=== PATIENT | female | born 1985 | race African-American/Black ===

== ENCOUNTER → 2017-07-26 12:08 | Outpatient (CLI) | payer MEDICARE, MEDICAID, SELFPAY ==
[2017-07-26 13:17] LABS: Amphetamine Urine VISTA NEGATIVE (<1000 ng/mL); Barbiturate Urine VISTA NEGATIVE (< 200 ng/mL); Benzodiazepine Urine VISTA NEGATIVE (< 200 ng/mL); Cocaine Urine VISTA NEGATIVE (< 300 ng/mL); Ecstacy Urine VISTA NEGATIVE (< 500 ng/mL); Methadone Urine VISTA NEGATIVE (< 300 ng/mL); PCP Urine VISTA NEGATIVE (< 25 ng/mL); THC Urine VISTA NEGATIVE (< 50 ng/mL); Vista UDS pH Range 7
== END ==
PROVIDERS: Visit Provider Anesthesiology Pain Medicine
DX: F11.20 Opioid dependence, uncomplicated (principal)
CPT/HCPCS: 80307

== ENCOUNTER → 2017-12-08 10:40 | Outpatient (CLI) | payer MEDICARE, MEDICAID, SELFPAY ==
--- OUTSIDE RECORDS SUMMARY | 2017-12-07 14:01 | XMS RPT_ITS ---
:1985 Author Organization OHIP Care Team Providers Name Role Phone VALENTINA MONCADA Admitting Unavailable VALENTINA MONCADA Attending Unavailable VALENTINA MONCADA Referring Unavailable AMADO EASTMAN Consulting Unavailable VALENTINA MONCADA Admitting Unavailable VALENTINA MONCADA Attending Unavailable KENYON BRYAN Consulting Unavailable CADENCE MONTANA (RES) Attending Unavailable AVEL EMMANUEL Admitting Unavailable AVEL EMMANUEL Attending Unavailable INGE JHA Attending Unavailable ANTWAN, VALENTINA Attending Unavailable ANTWAN, VALENTINA Attending Unavailable ANTWAN, VALENTINA Attending Unavailable ANTWAN, VALENTINA Attending Unavailable ANTWAN, VALENTINA Attending Unavailable DIWAKAR, ROMELIA Attending Unavailable PETRONA PARMAR Referring Unavailable WLAE RUELAS Admitting Unavailable WALE RUELAS Attending Unavailable FRITZ MENDES Attending Unavailable KOLE RODRIGUEZ, PETRONA MORALES Attending Unavailable PETRONA PARMAR Referring Unavailable ANTWAN, VALENTINA Attending Unavailable DIWAKAR, ROMELIA Attending Unavailable DIWAKAR, ROMELIA Referring Unavailable ANTWAN, VALENTINA Attending Unavailable CADENCE MONTANA (RES) Attending Unavailable Onel Correa Attending Unavailable Irineo, Christine Referring Unavailable Irineo, Christine Primary Care Unavailable Dianna Patterson Attending Unavailable Irineo, Christine Referring Unavailable Irineo, Christine Primary Care Unavailable Dianna Patterson Attending Unavailable Irineo, Christine Referring Unavailable Irineo, Christine Primary Care Unavailable Dianna Patterson Attending Unavailable Irineo, Christine Referring Unavailable Irineo, Christine Primary Care Unavailable Onel Correa Attending Unavailable PROVIDER, UNKNOWN Referring Unavailable Diwakar, Romelia Primary Care Unavailable Onel Correa Attending Unavailable Irineo, Christine Referring Unavailable Irineo, Christine Primary Care Unavailable Onel Correa Attending Unavailable PROVIDER, UNKNOWN Referring Unavailable Diwakar, Romelia Primary Care Unavailable Onel Correa Attending Unavailable PROVIDER, UNKNOWN Referring Unavailable Diwakar, Romelia Primary Care Unavailable Onel Correa Attending Unavailable PROVIDER, UNKNOWN Referring Unavailable Diwakar, Romelia Primary Care Unavailable PETRONA PIERRE Admitting Unavailable PETRONA PIERRE Attending Unavailable DIWAKAR, ROMELIA Attending Unavailable DIWAKAR, ROMELIA Referring Unavailable DIWAKAR, ROMELIA Primary Care Unavailable DIWAKAR, ROMELIA Attending Unavailable DIWAKAR, ROMELIA Referring Unavailable DIWAKAR, ROMELIA Primary Care Unavailable ANTWAN, CHRISTOPHER R Referring Unavailable DIWAKAR, ROMELIA Primary Care Unavailable ANTWAN, CHRISTOPHER R Referring Unavailable DIWAKAR, ROMELIA Primary Care Unavailable ANTWANGIN R Attending Unavailable IMCA Referring Unavailable DIWAKAR, ROMELIA Primary Care Unavailable ANTWAN, GIN R Attending Unavailable IMCA Referring Unavailable DIWAKAR, ROMELIA Primary Care Unavailable PIERREPETRONA J Attending Unavailable PIERRE, PETRONA J Referring Unavailable DIWAKAR, ROMELIA Primary Care Unavailable PIERRE, PETRONA J Attending Unavailable PIERRE, PETRONA J Referring Unavailable DIWAKAR, ROMELIA Primary Care Unavailable DIWAKAR, ROMELIA Primary Care Unavailable Abby MENDES Attending Unavailable PIERRE, PETRONA J Attending Unavailable PIERRE, PETRONA J Referring Unavailable DIWAKAR, ROMELIA Primary Care Unavailable ANTWANGIN Attending Unavailable IMCA Referring Unavailable DIWAKAR, ROMELIA Primary Care Unavailable PIERRE, PETRONA J Attending Unavailable PIERRE, PETRONA J Referring Unavailable DIWAKAR, ROMELIA Primary Care Unavailable GIN MONCADA Attending Unavailable IMCA Referring Unavailable DIWAKAR, ROMELIA Primary Care Unavailable GIN MONCADA Attending Unavailable IMCA Referring Unavailable DIWAKAR, ROMELIA Primary Care Unavailable WALE RUELAS Admitting Unavailable WALE RUELAS Attending Unavailable DIWAKAR, ROMELIA Primary Care Unavailable AVEL EMMANUEL Admitting Unavailable AVEL EMMANUEL Attending Unavailable DIWAKAR, ROMELIA Primary Care Unavailable PIERREPETRONA Attending Unavailable PIERRE, PETRONA J Referring Unavailable DIWAKAR, ROMELIA Primary Care Unavailable GIN MONCADA Attending Unavailable IMCA Referring Unavailable DIWAKAR, ROMELIA Primary Care Unavailable DIWAKAR, ROMELIA Primary Care Unavailable CADENCE MONTANA Attending Unavailable DIWAKAR, ROMELIA Primary Care Unavailable GIN MONCADA Admitting Unavailable GIN MONCADA Attending Unavailable WOO MEI Consulting Unavailable DUMFORD IIIKENYON Consulting Unavailable PIERRE, PETRONA J Attending Unavailable PIERRE, PETRONA J Referring Unavailable DIWAKAR, ROMELIA Primary Care Unavailable PIERREPETRONA J Attending Unavailable PIERRE, PETRONA J Referring Unavailable DIWAKAR, ROMELIA Primary Care Unavailable ANTWANGIN R Attending Unavailable IMCA Referring Unavailable DIWAKAR, ROMELIA Primary Care Unavailable ANTWANGIN R Admitting Unavailable ANTWANGIN R Attending Unavailable DIWAKAR, ROMELIA Primary Care Unavailable ANTWAN, GIN R Referring Unavailable AMADO EASTMAN Consulting Unavailable PIERRE, PETRONA J Referring Unavailable DIWAKAR, ROMELIA Attending Unavailable IMCA Referring Unavailable CANDIDA WERNER Attending Unavailable IMCA Referring Unavailable ANTWAN, LAER R Attending Unavailable IMCA Referring Unavailable ANTWAN, LAER R Attending Unavailable IMCA Referring Unavailable ANTWAN, CHRISTOPHER R Attending Unavailable IMCA Referring Unavailable DIWAKAR, ROMELIA Attending Unavailable DIWAKAR, ROMELIA Primary Care Unavailable CADENCE MONTANA Attending Unavailable PIERRE, PETRONA Herring Attending Unavailable PIERRE, PETRONA J Referring Unavailable DIWAKAR, ROMELIA Primary Care Unavailable ANTWAN, CHRISTOPHER R Attending Unavailable IMCA Referring Unavailable DIWAKAR, ROMELIA Primary Care Unavailable DIWAKAR, ROMELIA Attending Unavailable IMCA Referring Unavailable DIWAKAR, ROMELIA Primary Care Unavailable DIWAKAR, ROMELIA Primary Care Unavailable INGE JHA Attending Unavailable Darío Cast Attending Unavailable Darío Cast Referring Unavailable MITCH SAAVEDRA Primary Care Unavailable PROBLEMS PROBLEMS DATE TYPE CONDITION / CODE ATTENDING STATUS SOURCE 11/26/2017 Active Poisoning by CADENCE MONTANA [facility] unspecified drugs, (RES) Clinic Other medicaments and [place] biological Repository substances, undetermined, initial encounter / T50.904A(ICD-10) 09/02/2017 Active Diarrhea, VALENTINA MONCADA [facility] unspecified / Clinic Other R19.7(ICD-10) [place] Repository 09/02/2017 Active Complication of VALENTINA MONCADA [facility] Other medical care, [place] unspecified, Repository subsequent encounter / T88.9XXD(ICD-10) 07/26/2017 Unknown F11.20 - Opioid Basali, Ayman Active [place] [facility] uncomplicated / Hospital F11.20(ICD-10) Repository 01/21/2016 Active Generalized DIWAKAR, 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 Clinic Other and epileptic [place] syndromes, not Repository intractable, without status epilepticus / G40.309(ICD-10) 11/19/2015 Active Generalized DIWAKAR, ROMELIA Active [facility] abdominal pain / Clinic Other R10.84(ICD-10) [facility] Repository 07/12/2017 Active Cough / R05(ICD-10) DIWAKAR, ROMELIA [facility] Other [place] Repository 07/12/2017 Active Acute upper ROEMLIA CARDENAS Active [facility] Other infection, [place] unspecified / Repository J06.9(ICD-10) 06/15/2017 Active Lower abdominal ANTWANVALENTINA Active [facility] pain, unspecified / Clinic Other R10.30(ICD-10) [facility] Repository 06/08/2017 Active Acquired absence of ANTWANVALENTINA [facility] other specified Clinic Other parts of digestive [place] tract / Repository Z90.49(ICD-10) 06/05/2017 Active Other acute JHA, [facility] postprocedural pain INGE NATE [facility] Other / G89.18(ICD-10) [place] Repository 06/02/2017 Active 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 EMMANUELAVEL CASTREJON Active [facility] inflammatory D [facility] Other disease, [place] unspecified / Repository N73.9(ICD-10) 05/30/2017 Active Other mechanical CADENCE MONTANA Active [facility] complication of (RES) Clinic Other other specified [place] internal prosthetic Repository devices, implants and grafts, initial encounter / T85.698A(ICD-10) 05/29/2017 Active Infection following ANTWANVALENTINA Michaud Active [facility] a procedure, Clinic Other initial encounter / [place] T81.4XXA(ICD-10) Repository 05/24/2017 Active Moderate ANTWANVALENTINA Michaud Active [facility] protein-calorie Clinic Other malnutrition / [place] E44.0(ICD-10) Repository 05/29/2017 Admitting Unknown / ANTWAN, Active [place] diagnosis UNK(Unknown) [facility] Repository 05/21/2017 Active Peritoneal ANTWANVALENTINA Active [facility] adhesions Clinic Other (postprocedural) [place] (postinfection) / Repository K66.0(ICD-10) 05/21/2017 Active Unspecified ANTWANVALENTINA Active [facility] abdominal pain / Clinic Other R10.9(ICD-10) [facility] Repository 05/18/2017 Active Left lower quadrant ANTWANVALENTINA Active [facility] pain / Clinic Other R10.32(ICD-10) [place] Repository 04/19/2017 Admitting Other care home Onel Correa Active [facility] Diagnosis (current) drug System therapy / Repository Z79.899(ICD-10) 04/08/2017 Active Nonscarring hair ROMELIA CARDENAS Active [facility] loss, unspecified / Clinic Other L65.9(ICD-10) [facility] Repository 04/08/2017 Active Encounter for ROMELIA CARDENAS Active [facility] screening for other Clinic Other suspected endocrine [place] disorder / Repository Z13.29(ICD-10) 04/08/2017 Active Encounter for ROMELIA CARDENAS Active [facility] screening for Clinic Other lipoid disorders / [place] Z13.220(ICD-10) Repository 04/08/2017 Active Vitamin D ROMELIA CARDENAS Active [facility] deficiency, Clinic Other unspecified / [place] E55.9(ICD-10) Repository 04/01/2017 Active Unknown / ANTWANVALENTINA [facility] UNK(Unknown) Clinic Other [place] Repository 02/25/2017 Active Pelvic and perineal ANTWAN, [facility] pain / Clinic Other R10.2(ICD-10) [place] Repository 02/25/2017 Active Other chronic pain ANTWANVALENTINA [facility] / G89.29(ICD-10) Clinic Other [place] Repository 02/25/2017 Active Constipation, ANTWAN, [facility] unspecified / Clinic Other K59.00(ICD-10) [place] Repository PROCEDURES PROCEDURES No Procedure Records FoundRESULTS RESULTS URINE DRUG SCREEN Collected: 12/07/2017 Status: P Source: [place] ([place]) 12:14 PM [facility] REPOSITORY Order Comment: Comments: [id number] URINE DRUG SCREEN RUN LOWEST TESTList of Drugs Taken or Suspected? UNK TYPE CODE TESTS RESULT OUT OF RANGE REFERENCE UNITS LAB L505.0075 Normal TO BE CONFIRMED Result Comment: CONFIRMATORY TESTING FOR ALL POSITIVE URINE DRUG SCREENRESULTS WILL ONLY BE SENT OUT UPON PHYSICIAN ORDER.[place] Urine Drug Screen methods provide only preliminaryanalytical test results. A more specific alternate chemicalmethod must be used in order to obtain a confirmedanalytical result. Gas chromatography/mass spectrometery(GC/MS) is the preferred confirmatory method. Clinicalconsideration and professional judgement should be appliedto any drug of abuse test result, particularly whenpreliminary positive results are used.URINE TCA TESTING MUST BE ORDERED SEPARATELY. USE TESTMNEMONIC: UTCA Performed By: #### L505.5000 ####[facility] [id number] [place], [address] ED PROV NOTE Observed: 11/26/2017 Status: COMPLETED Source: [place] 11:18 AM [facility] REPOSITORY HNO ID: [id number]: MARY ANN Saucedaervice: Emergency MedicineAuthor Type: PhysicianType: ED Provider NotesFiled: 11/26/2017 11:37 PMNote Text:ED Signout NoteAugust 2017 11:18 AMPatient signed out to me by Dr. Jacinto.Brief History:Patient is a 32 year old female who presented to the ED for amsunresponsive.Per initial resident provider, initial differential most likely opiateoverdose / tox.Initial Labs: Basic Metabolic Panel and Complete Blood CountInitial Imaging: NoneInitial Treatment: naloxone x 2At time of sign out:: BP 129/93 Pulse 79 Temp 36.5 ?C (97.7 ?F) (Oral) Resp (!) 8 Ht172.7 cm (5' 8) Wt 59 kg (130 lb) SpO2 96% BMI 19.77 kg/m?Pending items are: Observe for clinical sobrietyFinal Disposition:Patient observed until clinical sobriety. Patient alert and oriented ?3able to answer questions appropriately. Patient able to ambulate withoutdifficulty. Mother at bedside. Patient was just be discharged home, shewill be discharged home with her mother. Both are comfortable with theplan. Return to ED and follow-up instructions were provided.Sally Xavier (Res) Geovani, PBVtapyxmw51/11/18 1127Attending NoteI evaluated the patient and personally participated in the cutler components. I agree with the resident's findings and plan as documented and havediscussed the case and management of the patient 's care with the resident.ED Attending Continuation of Care NoteAugust 2017 11 :35 Priti Marr was endorsed to me by Dr. Oseguera.The patient initially presented to the ED for: overdosePatient ambulated and tolerated po prior to going home with mother.Parameters of when to return to the ED were explained and specified in thedischarge instructions.Maureen Yeh MD11/26/17 2336Asharon Montana MD11/26/17 2337 ED NOTE Observed: 11/26/2017 Status: COMPLETED Source: [place] 11:00 AM CLINIC OTHER CAMPUS REPOSITORY HNO ID: [id number]: Yesenia (Rn) KARL Melendezervice: Emergency MedicineAuthor Type: Registered NurseType: ED NotesFiled: 11/26/2017 11:23 AMNote Text: Pt ambulated slowly to BR with out assist. Pt still sleepy. Pt going homewith mom. HEMOGRAM/DIFF Collected: 11/26/2017 Status: F Source: [facility] 7:12 AM [facility] REPOSITORY TYPE CODE TESTS RESULT OUT OF REFERENCE UNITS RANGE LAB WBC(LOINC) High 3.98-10.04 thou/cmm WBC 14.56 LAB RBC(LOINC) Low 3.93-5.22 mil/cmm RBC 3.77 LAB HGB(LOINC) 11.2-15.7 g/dL Hgb 11.4 LAB HCT(LOINC) 34.1-44.9 % Hct 34.6 LAB MCV(LOINC) 79.4-94.8 fl MCV 91.8 LAB MCH(LOINC) 25.6-32.2 pg MCH 30.2 LAB MCHC(LOINC 31.6-34.8 % ) MCHC 32.9 LAB RDW(LOINC) 11.7-14.4 % RDW 13.7 LAB RDWSD(LOIN High 36.4-46.3 fl C) RDW SD 46.4 LAB PLT(LOINC) 182-369 thou/cmm Platelet 277 LAB MPV(LOINC) 9.4-12.3 fl MPV 10.4 LAB SEG(LOINC) % Seg 85.1 Neutrophil LAB IGRE(LOINC % ) Immature 0.60 Grans LAB LYMPH(LOIN % C) Lymphocyte 9.5 LAB MNO(LOINC) % Monocyte 4.5 LAB EOSIN(LOIN % C) Eosinophil 0.1 LAB BASO(LOINC % ) Basophil 0.2 LAB SEGN(LOINC High 1.56-6.13 thou/cmm ) Abs. Neut 12.39 (ANC) LAB IGAB(LOINC High 0.00-0.05 thou/cmm ) Abs Immature 0.09 Grans LAB LYMN(LOINC 1.18-3.74 thou/cmm ) Abs. Lymph 1.38 LAB MONON(LOIN 0.27-0.70 thou/cmm C) Abs. [place] 0.66 LAB EOSN(LOINC 0.00-0.31 thou/cmm ) Abs. Eosin 0.01 LAB BASON(LOIN 0.01-0.08 thou/cmm C) Abs. Baso 0.03 Result Comment: Smear scanned; tech agrees with automated differential Performed By: #### CBCD1 ####[place] [id number] BASIC PANEL Collected: 11/26/2017 Status: F Source: [facility] 7:12 AM HEALTH SYSTEM REPOSITORY TYPE CODE TESTS RESULT OUT OF REFERENCE UNITS RANGE LAB NA(LOINC) Low 136-145 mEq/L Sodium Blood 132 LAB K(LOINC) 3.5-5.1 mEq/L Potassium 4.0 Blood LAB CL(LOINC) 98-107 mEq/L Chloride 100 Blood LAB CO2(LOINC) 21-32 mEq/L CO2 Blood 26 LAB GLU(LOINC) 70-99 mg/dL Glucose Blood 93 LAB BUN(LOINC) 7-18 mg/dL BUN Blood 13 LAB CREA(LOINC 0.51-0.95 mg/dL ) Creatinine 0.74 Blood LAB CA(LOINC) 8.5-10.1 mg/dL Calcium Blood 9.0 LAB ANGAP(LOIN 8-16 C) Anion Gap 10 Performed By: #### P8 ####[place] [address] MDRD GFR Collected: 11/26/2017 Status: F Source: [facility] 7:12 AM HEALTH SYSTEM REPOSITORY TYPE CODE TESTS RESULT OUT OF RANGE REFERENCE UNITS LAB GFRFN(LOINC >60mL/min/1. ) eGFR >60 73m2 Result Comment: If the patient is , multiply the result by 1.210. Performed By: #### GFR ####[place] [address] ED NOTE Observed: 11/26/2017 Status: COMPLETED Source: [place] 6:38 AM CLINIC OTHER CAMPUS REPOSITORY HNO ID: [id number]: Jimmie (Rn) KARL Monroyervice: Emergency MedicineAuthor Type: Registered NurseType: ED NotesFiled: 11/26/2017 6:39 AMNote Text: Attempt 1 IV insertion in LAC, unsuccessful by this CRAB BACKER NOTE Observed: 11/26/2017 Status: COMPLETED Source: [place] 4:35 AM [facility] REPOSITORY HNO ID: [id number]: Jimmie (Rn) KARL Monroyervice: Emergency MedicineAuthoaugust Type: Registered NurseType: ED NotesFiled: 11/26/2017 4:36 AMNote Text: 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 No ectopy noted. Alarms on and reviewed. Ptalso attached to continuous pulse ox and disposable BP cuff. RhythmSinusTach noted ED PROV NOTE Observed: 11/26/2017 Status: COMPLETED Source: [place] 4:28 AM [facility] REPOSITORY HNO ID: [id number]: MARY ANN Bryant Reservice: Emergency MedicineAuthor Type: ResidentType: ED Provider NotesFiled: 11/26/2017 8:08 AMNote Text: ------ Attestation signed by Alexandru Oseguera MD at 12/02/2017 5:02 PMAttending NoteI evaluated the patient and personally participated in the cutler components. Isupervised any procedures performed by the resident. I agree with theremarianelant's findings and plan with the following revisions and/or additions:Laurence Marr is a 32 year old female who presents with suspectedoverdose. Family called 911. EMS notes that there was drug paraphernaliasurrounding the patient. She was given 2 mg of intranasal Narcan by EMS withimprovement. On arrival was answering questions appropriately, told theresident that she did not know what she took other than that it was painmedication. She told me that she took 2 tablets of Nucynta.On my exam, she is very difficult to arouse. With shouting and sternal rub, shebriefly rouses, raises her head, and moans with dysconjugate gaze thenimmediately falls back asleep. After additional narcan, she was awake and alertand able to maintain a conversation.Mental status initially improved after narcan by EMS but then worsened, so wasgiven an additional dose of IV narcan. Signed out pending further monitoring,if requires further narcan will need admitted.Alexandru Oseguera MD 12/02/17 4:56 PMSignature: [id number] Taiate: 12/02/2017Time: 4:56 PM ---ED Provider NotePatient Name: Laurence Rivera: [id number] DATE: 11/26/17HistoryPatient presents with:[id number]-tyld-oiz female presents via EMS after an overdose. History obtainedfrom EMS is that family members called 911. On their arrival, patient wasunresponsive to painful stimulus, had a pulse oximetry of 80% on room airand respiratory rate of 3. EMS noted drug paraphernalia surrounding thepatient. She was given 2 mg of intranasal Narcan with improved mentationafter approximately 4 minutes. Patient awake, anaphylaxis answerquestions appropriately.Patient states that she took pain medication at home, however states thatshe does not know if he medication. She states that she took this orally. Patient denies thoughts of wanting to harm herself or others.PAST MEDICAL HISTORYDiagnosis Date- Abdominal pain decreased with position change- Anxiety- Bipolar 1 disorder (HCC)- Depression- Dysthymic disorder Depression (non- psychotic)- Endometriosis Frozen Pelvis- Epilepsy (HCC) LAST seizure almost 3 years ago, uses topamax- Generalized anxiety disorder Anxiety, Generalized- Other and unspecified ovarian cyst Ovarian cyst on left side- Overdose, drug 2016 opiodPAST SURGICAL HISTORYProcedure Laterality Date- COLONOSCOPY 2016- EXPLORATORY OF ABDOMEN 11/16/2010 Laparotomy, exp, for 10 years had a Laparoscopy every year.- HAND SURGERY HX Bilateral- L'SCOPE DX W/WO BRUSHINGS/WASHINGS Laparoscopy x7- LAPAROSCOPIC EXCISION MECKELS DIVERTIC 2017- TOTAL ABDOM HYSTERECTOMY 2012 BSOFAMILY HISTORYProblem Relation Age of Onset- Hypertension Mother- Genetic Mother Lupus- Obesity Mother- Psychiatry Mother Depression- Cancer Father Neuroblastoma when he was 29- Psychiatry Paternal Grandmother- Heart Paternal Grandmother- Cancer Maternal Grandmother and unknown type- Cancer Maternal Grandfather and unknown type- Breast Cancer Maternal Grandfather Cousin- ms [ OTHER] Maternal Grandfather Aunt, Uncle, Cousin- Diabetes OtherSocial HistorySocial History Main Topics- Smoking status: Current Every Day Smoker Years: 10.00 Types: Cigarettes- Smokeless tobacco: Never Used Comment: 2-3 CIGS DAILY- Alcohol use Yes Comment: Occasional- Drug use: No- Sexual activity: Not CurrentlyALLERGIESAllergen Reactions- Compazine [Prochlor* Swelling Tongue swelled- Darvocet A500 [Prop* GI Upset, Vomiting- Nsaids (Non-Steroid* Other: See Comments GI damage- Trazodone Hives, Swelling- Tylenol [Acetaminop* Swelling- Ultram [Tramadol] GI Upset, VomitingReview of SystemsConstitutional: Negative for chills and fever. Patient feels tiredHENT: Negative for congestion, sinus pressure and sore throat.Eyes: Negative for photophobia and visual disturbance.Respiratory: Negative for cough and shortness of breath.Cardiovascular: Negative for chest pain and palpitations.Gastrointestinal: Negative for abdominal pain, nausea and vomiting.Genitourinary: Negative for dysuria, frequency and hematuria.Musculoskeletal: Negative for back pain and neck pain.Skin: Negative for rash and wound.Neurological: Negative for dizziness, weakness and headaches.Physical ExamBP 122/83 Pulse 86 Temp (Src) 97.7 (Oral) Resp 18 Ht 5' 8 (1.73m) Wt 130 lb (59.0kg) SpO2 98% BMI 19.77 kg/(m2).Physical ExamConstitutional: She appears well-developed. No distress.HENT:Head: Normocephalic and atraumatic.Eyes: Conjunctivae and EOM are normal.Neck: Normal range of motion. No tracheal deviation present.Cardiovascular: Normal rate, regular rhythm and normal heart sounds.Pulmonary/Chest: Effort normal and breath sounds normal. No respiratorydistress.Abdominal: Soft. Bowel sounds are normal.Musculoskeletal: Normal range of motion.Neurological:Patient opens eyes to verbal stimulus; she is slow to respond to questionsand follow commands, however answers questions appropriately.Skin: Skin is warm and dry.Nursing note and vitals reviewed.Diagnostic TestingED Labs Ordered and ReviewedBASIC METABOLIC PANEL (AK,AV,EU,FV,HL,DIANE,MM, SP) - Abnormal; Notable forthe following: Result Value Ref Range Sodium 132 (*) 136 - 145 mEq/L All other components within normal limitsCBC + AUTO DIFF (AK,AV,EU,FV,HL,DIANE,MM,SP) - Abnormal; Notable for thefollowing: WBC 14.56 (*) 3.98 - 10.04 thou/cmm RBC 3.77 (*) 3.93 - 5.22 mil/cmm RDW-SD 46.4 (*) 36.4 - 46.3 fl Abs. Neut(Anc) 12.39 (*) 1.56 - 6.13 thou/cmm Immature Grans # 0.09 (*) 0.00 - 0.05 thou/cmm All other components within normal limitsMDRD GFRProceduresED Course / Clinical ImpressionMDM / Disposition / Plan 32-year-old female presents for evaluation of overdose. Patient was seenand evaluated by myself and the attending physician, history and physicalexam findings as above.On patient arrival, she is arousable to verbal stimulus, opens eyes toridges of slurred speech is slow to answer questions. Patient given 2 mgintranasal Narcan on arrival to the emergency department. She states thecardiac monitor. On reevaluation, patient continues to have depressedmentation. IV access established and labwork was obtained. Patient givenIV Narcan at this time. Patient able to tell us at this time that shetook 2 tablets of tapentadol. Denies any other substance use. At thistime, patient will require extended observation in the emergencydepartment secondary to acute onset of extended-release medication of 3hours. Patient will be reevaluated with plan for disposition pendingmental status.At this time, patient was signed out to Dr. Olivo; please refer to [facility] healthocumentation for further detail final disposition.The patient was signed out to Dr. Shanks at time of disposition: stableSIGNATURE: Dawson Bryant (Res) Francisco, XSTwmmupim43/11/18 [facility] NorthlandAlexandru Oseguera MD 1702 PROGRESS Observed: 09/02/2017 Status: COMPLETED Source: [place] 2:00 PM CLINIC OTHER CAMPUS REPOSITORY HNO ID: [id number]: Valentina Paulinaice: (none) Author Type: PhysicianType: Progress NotesFiled: 09/02/2017 2:25 PMNote Text:General surgery clinic follow-upHPI: This is a 32 year old female who presents for follow up nowapproximately 3 months out from her small bowel resection for symptomaticMeckel's diverticulum. Postoperative course was complicated by a pelviccollection which appeared to be inoculated seroma/abscess. This is in thesetting of protein malnutrition and chronic pelvic ascites. She didrequire IR tube drainage. Since then she is feeling better. She isremarkably better than her preoperative state which was long-term chronicpain. However, over the past 3-4 days she has been having 4-5 episodes ofdiarrhea per day. She still has issues with mild chronic abdominal painand has been getting what sounds like celiac plexus nerve blocks.Otherwise no fevers or chills. No nausea or vomiting. Her appetite issomewhat unchanged. No melena or bright red blood per rectum.PAST MEDICAL HISTORYDiagnosis Date- Abdominal pain decreased with position change- Anxiety- Bipolar 1 disorder (HCC)- Depression- Dysthymic disorder Depression (non-psychotic)- Endometriosis Frozen Pelvis- Epilepsy ( HCC) LAST seizure almost 3 years ago, uses topamax- Generalized anxiety disorder Anxiety, Generalized- Other and unspecified ovarian cyst Ovarian cyst on left side- Overdose, drug 2016 opiodPAST SURGICAL HISTORYProcedure Laterality Date- COLONOSCOPY 2016- EXPLORATORY OF ABDOMEN 11/16/2010 Laparotomy, exp, for 10 years had a Laparoscopy every year.- HAND SURGERY HX Bilateral- L'SCOPE DX W/WO BRUSHINGS/WASHINGS Laparoscopy x7- LAPAROSCOPIC EXCISION MECKELS DIVERTIC 2017- TOTAL ABDOM HYSTERECTOMY 2012 BSOFAMILY HISTORYProblem Relation Age of Onset- Hypertension Mother- Genetic Mother Lupus- Obesity Mother- Psychiatry Mother Depression- Cancer Father Neuroblastoma when he was 29- Psychiatry Paternal Grandmother- Heart Paternal Grandmother- Cancer Maternal Grandmother and unknown type- Cancer Maternal Grandfather and unknown type- Breast Cancer Maternal Grandfather Cousin- ms [OTHER] Maternal Grandfather Aunt, Uncle, Cousin- Diabetes OtherSocial History Marital status: Single Spouse name: Years of education: Number of children: 0Occupational HistoryOccupation Employer CommentdisabilitySocial History Main Topics Smoking status: Current Every Day Smoker Packs/day: 0.00 Years: 10.00 Types: Cigarettes Smokeless tobacco: Never Used Comment: 2-3 CIGS DAILY Alcohol use: Yes Comment: Occasional Drug use: No Sexual activity: Not CurrentlyOther Topics ConcernMilitary Service NoBlood Transfusions NoCaffeine Concern No Comment:20 oz of diet coke, teaOccupational Exposure NoHobby Hazards NoSleep Concern Yes Comment:Does not sleep wellStress Concern Yes Comment:Health ProblemsWeight Concern YesSpecial Diet NoBack Care NoExercise No Comment:TriesBike Helmet NoSeat Belt YesSelf-Exams NoCurrent Outpatient Prescriptions:fluticasone (FLONASE) 50 mcg/actuation nasal spray Use 1 [place] in eachnostril once daily.Food Supplement, Lactose-Free (ENSURE HIGH PROTEIN) liqd Take 237 mL bymouth three times daily with meals.BELSOMRA 10 mg tabNUCYNTA ER 50 mg [id number] (SENNA-S) 8.6-50 mg per tablet Take 1 tablet by mouth twicedaily.QUEtiapine (SEROQUEL) 200 mg tablet TAKE TWO TABLETS ONCE DAILY AT BEDTIMEPRNlamoTRIgine (LAMICTAL) 150 mg tablet Take 150 mg by mouth once daily.clonazePAM (KLONOPIN) 0.5 mg tablet Take 0.5 mg by mouth twice daily asneeded for Anxiety.gabapentin (NEURONTIN) 300 mg capsule Take 300 mg by mouth three timesdaily.topiramate (TOPAMAX) 100 mg tablet Take 100 mg by mouth twice daily.iv contrast (will be provided with radiology test) CT ABD/PEL -Inject, intravenously, once for 1 dose.No IV access, insert saline lock prior tothe beginning of sedation, infusion, injection of imaging exam.Discontinue saline lock post exam. If Pt. has a central line or IVAD, mayaccess for administration according to line specific nursing protocol.Once exam is complete flush line and de-access according to line specificnursing protocol in the CT contrast administration guidelines link.enteric contrast (will be provided with radiology test) For CT ABD/PEL WIVCON Routine order Administer, As Directed One Time Only, via Oral,Rectal, both Oral and Rectal, Enteric Tube, Stoma or Indwelling Catheter,Enteric Contrast as designated per enteric contrast guidelinesbuprenorphine (BUTRANS) 10 mcg/hourcefdinir (OMNICEF) 250 mg /5 mL suspensioncefdinir (OMNICEF) 300 mg capsulemetroNIDAZOLE (FLAGYL) 500 mg tabletoxyCODONE IR (ROXICODONE) 5 mg immediate release tabletpolyethylene glycol 3350 (MIRALAX, GLYCOLAX) 17 gram packet Take 1 Packetby mouth once daily as needed.0.9 % SODIUM CHLORIDE (0.9% NACL) 3 mL syrg Inject 5 mL intravenouslyevery 12 hours.No current facility-administered medications for this visit.ALLERGIESAllergen Reactions- Compazine [Prochlor* Swelling Tongue swelled- Darvocet A500 [Prop* GI Upset, Vomiting- Nsaids (Non-Steroid* Other: See Comments GI damage- Trazodone Hives, Swelling- Tylenol [Acetaminop* Swelling- Ultram [Tramadol] GI Upset, VomitingPHYSICAL EXAM:BP 125/82 Pulse 91 Ht 5' 8 (1.73m) Wt 151 lb ( 68.5kg) BMI 22.96kg/(m2).GENERAL APPEARANCE: Well appearing, alert, in no acute distress,well-hydrated, well nourished.. No jaundice or scleral icterusABDOMEN: Abdomen soft, non-tender. Bowel sounds normal. No masses,organomegaly. No peritoneal findings. Nontender exam. No rebound orguarding. No evidence of incisional hernia.NEURO: Alert, oriented x3 and speech clear and articulateASSESSMENT/PLAN :1. Left lower quadrant pain - ICD9: 789.04, ICD10: R10.32 (primarydiagnosis)- BASIC METABOLIC PNL- CBC2. Diarrhea, unspecified type - ICD9: 787.91, ICD10: R19.7- BASIC METABOLIC PNL- CBC3. Adverse effect of treatment, subsequent encounter - ICD9: V58.89,ICD10: T88.9XXD- BASIC METABOLIC PNL- CT ABD/PEL W IVCON - rule out ongoing pelvic abscess- CBC4. Moderate protein-calorie malnutrition (HCC) - ICD9: 263.0, ICD10: E44.0- BASIC METABOLIC PNL- ALBUMIN ARDCmariano Moncada MD CNOV Observed: 09/02/2017 Status: COMPLETED Source: [place] 1:15 PM CLINIC OTHER CAMPUS REPOSITORY Office Visit ([place]4) LAURENCE MARR ([id number]) 1985 FDate Time Provider Department09/02/17 1:15 PM VALENTINA MONCADA4 During your visit today, we recorded the following information about you: Pulse Blood pressure Weight Height 91/minute 125/82 68.5 kg 1.727 Madhavi Moncada MD 09/02/2017 2:00 PM SignedPlease have your blood work drawn before your CT scan. Once your CT scan isdone, if you have not heard from me within a few days, please call my office toget the resultsValentina Moncada MD 09/02/2017 2:25 PM SignedGeneral surgery clinic follow-upHPI: This is a 32 year old female who presents for follow up now approximately3 months out from her small bowel resection for symptomatic Meckel' sdiverticulum. Postoperative course was complicated by a pelvic collection whichappeared to be inoculated seroma/ abscess. This is in the setting of proteinmalnutrition and chronic pelvic ascites. She did require IR tube drainage.Since then she is feeling better. She is remarkably better than herpreoperative state which was long-term chronic pain. However, over the past 3-4days she has been having 4-5 episodes of diarrhea per day. She still hasissues with mild chronic abdominal pain and has been getting what sounds likeceliac plexus nerve blocks. Otherwise no fevers or chills. No nausea orvomiting. Her appetite is somewhat unchanged. No melena or bright red blood perrectum.PAST MEDICAL HISTORYDiagnosis Date- Abdominal pain decreased with position change- Anxiety- Bipolar 1 disorder (HCC)- Depression- Dysthymic disorder Depression (non-psychotic)- Endometriosis Frozen Pelvis- Epilepsy (HCC) LAST seizure almost 3 years ago, uses topamax- Generalized anxiety disorder Anxiety, Generalized- Other and unspecified ovarian cyst Ovarian cyst on left side- Overdose, drug 2016 opiodPAST SURGICAL HISTORYProcedure Laterality Date- COLONOSCOPY 2016- EXPLORATORY OF ABDOMEN 11/16/2010 Laparotomy, exp, for 10 years had a Laparoscopy every year. - HAND SURGERY HX Bilateral- L'SCOPE DX W/WO BRUSHINGS/WASHINGS Laparoscopy x7- LAPAROSCOPIC EXCISION MECKELS DIVERTIC 2017- TOTAL ABDOM HYSTERECTOMY 2012 BSOFAMILY HISTORYProblem Relation Age of Onset- Hypertension Mother- Genetic Mother Lupus- Obesity Mother- Psychiatry Mother Depression- Cancer Father Neuroblastoma when he was 29- Psychiatry Paternal Grandmother- Heart Paternal Grandmother- Cancer Maternal Grandmother and unknown type- Cancer Maternal Grandfather and unknown type- Breast Cancer Maternal Grandfather Cousin- ms [OTHER] Maternal Grandfather Aunt, Uncle, Cousin- Diabetes OtherSocial History Marital status: Single Spouse name: Years of education: Number of children: 0Occupational HistoryOccupation Employer CommentdisabilitySocial History Main Topics Smoking status: Current Every Day Smoker Packs/day: 0.00 Years: 10.00 Types: Cigarettes Smokeless tobacco: Never Used Comment: 2-3 CIGS DAILY Alcohol use: Yes Comment: Occasional Drug use: No Sexual activity: Not CurrentlyOther Topics ConcernMilitary Service NoBlood Transfusions NoCaffeine Concern No Comment:20 oz of diet coke, teaOccupational Exposure NoHobby Hazards NoSleep Concern Yes Comment:Does not sleep wellStress Concern Yes Comment:Health ProblemsWeight Concern YesSpecial Diet NoBack Care NoExercise No Comment:TriesBike Helmet NoSeat Belt YesSelf-Exams NoCurrent Outpatient Prescriptions:fluticasone (FLONASE) 50 mcg/ actuation nasal spray Use 1 [place] in each nostrilonce daily.Food Supplement, Lactose-Free (ENSURE HIGH PROTEIN) liqd Take 237 mL by mouththree times daily with meals.BELSOMRA 10 mg tabNUCYNTA ER 50 mg An31igyhc- docusate (SENNA-S) 8.6-50 mg per tablet Take 1 tablet by mouth twicedaily.QUEtiapine (SEROQUEL) 200 mg tablet TAKE TWO TABLETS ONCE DAILY AT BEDTIME PRNlamoTRIgine (LAMICTAL) 150 mg tablet Take 150 mg by mouth once daily.clonazePAM (KLONOPIN) 0.5 mg tablet Take 0.5 mg by mouth twice daily as neededfor Anxiety.gabapentin (NEURONTIN) 300 mg capsule Take 300 mg by mouth three times daily.topiramate (TOPAMAX) 100 mg tablet Take 100 mg by mouth twice daily.iv contrast (will be provided with radiology test) CT ABD/PEL - Inject,intravenously, once for 1 dose.No IV access, insert saline lock prior to thebeginning of sedation, infusion, injection of imaging exam. Discontinue salinelock post exam. If Pt. has a central line or IVAD, may access foradministration according to line specific nursing protocol. Once exam iscomplete flush line and de-access according to line specific nursing protocolin the CT contrast administration guidelines link.enteric contrast (will be provided with radiology test) For CT ABD/PEL W IVCONRoutine order Administer, As Directed One Time Only, via Oral, Rectal, bothOral and Rectal, Enteric Tube, Stoma or Indwelling Catheter, Enteric Contrastas designated per enteric contrast guidelinesbuprenorphine (BUTRANS) 10 mcg/ hourcefdinir (OMNICEF) 250 mg/5 mL suspensioncefdinir (OMNICEF) 300 mg capsulemetroNIDAZOLE (FLAGYL) 500 mg tabletoxyCODONE IR (ROXICODONE) 5 mg immediate release tabletpolyethylene glycol 3350 (MIRALAX, GLYCOLAX) 17 gram packet Take 1 Packet bymouth once daily as needed.0.9 % SODIUM CHLORIDE (0.9% NACL) 3 mL syrg Inject 5 mL intravenously every 12hours.No current facility-administered medications for this visit.ALLERGIESAllergen Reactions- Compazine [Prochlor* Swelling Tongue swelled- Darvocet A500 [Prop* GI Upset, Vomiting- Nsaids (Non-Steroid* Other: See Comments GI damage- Trazodone Hives, Swelling- Tylenol [Acetaminop* Swelling- Ultram [Tramadol] GI Upset, VomitingPHYSICAL EXAM:BP 125/82 Pulse 91 Ht 5' 8 (1.73m) Wt 151 lb (68.5kg) BMI 22.96kg/(m2).GENERAL APPEARANCE: Well appearing, alert , in no acute distress, well-hydrated,well nourished.. No jaundice or scleral icterusABDOMEN: Abdomen soft, non-tender. Bowel sounds normal. No masses,organomegaly. No peritoneal findings. Nontender exam. No rebound or guarding.No evidence of incisional hernia.NEURO: Alert, oriented x3 and speech clear and articulateASSESSMENT/PLAN:1. Left lower quadrant pain - ICD9: 789.04, ICD10: R10.32 (primary diagnosis)- BASIC METABOLIC PNL- CBC2. Diarrhea, unspecified type - ICD9: 787.91, ICD10: R19.7- BASIC METABOLIC PNL- CBC3. Adverse effect of treatment, subsequent encounter - ICD9: V58.89, ICD10:T88.9XXD- BASIC METABOLIC PNL- CT ABD/PEL W IVCON - rule out ongoing pelvic abscess- CBC4. Moderate protein-calorie malnutrition (HCC) - ICD9: 263.0, ICD10: E44.0- BASIC METABOLIC PNL- ALBUMIN ARDCmariano Moncada, MDReferring Provider: SELF [200]Allergies As of Date: 09/02/2017 Noted Allergy ReactionCOMPAZINE (PROCHLORPERAZINE) 12/24/2010 7 - Swelling Comments: Tongue swelledDARVOCET A500 (PROPOXYPHENE N-KITA*2010 8 - GI Upset 11 - VomitingNSAIDS (NON-STEROIDAL ANTI- INFLAM*11/19/2015 14 - Other: See Comments Comments: GI damageTRAZODONE 2014 4 - Hives 7 - SwellingTYLENOL (ACETAMINOPHEN) 7 - SwellingULTRAM (TRAMADOL) 12/24/2010 8 - GI Upset 11 - VomitingDate Reviewed: 09/02/2017Reviewed by: Valentina Moncada - Fully AssessedReason for Visit: Follow Up [171]Primary Visit Diagnosis:Left lower quadrant pain [R10.32] Other Visit Diagnoses:Diarrhea, unspecified type [R19.7] Adverse effect of treatment, subsequent encounter [T88.9XXD] Moderate protein-calorie malnutrition (HCC) [E44.0]Order(s):BASIC METABOLIC PNL [SQBMP] Order #: [id number] FUTURE ALBUMIN BLD [SQALB] Order #: [id number] FUTURE CT ABD/PEL W IVCON [0388664] Order #: [id number] FUTURE iv contrast (will be provided with radiology test)CT ABD/PEL -Inject, intravenously , once for 1 dose.No IV access, insert saline lock prior to the beginning of sedation, infusion , injection of imaging exam. Discontinue saline lock post exam. If Pt. has a central line or IVAD, may access for administration according to line specific nursing protocol. Once exam is complete flush line and de-access according to line specific nursing protocol in the CT contrast administration guidelines link.Disp: 1 EachRfl: 0 enteric contrast (will be provided with radiology test)For CT ABD/PEL W IVCON Routine order Administer, As Directed One Time Only, via Oral, Rectal, both Oral and Rectal, Enteric Tube, Stoma or Indwelling Catheter, Enteric Contrast as designated per enteric contrast guidelinesDisp: 1 EachRfl: 0 CBC [SQCBC] Order #: [id number] FUTUREPrescriptions as of 09/02/2017 Sig: FLUTICASONE 50 MCG/ACTUATION * Use 1 [place] in each nostril o* FOOD SUPPLEMENT, LACTOSE-REDU* Take 237 mL by mouth three ti* BELSOMRA 10 MG TABLET NUCYNTA ER 50 MG TABLET,EXTEN* SENNOSIDES 8.6 MG-DOCUSATE SO* Take 1 tablet by mouth twice * QUETIAPINE 200 MG TABLET TAKE TWO TABLETS ONCE DAILY A* LAMOTRIGINE 150 MG TABLET Take 150 mg by mouth once rolan* CLONAZEPAM 0.5 MG TABLET Take 0.5 mg by mouth twice da* GABAPENTIN 300 MG CAPSULE Take 300 mg by mouth three ti* TOPIRAMATE 100 MG TABLET Take 100 mg by mouth twice da* IV CONTRAST (RADIOLOGY PROCED* CT ABD/PEL -Inject, intraveno* ENTERIC CONTRAST (RADIOLOGY P* For CT ABD/PEL W IVCON Routin* BUPRENORPHINE 10 MCG/HOUR WEE* CEFDINIR 250 MG/5 ML ORAL BRANDON* CEFDINIR 300 MG CAPSULE METRONIDAZOLE 500 MG TABLET OXYCODONE 5 MG TABLET POLYETHYLENE GLYCOL 3350 17 G* Take 1 Packet by mouth once d* SODIUM CHLORIDE 0.9 % INJECTI* Inject 5 mL intravenously mary*Problem List As Of Date 09/02/2017 Noted Resolved Nausea [R11.0] INVALID FOR* Generalized abdominal pain [R10.84] INVALID FOR* Acute midline low back pain without sciatica [M*INVALID FOR* Encounter for vitamin deficiency screening [Z13*INVALID FOR* Screening for lipid disorders [Z13.220] INVALID FOR* Screening for thyroid disorder [Z13.29] INVALID FOR* Bipolar affective disorder in remission (HCC) [* INVALID FOR* Nonintractable generalized idiopathic epilepsy *INVALID FOR* More... Abdominal pain decreased with position change [*INVALID FOR*05/21/2017 More... Abdominal adhesions [K66.0 ] INVALID FOR*05/21/2017 More... Abdominal pain [R10.9] INVALID FOR*05/21/2017 Nicotine use disorder, F17.2 [F17.200] INVALID FOR* Abscess after procedure [T81.4XXA] INVALID FOR* Chronic pelvic pain in female [R10.2, G89.29] INVALID FOR* Other instructions from your clinician: Please have your blood work drawn before your CT scan. Once your CT scan is done, if you have not heard from me within a few days, please call my office to get the resultsPrescriptions ordered this encounter Disp Refills Start End IV CONTRAST ( RADIOLOGY PROCEDURE) 1 Ea* 0 09/02/2017 09/03/2017 Class: In Office Sig: CT ABD/PEL -Inject, intravenously, once for 1 dose.No IV access, insert saline lock prior to the beginning of sedation, infusion, injection of imaging exam. Discontinue saline lock post exam. If Pt. has a central line or IVAD, may access for administration according to line specific nursing protocol. Once exam is complete flush line and de-access according to line specific nursing protocol in the CT contrast administration guidelines link. ENTERIC CONTRAST (RADIOLOGY PROCEDUR* 1 Ea* 0 201709/03/2017 Class: In Office Sig: For CT ABD/PEL W IVCON Routine order Administer, As Directed One Time Only, via Oral, Rectal, both Oral and Rectal, Enteric Tube, Stoma or Indwelling Catheter , Enteric Contrast as designated per enteric contrast guidelinesDisposition: Return if symptoms worsen or fail to improve.Follow-up and Disposition History RecordedEncounter Number: [id number] Status:Closed by VALENTINA MONCADA MD on 09/02/17 URINE DRUG SCREEN Collected: 07/26/2017 Status: F Source: [place] (VISTA) 12:23 PM [facility] REPOSITORY Order Comment: Comments: TAPENDAOL [id number] URINEList of Drugs Taken or Suspected? UNK TYPE CODE TESTS RESULT OUT OF RANGE REFERENCE UNITS LAB L505.0075 Normal TO BE CONFIRMED Result Comment: CONFIRMATORY TESTING FOR ALL POSITIVE URINE DRUG SCREENRESULTS WILL ONLY BE SENT OUT UPON PHYSICIAN ORDER.VISTA Urine Drug Screen methods provide only preliminaryanalytical test results. A more specific alternate chemicalmethod must be used in order to obtain a confirmedanalytical result. Gas chromatography/mass spectrometery(GC/MS) is the preferred confirmatory method. Clinicalconsideration and professional judgement should be appliedto any drug of abuse test result, particularly whenpreliminary positive results are used.URINE TCA TESTING MUST BE ORDERED SEPARATELY. USE TESTMNEMONIC: [facility] LAB L505.5005 Normal VISTA UDS PH 7 LAB L505.5015 Normal <1000 AMPHETAMINES NEGATIVE ng/mL LAB L505.5025 Normal < 200 BARBITIURATES NEGATIVE ng/mL LAB L505.5035 Normal < 200 BENZODIAZIPINE NEGATIVE ng/mL LAB L505.5045 Normal < 300 COCAINE NEGATIVE ng/mL LAB L505.5055 Normal < 500 ECSTACY NEGATIVE ng/mL LAB L505.5065 Normal < 300 METHADONE NEGATIVE ng/mL LAB L505.5075 High < 300 OPIATES POSITIVE ng/mL LAB L505.5085 Normal < 25 PCP NEGATIVE ng/mL LAB L505.5095 Normal < 50 THC NEGATIVE ng/mL Performed By: #### L505.5000 ####[facility] [id number] [place], [place], [address] MISCELLANEOUS LAB Collected: 07/26/2017 Status: F Source: [place] PROCEDURE 2 12:23 PM [facility] REPOSITORY Order Comment: Comments: TAPENDAOL [id number] URINEList Test (s) Ordered by Physician: URINE TOXICOLOGY [id number] RUN LOWEST TEST TYPE CODE TESTS RESULT OUT OF RANGE REFERENCE UNITS LAB L801.1543 Normal [facility] LAB TEST 2 Result Comment: [id number] 6+OXYCODONE-BUND (ng/mL)DRUG RESULT SCREEN CUTOFF___ _ Amphetamines,Urine Negative ng/mL 1000Amphetamine test includes Amphetamine and Methamphetamine.Barbiturates Negative ng/mL 200Benzodiazepines Negative ng/ mL 200Cannabinoid Negative ng/mL 20Cocaine (Metab) Negative ng/mL 300Opiates POSITIVE ng/mL 300 Opiates test includes Codeine, Morphine, Hydromorphone, Hydrocodone. Codeine Negative 300 Morphine POSITIVE Morphine Confirm 498 ng/mL 300 Hydromorphone Negative 300 Hydrocodone Negative 300Oxycodone/Oxymorphone,Urine Negative ng/mL 300 Test includes Oxydodone and Oxymorphone. TESTING PERFORMED AT [facility]. ORIGINAL REPORT ON FILE IN LAB CONTAINS ADDITIONAL TEST SITE INFORMATION. Performed By: #### L801.1543 ####[facility] [id number] [place], [address] MISCELLANEOUS LAB Collected: 07/26/2017 Status: F Source: [place] PROCEDURE 12:23 PM [facility] REPOSITORY Order Comment: Comments: TAPENDAOL [id number] URINETest(s) Ordered: URINE TOXICOLOGY [id number] RUN LOWEST TEST TYPE CODE TESTS RESULT OUT OF RANGE REFERENCE UNITS LAB L801.1541 Normal [facility] LAB TEST Result Comment: TEST RESULT LIMITSTapentadol, Urine Tapentadol Positive Cutoff= 200 Tapentadol, Confirm 528 ng/mL [id number] detected; this finding is consistent with use ofmedication Nucynta, or generic formulations. TESTING PERFORMED AT [facility]. ORIGINAL REPORT ON FILE IN LAB CONTAINS ADDITIONAL TEST SITE INFORMATION. Performed By: #### L801.1541 ####[facility] [id number] [place], [address] CNOV Observed: 07/12/2017 Status: COMPLETED Source: [place] 2:30 PM CLINIC OTHER CAMPUS REPOSITORY Office Visit (AGINTBA) AMINTAMARIELOSLAURENCE Fanny ([id number]) 1985 [facility] Time Provider Department07/12/17 2:30 PM ROMELIA CARDENAS During your visit today, we recorded the following information about you: Temperature Pulse Respiration Blood pressure 97.6 degrees 116/minute 16/minute 110/72 Weight Height 70.8 kg 1.74 Malia Cardenas MD 07/12/2017 3:10 PM Carla Fanny Marr is a 32 year old female who presents with complaint of URI,nasal congestion, rhinorrhea, hoarse voice, post nasal drip and cough-productive with clear sputum for a few days. Associated symptoms includehoarse voice and body aches. She denies fever, dyspnea, wheezing, troubleswallowing, nausea, vomiting and diarrhea. Treatments tried include OTC coldmedicine with partial relief of symptoms.She states that the coughing is making her abdominal pain worse.Past Medical, Surgical, Family and Social Histories reviewed and updated todayin the History tab of [employer].Current Medications and allergies reviewed.PAST MEDICAL HISTORYDiagnosis Date- Abdominal pain decreased with position change- Anxiety- Bipolar 1 disorder (HCC )- Depression- Dysthymic disorder Depression (non-psychotic)- Endometriosis Frozen Pelvis- Epilepsy ( HCC) LAST seizure almost 3 years ago, uses topamax- Generalized anxiety disorder Anxiety, Generalized- Other and unspecified ovarian cyst Ovarian cyst on left side- Overdose, drug 2016 opiodPAST SURGICAL HISTORYProcedure Laterality Date- COLONOSCOPY 2016- EXPLORATORY OF ABDOMEN 11/16/2010 Laparotomy, exp, for 10 years had a Laparoscopy every year.- HAND SURGERY HX Bilateral- L'SCOPE DX W/WO BRUSHINGS/WASHINGS Laparoscopy x7- LAPAROSCOPIC EXCISION MECKELS DIVERTIC 2018- TOTAL ABDOM HYSTERECTOMY 2013 BSOACTIVE PROBLEM LISTNauseaGeneralized Abdominal PainAcute Midline Low Back Pain Without SciaticaEncounter for Vitamin Deficiency ScreeningScreening for Lipid DisordersScreening for Thyroid DisorderBipolar Affective Disorder in Remission (Hcc)Nonintractable Generalized Idiopathic Epilepsy Without Status Epilepticus (Hcc)Nicotine use disorder, F17.2Abscess After ProcedureChronic Pelvic Pain in FemaleALLERGIES: Compazine [Prochlorperazine]; Darvocet A500 [PropoxypheneN-Acetaminophen]; Nsaids (Non- Steroidal Anti-Inflammatory Drug); Trazodone;Tylenol [Acetaminophen]; Ultram [Tramadol]Current Outpatient Prescriptions:BELSOMRA 10 mg tabNUCYNTA ER 50 mg [id number] (SEROQUEL) 200 mg tablet TAKE TWO TABLETS ONCE DAILY AT BEDTIME PRNlamoTRIgine (LAMICTAL) 150 mg tablet Take 150 mg by mouth once daily.clonazePAM (KLONOPIN) 0.5 mg tablet Take 0.5 mg by mouth twice daily as neededfor Anxiety.gabapentin ( NEURONTIN) 300 mg capsule Take 300 mg by mouth three times daily.fluticasone (FLONASE) 50 mcg/actuation nasal spray Use 1 [place] in each nostrilonce daily.promethazine-codeine 6.25-10 mg/5 mL syrup Take 5 mL by mouth four times dailyas needed for Cough for up to 10 days.Food Supplement, Lactose-Free (ENSURE HIGH PROTEIN ) liqd Take 237 mL by mouththree times daily with meals.buprenorphine (BUTRANS) 10 mcg/hourcefdinir ( OMNICEF) 250 mg/5 mL suspensioncefdinir (OMNICEF) 300 mg capsulemetroNIDAZOLE (FLAGYL) 500 mg tabletoxyCODONE IR (ROXICODONE) 5 mg immediate release tabletsenna-docusate (SENNA-S) 8.6-50 mg per tablet Take 1 tablet by mouth twicedaily.polyethylene glycol 3350 (MIRALAX, GLYCOLAX) 17 gram packet Take 1 Packet bymouth once daily as needed.0.9 % SODIUM CHLORIDE (0.9% NACL) 3 mL syrg Inject 5 mL intravenously every 12hours.topiramate (TOPAMAX) 100 mg tablet Take 100 mg by mouth twice daily.No current facility- administered medications for this visit.FAMILY HISTORYProblem Relation Age of Onset- Hypertension Mother- Genetic Mother Lupus- Obesity Mother- Psychiatry Mother Depression- Cancer Father Neuroblastoma when he was 29- Psychiatry Paternal Grandmother- Heart Paternal Grandmother- Cancer Maternal Grandmother and unknown type- Cancer Maternal Grandfather and unknown type- Breast Cancer Maternal Grandfather Cousin- ms [OTHER] Maternal Grandfather Aunt, Uncle, Cousin- Diabetes OtherSocial History Marital status: Single Spouse name: Years of education: Number of children: 0Occupational HistoryOccupation Employer CommentdisabilitySocial History Main Topics Smoking status: Current Every Day Smoker Packs/day: 0.00 Years: 10.00 Types: Cigarettes Smokeless status: Never Used Comment: 2-3 CIGS DAILY Alcohol use: Yes Comment: Occasional Drug use: No Sexual activity: Not CurrentlyOther Topics ConcernMilitary Service NoBlood Transfusions NoCaffeine Concern No Comment:20 oz of diet coke, teaOccupational Exposure NoHobby Hazards NoSleep Concern Yes Comment:Does not sleep wellStress Concern Yes Comment:Health ProblemsWeight Concern YesSpecial Diet NoBack Care NoExercise No Comment:TriesBike Helmet NoSeat Belt YesSelf-Exams NoREVIEW OF SYSTEMSGENERAL: Weight lossHEENT: SEE HPINECK: Negative for lumps, goiter, pain and significant neck swellingRESPIRATORY: See HPICARDIOVASCULAR: Negative for chest pain, leg swelling, hypertension, CHF orpalpitationsGI: No nausea, vomiting, or diarrheaGU: No history of dysuria, frequency or incontinencePHYSICAL EXAM:General Appearance: Well appearing, alert, in no acute distress, well-hydrated,well nourished..Skin: Skin color, texture, turgor normal, no suspicious rashes or lesions.Nose/Sinuses: Positive findings: clear rhinorrhea.Oropharynx: Lips, mucosa, and tongue normal, teeth and gums normal, oropharynxnormal.Neck: Supple, no adenopathy; thyroid symmetric, normal size, no bruits.Lungs: Lungs clear to auscultation. No wheezing, rhonchi, rales.Heart: RRR without murmur, gallop, or rubs. No ectopy.Assessment/PlanViral URI - Discussed viral etiology and rationale for treatment.- Symptomatic treatment with prn analgesia- Supportive care with fluids and rest - The patient may also use Cough syrup with codeine- Rx given, warm salt watergargles, throat lozenges and /or OTC throat spray as needed and nasal salinegtts and suction prn.- Follow up in 3-5 days if symptoms persist or sooner if worsening of symptoms Cough - ICD9: 786.2, ICD10: R05 (primary diagnosis- FLUTICASONE 50 MCG/ACTUATION NASAL SPRAY,SUSPENSION- PROMETHAZINE 6.25 MG-CODEINE 10 MG/5 ML SYRUP2. Viral upper respiratory tract infection - ICD9: 465.9, ICD10: J06.9- Discussed viral etiology and rationale for treatment.- Symptomatic treatment with prn analgesia- Supportive care with fluids and rest- Follow up in 3-5 days if symptoms persist or sooner if worsening of symptoms- FLUTICASONE 50 MCG/ACTUATION NASAL SPRAY,SUSPENSION- PROMETHAZINE 6.25 MG-CODEINE 10 MG/5 ML SYRUP3. Moderate protein-calorie malnutrition (HCC) - ICD9: 263.0, ICD10: E44.0Last albumin done in May was 2.6.--[facility].- FOOD SUPPLEMENT, LACTOSE-REDUCED ORAL LIQUID- COMP METABOLIC PANEL4. Generalized abdominal pain - ICD9: 789.07, ICD10: R10.84--NT following with pain management--Status post removal of meckel's diverticulum c/b abscess postop s/p drainremoval.--felling fine at present but states that the pain could worsen with the coughshe has been getting. Has follow-up to see Dr. Pierre as well as Dr. Moncada.5. Nonintractable generalized idiopathic epilepsy without status epilepticus(HCC) - ICD9: 345.90, ICD10: G40.309-Stable following with Dr. Alyotal time in direct patient contact was 25 minutes more than 50% of time wasspent in counseling and coordination of care.Lashae Beverly MD 07/12/2017 3:03 PM SignedSMOKING CESSATIONStopping smoking is the most important thing you can do to protect your currentand future health, as well as that of your family. It is the most potent riskfactor for the future development of coronary artery disease and heart attacks.Smoking is both an addiction and a learned behavior. The nicotine withdrawaltakes anywhere from 2-4 weeks and results in symptoms such as irritability,fatigue, insomnia, coughing, dizziness, poor concentration, hunger andcigarette cravings. After the nicotine withdrawal period, the learned linkagebetween certain acts or situations and cigarette use remain. Strategies todeal with these must be developed along with new behaviors to ensure successfulsmoking cessation.STRATEGIES TOWARD SMOKING CESSATION- Make a list of the reasons why you want to quit, plus the benefits to begained, and compare them to the reasons why you should continue to smoke.- Pick a specific quit date.- If you are interested in using nicotine patches or gum to assist with thenicotine withdrawal, let the staff know.- Inform friends, family, and co-workers that you are quitting and when yourquit date is. Ask for their understanding and support.- Prepare your environment by removing all cigarettes prior to your quit date.- Prior to your quit date, avoid smoking in places where you spend a lot oftime ( such as the house, work, car).- From previous quit attempts, identify what helped you to stop smoking.- From previous quit attempts, identify what triggered relapse. How can youavoid that again?- What things (situations, emotions) do you anticipate will be mostchallenging, especially in the first few weeks, to your quitting effort?- What can you do to address these challenges?- Avoid (or limit) alcohol consumption during the quitting process.- If your spouse or close coworker currently smoke, consider quitting togetheror at the very least, develop specific plans to maintain your cigaretteabstinence while in the home or at work.- Take each day, each hour, each craving, one at a time. Every step or actionyou take toward smoking cessation is a success. The only failure is thefailure to try.- The health of you and your family, is worth the effort.STOP SMOKING CHECK LISTPreparing to Quit:___ Make a personal pact with yourself to quit.___ Pick a date for quitting completely. (My date to quit is ____.)___ Write down on a card the three most important reasons for quitting. Carrythe card with you from now on. Look at it several times a day.___ Prior to quitting, eliminate smoking completely in 2 or 3 of your high risksituations.___ Reduce consumption to one pack per day or less.___ Change to a less desirable brand of cigarettes.___ Discard your exercise instruct. Use matches. Carry your cigarettes in a differentplace.___ Spend a little time each day picturing in your mind stressful eventsoccurring in the future and you not smoking.Actual Quitting: The First Two Weeks___ Get rid of all cigarettes. Put away all smoking related objects such asashtrays. Ask the people you live with not to smoke in your presence for thefirst two weeks._ __ Spend as much time as possible with non-smoking people.___ Keep busy, especially on evenings and weekends.___ Avoid high risk situations (large parties, bars, etc.).___ Spend lots of time in places that prohibit or discourage smoking (e.g.,theaters, libraries.)___ Drink plenty of fluids.___ Don't substitute food or sugar based products for cigarettes. Use approvedsubstitutions. (... ice water, high bulk /low calorie foods, sugarless gum,mouthwash, brushing teeth.)___ Begin or increase regular exercise program.___ When experiencing withdrawal effects: 1. Remind yourself why you are quitting (from your card). 2. Remind yourself that whatever discomfort you are experiencingis only a tiny fraction of the probable discomfort associated with continuedsmoking. 3. Practice deep breathing or other relaxation techniques - tapes.___ Remind yourself that you can free yourself from this unhealthy, expensive,messy habit and become a non-smoker.Maintenance of Quitting: After two weeks___ Remind yourself that the desire to smoke is linked to a great manysituations, people and emotional stress.___ When you do have a desire to smoke, remember that it only lasts a fewseconds: distract yourself and leave the situation if necessary.___ After each desire to smoke has passed, pat yourself on the back, you havejust made progress in breaking the habit forever.___ Save the money on wasted on cigarettes in a ANDquot;special fundANDquot; andbuy yourself something nice.Maintenance of Quitting: After Two Months___ Be particularly vigilant when unusual life events occur. (.. weddings,holidays , vacations.)___ Be particularly vigilant when stressful life events occur (e.g.,relationship problems, financial or work problems.)___ Remind yourself regularly that not smoking is completely within yourpersonal control.___ Never lull yourself into thinking you are out of danger and you can safelyhave a cigarette or two. -- you cannot!!!!!___ If, by chance, you do slip and have one or more cigarettes, do not concludethat ANDquot;all is lostANDquot;. Return to complete abstinence immediately andlearn from your experience.___ If you have gained significant weight since quitting, now is the time to dosomething about it.___ Each time you see a cigarettes advertisement, remind yourself of why youquit. Also remember that a [employer] industry spends billions of dollars eachyear trying to get people like yourself ANDquot;re- hookedANDquot;.Referring Provider: ROMELIA CARDENAS [[id number]]Allergies As of Date: 07/12/2017 Noted Allergy ReactionCOMPAZINE (PROCHLORPERAZINE) 12/24/2010 7 - Swelling Comments: Tongue swelledDARVOCET A500 (PROPOXYPHENE N-KITA*12/24/2010 8 - GI Upset 11 - VomitingNSAIDS (NON-STEROIDAL ANTI-INFLAM*11/19/2015 14 - Other: See Comments Comments: GI damageTRAZODONE 02/20/2015 4 - Hives 7 - SwellingTYLENOL (ACETAMINOPHEN) 02/26/2016 7 - SwellingULTRAM ( TRAMADOL) 12/24/2010 8 - GI Upset 11 - VomitingDate Reviewed: 07/12/2017Reviewed by: Sujit CottoWellspan York HospitalYina Billy - Fully AssessedReason for Visit: F /U 3 months [1176] Barky Cough [1961] Cmt: productive cough for about two weeks. Denies nausea and vomitting. No fever or chills ED Follow-up [821] Cmt: drain out on 06/21/16 from infection from abdominal surgery(cyst)Primary Visit Diagnosis:Cough [R05] Other Visit Diagnoses:Viral upper respiratory tract infection [J06.9] Moderate protein-calorie malnutrition (HCC) [E44.0] Generalized abdominal pain [R10.84] Nonintractable generalized idiopathic epilepsy without status epilepticus (HCC) [G40.309] Tobacco use disorder [F17.200]Order(s): fluticasone (FLONASE) 50 mcg/actuation nasal sprayUse 1 [place] in each nostril once daily.Disp: 1 BottleRfl: 1 promethazine-codeine 6.25-10 mg/5 mL syrupTake 5 mL by mouth four times daily as needed for Cough for up to 10 days.Disp: 60 mLRfl: 0 Food Supplement, Lactose-Free ( ENSURE HIGH PROTEIN) liqdTake 237 mL by mouth three times daily with meals.Disp: 90 BottleRfl: 2 COMP METABOLIC PANEL [SQCMP] Order #: [id number] FUTUREPrescriptions as of 07/12/2017 Sig: BELSOMRA 10 MG TABLET NUCYNTA ER 50 MG TABLET,EXTEN* QUETIAPINE 200 MG TABLET TAKE TWO TABLETS ONCE DAILY A* LAMOTRIGINE 150 MG TABLET Take 150 mg by mouth once rolan* CLONAZEPAM 0.5 MG TABLET Take 0.5 mg by mouth twice da* GABAPENTIN 300 MG CAPSULE Take 300 mg by mouth three ti* FLUTICASONE 50 MCG/ACTUATION * Use 1 [place] in each nostril o* PROMETHAZINE 6.25 MG- CODEINE * Take 5 mL by mouth four times* FOOD SUPPLEMENT, LACTOSE-REDU* Take 237 mL by mouth three ti* BUPRENORPHINE 10 MCG/HOUR WEE* CEFDINIR 250 MG/5 ML ORAL BRANDON* CEFDINIR 300 MG CAPSULE METRONIDAZOLE 500 MG TABLET OXYCODONE 5 MG TABLET SENNOSIDES 8.6 MG-DOCUSATE SO* Take 1 tablet by mouth twice * POLYETHYLENE GLYCOL 3350 17 G* Take 1 Packet by mouth once d* SODIUM CHLORIDE 0.9 % INJECTI* Inject 5 mL intravenously mary* TOPIRAMATE 100 MG TABLET Take 100 mg by mouth twice da*Medication notes this encounter BUPRENORPHINE 10 MCG/HOUR WEEKLY TRANSDERMAL PATCH >> Sujit Billy CMA 07/12/2017 2:07 PM >> SUJIT BILLY CMA Jul 12, 2017 2:07 PM Not taking CEFDINIR 250 MG/5 ML ORAL SUSPENSION >> Sujit Billy CMA 07/12/2017 2:08 PM >> SUJIT BILLY CMA Jul 12, 2017 2:08 PM Done taking CEFDINIR 300 MG CAPSULE >> Sujit Billy CMA 07/12/2017 2:08 PM >> SUJIT BILLY CMA Jul 12, 2017 2:08 PM Done taking METRONIDAZOLE 500 MG TABLET >> Sujit Billy CMA 07/12/2017 2:08 PM >> SUJIT BILLY CMA Jul 12, 2017 2:08 PM Not taking OXYCODONE 5 MG TABLET >> Sujit Billy CMA 07/12/2017 2:09 PM >& gt; SUJIT BILLY CMA Jul 12, 2017 2:09 PM Not taking SENNOSIDES 8.6 MG-DOCUSATE SODIUM 50 MG TABLET >> Sujit Billy CMA 07/12/2017 2:09 PM >> SUJIT BILLY CMA Jul 12, 2017 2:09 PM prnProblem List As Of Date 07/12/2017 Noted Resolved Nausea [R11.0] INVALID FOR* Generalized abdominal pain [R10.84] INVALID FOR* Acute midline low back pain without sciatica [M*INVALID FOR* Encounter for vitamin deficiency screening [ Z13*INVALID FOR* Screening for lipid disorders [Z13.220] INVALID FOR* Screening for thyroid disorder [Z13.29] INVALID FOR* Bipolar affective disorder in remission (HCC) [*INVALID FOR* Nonintractable generalized idiopathic epilepsy *INVALID FOR* More... Abdominal pain decreased with position change [*INVALID FOR*05/21/2017 More... Abdominal adhesions [K66.0] INVALID FOR*05/21/2017 More... Abdominal pain [R10.9] INVALID FOR*2017 Nicotine use disorder, F17.2 [F17.200] INVALID FOR* Abscess after procedure [T81.4XXA] INVALID FOR* Chronic pelvic pain in female [R10.2, G89.29] INVALID FOR* Other instructions from your clinician: SMOKING CESSATION Stopping smoking is the most important thing you can do to protect your current and future health, as well as that of your family. It is the most potent risk factor for the future development of coronary artery disease and heart attacks. Smoking is both an addiction and a learned behavior. The nicotine withdrawal takes anywhere from 2-4 weeks and results in symptoms such as irritability, fatigue, insomnia, coughing, dizziness, poor concentration, hunger and cigarette cravings. After the nicotine withdrawal period, the learned linkage between certain acts or situations and cigarette use remain. Strategies to deal with these must be developed along with new behaviors to ensure successful smoking cessation. STRATEGIES TOWARD SMOKING CESSATION - Make a list of the reasons why you want to quit, plus the benefits to be gained, and compare them to the reasons why you should continue to smoke. - Pick a specific quit date. - If you are interested in using nicotine patches or gum to assist with the nicotine withdrawal, let the staff know. - Inform friends, family, and co-workers that you are quitting and when your quit date is. Ask for their understanding and support. - Prepare your environment by removing all cigarettes prior to your quit date. - Prior to your quit date, avoid smoking in places where you spend a lot of time ( such as the house, work, car). - From previous quit attempts, identify what helped you to stop smoking. - From previous quit attempts, identify what triggered relapse. How can you avoid that again? - What things (situations, emotions) do you anticipate will be most challenging, especially in the first few weeks, to your quitting effort? - What can you do to address these challenges? - Avoid ( or limit) alcohol consumption during the quitting process. - If your spouse or close coworker currently smoke, consider quitting together or at the very least, develop specific plans to maintain your cigarette abstinence while in the home or at work. - Take each day, each hour, each craving, one at a time. Every step or action you take toward smoking cessation is a success. The only failure is the failure to try. - The health of you and your family, is worth the effort. STOP SMOKING CHECK LIST Preparing to Quit: ___ Make a personal pact with yourself to quit. ___ Pick a date for quitting completely. (My date to quit is ____.) ___ Write down on a card the three most important reasons for quitting. Carry the card with you from now on. Look at it several times a day. ___ Prior to quitting, eliminate smoking completely in 2 or 3 of your high risk situations. ___ Reduce consumption to one pack per day or less. ___ Change to a less desirable brand of cigarettes. ___ Discard your exercise instruct. Use matches. Carry your cigarettes in a different place. ___ Spend a little time each day picturing in your mind stressful events occurring in the future and you not smoking. Actual Quitting: The First Two Weeks ___ Get rid of all cigarettes. Put away all smoking related objects such as ashtrays. Ask the people you live with not to smoke in your presence for the first two weeks. ___ Spend as much time as possible with non-smoking people. ___ Keep busy, especially on evenings and weekends. ___ Avoid high risk situations (large parties, bars, etc.). ___ Spend lots of time in places that prohibit or discourage smoking (e.g., theaters, libraries.) ___ Drink plenty of fluids. ___ Don't substitute food or sugar based products for cigarettes. Use approved substitutions. ( ... ice water, high bulk/low calorie foods, sugarless gum, mouthwash, brushing teeth.) ___ Begin or increase regular exercise program. ___ When experiencing withdrawal effects: 1. Remind yourself why you are quitting (from your card). 2. Remind yourself that whatever discomfort you are experiencing is only a tiny fraction of the probable discomfort associated with continued smoking. 3. Practice deep breathing or other relaxation techniques - tapes. ___ Remind yourself that you can free yourself from this unhealthy, expensive, messy habit and become a non-smoker. Maintenance of Quitting: After two weeks ___ Remind yourself that the desire to smoke is linked to a great many situations, people and emotional stress. ___ When you do have a desire to smoke, remember that it only lasts a few seconds: distract yourself and leave the situation if necessary. ___ After each desire to smoke has passed, pat yourself on the back, you have just made progress in breaking the habit forever. ___ Save the money on wasted on cigarettes in a special fund and buy yourself something nice. Maintenance of Quitting: After Two Months ___ Be particularly vigilant when unusual life events occur. (.. weddings, holidays, vacations.) ___ Be particularly vigilant when stressful life events occur (e.g., relationship problems, financial or work problems. ) ___ Remind yourself regularly that not smoking is completely within your personal control. __ _ Never lull yourself into thinking you are out of danger and you can safely have a cigarette or two. - - you cannot!!!!! ___ If, by chance, you do slip and have one or more cigarettes, do not conclude that all is lost. Return to complete abstinence immediately and learn from your experience. ___ If you have gained significant weight since quitting, now is the time to do something about it. ___ Each time you see a cigarettes advertisement, remind yourself of why you quit. Also remember that a powerful industry spends billions of dollars each year trying to get people like yourself re- hooked.Prescriptions ordered this encounter Disp Refills Start End FLUTICASONE 50 MCG/ ACTUATION NASAL S* 1 Jose* 1 07/12/2017 Route: EACH NOSTRIL Sig: Use 1 [place] in each nostril once daily. PROMETHAZINE 6.25 MG-CODEINE 10 MG/5* 60 mL 0 07/12/2017 07/22/2017 Class: Print RX Route: ORAL Sig: Take 5 mL by mouth four times daily as needed for Cough for up to 10 days. FOOD SUPPLEMENT, LACTOSE-REDUCED ORA* 90 B* 2 07/12/2017 Route: ORAL Sig: Take 237 mL by mouth three times daily with meals.Disposition: Return in about 6 months (around 01/12/2018), or if symptoms worsen or fail to improve, for chronic issues.Follow-up and Disposition History RecordedEncounter Number: [id number] Status:Closed by ROMELIA CARDENAS on 07/12/17 PROGRESS Observed: 07/12/2017 Status: COMPLETED Source: [place] 2:00 PM CLINIC OTHER CAMPUS REPOSITORY HNO ID: [id number]: Romelia Valerioe: (none) Author Type: PhysicianType: Progress NotesFiled: 07/12/2017 3:10 PMNote Text: Laurence Marr is a 32 year old female who presents with complaint ofURI, nasal congestion, rhinorrhea, hoarse voice, post nasal drip andcough- productive with clear sputum for a few days. Associated symptomsinclude hoarse voice and body aches. She denies fever, dyspnea, wheezing,trouble swallowing, nausea, vomiting and diarrhea. Treatments triedinclude OTC cold medicine with partial relief of symptoms.She states that the coughing is making her abdominal pain worse.Past Medical, Surgical, Family and Social Histories reviewed and updatedtoday in the History tab of [facility].Current Medications and allergies reviewed.PAST MEDICAL HISTORYDiagnosis Date- Abdominal pain decreased with position change- Anxiety- Bipolar 1 disorder (HCC)- Depression- Dysthymic disorder Depression (non-psychotic)- Endometriosis Frozen Pelvis- Epilepsy (HCC) LAST seizure almost 3 years ago, uses topamax- Generalized anxiety disorder Anxiety, Generalized- Other and unspecified ovarian cyst Ovarian cyst on left side- Overdose, drug 2016 opiodPAST SURGICAL HISTORYProcedure Laterality Date- COLONOSCOPY 2016- EXPLORATORY OF ABDOMEN 11/16/2010 Laparotomy, exp, for 10 years had a Laparoscopy every year.- HAND SURGERY HX Bilateral- L'SCOPE DX W/WO BRUSHINGS/WASHINGS Laparoscopy x7- LAPAROSCOPIC EXCISION MECKELS DIVERTIC 2018 - TOTAL ABDOM HYSTERECTOMY 2012 BSOACTIVE PROBLEM LISTNauseaGeneralized Abdominal PainAcute Midline Low Back Pain Without SciaticaEncounter for Vitamin Deficiency ScreeningScreening for Lipid DisordersScreening for Thyroid DisorderBipolar Affective Disorder in Remission (Hcc)Nonintractable Generalized Idiopathic Epilepsy Without Status Epilepticus(Hcc)Nicotine use disorder, F17.2Abscess After ProcedureChronic Pelvic Pain in FemaleALLERGIES: Compazine [Prochlorperazine]; Darvocet A500 [PropoxypheneN-Acetaminophen]; Nsaids (Non-Steroidal Anti-Inflammatory Drug);Trazodone; Tylenol [Acetaminophen]; Ultram [Tramadol]Current Outpatient Prescriptions:BELSOMRA 10 mg tabNUCYNTA ER 50 mg Lj12VNNtlminet (SEROQUEL) 200 mg tablet TAKE TWO TABLETS ONCE DAILY AT BEDTIMEPRNlamoTRIgine (LAMICTAL) 150 mg tablet Take 150 mg by mouth once daily.clonazePAM (KLONOPIN) 0.5 mg tablet Take 0.5 mg by mouth twice daily asneeded for Anxiety.gabapentin (NEURONTIN) 300 mg capsule Take 300 mg by mouth three timesdaily.fluticasone (FLONASE) 50 mcg/actuation nasal spray Use 1 [place] in eachnostril once daily.promethazine-codeine 6.25-10 mg/5 mL syrup Take 5 mL by mouth four timesdaily as needed for Cough for up to 10 days.Food Supplement, Lactose-Free (ENSURE HIGH PROTEIN) liqd Take 237 mL bymouth three times daily with meals.buprenorphine (BUTRANS) 10 mcg/hourcefdinir (OMNICEF) 250 mg/5 mL suspensioncefdinir (OMNICEF) 300 mg capsulemetroNIDAZOLE (FLAGYL) 500 mg tabletoxyCODONE IR (ROXICODONE) 5 mg immediate release tabletsenna-docusate ( SENNA-S) 8.6-50 mg per tablet Take 1 tablet by mouth twicedaily.polyethylene glycol 3350 (MIRALAX, GLYCOLAX) 17 gram packet Take 1 Packetby mouth once daily as needed.0.9 % SODIUM CHLORIDE (0.9% NACL) 3 mL syrg Inject 5 mL intravenouslyevery 12 hours.topiramate (TOPAMAX) 100 mg tablet Take 100 mg by mouth twice daily.No current facility-administered medications for this visit.FAMILY HISTORYProblem Relation Age of Onset- Hypertension Mother- Genetic Mother Lupus- Obesity Mother- Psychiatry Mother Depression- Cancer Father Neuroblastoma when he was 29- Psychiatry Paternal Grandmother- Heart Paternal Grandmother- Cancer Maternal Grandmother and unknown type- Cancer Maternal Grandfather and unknown type- Breast Cancer Maternal Grandfather Cousin- ms [OTHER] Maternal Grandfather Aunt, Uncle, Cousin- Diabetes OtherSocial History Marital status: Single Spouse name: Years of education: Number of children: 0Occupational HistoryOccupation Employer CommentdisabilitySocial History Main Topics Smoking status: Current Every Day Smoker Packs/day: 0.00 Years : 10.00 Types: Cigarettes Smokeless status: Never Used Comment: 2-3 CIGS DAILY Alcohol use: Yes Comment: Occasional Drug use: No Sexual activity: Not CurrentlyOther Topics ConcernMilitary Service NoBlood Transfusions NoCaffeine Concern No Comment:20 oz of diet coke, teaOccupational Exposure NoHobby Hazards NoSleep Concern Yes Comment: Does not sleep wellStress Concern Yes Comment:Health ProblemsWeight Concern YesSpecial Diet NoBack Care NoExercise No Comment:TriesBike Helmet NoSeat Belt YesSelf-Exams NoREVIEW OF SYSTEMSGENERAL: Weight lossHEENT: SEE HPINECK: Negative for lumps, goiter, pain and significant neck swellingRESPIRATORY: See HPICARDIOVASCULAR: Negative for chest pain, leg swelling, hypertension, CHFor palpitationsGI: No nausea, vomiting, or diarrheaGU: No history of dysuria, frequency or incontinencePHYSICAL EXAM:General Appearance: Well appearing, alert, in no acute distress,well- hydrated, well nourished..Skin: Skin color, texture, turgor normal, no suspicious rashes or lesions.Nose/Sinuses: Positive findings: clear rhinorrhea.Oropharynx: Lips, mucosa, and tongue normal, teeth and gums normal,oropharynx normal.Neck: Supple, no adenopathy; thyroid symmetric, normal size, no bruits.Lungs: Lungs clear to auscultation. No wheezing, rhonchi, rales.Heart: RRR without murmur, gallop, or rubs. No ectopy.Assessment/PlanViral URI - Discussed viral etiology and rationale for treatment.- Symptomatic treatment with prn analgesia- Supportive care with fluids and rest- The patient may also use Cough syrup with codeine- Rx given, warm saltwater gargles, throat lozenges and/or OTC throat spray as needed and nasalsaline gtts and suction prn.- Follow up in 3-5 days if symptoms persist or sooner if worsening ofsymptoms Cough - ICD9: 786.2, ICD10: R05 (primary diagnosis- FLUTICASONE 50 MCG/ACTUATION NASAL SPRAY,SUSPENSION- PROMETHAZINE 6.25 MG-CODEINE 10 MG/5 ML SYRUP2. Viral upper respiratory tract infection - ICD9: 465.9, ICD10: J06.9- Discussed viral etiology and rationale for treatment.- Symptomatic treatment with prn analgesia- Supportive care with fluids and rest- Follow up in 3-5 days if symptoms persist or sooner if worsening ofsymptoms- FLUTICASONE 50 MCG/ACTUATION NASAL SPRAY,SUSPENSION- PROMETHAZINE 6.25 MG-CODEINE 10 MG/5 ML SYRUP3. Moderate protein-calorie malnutrition (HCC) - ICD9: 263.0, ICD10: E44.0Last albumin done in May was 2.6.--[facility].- FOOD SUPPLEMENT, LACTOSE-REDUCED ORAL LIQUID- COMP METABOLIC PANEL4. Generalized abdominal pain - ICD9: 789.07, ICD10: R10.84--NT following with pain management--Status post removal of meckel's diverticulum c/ b abscess postop s/pdrain removal.--felling fine at present but states that the pain could worsen with thecough she has been getting. Has follow-up to see Dr. Pierre as well asDr. Moncada.5. 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 Alyotal time in direct patient contact was 25 minutes more than 50% of timewas spent in counseling and coordination of care.Romelia Cardenas MD PROGRESS Observed: 07/08/2017 Status: COMPLETED Source: [place] 2:55 PM CLINIC OTHER CAMPUS REPOSITORY HNO ID: [id number]: Valentina Bentonrvice: (none) Author Type: PhysicianType: Progress NotesFiled: 07/08/2017 3:00 PMNote Text:General surgery clinic follow-upHPI: This is a 32 year old female who presents for follow up after herdiagnostic laparoscopy, small bowel resection for Meckel's diverticulumwith postoperative inoculated pelvic ascites. Her IR placed percutaneousdrain has now been removed. She was feeling much better. She presentedto the emergency department a few days ago complaining of severeincisional pain after lifting a mattress on her own. Since then this isgotten much better. She did have a CT scan showing no obviousintra-abdominal pathology. Mild incisional discomfort. Her preoperativesymptoms appear to have resolved. No nausea or vomiting. No fevers orchills. She does have some ongoing incisional pain with defecation andurination.PAST MEDICAL HISTORYDiagnosis Date- Abdominal pain decreased with position change- Anxiety- Bipolar 1 disorder (HCC)- Depression- Dysthymic disorder Depression (non-psychotic)- Endometriosis Frozen Pelvis- Epilepsy (HCC) LAST seizure almost 3 years ago, uses topamax- Generalized anxiety disorder Anxiety, Generalized- Other and unspecified ovarian cyst Ovarian cyst on left side- Overdose, drug 2016 opiodPAST SURGICAL HISTORYProcedure Laterality Date- COLONOSCOPY 2016- EXPLORATORY OF ABDOMEN 11/16/2010 Laparotomy, exp, for 10 years had a Laparoscopy every year.- HAND SURGERY HX Bilateral- L'SCOPE DX W/WO BRUSHINGS/WASHINGS Laparoscopy x7- LAPAROSCOPIC EXCISION MECKELS DIVERTIC 2018- TOTAL ABDOM HYSTERECTOMY 2012 BSOFAMILY HISTORYProblem Relation Age of Onset- Hypertension Mother- Genetic Mother Lupus- Obesity Mother- Psychiatry Mother Depression- Cancer Father Neuroblastoma when he was 29- Psychiatry Paternal Grandmother- Heart Paternal Grandmother- Cancer Maternal Grandmother and unknown type- Cancer Maternal Grandfather and unknown type- Breast Cancer Maternal Grandfather Cousin- ms [ OTHER] Maternal Grandfather Aunt, Uncle, Cousin- Diabetes OtherSocial History Marital status: Single Spouse name: Years of education: Number of children: 0Occupational HistoryOccupation Employer CommentdisabilitySocial History Main Topics Smoking status: Current Every Day Smoker Packs/day: 0.00 Years: 10.00 Types: Cigarettes Smokeless status: Never Used Comment: 2-3 CIGS DAILY Alcohol use: Yes Comment: Occasional Drug use: No Sexual activity: Not CurrentlyOther Topics ConcernMilitary Service NoBlood Transfusions NoCaffeine Concern No Comment:20 oz of diet coke, teaOccupational Exposure NoHobby Hazards NoSleep Concern Yes Comment:Does not sleep wellStress Concern Yes Comment:Health ProblemsWeight Concern YesSpecial Diet NoBack Care NoExercise No Comment:TriesBike Helmet NoSeat Belt YesSelf-Exams NoCurrent Outpatient Prescriptions:buprenorphine ( BUTRANS) 10 mcg/hourcefdinir (OMNICEF) 250 mg/5 mL suspensioncefdinir (OMNICEF) 300 mg capsulemetroNIDAZOLE (FLAGYL) 500 mg tabletoxyCODONE IR (ROXICODONE) 5 mg immediate release tabletBELSOMRA 10 mg tabNUCYNTA ER 50 mg [id number] glycol 3350 (MIRALAX, GLYCOLAX) 17 gram packet Take 1 Packetby mouth once daily as needed.0.9 % SODIUM CHLORIDE (0.9% NACL) 3 mL syrg Inject 5 mL intravenouslyevery 12 hours.QUEtiapine (SEROQUEL) 200 mg tablet TAKE TWO TABLETS ONCE DAILY AT BEDTIMEPRNclonazePAM (KLONOPIN) 0.5 mg tablet Take 0.5 mg by mouth twice daily asneeded for Anxiety.gabapentin (NEURONTIN) 300 mg capsule Take 300 mg by mouth three timesdaily.topiramate (TOPAMAX) 100 mg tablet Take 100 mg by mouth twice daily.senna-docusate (SENNA-S) 8.6-50 mg per tablet Take 1 tablet by mouth twicedaily.lamoTRIgine (LAMICTAL) 150 mg tablet Take 150 mg by mouth once daily.No current facility-administered medications for this visit.ALLERGIESAllergen Reactions- Compazine [Prochlor* Swelling Tongue swelled- Darvocet A500 [Prop* GI Upset, Vomiting- Nsaids (Non-Steroid* Other: See Comments GI damage- Trazodone Hives, Swelling- Tylenol [Acetaminop* Swelling- Ultram [Tramadol] GI Upset, VomitingREVIEW OF SYSTEMS:GENERAL: No weight loss, malaise or feversGI: Negative for nausea , vomiting, diarrhea, constipation and signs ofjaundice Positive for abdominal pain At her incisionPHYSICAL EXAM:BP 123/96 Pulse 83 Ht 5' 8 ( 1.73m) Wt 155 lb (70.3kg) BMI 23.57kg/(m2).GENERAL APPEARANCE: Well appearing, alert , in no acute distress,well-hydrated, well nourished..ABDOMEN: Abdomen soft, non- tender. No masses, organomegaly. Incisionhealing nicely. No evidence of incisional hernia. No cellulitis orabscess. No peritoneal findings.NEURO: Alert, oriented x3, speech clear and articulate and MAEASSESSMENT/PLAN:1. Visit for wound check - ICD9: V58.89, ICD10: Z51.89Follow-up with me in 2 monthsValentina Moncada MD CNOV Observed: 07/08/2017 Status: COMPLETED Source: [place] 2:30 PM CLINIC OTHER CAMPUS REPOSITORY Office Visit ([place]) LAURENCE MARR ([id number]) 1985 [facility] Time Provider Department07/08/17 2:30 PM VALENTINA MONCADA4 During your visit today, we recorded the following information about you: Pulse Blood pressure Weight Height 83/minute 123/96 70.3 kg 1.727 Madhavi Moncada MD 07/08/2017 3:00 PM SignedGeneral surgery clinic follow-upHPI: This is a 32 year old female who presents for follow up after herdiagnostic laparoscopy, small bowel resection for Meckel's diverticulum withpostoperative inoculated pelvic ascites. Her IR placed percutaneous drain hasnow been removed. She was feeling much better. She presented to the emergencydepartment a few days ago complaining of severe incisional pain after lifting amattress on her own. Since then this is gotten much better. She did have a CTscan showing no obvious intra-abdominal pathology. Mild incisional discomfort. Her preoperative symptoms appear to have resolved. No nausea or vomiting. Nofevers or chills. She does have some ongoing incisional pain with defecationand urination.PAST MEDICAL HISTORYDiagnosis Date- Abdominal pain decreased with position change- Anxiety- Bipolar 1 disorder (HCC)- Depression- Dysthymic disorder Depression (non- psychotic)- Endometriosis Frozen Pelvis- Epilepsy (HCC) LAST seizure almost 3 years ago, uses topamax- Generalized anxiety disorder Anxiety, Generalized- Other and unspecified ovarian cyst Ovarian cyst on left side- Overdose, drug 2016 opiodPAST SURGICAL HISTORYProcedure Laterality Date- COLONOSCOPY 2016- EXPLORATORY OF ABDOMEN 11/16/2010 Laparotomy, exp, for 10 years had a Laparoscopy every year.- HAND SURGERY HX Bilateral- L'SCOPE DX W/WO BRUSHINGS/WASHINGS Laparoscopy x7- LAPAROSCOPIC EXCISION MECKELS DIVERTIC 2018 - TOTAL ABDOM HYSTERECTOMY 2012 BSOFAMILY HISTORYProblem Relation Age of Onset- Hypertension Mother- Genetic Mother Lupus- Obesity Mother- Psychiatry Mother Depression- Cancer Father Neuroblastoma when he was 29- Psychiatry Paternal Grandmother- Heart Paternal Grandmother- Cancer Maternal Grandmother and unknown type- Cancer Maternal Grandfather and unknown type- Breast Cancer Maternal Grandfather Cousin- ms [OTHER] Maternal Grandfather Aunt, Uncle, Cousin- Diabetes OtherSocial History Marital status: Single Spouse name: Years of education: Number of children : 0Occupational HistoryOccupation Employer CommentdisabilitySocial History Main Topics Smoking status: Current Every Day Smoker Packs/day: 0.00 Years: 10.00 Types: Cigarettes Smokeless status: Never Used Comment: 2-3 CIGS DAILY Alcohol use: Yes Comment: Occasional Drug use: No Sexual activity: Not CurrentlyOther Topics ConcernMilitary Service NoBlood Transfusions NoCaffeine Concern No Comment:20 oz of diet coke, teaOccupational Exposure NoHobby Hazards NoSleep Concern Yes Comment:Does not sleep wellStress Concern Yes Comment:Health ProblemsWeight Concern YesSpecial Diet NoBack Care NoExercise No Comment:TriesBike Helmet NoSeat Belt YesSelf-Exams NoCurrent Outpatient Prescriptions:buprenorphine (BUTRANS) 10 mcg/ hourcefdinir (OMNICEF) 250 mg/5 mL suspensioncefdinir (OMNICEF) 300 mg capsulemetroNIDAZOLE (FLAGYL) 500 mg tabletoxyCODONE IR (ROXICODONE) 5 mg immediate release tabletBELSOMRA 10 mg tabNUCYNTA ER 50 mg [id number] glycol 3350 (MIRALAX, GLYCOLAX) 17 gram packet Take 1 Packet bymouth once daily as needed.0.9 % SODIUM CHLORIDE (0.9% NACL) 3 mL syrg Inject 5 mL intravenously every 12hours.QUEtiapine (SEROQUEL) 200 mg tablet TAKE TWO TABLETS ONCE DAILY AT BEDTIME PRNclonazePAM (KLONOPIN) 0.5 mg tablet Take 0.5 mg by mouth twice daily as neededfor Anxiety.gabapentin (NEURONTIN) 300 mg capsule Take 300 mg by mouth three times daily.topiramate (TOPAMAX) 100 mg tablet Take 100 mg by mouth twice daily.senna-docusate (SENNA- S) 8.6-50 mg per tablet Take 1 tablet by mouth twicedaily.lamoTRIgine (LAMICTAL) 150 mg tablet Take 150 mg by mouth once daily.No current facility-administered medications for this visit.ALLERGIESAllergen Reactions- Compazine [Prochlor* Swelling Tongue swelled- Darvocet A500 [Prop* GI Upset, Vomiting- Nsaids (Non- Steroid* Other: See Comments GI damage- Trazodone Hives, Swelling- Tylenol [Acetaminop * Swelling- Ultram [Tramadol] GI Upset, VomitingREVIEW OF SYSTEMS:GENERAL: No weight loss, malaise or feversGI: Negative for nausea , vomiting, diarrhea, constipation and signs ofjaundice Positive for abdominal pain At her incisionPHYSICAL EXAM:BP 123/96 Pulse 83 Ht 5' 8ANDquot; (1.73m) Wt 155 lb (70.3kg) BMI 23.57kg/(m2).GENERAL APPEARANCE: Well appearing, alert, in no acute distress, well-hydrated,well nourished..ABDOMEN: Abdomen soft, non-tender. No masses, organomegaly. Incision healingnicely. No evidence of incisional hernia. No cellulitis or abscess. Noperitoneal findings.NEURO: Alert, oriented x3, speech clear and articulate and MAEASSESSMENT/PLAN:1. Visit for wound check - ICD9: V58.89, ICD10: Z51.89Follow-up with me in 2 monthsChamelia Moncada, MDReferring Provider: SELF [ 200]Allergies As of Date: 07/08/2017 Noted Allergy ReactionCOMPAZINE (PROCHLORPERAZINE) 12/24 7 - Swelling Comments: Tongue swelledDARVOCET A500 (PROPOXYPHENE N-KITA*12/24/2010 8 - GI Upset 11 - VomitingNSAIDS (NON-STEROIDAL ANTI-INFLAM*11/19/2015 14 - Other: See Comments Comments: GI damageTRAZODONE 02/20/2015 4 - Hives 7 - SwellingTYLENOL (ACETAMINOPHEN) 02/26/2016 7 - SwellingULTRAM (TRAMADOL) 12/24/2010 8 - GI Upset 11 - VomitingDate Reviewed: 07/08/2017Reviewed by: Valentina Moncada - Fully AssessedReason for Visit : Established Patient [175]Primary Visit Diagnosis:Visit for wound check [Z51.89]Prescriptions as of 07/08/2017 Sig: BUPRENORPHINE 10 MCG/HOUR WEE* CEFDINIR 250 MG/5 ML ORAL BRANDON* CEFDINIR 300 MG CAPSULE METRONIDAZOLE 500 MG TABLET OXYCODONE 5 MG TABLET BELSOMRA 10 MG TABLET NUCYNTA ER 50 MG TABLET,EXTEN* POLYETHYLENE GLYCOL 3350 17 G* Take 1 Packet by mouth once d * SODIUM CHLORIDE 0.9 % INJECTI* Inject 5 mL intravenously mary* QUETIAPINE 200 MG TABLET TAKE TWO TABLETS ONCE DAILY A* CLONAZEPAM 0.5 MG TABLET Take 0.5 mg by mouth twice da* GABAPENTIN 300 MG CAPSULE Take 300 mg by mouth three ti* TOPIRAMATE 100 MG TABLET Take 100 mg by mouth twice da* SENNOSIDES 8.6 MG-DOCUSATE SO* Take 1 tablet by mouth twice * LAMOTRIGINE 150 MG TABLET Take 150 mg by mouth once rolan*Medication notes this encounter POLYETHYLENE GLYCOL 3350 17 GRAM ORAL POWDER PACKET >> Shawanda Jain MA 07/08/2017 2:36 PM >> SHAWANDA JAIN MA Jul 08, 2017 2:36 PM stopped SODIUM CHLORIDE 0.9 % INJECTION SYRINGE 10 ML (AK) >> Shawanda Jain MA 07/08/2017 2:35 PM >> SHAWANDA JAIN MA Jul 08, 2017 2:35 PM stopped SENNOSIDES 8.6 MG-DOCUSATE SODIUM 50 MG TABLET >> Shawanda Jain MA 07/08/2017 2:36 PM >> SHAWANDA JAIN MA Jul 08, 2017 2:36 PM stoppedProblem List As Of Date 07/08/2017 Noted Resolved Nausea [R11.0] INVALID FOR* Generalized abdominal pain [R10.84] INVALID FOR* Acute midline low back pain without sciatica [M*INVALID FOR* Encounter for vitamin deficiency screening [Z13*INVALID FOR* Screening for lipid disorders [Z13.220] INVALID FOR * Screening for thyroid disorder [Z13.29] INVALID FOR* Bipolar affective disorder in remission (HCC) [*INVALID FOR* Nonintractable generalized idiopathic epilepsy *INVALID FOR* More... Abdominal pain decreased with position change [*INVALID FOR*05/21/2017 More... Abdominal adhesions [K66.0 ] INVALID FOR*05/21/2017 More... Abdominal pain [R10.9] INVALID FOR*05/21/2017 Nicotine use disorder, F17.2 [F17.200] INVALID FOR* Abscess after procedure [T81.4XXA] INVALID FOR* Chronic pelvic pain in female [R10.2, G89.29] INVALID FOR* Disposition: Return in about 2 months (around 09/07/2017).Follow-up and Disposition History RecordedEncdavid grant usaf medical centerer Number: [id number] Status:Closed by VALENTINA MONCADA MD on 07/08/17 CNOV Observed: 07/04/2017 Status: COMPLETED Source: [place] 1:45 PM CLINIC OTHER CAMPUS REPOSITORY Office Visit ([place]) LAURENCE MARR ([id number]) 1985 FDate Time Provider Department07/04/17 1:45 PM PETRONA PARMAR During your visit today, we recorded the following information about you: Blood pressure Weight Height 130/ 78 68.9 kg 1.727 Hollie Parmar MD 07/04/2017 1:40 PM SignedHPI:Laurence Marr is a 32 year old who presents for postop visit forL/S, removal of meckel's diverticulum c/b abscess postop s/p drain removal.Reported increased pain last pm instigated by lifting a bed.Contraception: hysterectomyHISTORY:Obstetric History T0 L0 SAB1 TAB0 Ectopic0 Multiple0 Live [id number] MEDICAL HISTORYDiagnosis Date- Abdominal pain decreased with position change- Anxiety- Bipolar 1 disorder (HCC)- Depression- Dysthymic disorder Depression (non-psychotic)- Endometriosis Frozen Pelvis- Epilepsy (HCC) LAST seizure almost 3 years ago, uses topamax- Generalized anxiety disorder Anxiety, Generalized- Other and unspecified ovarian cyst Ovarian cyst on left side- Overdose, drug 2016 opiodPAST SURGICAL HISTORYProcedure Laterality Date- COLONOSCOPY 2016- EXPLORATORY OF ABDOMEN 11/16/2010 Laparotomy, exp, for 10 years had a Laparoscopy every year.- HAND SURGERY HX Bilateral- L'SCOPE DX W/WO BRUSHINGS/WASHINGS Laparoscopy x7- LAPAROSCOPIC EXCISION MECKELS DIVERTIC 2017 - TOTAL ABDOM HYSTERECTOMY 2012 BSOREVIEW OF SYSTEMS:General : No weight loss, malaise or fevers. Pt eating in the room.Abdomen: No abdominal pain, nausea, vomiting, diarrhea, or constipation. Nobloating, early satiety, indigestion, or increased flatulence.Bladder: No dysuria, gross hematuria, urinary frequency, urinary urgency, orincontinence.Breast: No breast lumps, nipple d/c, overlying skin changes, redness or skinretraction.PHYSICAL EXAM:GENERAL: Well developed, well nourished, Thin in no apparent distressABDOMEN: soft, non-tender, no masses, rebound Absent and guarding Absent,incisions c/d/ iASSESSMENT/PLAN:1. Chronic pelvic pain in female - ICD9: 625.9, 338.29, ICD10: R10.2, G89.29- ANnual Petrona Parmar, MDReferring Provider: PETRONA PARMAR [[id number]]Allergies As of Date: Noted Allergy ReactionCOMPAZINE (PROCHLORPERAZINE) 12/24/2010 7 - Swelling Comments: Tongue swelledDARVOCET A500 (PROPOXYPHENE N-KITA*12/24/2010 8 - GI Upset 11 - VomitingNSAIDS (NON-STEROIDAL ANTI-INFLAM*11/19/2015 14 - Other: See Comments Comments: GI damageTRAZODONE 02/20/2015 4 - Hives 7 - SwellingTYLENOL (ACETAMINOPHEN) 02/26/2016 7 - SwellingULTRAM ( TRAMADOL) 12/24/2010 8 - GI Upset 11 - VomitingDate Reviewed: 07/04/2017Reviewed by: Petrona Parmar - Fully AssessedReason for Visit: Follow Up [171] Cmt: Pt is still having a lot of pain and was seen at the emergency department last night.Reason For Visit History RecordedPrimary Visit Diagnosis:Chronic pelvic pain in female [R10.2, G89.29]Prescriptions as of 07/04/2017 Sig: SENNOSIDES 8.6 MG-DOCUSATE SO* Take 1 tablet by mouth twice * POLYETHYLENE GLYCOL 3350 17 G* Take 1 Packet by mouth once d* SODIUM CHLORIDE 0.9 % INJECTI* Inject 5 mL intravenously mary* QUETIAPINE 200 MG TABLET TAKE TWO TABLETS ONCE DAILY A* LAMOTRIGINE 150 MG TABLET Take 150 mg by mouth once rolan* CLONAZEPAM 0.5 MG TABLET Take 0.5 mg by mouth twice da* GABAPENTIN 300 MG CAPSULE Take 300 mg by mouth three ti* TOPIRAMATE 100 MG TABLET Take 100 mg by mouth twice da*Problem List As Of Date 2017 Noted Resolved Nausea [R11.0] INVALID FOR* Generalized abdominal pain [R10.84] INVALID FOR* Acute midline low back pain without sciatica [M*INVALID FOR* Encounter for vitamin deficiency screening [Z13*INVALID FOR* Screening for lipid disorders [Z13.220] INVALID FOR* Screening for thyroid disorder [Z13.29] INVALID FOR* Bipolar affective disorder in remission (HCC) [*INVALID FOR* Nonintractable generalized idiopathic epilepsy *INVALID FOR* More... Abdominal pain decreased with position change [*INVALID FOR*05/21/2017 More... Abdominal adhesions [K66.0] INVALID FOR*05/21/2017 More... Abdominal pain [R10.9] INVALID FOR*05/21/2017 Nicotine use disorder, F17.2 [F17.200] INVALID FOR* Abscess after procedure [T81.4XXA] INVALID FOR* Chronic pelvic pain in female [R10.2, G89.29] INVALID FOR*Disposition: Return in about 3 months (around 10/04/2017) for For annual visit.Follow-up and Disposition History RecordedEncounter Number: [id number] Status:Closed by PETRONA PIERRE MD on 07/04/17 PROGRESS Observed: 07/04/2017 Status: COMPLETED Source: [place] 1:37 PM CLINIC OTHER CAMPUS REPOSITORY HNO ID: [id number]: Petrona SkinnerightService: (none)Author Type: PhysicianType: Progress NotesFiled: 07/04/2017 1:40 PMNote Text:HPI:Laurence Marr is a 32 year old who presents for postop visitfor L/S, removal of meckel's diverticulum c/b abscess postop s/p drainremoval. Reported increased pain last pm instigated by lifting a bed.Contraception: hysterectomyHISTORY:Obstetric History T0 L0 SAB1 TAB0 Ectopic0 Multiple0 Live [id number] MEDICAL HISTORYDiagnosis Date- Abdominal pain decreased with position change- Anxiety- Bipolar 1 disorder (HCC)- Depression- Dysthymic disorder Depression (non-psychotic)- Endometriosis Frozen Pelvis- Epilepsy ( HCC) LAST seizure almost 3 years ago, uses topamax- Generalized anxiety disorder Anxiety, Generalized- Other and unspecified ovarian cyst Ovarian cyst on left side- Overdose, drug 2016 opiodPAST SURGICAL HISTORYProcedure Laterality Date- COLONOSCOPY 2016- EXPLORATORY OF ABDOMEN 11/16/2010 Laparotomy, exp, for 10 years had a Laparoscopy every year.- HAND SURGERY HX Bilateral- L'SCOPE DX W/WO BRUSHINGS/WASHINGS Laparoscopy x7- LAPAROSCOPIC EXCISION MECKELS DIVERTIC 2018- TOTAL ABDOM HYSTERECTOMY 2012 BSOREVIEW OF SYSTEMS:General : No weight loss, malaise or fevers. Pt eating in the room.Abdomen: No abdominal pain, nausea, vomiting, diarrhea, or constipation.No bloating, early satiety, indigestion, or increased flatulence.Bladder: No dysuria, gross hematuria, urinary frequency, urinary urgency,or incontinence.Breast: No breast lumps, nipple d/c, overlying skin changes, redness orskin retraction.PHYSICAL EXAM:GENERAL: Well developed, well nourished , Thin in no apparent distressABDOMEN: soft, non-tender, no masses, rebound Absent and guarding Absent,incisions c/d/iASSESSMENT/PLAN:1. Chronic pelvic pain in female - ICD9: 625.9, 338.29, ICD10: R10.2,G89.29- ANnual 10/03Petrona Parmar MD ED NOTE Observed: 07/04/2017 Status: COMPLETED Source: [place] 3:00 AM [facility] REPOSITORY HNO ID: [id number]: Qian (Rn) KARL Gallagherervice: Emergency MedicineAuthor Type: Registered NurseType: ED NotesFiled: 07/04/2017 3:01 AMNote Text:Discharge instructions given to patient. Pt verbalized understanding ofs/s to return to ED and follow up with pcp. All questions answered. Ptambulatory with friend on departure. ED PROV NOTE Observed: 07/04/2017 Status: COMPLETED Source: [place] 2:57 AM [facility] REPOSITORY HNO ID: [id number]: MARY ANN Victoriaervice: Emergency MedicineAuthor Type: PhysicianType: ED Provider NotesFiled: 07/04/2017 2:59 AMNote Text:Attending NoteI have personally performed a face to face assessment of the patient andhave reviewed the resident's note. I discussed the management plan andkey decisions were reviewed with the resident. I was present for allprocedures. Please see resident's note for additional details.My cutler findings include:HPI:32-year- old female presents with abdominal pain. Patient does have a pastmedical history of intra-abdominal abscess. She states that she's hadabdominal pain for the past 2 days. She states that in April she hadabdominal surgery and thereafter had abscess formation. Drain wasinitially place, but was removed on June 21.Patient denies any currentnausea, vomiting, fevers or chills. Patient denies any chest pain orshortness of breath. Patient has no other complaints at this time.Past medical history: ReviewedReview of system: Please see above history of present illness. All othersystems reviewed are negative.Physical exam:HEENT: Oropharynx is not erythematous and edematous. No exudate. Nouvula deviation. Tympanic membranes clear bilaterally. Pupils equal,round, reactive bilaterally. No nasal drainage noted.Heart regular rate and rhythm, no gallops, rubs, or murmurs.Lungs sounds were clear and equal bilaterally., No rhonchi, wheezes orrales.Abdomen soft, nondistended. Normal bowel sounds. Nonacute abdomen. Milddiffuse abdominal tenderness to palpation.Extremities: Upper and lower extremity pulses equal bilaterally.Back: There is no midline thoracic or lumbar tenderness to palpation. Nostep-off or crepitance.Neuro: Cranial nerves II through XII are intact. Upper and lower motorand sensory are intact. No focal neurological deficits.Medical decision making:Infiltration of IV ?[address] abdomen and pelvis contrast. Afterdiscussing with the patient. Central line placement was recommended forline placement for IV contrast administration. Patient declined. We didspeak with the patient regarding limited study of noncontrast CT. Patientwishes to go home, will follow up with surgeon. Patient was given strictinstructions to return for any worsening symptoms. Laboratory workuplargely unremarkable.I did discuss with the patient that symptoms could be indicative of aprocess that is early in the disease course. If at any time your symptomschange or get worse please come back immediately to the emergencydepartment.Fritz Mendes MD07/04/17 0259 ED NOTE Observed: 07/04/2017 Status: COMPLETED Source: [place] 1:09 AM CLINIC OTHER CAMPUS REPOSITORY HNO ID: [id number]: KARL Henning Rnervice: Emergency MedicineAuthor Type: Registered NurseType: ED NotesFiled: 07/04/2017 1:09 AMNote Text: Pt returned from CT. CT ABDOMEN AND PELVIS Observed: 07/04/2017 Status: F Source: [facility] WITH CONTRAST 1:06 AM HEALTH SYSTEM REPOSITORY Performed at [facility] APPROVED BY: JACKSON URENA MD EXAMINATION: CT ABDOMEN AND PELVIS WITHOUT IV CONTRAST CLINICAL HISTORY: Abdominal surgery in 05/07/2017 with subsequent abscess. Abscess drain removal last week, now with increasing pain and nausea. TECHNIQUE: CT of the abdomen and pelvis was performed using standard technique, scanning from just above the dome of the diaphragm to the symphysis pubis. Unenhanced imaging is limited for the evaluation of some intra-abdominal and pelvic pathology, solid organ and vascular evaluation. MQ: CTAP_3 Contrast: IV 125 cc Omnipaque 300 was administered, however the IV infiltrated andThe access could not be obtained. Therefore images are noncontrast. CT Radiation dose: Integrated Dose-length product (DLP) for this visit = 218 mGy*cm.CT Dose Reduction Employed: [employer] COMPARISON: 06/05/2017. RESULT: Liver: Unremarkable. Biliary: Gallbladder unremarkable. Spleen: Unremarkable. Pancreas: Unremarkable. Adrenals: Normal. Kidneys: No calculus or hydronephrosis. GI Tract: No bowel dilation. Visualized portions of the appendix are normal.. Bowel anastomotic suture line in the lower pelvis. Lymph Nodes: No lymphadenopathy. Mesentery/peritoneum: No ascites. Vasculature: No abdominal aortic or iliac artery aneurysm. Pelvis: Evaluation for possible abscess limited due to multiple bowel loops within this region and lack of IV contrast. No gross inflammatory change or gross fluid collection within the limitations.. Bones/Soft Tissues: Unremarkable. Lower thorax: Unremarkable. IMPRESSION: Please note this is a noncontrast study Evaluation for possible pelvic abscess is limited due to multiple bowel loops in this region, lack of enteric, rectal or IV contrast. Within these limitations, no gross fluid collection is identified. No other acute intra-abdominal or pelvic process within the noncontrast study limitations. ED NOTE Observed: 07/04/2017 Status: COMPLETED Source: [place] 1:05 AM [facility] REPOSITORY HNO ID: [id number]: KARL Henning Rnervice: Emergency MedicineAuthor Type: Registered NurseType: ED NotesFiled: 07/04/2017 1:05 AMNote Text: Pt iv infilterated at ct, unable to obtain ct of abdomen with contrast.Dr. Willis notified. ED NOTE Observed: 07/04/2017 Status: COMPLETED Source: [place] 12:51 AM [facility] REPOSITORY HNO ID: [id number]: KARL Henning Rnervice: Emergency MedicineAuthor Type: Registered NurseType: ED NotesFiled: 07/04/2017 12:51 AMNote Text: Pt transferred to CT with transporter. ED NOTE Observed: 07/04/2017 Status: COMPLETED Source: [place] 12:44 AM [facility] REPOSITORY HNO ID: [id number]: Jimmie (Rn) KARL Monroyervice: Emergency MedicineAuthor Type: Registered NurseType: ED NotesFiled: 07/04/2017 12:44 AMNote Text: Ticket to ride completed by this RN. Transport called, notified patientis ready for CT at this time. ED NOTE Observed: 07/04/2017 Status: COMPLETED Source: [place] 12:22 AM [facility] REPOSITORY HNO ID: [id number]: Jimmie (Rn) KARL Monroyervice: Emergency MedicineAuthor Type: Registered NurseType: ED NotesFiled: 07/04/2017 12:26 AMNote Text:Pt back from CT due to infiltrated IV line, Dr. Mendes and Dr. Willis@ bedside to place US IV ED PROV NOTE Observed: 07/03/2017 Status: COMPLETED Source: [place] 11:57 PM [facility] REPOSITORY HNO ID: [id number]: MARY ANN Victoriaervice: Emergency MedicineAuthor Type: PhysicianType: ED Provider NotesFiled: 07/04/2017 7:00 PMNote Text:ED Provider NotePatient Name: [facility]rence Escobedo [facility]RN: [id number] DATE: 07/03/17HistoryPatient presents with:Abdominal Pain: Pt had abdominal surgery in April and then got anabscess. Her drain was just removed last week. Pt c/o of worsening stomachpain. Pt said she felt like she had a fever earlier. No fever in ED.+nauseaHPI Comments: 32-year-old female past medical history significant forpelvic abscess following surgical procedure. She had an IR drain placedto drain the abscess, which was removed 6 days prior. Patient is notcomplaining of increasing generalized abdominal pain accompanied by nauseabut no vomiting. She denies constipation but does report pain with bowelmovements and urination - pain is located in her mid abdomen bilaterally.Patient also reports low-grade fever at home, 100.6, as well as chills andpoor appetite. She denies hematuria, burning with urination, frequency,urgency, or decreased urination. She denies dark or bloody stool,hematemesis, constipation, or diarrhea. Denies chest pain and shortnessof breath. Patient is enrolled in pain management, she was given shortacting narcotic pain medications while her drain was in place, but has notbeen taking these medications for the past 6 days as her prescription hascompleted.History provided by: PatientLanguage saddle maker used: NoPAST MEDICAL HISTORYDiagnosis Date- Abdominal pain decreased with position change- Anxiety- Bipolar 1 disorder (HCC)- Depression- Dysthymic disorder Depression (non-psychotic)- Endometriosis Frozen Pelvis- Epilepsy (HCC) LAST seizure almost 3 years ago, uses topamax- Generalized anxiety disorder Anxiety, Generalized- Other and unspecified ovarian cyst Ovarian cyst on left side- Overdose, drug 2016 opiodPAST SURGICAL HISTORYProcedure Laterality Date- COLONOSCOPY 2016- EXPLORATORY OF ABDOMEN 11/16/2010 Laparotomy, exp, for 10 years had a Laparoscopy every year.- HAND SURGERY HX Bilateral- L'SCOPE DX W/WO BRUSHINGS/WASHINGS Laparoscopy x7- TOTAL ABDOM HYSTERECTOMY 2012 BSOFAMILY HISTORYProblem Relation Age of Onset- Hypertension Mother- Genetic Mother Lupus- Obesity Mother- Psychiatry Mother Depression- Cancer Father Neuroblastoma when he was 29- Psychiatry Paternal Grandmother- Heart Paternal Grandmother- Cancer Maternal Grandmother and unknown type- Cancer Maternal Grandfather and unknown type- Breast Cancer Maternal Grandfather Cousin- ms [ OTHER] Maternal Grandfather Aunt, Uncle, Cousin- Diabetes OtherSocial HistorySocial History Main Topics- Smoking status: Current Every Day Smoker Years: 10.00 Types: Cigarettes- Smokeless tobacco: Never Used Comment: 2-3 CIGS DAILY- Alcohol use Yes Comment: Occasional- Drug use: No- Sexual activity: Not CurrentlyALLERGIESAllergen Reactions- Compazine [Prochlor* Swelling Tongue swelled- Darvocet A500 [Prop* GI Upset, Vomiting- Nsaids (Non-Steroid* Other: See Comments GI damage- Trazodone Hives, Swelling- Tylenol [Acetaminop* Swelling- Ultram [Tramadol] GI Upset, VomitingReview of SystemsConstitutional: Positive for appetite change, chills and fever. Negativefor activity change, diaphoresis and fatigue.HENT: Negative for congestion, rhinorrhea, sinus pressure, sore throat andtrouble swallowing.Eyes: Negative for photophobia and visual disturbance.Respiratory: Negative for cough , chest tightness, shortness of breath andwheezing.Cardiovascular: Negative for chest pain, palpitations and leg swelling.Gastrointestinal: Positive for abdominal pain and nausea. Negative forabdominal distention, anal bleeding, blood in stool, constipation,diarrhea, rectal pain and vomiting.Genitourinary: Negative for decreased urine volume, difficulty urinating,dysuria, flank pain, frequency, hematuria, pelvic pain, urgency, vaginalbleeding, vaginal discharge and vaginal pain.Musculoskeletal: Negative for arthralgias, back pain, myalgias and neckpain.Skin: Negative for color change and rash. Well healed surgical incisions over abdomenAllergic/ Immunologic: Negative for immunocompromised state.Neurological: Negative for dizziness, syncope, weakness and headaches.Psychiatric/Behavioral: Negative for agitation and confusion.Physical ExamBP 106/56 Pulse 74 Temp (Src) 98.1 (Oral) Resp 18 Ht 5' 8 (1.73m) Wt 150 lb (68.0kg) SpO2 100% BMI 22.81 kg/(m2).Physical ExamConstitutional: She is oriented to person, place, and time. She appearswell-developed and well-nourished. No distress.Cardiovascular: Normal rate, regular rhythm, normal heart sounds andintact distal pulses.No murmur heard.Pulmonary/Chest: Effort normal and breath sounds normal. No respiratorydistress. She has no wheezes. She has no rales. She exhibits notenderness.Abdominal: Soft. Bowel sounds are normal. She exhibits no distension andno mass. There is tenderness. There is guarding. There is no rebound.Musculoskeletal: Normal range of motion. She exhibits no edema ortenderness.Neurological: She is alert and oriented to person, place, and time. Shehas normal strength. No sensory deficit. Gait normal.Skin: Skin is warm and dry. No rash noted. She is not diaphoretic. Noerythema. No pallor.Psychiatric: She has a normal mood and affect. Her behavior is normal.Thought content normal.Nursing note and vitals reviewed.Diagnostic TestingED Labs Ordered and ReviewedHCG QUALITATIVE URINE (AK,AV,EU,FV,HL,DIANE,MM,SP) - Abnormal; Notable forthe following: Result Value Ref Range Specific [place], Ur 1.043 (*) 1.005 - 1.030 All other components within normal limitsBASIC METABOLIC PANEL (AK,AV,EU,FV,HL,DIANE,MM,SP)CBC + AUTO DIFF (AK,AV,EU,FV,HL,DIANE,MM,SP)MDRD GFRCT ABD/PEL W IVCON Final Result.ProceduresMedical Decision Making / ED CourseED [id number] female with history of multiple abdominal surgeries, recentpelvic abscess requiring IR drainage?with removal of drain 6 days prior topresenting for worsening generalized abdominal pain and low- grade feversat home. Patient in no acute distress but diffusely tender on exam withvoluntary guarding. Afebrile with stable vital signs during the entiretyof her stay in the department. Concern for possible referral formation ofabscess and so basic labs and CT abdomen and pelvis were ordered. Patienthas difficult vascular access and required 2 ultrasound-guided IVs.Patient was treated symptomatically in the emergency department withZofran and 4 mg of morphine, after discussion of her pain managementcontract and risk-benefit analysis of treatment with narcotic painmedications. Following treatment patient did endorse improvement in painfrom a 10/10 to a 6/10. Initial IV was used for blood draw and medicationadministration, but would not flush with administration of IV dye.Another IV was placed, and I was informed by nursing that patient's IVinfiltrated and CT scan, and that the CT was done without contrast priorto notification. CT was read as no acute abscess or infection appreciatedwithin the pelvis, however limited secondary to lack of IV contrast.Secondary to patient's stable vital signs during the entirety of her stayin the department as well as unremarkable labs, I do not suspect an acuteinfectious process at this time. I discussed this with the patient aswell as alternative treatments including placement of central line foradministration of IV contrast and rescan versus conservative managementconsisting of close follow-up with her surgeon within the next 24-48hours, with instructions to return if she encounter worsening symptomsincluding fever, intractable nausea vomiting, bloody stool, or worseningabdominal pain. At this time patient elected to pursue conservativemanagement, will schedule an appointment with Dr. Moncada, for anappointment within the next 48 hours for reassessment. I discussed thepatient that she could continue taking medications prescribed by her painmanagement physician, she verbalized understanding. Discharged in stablecondition, verbalized understanding home going to follow up instructions.Ambulating from the department without difficulty.Encounter Diagnosis ICD-10-CM1. Generalized abdominal pain R10.84PlanThe Patient was DISCHARGED: Counseled patient regarding lab results ANDradiology results AND suspected diagnosis AND need for follow-up. Dischargedhome with verbal and written instructions. They were instructed to returnas needed for persistent or worsening symptoms or any new concerns.Condition at time of disposition: stableSIGNATURE: DO Ian Reeves (Res) Sadi Willis07/04/17 0410Ransilver Mendes MD07/04/17 1900 ED NOTE Observed: 07/03/2017 Status: COMPLETED Source: [place] 11:45 PM CLINIC OTHER CAMPUS REPOSITORY HNO ID: [id number]: Jimmie (Rn) KARL Monroyervice: Emergency MedicineAuthor Type: Registered NurseType: ED NotesFiled: 07/03/2017 11:55 PMNote Text: Pt in CT @ this time ED NOTE Observed: 07/03/2017 Status: COMPLETED Source: [place] 11:20 PM CLINIC OTHER CAMPUS REPOSITORY HNO ID: [id number]: Jimmie (Rn) KARL Monroyervice: Emergency MedicineAuthor Type: Registered NurseType: ED NotesFiled: 07/03/2017 11:20 PMNote Text: Ticket to ride completed by this RN. Transport called, notified patientis ready for CT at this time. HEMOGRAM/DIFF Collected: 07/03/2017 Status: F Source: [facility] 10:55 PM HEALTH SYSTEM REPOSITORY TYPE CODE TESTS RESULT OUT OF REFERENCE UNITS RANGE LAB WBC(LOINC) 3.98-10.04 thou/cmm WBC 6.68 LAB RBC(LOINC) 3.93-5.22 mil/cmm RBC 4.18 LAB HGB(LOINC) 11.2-15.7 g/dL Hgb 12.2 LAB HCT(LOINC) 34.1-44.9 % Hct 38.1 LAB MCV(LOINC) 79.4-94.8 fl MCV 91.1 LAB MCH(LOINC) 25.6-32.2 pg MCH 29.2 LAB MCHC(LOINC 31.6-34.8 % ) MCHC 32.0 LAB RDW(LOINC) 11.7-14.4 % RDW 13.7 LAB RDWSD(LOIN 36.4-46.3 fl C) RDW SD 46.1 LAB PLT(LOINC) 182-369 thou/cmm Platelet 259 LAB MPV(LOINC) 9.4-12.3 fl MPV 11.2 LAB SEG(LOINC) % Seg 38.9 Neutrophil LAB IGRE(LOINC % ) Immature 0.10 Grans LAB LYMPH(LOIN % C) Lymphocyte 50.9 LAB MNO(LOINC) % Monocyte 7.5 LAB EOSIN(LOIN % C) Eosinophil 2.2 LAB BASO(LOINC % ) Basophil 0.4 LAB SEGN(LOINC 1.56-6.13 thou/cmm ) Abs. Neut 2.60 LAB IGAB(LOINC 0.00-0.05 thou/cmm ) Abs Immature 0.01 Grans LAB LYMN(LOINC 1.18-3.74 thou/cmm ) Abs. Lymph 3.40 LAB MONON(LOIN 0.27-0.70 thou/cmm C) Abs. [place] 0.50 LAB EOSN(LOINC 0.00-0.31 thou/cmm ) Abs. Eosin 0.15 LAB BASON(LOIN 0.01-0.08 thou/cmm C) Abs. Baso 0.03 Result Comment: Smear scanned; tech agrees with automated differential Performed By: #### CBCD1 ####[place] [address] BASIC PANEL Collected: 07/03/2017 Status: F Source: [facility] 10:55 PM HEALTH SYSTEM REPOSITORY TYPE CODE TESTS RESULT OUT OF REFERENCE UNITS RANGE LAB NA(LOINC) 136-145 mEq/L Sodium Blood 136 LAB K(LOINC) 3.5-5.1 mEq/L Potassium 4.4 Blood LAB CL(LOINC) 98-107 mEq/L Chloride 104 Blood LAB CO2(LOINC) 21-32 mEq/L CO2 Blood 27 LAB GLU(LOINC) 70-99 mg/dL Glucose Blood 90 LAB BUN(LOINC) 7-18 mg/dL BUN Blood 17 LAB CREA(LOINC 0.51-0.95 mg/dL ) Creatinine 0.88 Blood LAB CA(LOINC) 8.5-10.1 mg/dL Calcium Blood 8.8 LAB ANGAP(LOIN 8-16 C) Anion Gap 9 Performed By: #### P8 ####[place] [address] MDRD GFR Collected: 07/03/2017 Status: F Source: [facility] 10:55 PM HEALTH SYSTEM REPOSITORY TYPE CODE TESTS RESULT OUT OF RANGE REFERENCE UNITS LAB GFRFN(LOINC >60mL/min/1. ) eGFR >60 73m2 Result Comment: If the patient is , multiply the result by 1.210. Performed By: #### GFR ####[place] [address] ED NOTE Observed: 07/03/2017 Status: COMPLETED Source: [place] 10:18 PM [facility] REPOSITORY HNO ID: [id number]: Yesenia Loredo) KARL Melendezervice: Emergency MedicineAuthor Type: Registered NurseType: ED NotesFiled: 07/03/2017 10:26 PMNote Text: Dr. Mendes at assessing pt. Dr. Mendes notified pt hard IV stick. Ptto have US guided IV placed. ED NOTE Observed: 07/03/2017 Status: COMPLETED Source: [place] 10:10 PM [facility] REPOSITORY HNO ID: [id number]: Yesenia Loredo) KARL Melendezervice: Emergency MedicineAuthor Type: Registered NurseType: ED NotesFiled: 07/03/2017 10:25 PMNote Text:Clean catch urine specimen obtained and sent. URINE HCG, QUAL. Collected: 07/03/2017 Status: F Source: [facility] 10:05 PM HEALTH SYSTEM REPOSITORY TYPE CODE TESTS RESULT OUT OF REFERENCE UNITS RANGE LAB URHCG(LOIN Negative C) HCG, Negative Qual. Urine LAB SPGR(LOINC High 1.005-1.030 ) Specific 1.043 [place], Ur Performed By: #### HCGUR ####[place] [address] ED TRIAGE NOTE Observed: 07/03/2017 Status: COMPLETED Source: [place] 9:06 PM [facility] REPOSITORY HNO ID: [id number]: Gina Lewis) Tuyet Dumont: Emergency MedicineAuthor Type: Physician AssistantType: ED Triage NotesFiled: 07/03/2017 9:08 PMNote Text:ED INTAKE NOTEPatient Name: Laurence MitchellRN: [id number] Date: 07/03/17BRIEF HPI:Laurence Marr is a 32 year old FEMALE with PMHx of intraabdominalabscess presenting to the ED c/o abdominal pain x 2 days. Patient statesshe had abdominal surgery in April and then developed intra-abdominalabscess. She states she had a drain placed, which was recently removed onMar 6. She states yesterday, she began developing pain in the lowerabdomen. Reports no vomiting. Patient still having regular bowelmovements. Patient reports sweats throughout the day and night without adocumented fever.BRIEF EXAM:Constitutional: Well-developed, well-nourished, NAD.HEENT: Normocephalic, atraumatic.Respiratory: CTA bilaterally, no respiratory distress.Cardiac: RRR, heart sounds normal.Abdomen: Soft, NABS x4. Generalized tenderness, no rebound tenderness.Musculoskeltal: PASTRANA x4. Patient ambulating in triage without difficulty.Neuro: AANDOx3.Skin: Warm and dry.INTAKE WORKUP:CBC, BMP, urine hCGPlan deferred to ED provider.SIGNATURE: BEATRIS Maria BRIEF OP NOT Observed: 06/21/2017 Status: COMPLETED Source: [place] 9:47 AM [facility] OTHER CAMPUS REPOSITORY HNO ID: [id number]: Cole Hernández: Interventional RadiologyAuthor Type: PhysicianType: Brief Op NoteFiled: 06/21/2017 9:58 AMNote Text:BRIEF OPERATIVE / PROCEDURE NOTELOG ID: [id number]/Procedure Date: 06/21/2017Incision/Procedure Start Time:Incision Close/Procedure End Time:Surgeon(s)/Proceduralist(s) and Wire Products Inspector(s):Surgeon(s) and Role: * Cole Jamil Additional StaffProcedure(s): Other (specify) - abscessogram and fluoroscopically guidedremoval of abscess drainage catheterAnesthesia: NoneFindings:The patient has only had a small volume of drainage through the catheter.The patient has been flushing the catheter with 5 cc of NS twice daily.Recently the patient has had some leakage around the catheter whenflushing. Most recent CT of 06/05/17 shows only a very small residual fluidcollection.Abscessogram shows no residual abscess cavity. While injecting contrastcontrast flows around the catheter to the skin surface. Abscess drainagecatheter removed over a guidewire using fluoroscopic guidance. The patienttolerated the procedure well. No immediate complications were noted.Estimated Blood Loss: 0 mlSpecimens: NoneComplications: NonePre-Op/Pre-Procedure Diagnosis: pelvic abscessPost-Op/Post-Procedure Diagnosis: pelvic abscess resolvedThe full report is located under Imaging in the Radiology report for theprocedure.SIGNATURE: Cole Townsend MD PATIENT NAME: Laurence LemaATE: June 21, 2017 : 9:49 AM PAGER/CONTACT #: [phone] INJECTION FOR Observed: 06/21/2017 Status: F Source: [facility] CATH 9:46 AM HEALTH SYSTEM [address] REPOSITORY Performed at [facility] APPROVED BY: Cole Townsend MD EXAM TITLE: ABSCESSOGRAM AND FLUOROSCOPIC-GUIDED REMOVAL OF ABSCESS DRAINAGE CATHETER OVER GUIDEWIRE. DATE: 06/21/2017 09:08 COMPARISON: CT of the abdomen and pelvis dated 06/05/2017, 06/02/2017 and 05/24/2017. CLINICAL INDICATION/HISTORY: The patient has a recent history of removal of Meckel's diverticulum. The patient developed a postoperative pelvic abscess. A percutaneous drainage catheter was placed. The patient presents for evaluation of progress in resolution of the abscess and possible removal of the drainage catheter. FINDINGS: The patient's most recent CT demonstrated that the drainage catheter was in adequate position. There was a small amount of residual fluid. This was markedly improved from prior studies. The patient reports only a small amount of drainage through the catheter daily. Recently the patient has had some leaking around the catheter while flushing. The patient was placed in the prone position. A timeout was performed. Contrast was instilled through the indwelling catheter under fluoroscopic observation. This demonstrated only a trace amount of contrast accumulating adjacent to the distal catheter. Injection of additional contrast results in contrast flowing around the catheter to the skin surface. There was no evidence of fistula. As no significant residual abscess cavity was present was felt that the catheter should be removed. All elements of maximum barrier technique including surgical cap and mask, sterile gown, sterile gloves, a large sterile drape, hand hygiene and appropriate prep agent for cutaneous antisepsis were utilized and maintained for this procedure. . The loop of the catheter was unlocked. A Bentson guidewire is introduced through the catheter under fluoroscopic observation. The catheter was withdrawn over the guidewire. The guidewire was then removed. The site was dressed in a sterile manner. The patient tolerated the procedure well. No immediate complications were noted. The patient was monitored throughout the procedure by the radiology nurse. The patient was discharged from the department in stable condition. IMPRESSION : 1. Abscessogram demonstrated no residual abscess cavity and no evidence of fistula. 2. Technically successful fluoroscopic-guided removal of abscess drainage catheter over guidewire. Fluoroscopic Time: 0 minutes 24 seconds Radiation Exposure: 4 mGyVolume of Contrast: 2 cc of Omnipaque 300Number of Images: 3 PROGRESS Observed: 06/15/2017 Status: COMPLETED Source: [place] 9:38 AM CLINIC OTHER CAMPUS REPOSITORY O ID: [id number]: Valentina Gallardoice: (none) Author Type: PhysicianType: Progress NotesFiled: 06/15/2017 9:53 AMNote Text:General surgery follow-upHPI: This is a 32 year old female who presents for follow up requesting arefill of her narcotic pain medicine [facility] They did have reservations giving her medicationgiven she still has an IR placed percutaneous pigtail drain. She is duefor repeat IR tube check and possible removal next week. The collectionis much smaller on subsequent imaging. Still draining small amounts ofserous to seropurulent material. She complains of pain at the drain siteand deep pelvic pain. Does report allergies to all analgesia medicationsother than narcotics. The bennett, no fevers or chills. Moving her bowelsbut constipated overall. Passing flatus. Incisions healing nicely.Signs of infection.PAST MEDICAL HISTORYDiagnosis Date- Abdominal pain decreased with position change- Anxiety- Bipolar 1 disorder (HCC)- Depression- Dysthymic disorder Depression (non-psychotic)- Endometriosis Frozen Pelvis- Epilepsy (HCC) LAST seizure almost 3 years ago, uses topamax- Generalized anxiety disorder Anxiety, Generalized- Other and unspecified ovarian cyst Ovarian cyst on left side- Overdose, drug 2016 opiodPAST SURGICAL HISTORYProcedure Laterality Date- COLONOSCOPY 2016- EXPLORATORY OF ABDOMEN 11/16/2010 Laparotomy, exp, for 10 years had a Laparoscopy every year.- HAND SURGERY HX Bilateral- L'SCOPE DX W/WO BRUSHINGS/WASHINGS Laparoscopy x7- TOTAL ABDOM HYSTERECTOMY 2012 BSOFAMILY HISTORYProblem Relation Age of Onset- Hypertension Mother- Genetic Mother Lupus- Obesity Mother- Psychiatry Mother Depression- Cancer Father Neuroblastoma when he was 29- Psychiatry Paternal Grandmother- Heart Paternal Grandmother- Cancer Maternal Grandmother and unknown type- Cancer Maternal Grandfather and unknown type- Breast Cancer Maternal Grandfather Cousin- ms [OTHER] Maternal Grandfather Aunt, Uncle, Cousin- Diabetes OtherSocial History Marital status: Single Spouse name: Years of education: Number of children: 0Occupational HistoryOccupation Employer CommentdisabilitySocial History Main Topics Smoking status: Current Every Day Smoker Packs/day: 0.00 Years: 10.00 Types: Cigarettes Smokeless status: Never Used Comment: 2-3 CIGS DAILY Alcohol use: Yes Comment: Occasional Drug use: No Sexual activity: Not CurrentlyOther Topics ConcernMilitary Service NoBlood Transfusions NoCaffeine Concern No Comment: 20 oz of diet coke, teaOccupational Exposure NoHobby Hazards NoSleep Concern Yes Comment:Does not sleep wellStress Concern Yes Comment: Health ProblemsWeight Concern YesSpecial Diet NoBack Care NoExercise No Comment:TriesBike Helmet NoSeat Belt YesSelf-Exams NoCurrent Outpatient Prescriptions:cefdinir (OMNICEF) 300 mg capsule Take 1 capsule by mouth twice daily for10 days.metroNIDAZOLE (FLAGYL) 500 mg tablet Take 1 tablet by mouth three timesdaily for 10 days.senna-docusate (SENNA-S) 8.6-50 mg per tablet Take 1 tablet by mouth twicedaily.polyethylene glycol 3350 (MIRALAX, GLYCOLAX) 17 gram packet Take 1 Packetby mouth once daily as needed.0.9 % SODIUM CHLORIDE (0.9% NACL) 3 mL syrg Inject 5 mL intravenouslyevery 12 hours.QUEtiapine (SEROQUEL) 200 mg tablet TAKE TWO TABLETS ONCE DAILY AT BEDTIMEPRNlamoTRIgine (LAMICTAL) 150 mg tablet Take 150 mg by mouth once daily.clonazePAM (KLONOPIN) 0.5 mg tablet Take 0.5 mg by mouth twice daily asneeded for Anxiety.gabapentin (NEURONTIN) 300 mg capsule Take 300 mg by mouth three timesdaily.topiramate (TOPAMAX) 100 mg tablet Take 100 mg by mouth twice daily.oxyCODONE IR (ROXICODONE) 5 mg immediate release tablet Take 1 tablet bymouth every 8 hours as needed for Pain (abdominal pain) for up to 20doses.No current facility-administered medications for this visit.ALLERGIESAllergen Reactions- Compazine [Prochlor* Swelling Tongue swelled- Darvocet A500 [Prop* GI Upset, Vomiting- Nsaids (Non-Steroid* Other: See Comments GI damage- Trazodone Hives, Swelling- Tylenol [Acetaminop* Swelling- Ultram [Tramadol] GI Upset, VomitingREVIEW OF SYSTEMS:GENERAL: No weight loss, malaise or feversGI: Negative for nausea , vomiting, diarrhea, constipation and signs ofjaundice Positive for abdominal pain suprapublic regionPHYSICAL EXAM:BP 123/70 Pulse 117 Ht 5' 8 (1.73m) Wt 162 lb 6.4 oz (73.7kg) BMI24.70 kg/(m2).GENERAL APPEARANCE: Well appearing, alert, in no acute distress,well-hydrated, well nourished..ABDOMEN: Abdomen soft, non-tender. No masses, organomegaly. No peritonealfindings. Subjective tenderness. Drain with serous fluid within tubing.NEURO: Alert, oriented x3 and speech clear and articulateDATA:Diagnostic tests reviewed for today's visit:Most recent imagingASSESSMENT/PLAN:1. Lower abdominal pain - ICD9: 789.09 , ICD10: R10.30 (primary diagnosis)- OXYCODONE 5 MG TABLET2. Pelvic abscess in female - ICD9: 614.4, ICD10: N73.9- OXYCODONE 5 MG TABLETAt this point, I can refill her pain medicine to last her until her drainmanipulation next week. After this, I would highly recommendtransitioning off of narcotic pain medicine. Given the challenges withher several nonnarcotic allergies and intolerances, I will defer that toher chronic pain team, as this will move outside of the realm of typicalpain needs for a pigtail drain and resolving fluid collection.Valentina Moncada MD CNOV Observed: 06/15/2017 Status: COMPLETED Source: [place] 9:00 AM CLINIC OTHER CAMPUS REPOSITORY Office Visit (AGGENS4) LAURENCE MARR ([id number]) 1985 FDate Time Provider Department06/15/17 9:00 AM VALENTINA MONCADA AGGENS4 During your visit today, we recorded the following information about you: Pulse Blood pressure Weight Height 117/minute 123/70 73.7 kg 1.727 Madhavi Moncada MD 06/15/2017 9:53 AM SignedGeneral surgery follow-upHPI: This is a 32 year old female who presents for follow up requesting arefill of her narcotic pain medicine after she was sent my way by her chronicpain specialist. They did have reservations giving her medication given shestill has an IR placed percutaneous pigtail drain. She is due for repeat IRtube check and possible removal next week. The collection is much smaller onsubsequent imaging. Still draining small amounts of serous to seropurulentmaterial. She complains of pain at the drain site and deep pelvic pain. Doesreport allergies to all analgesia medications other than narcotics. The bennett,no fevers or chills. Moving her bowels but constipated overall. Passingflatus. Incisions healing nicely. Signs of infection.PAST MEDICAL HISTORYDiagnosis Date- Abdominal pain decreased with position change- Anxiety- Bipolar 1 disorder (HCC)- Depression- Dysthymic disorder Depression (non-psychotic)- Endometriosis Frozen Pelvis- Epilepsy (HCC) LAST seizure almost 3 years ago, uses topamax- Generalized anxiety disorder Anxiety, Generalized- Other and unspecified ovarian cyst Ovarian cyst on left side- Overdose, drug 2016 opiodPAST SURGICAL HISTORYProcedure Laterality Date- COLONOSCOPY 2016- EXPLORATORY OF ABDOMEN 11/16/2010 Laparotomy, exp, for 10 years had a Laparoscopy every year.- HAND SURGERY HX Bilateral- L'SCOPE DX W/WO BRUSHINGS/WASHINGS Laparoscopy x7- TOTAL ABDOM HYSTERECTOMY 2012 BSOFAMILY HISTORYProblem Relation Age of Onset- Hypertension Mother- Genetic Mother Lupus- Obesity Mother- Psychiatry Mother Depression- Cancer Father Neuroblastoma when he was 29- Psychiatry Paternal Grandmother- Heart Paternal Grandmother- Cancer Maternal Grandmother and unknown type- Cancer Maternal Grandfather and unknown type- Breast Cancer Maternal Grandfather Cousin- ms [OTHER] Maternal Grandfather Aunt, Uncle, Cousin- Diabetes OtherSocial History Marital status: Single Spouse name: Years of education: Number of children : 0Occupational HistoryOccupation Employer CommentdisabilitySocial History Main Topics Smoking status: Current Every Day Smoker Packs/day: 0.00 Years: 10.00 Types: Cigarettes Smokeless status: Never Used Comment: 2-3 CIGS DAILY Alcohol use: Yes Comment: Occasional Drug use: No Sexual activity: Not CurrentlyOther Topics ConcernMilitary Service NoBlood Transfusions NoCaffeine Concern No Comment:20 oz of diet coke, teaOccupational Exposure NoHobby Hazards NoSleep Concern Yes Comment:Does not sleep wellStress Concern Yes Comment:Health ProblemsWeight Concern YesSpecial Diet NoBack Care NoExercise No Comment:TriesBike Helmet NoSeat Belt YesSelf-Exams NoCurrent Outpatient Prescriptions:cefdinir (OMNICEF) 300 mg capsule Take 1 capsule by mouth twice daily for 10days.metroNIDAZOLE (FLAGYL) 500 mg tablet Take 1 tablet by mouth three times dailyfor 10 days.senna-docusate (SENNA-S) 8.6-50 mg per tablet Take 1 tablet by mouth twicedaily.polyethylene glycol 3350 (MIRALAX, GLYCOLAX) 17 gram packet Take 1 Packet bymouth once daily as needed.0.9 % SODIUM CHLORIDE (0.9% NACL) 3 mL syrg Inject 5 mL intravenously every 12hours.QUEtiapine ( SEROQUEL) 200 mg tablet TAKE TWO TABLETS ONCE DAILY AT BEDTIME PRNlamoTRIgine (LAMICTAL) 150 mg tablet Take 150 mg by mouth once daily.clonazePAM (KLONOPIN) 0.5 mg tablet Take 0.5 mg by mouth twice daily as neededfor Anxiety.gabapentin (NEURONTIN) 300 mg capsule Take 300 mg by mouth three times daily.topiramate ( TOPAMAX) 100 mg tablet Take 100 mg by mouth twice daily.oxyCODONE IR (ROXICODONE) 5 mg immediate release tablet Take 1 tablet by mouthevery 8 hours as needed for Pain (abdominal pain) for up to 20 doses.No current facility-administered medications for this visit.ALLERGIESAllergen Reactions- Compazine [Prochlor* Swelling Tongue swelled- Darvocet A500 [Prop* GI Upset, Vomiting- Nsaids (Non-Steroid* Other: See Comments GI damage- Trazodone Hives, Swelling- Tylenol [Acetaminop* Swelling- Ultram [Tramadol] GI Upset, VomitingREVIEW OF SYSTEMS:GENERAL: No weight loss, malaise or feversGI: Negative for nausea , vomiting, diarrhea, constipation and signs ofjaundice Positive for abdominal pain suprapublic regionPHYSICAL EXAM:BP 123/70 Pulse 117 Ht 5' 8ANDquot; (1.73m) Wt 162 lb 6.4 oz (73.7kg) BMI24.70 kg/(m2).GENERAL APPEARANCE: Well appearing, alert, in no acute distress, well-hydrated,well nourished..ABDOMEN: Abdomen soft, non-tender. No masses, organomegaly. No peritonealfindings. Subjective tenderness. Drain with serous fluid within tubing.NEURO: Alert, oriented x3 and speech clear and articulateDATA:Diagnostic tests reviewed for today's visit:Most recent imagingASSESSMENT/PLAN:1. Lower abdominal pain - ICD9: 789.09, ICD10: R10.30 (primary diagnosis)- OXYCODONE 5 MG TABLET2. Pelvic abscess in female - ICD9: 614.4, ICD10: N73.9- OXYCODONE 5 MG TABLETAt this point, I can refill her pain medicine to last her until her drainmanipulation next week. After this, I would highly recommend transitioning offof narcotic pain medicine. Given the challenges with her several nonnarcoticallergies and intolerances, I will defer that to her chronic pain team, as thiswill move outside of the realm of typical pain needs for a pigtail drain andresolving fluid collection.Valentina Moncada, MDReferring Provider: SELF [200] Allergies As of Date: 06/15/2017 Noted Allergy ReactionCOMPAZINE (PROCHLORPERAZINE) 12/24 7 - Swelling Comments: Tongue swelledDARVOCET A500 (PROPOXYPHENE N-KITA*12/24/2010 8 - GI Upset 11 - VomitingNSAIDS (NON-STEROIDAL ANTI-INFLAM*11/19/2015 14 - Other: See Comments Comments: GI damageTRAZODONE 02/20/2015 4 - Hives 7 - SwellingTYLENOL (ACETAMINOPHEN) 02/26/2016 7 - SwellingULTRAM (TRAMADOL) 12/24/2010 8 - GI Upset 11 - VomitingDate Reviewed: 06/15/2017Reviewed by: Valentina Moncada - Fully AssessedReason for Visit : Established Patient [175]Primary Visit Diagnosis:Lower abdominal pain [R10.30] Other Visit Diagnosis:Pelvic abscess in female [N73.9]Order(s):oxyCODONE IR (ROXICODONE) 5 mg immediate release tabletTake 1 tablet by mouth every 8 hours as needed for Pain (abdominal pain) for up to 20 doses.Disp: 20 tabletRfl: 0Prescriptions as of 06/15/2017 Sig: CEFDINIR 300 MG CAPSULE Take 1 capsule by mouth twice* METRONIDAZOLE 500 MG TABLET Take 1 tablet by mouth three * SENNOSIDES 8.6 MG-DOCUSATE SO* Take 1 tablet by mouth twice * POLYETHYLENE GLYCOL 3350 17 G* Take 1 Packet by mouth once d* SODIUM CHLORIDE 0.9 % INJECTI* Inject 5 mL intravenously mary* QUETIAPINE 200 MG TABLET TAKE TWO TABLETS ONCE DAILY A* LAMOTRIGINE 150 MG TABLET Take 150 mg by mouth once rolan* CLONAZEPAM 0.5 MG TABLET Take 0.5 mg by mouth twice da* GABAPENTIN 300 MG CAPSULE Take 300 mg by mouth three ti* TOPIRAMATE 100 MG TABLET Take 100 mg by mouth twice da* OXYCODONE 5 MG TABLET Take 1 tablet by mouth every *Problem List As Of Date 06/15/2017 Noted Resolved Nausea [R11.0] INVALID FOR* Generalized abdominal pain [R10.84] INVALID FOR* Acute midline low back pain without sciatica [M*INVALID FOR* Encounter for vitamin deficiency screening [Z13*INVALID FOR* Screening for lipid disorders [Z13.220 ] INVALID FOR* Screening for thyroid disorder [Z13.29] INVALID FOR* Bipolar affective disorder in remission (HCC) [*INVALID FOR* Nonintractable generalized idiopathic epilepsy *INVALID FOR* More... Abdominal pain decreased with position change [*INVALID FOR*05/21/2017 More... Abdominal adhesions [K66.0] INVALID FOR*05/21/2017 More... Abdominal pain [R10.9] INVALID FOR*05/21/2017 Nicotine use disorder, F17.2 [F17.200] INVALID FOR* Abscess after procedure [T81.4XXA] INVALID FOR*Prescriptions ordered this encounter Disp Refills Start End OXYCODONE 5 MG TABLET 20 t* 0 06/15/2017 06/21/2017 Class: Print RX Route: ORAL Sig: Take 1 tablet by mouth every 8 hours as needed for Pain (abdominal pain) for up to 20 doses.Level of Service: POST-OP VISIT (NO CHARGE) NON-OB [30499] Status:Closed by VALENTINA MONCADA MD on 06/15/17 PROGRESS Observed: 06/08/2017 Status: COMPLETED Source: [place] 2:19 PM CLINIC OTHER CAMPUS REPOSITORY HNO ID: [id number]: Valentina RichardsoneService: (none) Author Type: PhysicianType: Progress NotesFiled: 06/08/2017 2:23 PMNote Text:General surgery clinic follow-upHPI: This is a 32 year old female who presents for follow up to reassessher percutaneous IR drain. Since surgery she is doing well. Herpreoperative pain has completely resolved. However, she still hasresidual pelvic pain from her IR placed drain for her pelvic abscess. 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 She did have some ascitesat the time of surgery which we did suction out. She did require a smallbowel resection. However, postoperatively she did develop inoculatedascites which is now a rim-enhancing collection. The IR drain hasrecently been replaced. Drainage has been seropurulent. Collection sizehas been decreasing. She just finished her antibiotics. Otherwise nofevers or chills. Mild nausea but no vomiting. Having bowel functionwith no chronic constipation.PAST MEDICAL HISTORYDiagnosis Date- Abdominal pain decreased with position change- Anxiety- Bipolar 1 disorder (HCC)- Depression- Dysthymic disorder Depression (non- psychotic)- Endometriosis Frozen Pelvis- Epilepsy (HCC) LAST seizure almost 3 years ago, uses topamax- Generalized anxiety disorder Anxiety, Generalized- Other and unspecified ovarian cyst Ovarian cyst on left side- Overdose, drug 2016 opiodPAST SURGICAL HISTORYProcedure Laterality Date- COLONOSCOPY 2016- EXPLORATORY OF ABDOMEN 11/16/2010 Laparotomy, exp, for 10 years had a Laparoscopy every year.- HAND SURGERY HX Bilateral- L'SCOPE DX W/WO BRUSHINGS/WASHINGS Laparoscopy x7- TOTAL ABDOM HYSTERECTOMY 2012 BSOFAMILY HISTORYProblem Relation Age of Onset- Hypertension Mother- Genetic Mother Lupus- Obesity Mother- Psychiatry Mother Depression- Cancer Father Neuroblastoma when he was 29- Psychiatry Paternal Grandmother- Heart Paternal Grandmother- Cancer Maternal Grandmother and unknown type- Cancer Maternal Grandfather and unknown type- Breast Cancer Maternal Grandfather Cousin- ms [OTHER] Maternal Grandfather Aunt, Uncle, Cousin- Diabetes OtherSocial History Marital status: Single Spouse name: Years of education: Number of children: 0Occupational HistoryOccupation Employer CommentdisabilitySocial History Main Topics Smoking status: Current Every Day Smoker Packs/day: 0.00 Years: 10.00 Types: Cigarettes Smokeless status: Never Used Comment: 2-3 CIGS DAILY Alcohol use: Yes Comment: Occasional Drug use: No Sexual activity: Not CurrentlyOther Topics ConcernMilitary Service NoBlood Transfusions NoCaffeine Concern No Comment: 20 oz of diet coke, teaOccupational Exposure NoHobby Hazards NoSleep Concern Yes Comment:Does not sleep wellStress Concern Yes Comment: Health ProblemsWeight Concern YesSpecial Diet NoBack Care NoExercise No Comment:TriesBike Helmet NoSeat Belt YesSelf-Exams NoCurrent Outpatient Prescriptions:senna- docusate (SENNA-S) 8.6-50 mg per tablet Take 1 tablet by mouth twicedaily.polyethylene glycol 3350 (MIRALAX, GLYCOLAX) 17 gram packet Take 1 Packetby mouth once daily as needed.0.9 % SODIUM CHLORIDE (0.9% NACL) 3 mL syrg Inject 5 mL intravenouslyevery 12 hours.QUEtiapine (SEROQUEL) 200 mg tablet TAKE TWO TABLETS ONCE DAILY AT BEDTIMEPRNlamoTRIgine (LAMICTAL) 150 mg tablet Take 150 mg by mouth once daily.clonazePAM (KLONOPIN) 0.5 mg tablet Take 0.5 mg by mouth twice daily asneeded for Anxiety.gabapentin (NEURONTIN) 300 mg capsule Take 300 mg by mouth three timesdaily.topiramate (TOPAMAX) 100 mg tablet Take 100 mg by mouth twice daily.cefdinir (OMNICEF) 300 mg capsule Take 1 capsule by mouth twice daily for10 days.metroNIDAZOLE (FLAGYL) 500 mg tablet Take 1 tablet by mouth three timesdaily for 10 days.oxyCODONE IR (ROXICODONE) 5 mg immediate release tablet Take 1 tablet bymouth every 6 hours as needed for Pain (pelvic pain/drain site pain) forup to 5 days.No current facility-administered medications for this visit.ALLERGIESAllergen Reactions- Compazine [Prochlor* Swelling Tongue swelled- Darvocet A500 [Prop* GI Upset, Vomiting- Nsaids (Non-Steroid* Other: See Comments GI damage- Trazodone Hives, Swelling- Tylenol [Acetaminop* Swelling- Ultram [Tramadol] GI Upset, VomitingREVIEW OF SYSTEMS:GENERAL: No weight loss, malaise or feversGI: Negative for vomiting, diarrhea, constipation and signs of jaundice Positive for abdominal pain Pelvic and nauseaPHYSICAL EXAM:BP 107/70 Pulse 108 Ht 5' 8 (1.73m) Wt 164 lb 12.8 oz (74.8kg) BMI 25.06 kg/(m2).GENERAL APPEARANCE: Well appearing, alert, in no acute distress,well-hydrated, well nourished..ABDOMEN: Abdomen soft, non- tender. Bowel sounds normal. No masses,organomegaly. Incisions healing nicely. No cellulitis or abscess. Noevidence of port site or incisional hernia.NEURO: Alert, oriented x3 and speech clear and articulateIR drain containing seropurulent liquid. No Evidence of enteric contentsDATA:Diagnostic tests reviewed for today's visit :CT imagesASSESSMENT/PLAN:1. Pelvic abscess in female - ICD9: 614.4, ICD10: N73.9 (primarydiagnosis)- OXYCODONE 5 MG TABLETI also refilled her antibiotics for another 10 days2. S/P small bowel resection - ICD9: V45.89, ICD10: Z90.49- OXYCODONE 5 MG TABLETFollow up in 2 weeksValentina Moncada MD CNOV Observed: 06/08/2017 Status: COMPLETED Source: [place] 2:00 PM CLINIC OTHER CAMPUS REPOSITORY Office Visit (AGGENS4) LAURENCE MARR ([id number]) 1985 FDate Time Provider Department06/08/17 2:00 PM VALENTINA MONCADA4 During your visit today, we recorded the following information about you: Pulse Blood pressure Weight Height 108/minute 107/70 74.8 kg 1.727 Madhaiv Moncada MD 06/08/2017 2:18 PM SignedPlease continue to take your antibiotics as prescribedValentina Moncada MD 06/08/2017 2: 23 PM SignedGeneral surgery clinic follow-upHPI: This is a 32 year old female who presents for follow up to reassess herpercutaneous IR drain. Since surgery she is doing well. Her preoperative painhas completely resolved. However, she still has residual pelvic pain from herIR placed drain for her pelvic abscess. She does have a history of chronicpelvic ascites. She did have some ascites at the time of surgery which we didsuction out. She did require a small bowel resection. However,postoperatively she did develop inoculated ascites which is now a rim-enhancingcollection. The IR drain has recently been replaced. Drainage has beenseropurulent. Collection size has been decreasing. She just finished herantibiotics. Otherwise no fevers or chills. Mild nausea but no vomiting.Having bowel function with no chronic constipation.PAST MEDICAL HISTORYDiagnosis Date- Abdominal pain decreased with position change- Anxiety- Bipolar 1 disorder (HCC)- Depression- Dysthymic disorder Depression (non-psychotic)- Endometriosis Frozen Pelvis- Epilepsy (HCC) LAST seizure almost 3 years ago, uses topamax- Generalized anxiety disorder Anxiety, Generalized- Other and unspecified ovarian cyst Ovarian cyst on left side- Overdose, drug 2016 opiodPAST SURGICAL HISTORYProcedure Laterality Date- COLONOSCOPY 2016- EXPLORATORY OF ABDOMEN Laparotomy, exp, for 10 years had a Laparoscopy every year.- HAND SURGERY HX Bilateral- L'SCOPE DX W/WO BRUSHINGS/WASHINGS Laparoscopy x7- TOTAL ABDOM HYSTERECTOMY 2012 BSOFAMILY HISTORYProblem Relation Age of Onset- Hypertension Mother- Genetic Mother Lupus- Obesity Mother- Psychiatry Mother Depression- Cancer Father Neuroblastoma when he was 29- Psychiatry Paternal Grandmother- Heart Paternal Grandmother- Cancer Maternal Grandmother and unknown type- Cancer Maternal Grandfather and unknown type- Breast Cancer Maternal Grandfather Cousin- ms [OTHER] Maternal Grandfather Aunt, Uncle, Cousin- Diabetes OtherSocial History Marital status: Single Spouse name: Years of education: Number of children: 0Occupational HistoryOccupation Employer CommentdisabilitySocial History Main Topics Smoking status: Current Every Day Smoker Packs/day: 0.00 Years: 10.00 Types: Cigarettes Smokeless status: Never Used Comment: 2-3 CIGS DAILY Alcohol use: Yes Comment: Occasional Drug use: No Sexual activity: Not CurrentlyOther Topics ConcernMilitary Service NoBlood Transfusions NoCaffeine Concern No Comment:20 oz of diet coke, teaOccupational Exposure NoHobby Hazards NoSleep Concern Yes Comment: Does not sleep wellStress Concern Yes Comment:Health ProblemsWeight Concern YesSpecial Diet NoBack Care NoExercise No Comment:TriesBike Helmet NoSeat Belt YesSelf-Exams NoCurrent Outpatient Prescriptions:senna- docusate (SENNA-S) 8.6-50 mg per tablet Take 1 tablet by mouth twicedaily.polyethylene glycol 3350 (MIRALAX, GLYCOLAX) 17 gram packet Take 1 Packet bymouth once daily as needed.0.9 % SODIUM CHLORIDE (0.9% NACL) 3 mL syrg Inject 5 mL intravenously every 12hours.QUEtiapine (SEROQUEL) 200 mg tablet TAKE TWO TABLETS ONCE DAILY AT BEDTIME PRNlamoTRIgine (LAMICTAL) 150 mg tablet Take 150 mg by mouth once daily.clonazePAM (KLONOPIN) 0.5 mg tablet Take 0.5 mg by mouth twice daily as neededfor Anxiety.gabapentin ( NEURONTIN) 300 mg capsule Take 300 mg by mouth three times daily.topiramate (TOPAMAX) 100 mg tablet Take 100 mg by mouth twice daily.cefdinir (OMNICEF) 300 mg capsule Take 1 capsule by mouth twice daily for 10days.metroNIDAZOLE (FLAGYL) 500 mg tablet Take 1 tablet by mouth three times dailyfor 10 days.oxyCODONE IR (ROXICODONE) 5 mg immediate release tablet Take 1 tablet by mouthevery 6 hours as needed for Pain (pelvic pain/drain site pain) for up to 5days.No current facility-administered medications for this visit.ALLERGIESAllergen Reactions- Compazine [Prochlor* Swelling Tongue swelled- Darvocet A500 [Prop* GI Upset, Vomiting- Nsaids (Non-Steroid* Other: See Comments GI damage- Trazodone Hives, Swelling- Tylenol [Acetaminop* Swelling- Ultram [Tramadol] GI Upset, VomitingREVIEW OF SYSTEMS:GENERAL: No weight loss, malaise or feversGI: Negative for vomiting, diarrhea, constipation and signs of jaundicePositive for abdominal pain Pelvic and nauseaPHYSICAL EXAM:BP 107/70 Pulse 108 Ht 5' 8ANDquot; (1.73m) Wt 164 lb 12.8 oz (74.8kg) BMI 25.06 kg/(m2).GENERAL APPEARANCE: Well appearing, alert, in no acute distress, well-hydrated,well nourished..ABDOMEN: Abdomen soft, non-tender. Bowel sounds normal. No masses,organomegaly. Incisions healing nicely. No cellulitis or abscess. Noevidence of port site or incisional hernia.NEURO: Alert, oriented x3 and speech clear and articulateIR drain containing seropurulent liquid. No Evidence of enteric contentsDATA:Diagnostic tests reviewed for today's visit:CT imagesASSESSMENT/PLAN:1. Pelvic abscess in female - ICD9: 614.4, ICD10: N73.9 ( primary diagnosis)- OXYCODONE 5 MG TABLETI also refilled her antibiotics for another 10 days2. S/P small bowel resection - ICD9: V45.89, ICD10: Z90.49- OXYCODONE 5 MG TABLETFollow up in 2 weeksRACHEL Barretoeferring Provider: SELF [200]Allergies As of Date: 06/08/2017 Noted Allergy ReactionCOMPAZINE (PROCHLORPERAZINE) 12/24/2010 7 - Swelling Comments: Tongue swelledDARVOCET A500 ( PROPOXYPHENE N-KITA*12/24/2010 8 - GI Upset 11 - VomitingNSAIDS (NON- STEROIDAL ANTI-INFLAM*11/19/2015 14 - Other: See Comments Comments: GI damageTRAZODONE 02/20/2015 4 - Hives 7 - SwellingTYLENOL (ACETAMINOPHEN) 02/26/2016 7 - SwellingULTRAM (TRAMADOL) 12/24/2010 8 - GI Upset 11 - VomitingDate Reviewed: 06/08/2017Reviewed by: Valentina Moncada - Fully AssessedReason for Visit: Post Op [174]Primary Visit Diagnosis:Pelvic abscess in female [N73.9] Other Visit Diagnosis:S/P small bowel resection [Z90.49]Order(s):cefdinir (OMNICEF) 300 mg capsuleTake 1 capsule by mouth twice daily for 10 days.Disp: 20 capsuleRfl: 0 metroNIDAZOLE (FLAGYL) 500 mg tabletTake 1 tablet by mouth three times daily for 10 days.Disp: 30 tabletRfl: 0 oxyCODONE IR (ROXICODONE) 5 mg immediate release tabletTake 1 tablet by mouth every 6 hours as needed for Pain (pelvic pain/drain site pain) for up to 5 days.Disp: 20 tabletRfl : 0Prescriptions as of 06/08/2017 Sig: SENNOSIDES 8.6 MG-DOCUSATE SO* Take 1 tablet by mouth twice * POLYETHYLENE GLYCOL 3350 17 G* Take 1 Packet by mouth once d* SODIUM CHLORIDE 0.9 % INJECTI* Inject 5 mL intravenously mary* QUETIAPINE 200 MG TABLET TAKE TWO TABLETS ONCE DAILY A* LAMOTRIGINE 150 MG TABLET Take 150 mg by mouth once rolan* CLONAZEPAM 0.5 MG TABLET Take 0.5 mg by mouth twice da* GABAPENTIN 300 MG CAPSULE Take 300 mg by mouth three ti* TOPIRAMATE 100 MG TABLET Take 100 mg by mouth twice da* CEFDINIR 300 MG CAPSULE Take 1 capsule by mouth twice* METRONIDAZOLE 500 MG TABLET Take 1 tablet by mouth three * OXYCODONE 5 MG TABLET Take 1 tablet by mouth every *Problem List As Of Date 06/08/2017 Noted Resolved Nausea [R11.0] INVALID FOR* Generalized abdominal pain [R10.84] INVALID FOR* Acute midline low back pain without sciatica [M*INVALID FOR* Encounter for vitamin deficiency screening [Z13*INVALID FOR* Screening for lipid disorders [Z13.220 ] INVALID FOR* Screening for thyroid disorder [Z13.29] INVALID FOR* Bipolar affective disorder in remission (HCC) [*INVALID FOR* Nonintractable generalized idiopathic epilepsy *INVALID FOR* More... Abdominal pain decreased with position change [*INVALID FOR*05/21/2017 More... Abdominal adhesions [K66.0] INVALID FOR*05/21/2017 More... Abdominal pain [R10.9] INVALID FOR*05/21/2017 Nicotine use disorder, F17.2 [F17.200] INVALID FOR* Abscess after procedure [T81.4XXA] INVALID FOR* Other instructions from your clinician : Please continue to take your antibiotics as prescribedPrescriptions ordered this encounter Disp Refills Start End CEFDINIR 300 MG CAPSULE 20 c* 0 06/08/2017 06/18/2017 Route: ORAL Sig: Take 1 capsule by mouth twice daily for 10 days. METRONIDAZOLE 500 MG TABLET 30 t* 0 06/08/2017 06/18/2017 Route: ORAL Sig: Take 1 tablet by mouth three times daily for 10 days. OXYCODONE 5 MG TABLET 20 t* 0 06/08/2017 06/13/2017 Class: Print RX Route: ORAL Sig: Take 1 tablet by mouth every 6 hours as needed for Pain (pelvic pain/ drain site pain) for up to 5 days.Disposition: Return in about 2 weeks (around 06/22/2017).Follow-up and Disposition History RecordedEncounter Number: [id number] Status:Closed by VALENTINA MONCADA MD on 06/08/17 HOSP Observed: 06/06/2017 Status: COMPLETED Source: [place] 12:00 AM CLINIC OTHER CAMPUS REPOSITORY Patient:Laurence Marr LMRN: <[id number]>Height:5' 8(1.727 m)Weight:162 lb 6.4 oz (73.664 kg)Outpatient Medications as of 06/21/17:oxyCODONE IR (ROXICODONE) 5 mg immediate release tabletsenna-docusate (SENNA-S) 8.6-50 mg per tabletpolyethylene glycol 3350 (MIRALAX, GLYCOLAX) 17 gram packet0.9 % SODIUM CHLORIDE (0.9% NACL) 3 mL syrgQUEtiapine (SEROQUEL) 200 mg tabletlamoTRIgine (LAMICTAL) 150 mg tabletclonazePAM (KLONOPIN) 0.5 mg tabletgabapentin (NEURONTIN) 300 mg capsuletopiramate (TOPAMAX) 100 mg tabletAdmission/Clinic Administered Medications as of 06/21/17:Patient has no admission medications.Problem List:Nausea [R11.0]Generalized abdominal pain [R10.84]Acute midline low back pain without sciatica [M54.5]Encounter for vitamin deficiency screening [Z13.21]Screening for lipid disorders [Z13.220]Screening for thyroid disorder [Z13.29]Bipolar affective disorder in remission (HCC) [F31.70] Nonintractable generalized idiopathic epilepsy without status epilepticus (HCC)[G40.309] Nicotine use disorder, F17.2 [F17.200]Abscess after procedure [T81.4XXA]Allergies:Compazine [Prochlorperazine]Darvocet A500 [Propoxyphene N-Acetaminophen]Nsaids (Non- Steroidal Anti-Inflammatory Drug)TrazodoneTylenol [Acetaminophen]Ultram [Tramadol]Date Verified: 06/21/17Lab ValuesLab Value Units Date High LowPOTA* 4.0 mEq/L 06/05/2017 5.1 3.5HEMA* 26.8 % 06/05/2017 44.9 34.1Progress Notes (FIRE OBSERVER AG BATH):Piper Linton 06/20/2017 3:57 PM SignedPatient forgot appt, did reschedule for next Tuesday06/27/17.Piper LintonProgress Notes (GENS AG ACC 492):Valentina Moncada MD 06/15 9:53 AM SignedGeneral surgery follow-upHPI: This is a 32 year old female who presents for follow up requesting a refillof her narcotic pain medicine after she was sent my way by her chronic painspecialist. They did have reservations giving her medication given she stillhas an IR placed percutaneous pigtail drain. She is due for repeat IR tubecheck and possible removal next week. The collection is much smaller onsubsequent imaging. Still draining small amounts of serous to seropurulentmaterial. She complains of pain at the drain site and deep pelvic pain. Doesreport allergies to all analgesia medications other than narcotics. The bennett,no fevers or chills. Moving her bowels but constipated overall. Passingflatus. Incisions healing nicely. Signs of infection.PAST MEDICAL HISTORYDiagnosis Date- Abdominal pain decreased with position change- Anxiety- Bipolar 1 disorder (HCC )- Depression- Dysthymic disorder Depression (non-psychotic)- Endometriosis Frozen Pelvis- Epilepsy (HCC) LAST seizure almost 3 years ago, uses topamax- Generalized anxiety disorder Anxiety, Generalized- Other and unspecified ovarian cyst Ovarian cyst on left side- Overdose, drug 2016 opiodPAST SURGICAL HISTORYProcedure Laterality Date- COLONOSCOPY 2016- EXPLORATORY OF ABDOMEN 11/16/2010 Laparotomy, exp, for 10 years had a Laparoscopy every year.- HAND SURGERY HX Bilateral- L'SCOPE DX W/WO BRUSHINGS/WASHINGS Laparoscopy x7- TOTAL ABDOM HYSTERECTOMY 2012 BSOFAMILY HISTORYProblem Relation Age of Onset- Hypertension Mother- Genetic Mother Lupus- Obesity Mother- Psychiatry Mother Depression- Cancer Father Neuroblastoma when he was 29- Psychiatry Paternal Grandmother- Heart Paternal Grandmother- Cancer Maternal Grandmother and unknown type- Cancer Maternal Grandfather and unknown type- Breast Cancer Maternal Grandfather Cousin- ms [ OTHER] Maternal Grandfather Aunt, Uncle, Cousin- Diabetes OtherSocial History Marital status: Single Spouse name: Years of education: Number of children: 0Occupational HistoryOccupation Employer CommentdisabilitySocial History Main Topics Smoking status: Current Every Day Smoker Packs/day: 0.00 Years: 10.00 Types: Cigarettes Smokeless status: Never Used Comment: 2-3 CIGS DAILY Alcohol use: Yes Comment: Occasional Drug use: No Sexual activity: Not CurrentlyOther Topics ConcernMilitary Service NoBlood Transfusions NoCaffeine Concern No Comment:20 oz of diet coke, teaOccupational Exposure NoHobby Hazards NoSleep Concern Yes Comment:Does not sleep wellStress Concern Yes Comment:Health ProblemsWeight Concern YesSpecial Diet NoBack Care NoExercise No Comment:TriesBike Helmet NoSeat Belt YesSelf-Exams NoCurrent Outpatient Prescriptions:cefdinir (OMNICEF ) 300 mg capsule Take 1 capsule by mouth twice daily for 10days.metroNIDAZOLE (FLAGYL ) 500 mg tablet Take 1 tablet by mouth three times dailyfor 10 days.senna-docusate (SENNA-S) 8.6-50 mg per tablet Take 1 tablet by mouth twicedaily.polyethylene glycol 3350 (MIRALAX, GLYCOLAX) 17 gram packet Take 1 Packet bymouth once daily as needed.0.9 % SODIUM CHLORIDE (0.9% NACL) 3 mL syrg Inject 5 mL intravenously every 12hours.QUEtiapine (SEROQUEL) 200 mg tablet TAKE TWO TABLETS ONCE DAILY AT BEDTIME PRNlamoTRIgine (LAMICTAL) 150 mg tablet Take 150 mg by mouth once daily.clonazePAM (KLONOPIN) 0.5 mg tablet Take 0.5 mg by mouth twice daily as neededfor Anxiety.gabapentin (NEURONTIN) 300 mg capsule Take 300 mg by mouth three times daily.topiramate (TOPAMAX) 100 mg tablet Take 100 mg by mouth twice daily.oxyCODONE IR (ROXICODONE) 5 mg immediate release tablet Take 1 tablet by mouthevery 8 hours as needed for Pain (abdominal pain) for up to 20 doses.No current facility- administered medications for this visit.ALLERGIESAllergen Reactions- Compazine [Prochlor* Swelling Tongue swelled- Darvocet A500 [Prop* GI Upset, Vomiting- Nsaids (Non-Steroid* Other: See Comments GI damage- Trazodone Hives, Swelling- Tylenol [ Acetaminop* Swelling- Ultram [Tramadol] GI Upset, VomitingREVIEW OF SYSTEMS:GENERAL: No weight loss, malaise or feversGI: Negative for nausea , vomiting, diarrhea, constipation and signs of jaundicePositive for abdominal pain suprapublic regionPHYSICAL EXAM:BP 123/70 Pulse 117 Ht 5' 8 (1.73m) Wt 162 lb 6.4 oz (73.7kg) BMI 24.70kg/(m2).GENERAL APPEARANCE: Well appearing, alert, in no acute distress, well-hydrated,well nourished..ABDOMEN: Abdomen soft, non-tender. No masses, organomegaly. No peritonealfindings. Subjective tenderness. Drain with serous fluid within tubing.NEURO: Alert, oriented x3 and speech clear and articulateDATA:Diagnostic tests reviewed for today's visit:Most recent imagingASSESSMENT/PLAN:1. Lower abdominal pain - ICD9: 789.09, ICD10: R10.30 ( primary diagnosis)- OXYCODONE 5 MG TABLET2. Pelvic abscess in female - ICD9: 614.4, ICD10: N73.9- OXYCODONE 5 MG TABLETAt this point, I can refill her pain medicine to last her until her drainmanipulation next week. After this, I would highly recommend transitioning offof narcotic pain medicine. Given the challenges with her several nonnarcoticallergies and intolerances, I will defer that to her chronic pain team, as thiswill move outside of the realm of typical pain needs for a pigtail drain andresolving fluid collection.Valentina Moncada MD ED NOTE Observed: 06/05/2017 Status: COMPLETED Source: [place] 6:23 PM [facility] REPOSITORY HNO ID: [id number]: Court Pagan Rnice: Emergency MedicineAuthor Type: Registered NurseType: ED NotesFiled: 06/05/2017 6:24 PMNote Text: Patient discharged to home, accompanied by family member Walks unassistedDischarge instructions given to patient, discharge teaching performed,Patient verbalized understanding of discharge instructions and follow-upcare, Patient AANDOx4 MAEx4. Patient ambulates without difficulty.Belongings remain with patient, Valuables remain with patient. ED NOTE Observed: 06/05/2017 Status: COMPLETED Source: [place] 6:14 PM [facility] OTHER [place] REPOSITORY HNO ID: [id number]: KARL Pagan Rnervice: Emergency MedicineAuthor Type: Registered NurseType: ED NotesFiled: 06/05/2017 6:15 PMNote Text:Surgery resident at bedside. HISTORY PHYSICAL Observed: 06/05/2017 Status: COMPLETED Source: [place] 6:13 PM [facility] REPOSITORY HNO ID: [id number]: Zelalem Ibarra) FitzgeraldService: General SurgeryAuthor Type: ResidentType: HANDPFiled: 06/05/2017 6:19 PMNote Text: HISTORY AND PHYSICAL EXAMINATIONSERVICE DATE: 06/05/2017SERVICE TIME: 6:13 [facility] PH[facility]ICIAN: Cara Beverly COMPLAINT: Abd/buttock painHPI: This is a 32 year old female who presents with abd and buttock pain.She is s/p 05/18 diagnostic laparoscopy, excision of abdominal wall cysticmass, mini laparotomy , small bowel resection with primary anastomosis. On05/24 she underwent IR drain for pelvic abscess. She has been doing wellsince then, but ran out of pain medication 2 days ago .Since 2 days agoshe has excruciating pain in the L buttock where the perc drain enters.She complains that the drain is not holding suction. She has feltnauseated, and had one episode of emesis.She denies fever. She hasappointments with Dr. Moncada, pain management, and interventionalradiology next week.FUNCTIONAL STATUS: IndependentPAST MEDICAL HISTORYDiagnosis Date- Abdominal pain decreased with position change- Anxiety- Bipolar 1 disorder (HCC)- Depression- Dysthymic disorder Depression (non-psychotic)- Endometriosis Frozen Pelvis- Epilepsy (HCC) LAST seizure almost 3 years ago, uses topamax- Generalized anxiety disorder Anxiety, Generalized- Other and unspecified ovarian cyst Ovarian cyst on left side- Overdose, drug 2016 opiodPAST SURGICAL HISTORYProcedure Laterality Date- COLONOSCOPY 2016- EXPLORATORY OF ABDOMEN 11/16/2010 Laparotomy, exp, for 10 years had a Laparoscopy every year.- HAND SURGERY HX Bilateral- L'SCOPE DX W/WO BRUSHINGS/WASHINGS Laparoscopy x7- TOTAL ABDOM HYSTERECTOMY 2012 BSOFAMILY HISTORYProblem Relation Age of Onset- Hypertension Mother- Genetic Mother Lupus- Obesity Mother- Psychiatry Mother Depression- Cancer Father Neuroblastoma when he was 29- Psychiatry Paternal Grandmother- Heart Paternal Grandmother- Cancer Maternal Grandmother and unknown type- Cancer Maternal Grandfather and unknown type- Breast Cancer Maternal Grandfather Cousin- ms [OTHER] Maternal Grandfather Aunt, Uncle, Cousin- Diabetes OtherSocial HistorySubstance Use Topics- Smoking status: Current Every Day Smoker Years: 10.00 Types: Cigarettes- Smokeless tobacco: Never Used Comment: 2-3 CIGS DAILY- Alcohol use Yes Comment: Occasional(Not in a hospital admission)ALLERGIESAllergen Reactions- Compazine [Prochlor* Swelling Tongue swelled- Darvocet A500 [Prop* GI Upset, Vomiting- Nsaids (Non-Steroid* Other: See Comments GI damage- Trazodone Hives, Swelling- Tylenol [Acetaminop* Swelling- Ultram [Tramadol] GI Upset, VomitingCOMPLETE REVIEW OF SYSTEMS:as aboveObjectivePHYSICAL EXAM:Physical Exam Performed:GENERAL: Alert, no distress, cooperativeLUNGS: Lungs clear to auscultation, Good diaphragmatic excursionCARDIAC: Normal S1 and S2; no rubs, murmurs, or gallopsABDOMEN: Abdomen soft, non-tender, BS normal, No masses or organomegalyEXTREMITIES: Extremities normal, no deformities, edema, clubbing or skindiscoloration. Good capillary refill., No ulcersBACK: Perc drain with purulent drainage. Bulb was not holding suction;however, after correcting the orientation of the stopcock, the drain isnow holding suction. No erythema, skin changes, or fluctuance. Mildlytender to palpation at site where drain enters skin.BP 127/ 92 Pulse 78 Temp (Src) 97.7 (Oral) Resp 14 Ht 5' 8 (1.73m) Wt 170 lb ( 77.1kg) SpO2 99% BMI 25.85 kg/(m2).DATA:Diagnostic tests reviewed for today's visit: Most recent labs and imaging results.Assessment/PlanActive Problems:Pelvic abscess, drain is functioning- No surgical intervention- OK to dc to home- Keep appointments for outpatient follow up- D/W staff Dr. ChaATURE: Zelalem Vo MD PATIENT NAME: Laurence LemaATE: June 05, 2017 : 6:13 PM PAGER/CONTACT #: [id number] ED NOTE Observed: 06/05/2017 Status: COMPLETED Source: [place] 6:03 PM CLINIC OTHER CAMPUS REPOSITORY HNO ID: [id number]: Dianna (Rn) Phu RNService: Emergency MedicineAuthor Type: Registered NurseType: ED NotesFiled: 06/05/2017 6:04 PMNote Text: Diet coke provided upon pt request. ED NOTE Observed: 06/05/2017 Status: COMPLETED Source: [place] 4:04 PM CLINIC OTHER CAMPUS REPOSITORY HNO ID: [id number]: Dianna (Rn) KARL Bayervice: Emergency MedicineAuthor Type: Registered NurseType: ED NotesFiled: 06/05/2017 4:04 PMNote Text:Patient returned to the Emergency Department. CT ABDOMEN AND PELVIS Observed: 06/05/2017 Status: F Source: [facility] WITH CONTRAST 3:53 PM HEALTH SYSTEM REPOSITORY Performed at [facility] APPROVED BY: Mateo Hill MD EXAMINATION: CT ABDOMEN AND PELVIS WITH IV CONTRAST CLINICAL HISTORY: Pelvic abscess, left-sided pelvic pain TECHNIQUE: CT of the abdomen and pelvis was performed using standard technique, scanning from just above the dome of the diaphragm to the symphysis pubis. Sagittal and coronal reconstructions were performed.M: CTAP_3 Contrast: 150 mL Omnipaque 300 IVContrast oral: NoneCT Dose-Length Product: 330.73 mGy*cmCT Dose Reduction Employed: Pain at abscess location. COMPARISON: CT abdomen and pelvis 05/24/2017, CT pelvis 06/02/2017 , CT abdomen and pelvis 11/11/2015 RESULT: Lower thorax: There are linear opacities in both lower lobes likely representing atelectasis. Liver: There is a 5 mm low-attenuation lesion along the dome of the right lobe of the liver too small to further characterize statistically most likely representing a cyst. This is stable in size since 11/11/2015 likely benign. Biliary: No bile duct dilation. Gallbladder is unremarkable. Spleen: No mass. No splenomegaly. Pancreas: No mass or duct dilation. Adrenals: No mass. Kidneys: No mass, calculus or hydronephrosis. GI tract: There is a surgical anastomosis involving the distal small bowel. There are no dilated loops of large or small bowel. Moderate amount of stool throughout the ascending and transverse colon which could represent constipation. Normal appearance the appendix. Lymph nodes: No abdominal or pelvic lymphadenopathy. Mesentery/Peritoneum: No ascites or mass. No free intraperitoneal gas. Retroperitoneum: No mass. Vasculature: The celiac axis and SMA are patent. The portal vein and branches, splenic vein, SMV, and hepatic veins are patent. No abdominal aortic or iliac artery aneurysm. Pelvis: There is a rim-enhancing fluid collection in the central pelvis measuring 3.3 cm x 1.9 cm x 1.9 cm slightly decreased in size since the previous CT from 06/02/2017 where measured 4.7 cm x 1.8 cm x 1.8 cm. There is a pigtail catheter in the left lateral aspect of this collection. No free fluid in the pelvis. Bones/Soft Tissues: Unremarkable. IMPRESSION: Interval decrease in size of pelvic abscess as described above. There is a pigtail drainage catheter in the left lateral aspect of the fluid collection in stable position. Moderate amount of stool throughout the ascending and transverse colon may represent constipation. Status post small bowel anastomosis involving the distal small bowel. ED NOTE Observed: 06/05/2017 Status: COMPLETED Source: [place] 3:35 PM [facility] REPOSITORY HNO ID: [id number]: Dianna Loredo) KARL Bayervice: Emergency MedicineAuthor Type: Registered NurseType: ED NotesFiled: 06/05/2017 3:42 PMNote Text:Patient transported to CT with transporter. ED NOTE Observed: 06/05/2017 Status: COMPLETED Source: [place] 3:29 PM [facility] REPOSITORY HNO ID: [id number]: Dianna Loredo) KARL Bayervice: Emergency MedicineAuthor Type: Registered NurseType: ED NotesFiled: 06/05/2017 3:29 PMNote Text: residential field manager notified that pt is ready for CT. ED NOTE Observed: 06/05/2017 Status: COMPLETED Source: [place] 3:17 PM [facility] REPOSITORY HNO ID: [id number]: KARL Pagan Rnervice: Emergency MedicineAuthor Type: Registered NurseType: ED NotesFiled: 06/05/2017 3:17 PMNote Text: 200ml of clear yellow urine obtained.Urine specimen and culture sent. ED NOTE Observed: 06/05/2017 Status: COMPLETED Source: [place] 3:17 PM [facility] REPOSITORY HNO ID: [id number]: Dianna Loredo) KARL Bayervice: Emergency MedicineAuthor Type: Registered NurseType: ED NotesFiled: 06/05/2017 3:17 PMNote Text: Pt provided with warm blanket. ED NOTE Observed: 06/05/2017 Status: COMPLETED Source: [place] 3:17 PM CLINIC OTHER CAMPUS REPOSITORY HNO ID: [id number]: Dianna (Rn) KARL Bayervice: Emergency MedicineAuthor Type: Registered NurseType: ED NotesFiled: 06/05/2017 3:17 PMNote Text: Dr Azar notified that pt cant have CT with contrast in IV in EJ. URINALYSIS ROUTINE Collected: 06/05/2017 Status: F Source: [facility] 3:12 PM HEALTH SYSTEM REPOSITORY TYPE CODE TESTS RESULT OUT OF RANGE REFERENCE UNITS LAB COLOR(LOIN C) Urine Color YELLOW LAB APPUR(LOIN C) Urine CLEAR Appearance LAB GLUUR(LOIN Negative mg/dL C) Glucose Urine NEGATIVE LAB KETON(LOIN Negative mg/dL C) Ketone Urine NEGATIVE LAB HGBUR(LOIN Negative C) Hemoglobin,Urin NEGATIVE e LAB PROTU(LOIN Negative mg/dL C) Protein Urine NEGATIVE LAB NITRI(LOIN Negative C) Nitrites Urine NEGATIVE LAB BILIU(LOIN Negative C) Bilirubin Urine NEGATIVE LAB SPG(LOINC) 1.005-1.030 Specific 1.021 [place], Ur LAB PHUR(LOINC 5.0-8.0 ) pH,Urine 6.0 LAB UROBI(LOIN 0.0-1.0 EU/dL C) 0.2 Urobilinogen,Ur LAB LEUKO(LOIN Abnormal Negative C) Leukocytes Esterase MODERATE LAB RBCU1(LOIN High 0.0-5.0 /hpf C) RBC,Urine 5.2 LAB WBCU1(LOIN High 0.0-5.0 /hpf C) WBC, Urine 8.7 LAB EPIT1(LOIN High 0.0-5.0 /hpf C) Ep Cells 7.3 Urine LAB BACT1(LOIN None C) Bacteria NONE Urine LAB HYCA1(LOIN High 0.0-1.0 /lpf C) Hyaline 1.9 Cast Performed By: #### URIN2 ####[place] [address] URINE HCG, QUAL. Collected: 06/05/2017 Status: F Source: [facility] 3:12 PM HEALTH SYSTEM REPOSITORY TYPE CODE TESTS RESULT OUT OF REFERENCE UNITS RANGE LAB URHCG(LOIN Negative C) HCG, Negative Qual. Urine LAB SPGR(LOINC 1.005-1.030 ) Specific 1.021 [place], Ur Performed By: #### HCGUR ####[facility] [place] [address] ED NOTE Observed: 06/05/2017 Status: COMPLETED Source: [place] 3:05 PM CLINIC OTHER CAMPUS REPOSITORY HNO ID: [id number]: Dianna (Rn) Phu RNService: Emergency MedicineAuthor Type: Registered NurseType: ED NotesFiled: 06/05/2017 3:05 PMNote Text: Report received from Pradeep SHEPPARD. This RN assuming pt care at this time. Ptwalked to the BR without assistance pt educated on clean catch urinespecimen. HEMOGRAM/DIFF Collected: 06/05/2017 Status: F Source: [facility] 2:40 PM HEALTH SYSTEM REPOSITORY TYPE CODE TESTS RESULT OUT OF REFERENCE UNITS RANGE LAB WBC(LOINC) 3.98-10.04 thou/cmm WBC 7.46 LAB RBC(LOINC) Low 3.93-5.22 mil/cmm RBC 2.72 LAB HGB(LOINC) Low 11.2-15.7 g/dL Hgb 8.5 LAB HCT(LOINC) Low 34.1-44.9 % Hct 26.8 LAB MCV(LOINC) High 79.4-94.8 fl MCV 98.5 LAB MCH(LOINC) 25.6-32.2 pg MCH 31.3 LAB MCHC(LOINC 31.6-34.8 % ) MCHC 31.7 LAB RDW(LOINC) High 11.7-14.4 % RDW 15.3 LAB RDWSD(LOIN High 36.4-46.3 fl C) RDW SD 53.9 LAB PLT(LOINC) High 182-369 thou/cmm Platelet 606 LAB MPV(LOINC) 9.4-12.3 fl MPV 9.8 LAB SEG(LOINC) % Seg 49.0 Neutrophil LAB IGRE(LOINC % ) Immature 0.30 Grans LAB LYMPH(LOIN % C) Lymphocyte 41.8 LAB MNO(LOINC) % Monocyte 5.4 LAB EOSIN(LOIN % C) Eosinophil 2.8 LAB BASO(LOINC % ) Basophil 0.7 LAB SEGN(LOINC 1.56-6.13 thou/cmm ) Abs. Neut 3.66 LAB IGAB(LOINC 0.00-0.05 thou/cmm ) Abs Immature 0.02 Grans LAB LYMN(LOINC 1.18-3.74 thou/cmm ) Abs. Lymph 3.12 LAB MONON(LOIN 0.27-0.70 thou/cmm C) Abs. [place] 0.40 LAB EOSN(LOINC 0.00-0.31 thou/cmm ) Abs. Eosin 0.21 LAB BASON(LOIN 0.01-0.08 thou/cmm C) Abs. Baso 0.05 Performed By: #### CBCD1 ####[address] [address] LIPASE BLOOD Collected: 06/05/2017 Status: F Source: [facility] 2:40 HEALTH SYSTEM REPOSITORY TYPE CODE TESTS RESULT OUT OF REFERENCE UNITS RANGE LAB LIP(LOINC) High 73-393 U/L Lipase 500 Blood Performed By: #### LIP ####[address] [address] COMPREHENSIVE PANEL Collected: 06/05/2017 Status: F Source: [facility] TYPE CODE TESTS RESULT OUT OF REFERENCE UNITS RANGE LAB NA(LOINC) 136-145 mEq/L Sodium Blood 142 LAB K(LOINC) 3.5-5.1 mEq/L Potassium Blood 4.0 LAB CL(LOINC) High 98-107 mEq/L Chloride Blood 109 LAB CO2(LOINC) 21-32 mEq/L CO2 Blood 29 LAB GLU(LOINC) 70-99 mg/dL Glucose Blood 86 LAB BUN(LOINC) Low 7-18 mg/dL BUN Blood 6 LAB CREA(LOINC 0.51-0.95 mg/dL ) Creatinine 0.74 Blood LAB CA(LOINC) Low 8.5-10.1 mg/dL Calcium Blood 8.3 LAB ALB(LOINC) Low 3.4-5.0 g/dL Albumin Blood 2.5 LAB TP(LOINC) 6.4-8.2 g/dL Total Protein 6.4 LAB AST(LOINC) 9-37 U/L AST-SGOT Blood 12 LAB ALT(LOINC) 12-78 U/L ALT-SGPT Blood 12 LAB ALKP(LOINC 46-116 U/L ) Alk Phosphatase 47 LAB BILIT(LOIN 0.2-1.0 mg/dL C) Total Bilirubin 0.2 LAB ANGAP(LOIN 8-16 C) Anion Gap 8 Performed By: #### P14 ####[address] [address] MDRD GFR Collected: 06/05/2017 Status: F Source: [facility] 2:40 PM HEALTH SYSTEM REPOSITORY TYPE CODE TESTS RESULT OUT OF RANGE REFERENCE UNITS LAB GFRFN(LOINC >60mL/min/1. ) eGFR >60 73m2 Result Comment: If the patient is , multiply the result by 1.210. Performed By: #### GFR ####[address] [address] ED PROV NOTE Observed: 06/05/2017 Status: COMPLETED Source: [place] 2:01 PM CLINIC OTHER CAMPUS REPOSITORY HNO ID: [id number]: MARY ANN Southervice : Emergency MedicineAuthor Type: PhysicianType: ED Provider NotesFiled: 2017 6:54 PMNote Text:ED Provider NotePatient Name: Laurence Escobedo LouiseN: [id number] DATE: 06/05/17HistoryPatient presents with:Abdominal Pain: Pt had abd surg 05/18/2017 and has a MEMO drain. Pt hadacute onset of extreme pain today at surgical site. Pt also claims thather drain is not working.History provided by: PatientThe patient is a 32-year-old female who is s/p diagnostic laparoscopy onMay 18 with subsequent resection of cystic mass adherent to theperitoneum in the right lower quadrant , as well as discovery of meckel'sdiverticulum requiring small bowel resection with primary anastomosis.Patient subsequently returned to the ED on May 24, and was diagnosed with alarge abscess in the pelvis as well as evidence of small bowelobstruction. An IR drain was placed on May 24 into the abscesscavity. Patient is presenting today for evaluation of new onset leftlower quadrant abdominal pain since awakening this morning. She endorsessome nausea, no vomiting, and she has been passing stool (last BMyesterday). She also thinks that her MEMO drain was malfunctioning, notdraining or suctioning properly when she checked this morning. She deniesany urinary symptoms, fevers or chills.PAST MEDICAL HISTORYDiagnosis Date - Abdominal pain decreased with position change- Anxiety- Bipolar 1 disorder (HCC )- Depression- Dysthymic disorder Depression (non-psychotic)- Endometriosis Frozen Pelvis- Epilepsy (HCC) LAST seizure almost 3 years ago, uses topamax- Generalized anxiety disorder Anxiety, Generalized- Other and unspecified ovarian cyst Ovarian cyst on left side- Overdose, drug 2016 opiodPAST SURGICAL HISTORYProcedure Laterality Date- COLONOSCOPY 2016- EXPLORATORY OF ABDOMEN 11/16/2010 Laparotomy, exp, for 10 years had a Laparoscopy every year.- HAND SURGERY HX Bilateral- L'SCOPE DX W/WO BRUSHINGS/WASHINGS Laparoscopy x7- TOTAL ABDOM HYSTERECTOMY 2012 BSOFAMILY HISTORYProblem Relation Age of Onset- Hypertension Mother- Genetic Mother Lupus- Obesity Mother- Psychiatry Mother Depression- Cancer Father Neuroblastoma when he was 29- Psychiatry Paternal Grandmother- Heart Paternal Grandmother- Cancer Maternal Grandmother and unknown type- Cancer Maternal Grandfather and unknown type- Breast Cancer Maternal Grandfather Cousin- ms [ OTHER] Maternal Grandfather Aunt, Uncle, Cousin- Diabetes OtherSocial HistorySocial History Main Topics- Smoking status: Current Every Day Smoker Years: 10.00 Types: Cigarettes- Smokeless tobacco: Never Used Comment: 2-3 CIGS DAILY- Alcohol use Yes Comment: Occasional- Drug use: No- Sexual activity: Not CurrentlyALLERGIESAllergen Reactions- Compazine [Prochlor* Swelling Tongue swelled- Darvocet A500 [Prop* GI Upset, Vomiting- Nsaids (Non-Steroid* Other: See Comments GI damage- Trazodone Hives, Swelling- Tylenol [Acetaminop* Swelling- Ultram [Tramadol] GI Upset, VomitingReview of SystemsConstitutional: Negative for chills and fever.HENT: Negative for drooling.Eyes: Negative for visual disturbance.Respiratory: Negative for apnea, chest tightness and shortness of breath.Cardiovascular: Negative for chest pain and palpitations.Gastrointestinal: Positive for abdominal pain and nausea. Negative fordiarrhea and vomiting.Genitourinary: Negative for dysuria.Skin: Negative for pallor.Neurological: Negative for dizziness, numbness and headaches.Hematological: Negative for adenopathy.Psychiatric/Behavioral: Negative for confusion and suicidal ideas.All other systems reviewed and are negative.Physical ExamBP 137/67 Pulse 96 Temp (Src) 97.7 (Oral) Resp 18 Ht 5' 8 (1.73m) Wt 170 lb (77.1kg) SpO2 100% BMI 25.85 kg/(m2).Physical ExamConstitutional: She is oriented to person, place , and time. She appearswell-developed and well-nourished. No distress.HENT:Head: Normocephalic and atraumatic.Mouth/Throat: Oropharynx is clear and moist.Eyes: EOM are normal. Pupils are equal, round, and reactive to light.Neck: Normal range of motion. No tracheal deviation present.Cardiovascular: Normal rate, regular rhythm, normal heart sounds andintact distal pulses.Pulmonary/Chest: Effort normal and breath sounds normal. No respiratorydistress.Abdominal: Soft. Bowel sounds are normal. She exhibits no distension.There is tenderness in the left lower quadrant. There is no rigidity, norebound and no guarding.Musculoskeletal: Normal range of motion. She exhibits no edema ordeformity.Neurological: She is alert and oriented to person , place, and time. Shehas normal reflexes. No cranial nerve deficit.Skin: Skin is warm and dry.Psychiatric: She has a normal mood and affect. Her behavior is normal.Judgment normal.Nursing note and vitals reviewed.Diagnostic TestingED Labs Ordered and ReviewedCOMPREHENSIVE METABOLIC PANEL (AK,AV,EU,FV,HL,DIANE,MM,SP) - Abnormal;Notable for the following: Result Value Ref Range Chloride 109 (*) 98 - 107 mEq/L BUN 6 (*) 7 - 18 mg/dL Calcium 8.3 (*) 8.5 - 10.1 mg/dL Albumin 2.5 ( *) 3.4 - 5.0 g/dL All other components within normal limitsCBC + AUTO DIFF (AK,AV,EU,FV,HL,DIANE,MM,SP) - Abnormal; Notable for thefollowing: RBC 2.72 (*) 3.93 - 5.22 mil/cmm HGB 8.5 (*) 11.2 - 15.7 g/dL Hematocrit 26.8 (*) 34.1 - 44.9 % MCV 98.5 (*) 79.4 - 94.8 fl RDW 15.3 (*) 11.7 - 14.4 % RDW-SD 53.9 (*) 36.4 - 46.3 fl Platelet Count 606 (*) 182 - 369 thou/cmm All other components within normal limitsURINALYSIS WITH MICROSCOPIC (AK,AV,EU,FV,HL,DIANE,MM,SP) - Abnormal; Notablefor the following : Leukocytes Esterase MODERATE (*) Negative RBC, Urine 5.2 (*) 0.0 - 5.0 /hpf WBC , Urine 8.7 (*) 0.0 - 5.0 /hpf EP Cells Urine 7.3 (*) 0.0 - 5.0 /hpf Hyaline Cast 1.9 (*) 0.0 - 1.0 /lpf All other components within normal limitsLIPASE BLOOD (AK,AV,EU,FV,HL,DIANE,MM,SP) - Abnormal; Notable for thefollowing: Lipase 500 (*) 73 - 393 U/L All other components within normal limitsHCG QUALITATIVE URINE (AK,AV,EU,FV,HL,DIANE,MM,SP)MDRD GFRProceduresMedical Decision Making / ED CourseED CourseThe patient is a 32-year-old female who is s/p diagnostic laparoscopy onMay 18 with subsequent resection of cystic mass adherent to theperitoneum in the right lower quadrant, as well as discovery of medicaldiverticulum requiring small bowel resection with primary anastomosis.Patient subsequently returned to the ED on May 24, and was diagnosed with alarge abscess in the pelvis as well as evidence of small bowelobstruction. An IR drain was placed on May 24 into the abscesscavity. Patient is presenting today for evaluation of new onset leftlower quadrant abdominal pain since awakening this morning.Vitals stable. On exam, patient is alert and oriented ?3, in no acutedistress. Nontoxic in appearance. Abdomen soft, nondistended, tender topalpation in the left lower quadrant, + bowel sounds, without peritonealsigns. There is a MEMO drain insertion site in the left lower back withoutany signs of surrounding erythema or infection. The MEMO drains is activelydraining a small amount of serious fluid that is nonbloody andnon- purulent. Patient concurs that this is her usual quantity of drainagefrom the MEMO site.Patient is treated with analgesia and antiemetics om the department.CBC, CMP, lipase, urine , UA, as well as a CT abdomen and pelviswill be obtained at this time.Since the lab results are largely unremarkable, she does have elevatedlipase of 500, which is new. However, she is not complaining ofepigastric abdominal pain or any recent alcohol use. CT abdomen andpelvis show no acute intra-abdominal processes. Her abscess appears to bedecreased in size compared to previous studies. Her MEMO drain catheter isin the correct location. On reevaluation, patient once again complainingthat her MEMO drain is no longer suctioning and functioning correctly.Surgery was consulted for MEMO drain malfunction. On their evaluation, itappears that the stopcock was merely turned the wrong way, this wascorrected with resumed proper suctioning of the drain. Patient will bedischarged in stable condition. She has a follow-up appointment with as well as with IR, and she is to follow-up with pain managementfor any further pain issues. Return precautions were discussed.Encounter Diagnosis ICD-10-CM1. Post-op pain G89.18PlanThe Patient was DISCHARGED: Counseled patient regarding lab results ANDradiology results AND suspected diagnosis AND need for follow-up. Dischargedhome with verbal and written instructions. They were instructed to returnas needed for persistent or worsening symptoms or any new concerns.Condition at time of disposition: stableSIGNATURE: Addison Perkins (Res) Nissa, GBWkghqcjd16/18/ 18 1819Attending NoteI evaluated the patient and personally participated in the cutler components. I agree with the resident's findings and plan as documented and havediscussed the case and management of the patient's care with the resident. Please see my attending note.Signature: NHUNG Southate: 2017Time: 6:54 PMCarol Nate Jha MD06/05/17 1854 ED PROV NOTE Observed: 06/05/2017 Status: COMPLETED Source: [place] 2:00 PM CLINIC OTHER CAMPUS REPOSITORY HNO ID: [id number]: Inge Nate Jha, MDService : Emergency MedicineAuthor Type: PhysicianType: ED Provider NotesFiled: 2017 2:02 PMNote Text:ED Provider NotePatient Name: Laurence Rievra: [id number] DATE: 06/05/17HistoryPatient presents with:Abdominal Pain: Pt had abd surg 05/18/2017 and has a MEMO drain. Pt hadacute onset of extreme pain today at surgical site. Pt also claims thather drain is not working.HPIPAST MEDICAL HISTORYDiagnosis Date- Abdominal pain decreased with position change- Anxiety- Bipolar 1 disorder (HCC)- Depression- Dysthymic disorder Depression (non-psychotic)- Endometriosis Frozen Pelvis- Epilepsy (HCC) LAST seizure almost 3 years ago, uses topamax- Generalized anxiety disorder Anxiety, Generalized- Other and unspecified ovarian cyst Ovarian cyst on left side- Overdose, drug 2016 opiodPAST SURGICAL HISTORYProcedure Laterality Date- COLONOSCOPY 2016- EXPLORATORY OF ABDOMEN 11/16/2010 Laparotomy, exp, for 10 years had a Laparoscopy every year.- HAND SURGERY HX Bilateral- L'SCOPE DX W/WO BRUSHINGS/WASHINGS Laparoscopy x7- TOTAL ABDOM HYSTERECTOMY 2012 BSOFAMILY HISTORYProblem Relation Age of Onset- Hypertension Mother- Genetic Mother Lupus- Obesity Mother- Psychiatry Mother Depression- Cancer Father Neuroblastoma when he was 29- Psychiatry Paternal Grandmother- Heart Paternal Grandmother- Cancer Maternal Grandmother and unknown type- Cancer Maternal Grandfather and unknown type- Breast Cancer Maternal Grandfather Cousin- ms [ OTHER] Maternal Grandfather Aunt, Uncle, Cousin- Diabetes OtherSocial HistorySocial History Main Topics- Smoking status: Current Every Day Smoker Years: 10.00 Types: Cigarettes- Smokeless tobacco: Never Used Comment: 2-3 CIGS DAILY- Alcohol use Yes Comment: Occasional- Drug use: No- Sexual activity: Not CurrentlyALLERGIESAllergen Reactions- Compazine [Prochlor* Swelling Tongue swelled- Darvocet A500 [Prop* GI Upset, Vomiting- Nsaids (Non-Steroid* Other: See Comments GI damage- Trazodone Hives, Swelling- Tylenol [Acetaminop* Swelling- Ultram [Tramadol] GI Upset, VomitingReview of SystemsPhysical ExamBP 137/67 Pulse 96 Temp (Src) 97.7 ( Oral) Resp 18 Ht 5' 8 (1.73m) Wt 170 lb (77.1kg) SpO2 100% BMI 25.85 kg/(m2).Physical ExamDiagnostic TestingED Labs Ordered and Reviewed - No data to displayProceduresMedical Decision Making / ED CourseED CourseNo diagnosis found.PlanThe patient is status post lysis of adhesions for small bowel obstructionlaparoscopically. She was also noted to have an intra-abdominal abscessin the left lower quadrant which a MEMO drain was placed. She presentscomplaining of abdominal pain. Vitals are clear. The abdomen has sometenderness in the left lower quadrant, but is not particularly distended.She does have a MEMO drain straining clear greenish fluid with no evidenceof purulent drainage. Decided she feet dry clean and dry. We will assesslaboratory studies, she will most likely require a CAT scan of the abdomenand pelvis to ensure that she does not have any increase in the abscesscollection or any other additional intra-abdominal pathology. 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 Monitor shows SR. ED NOTE Observed: 06/05/2017 Status: COMPLETED Source: [place] 12:51 PM [facility] REPOSITORY HNO ID: [id number]: Amado Loredo) KARL Galindoervice: Emergency MedicineAuthor Type: Registered NurseType: ED NotesFiled: 06/05/2017 12:51 PMNote Text:Pt looks flush and pale, pt drops to high 80's on Pox and comes into low90 's with deep breath. Pt placed on 2L NC 8 Observed: 06/05/2017 Status: COMPLETED Source: [place] 12:49 PM [facility] REPOSITORY HNO ID: [id number]: Celi Khan) Corey: Emergency MedicineAuthor Type: Physician AssistantType: ED Triage NotesFiled: 06/05/2017 12:52 PMNote Text:ED INTAKE NOTEPatient Name: Laurence FuentessMRN: [id number] Date: 06/05/17BRIEF HPI:Patient is a 32 y/o F who presents to the ED for an evaluation ofabdominal pain and MEMO drain not working properly. Patient reports severeabdominal pain near her incision site. She states she had exploratoryabdominal surgery on 05/18/17 and has had complications since. She reportsshe has had a hysterectomy. She denies fever/chills, dysuria, hematuria,urinary frequency/ urgency, melena, hematochezia.BRIEF EXAM:Constitutional: Well developed, well nourished, NADHEENT: Normocephalic, atraumaticRespiratory: No respiratory distressCardiac: TachycardicAbdomen: limited d/t patient sitting upright in the exam chairNeuro: [id number]: Warm and dry, well healing surgical incisionINTAKE WORKUP:CBC, CMP , UASIGNATURE: Celi Funez PA-C CT PELVIS WITH Observed: 06/02/2017 Status: F Source: [facility] 2:15 PM HEALTH SYSTEM REPOSITORY Performed at [facility] APPROVED BY: Cole Townsend MD EXAM TITLE: CT OF THE PELVIS WITH INTRAVENOUS CONTRAST DATE: 06/02/2017 14:01 COMPARISON: 05/24/2017, 11/11/[address]-guided drainage dated 05/24/2017. CLINICAL INDICATION/HISTORY: The patient has a history of pelvic abscess. The patient previously had undergone placement of a percutaneous drainage catheter. TECHNIQUE: Helical scanning is obtained from the iliac crest through the ischial tuberosities while the patient received an intravenous bolus of iodinated contrast. The patient did not receive oral contrast. Transaxial images reconstructed at 3.75 mm intervals. In addition sagittal and coronal reconstructed images are presented. CT Radiation dose: Integrated Dose-length Product (DLP) for this visit = 182.38 mGy*cm.CT Dose Reduction Employed: Automated exposure control (AEC) Contrast: 150 cc of Omnipaque 300 IV Number of images: 284 FINDINGS: There is a drainage catheter which then placed into the previously noted pelvic fluid collection utilizing a left transgluteal approach. The tip of the catheter is in the extreme left lateral aspect of the residual fluid collection. There has been marked interval decrease in the size of the fluid collection. The collection now measures 4.7 x 1.8 x 1.8 cm. No new fluid collections are identified. The patient is status post hysterectomy.The bladder is unremarkable. There appears to be a staple line representing a bowel anastomosis in the right lower quadrant. The bowel proximal this is mildly distended and fluid-filled. There is gas and fecal material within the visualized portions of the colon. No free air is identified. No definite free fluid is noted. No abnormal masses are identified. IMPRESSION: 1. Marked interval decrease in the size of the pelvic abscess as described above. The collection now measures 4.7 x 1.8 x 1.8 cm. On previous study the collection measured 9.8 x 7.4 x 10.0 cm. The drainage catheter is located in the extreme left lateral aspect of the residual fluid collection. Recommend correlation with abscessogram. 2. Status post hysterectomy. 3. Status post bowel anastomosis involving the distal small bowel. There appears to be some fluid and distention and small bowel loops proximal to the level of the anastomosis. This raises the possibility of some degree of stricture involving the anastomosis. 4. Otherwise negative CT of the pelvis with intravenous contrast. ED NOTE Observed: 05/30/2017 Status: COMPLETED Source: [place] 2:30 AM [facility] REPOSITORY HNO ID: [id number]: Margarita (Rn) KARL Mccallervice: Emergency MedicineAuthor Type: Registered NurseType: ED NotesFiled: 05/30/2017 3:05 AMNote Text: 3 way stopcock replaced due to broken port. Difficult to flush. Tubingcrimped under drsng. Drsng replaced @ this time. Mom verbalized uneasinessof flushing MEMO and using 3 way stopcock. Instructed and demonstrated howto flush. Verbalized understanding. ED PROV NOTE Observed: 05/30/2017 Status: COMPLETED Source: [place] 1:39 AM [facility] REPOSITORY HNO ID: [id number]: MARY ANN Saucedaervice: Emergency MedicineAuthor Type: PhysicianType: ED Provider NotesFiled: 05/30/2017 3:14 AMNote Text:Attending NoteI evaluated the patient and personally participated in the cutler components. I agree with the resident's findings and plan as documented and havediscussed the case and management of the patient's care with the resident.A 32 yo female who had a CT guided percutaneous drain inserted for abscesson 05/24/17 by IR. Patient presents in the ED today because her 3-waystopcock had broken off. She does not know what happened. She deniespain. On exam, patient was well appearing with tachycardia. She has aJP drain extending out of her buttock. Surgery was consulted and informedof incident. Surgery indicated that we may switch out 3 way stock cock.MEMO drain appeared kinked but was able to flush. It was replaced withoutcomplications. She was instructed to follow up with Dr. Moncada asscheduled. Parameters of when to return to the ED were carefullyexplained.Signature: Cadence Montana, MDDate: 05/30/2017Time: 1:39 Yanet Montana MD05/30/17 0314 ED PROV NOTE Observed: 05/30/2017 Status: COMPLETED Source: [place] 1:12 AM [facility] OTHER CAMPUS REPOSITORY HNO ID: [id number]: MARY ANN Webber Reservice: Emergency MedicineAuthor Type: ResidentType: ED Provider NotesFiled: 05/30/2017 3:00 AMNote Text: ------ Attestation signed by Cadence Montana MD at 05/30/2017 3:15 AMPlease also see attending note.Signature: Cadence Montana, MDDate: 05/30/2017Time: 3:14 AM ---ED Provider NotePatient Name: Laurence Rivera: [id number] DATE: 05/30/17HistoryPatient presents with:Post Op Drainage: Pt's memo drain unscrewed from attachment while sleepingHistory provided by: PatientLanguage saddle maker used : Carlos Manuel is a 32 year old female with MEMO drain placement 6 days ago.Patient states that she was sleeping and the middle portion of the end hadbroken off. Patient denies any other issues with the drainage tube. Shedenies any fevers/chills, nausea/vomiting. She attempted to reconnect itwithout success. She endorses postop pain but denies any new orconcerning pain.PAST MEDICAL HISTORYDiagnosis Date- Abdominal pain decreased with position change- Anxiety- Bipolar 1 disorder (HCC )- Depression- Dysthymic disorder Depression (non-psychotic)- Endometriosis Frozen Pelvis- Epilepsy (HCC) LAST seizure almost 3 years ago, uses topamax- Generalized anxiety disorder Anxiety, Generalized- Other and unspecified ovarian cyst Ovarian cyst on left side- Overdose, drug 2016 opiodPAST SURGICAL HISTORYProcedure Laterality Date- COLONOSCOPY 2016- EXPLORATORY OF ABDOMEN 11/16/2010 Laparotomy, exp, for 10 years had a Laparoscopy every year.- HAND SURGERY HX Bilateral- L'SCOPE DX W/WO BRUSHINGS/WASHINGS Laparoscopy x7- TOTAL ABDOM HYSTERECTOMY 2012 BSOFAMILY HISTORYProblem Relation Age of Onset- Hypertension Mother- Genetic Mother Lupus- Obesity Mother- Psychiatry Mother Depression- Cancer Father Neuroblastoma when he was 29- Psychiatry Paternal Grandmother- Heart Paternal Grandmother- Cancer Maternal Grandmother and unknown type- Cancer Maternal Grandfather and unknown type- Breast Cancer Maternal Grandfather Cousin- ms [ OTHER] Maternal Grandfather Aunt, Uncle, Cousin- Diabetes OtherSocial HistorySocial History Main Topics- Smoking status: Current Every Day Smoker Years: 10.00 Types: Cigarettes- Smokeless tobacco: Never Used Comment: 2-3 CIGS DAILY- Alcohol use Yes Comment: Occasional- Drug use: No- Sexual activity: Not CurrentlyALLERGIESAllergen Reactions- Compazine [Prochlor* Swelling Tongue swelled- Darvocet A500 [Prop* GI Upset, Vomiting- Nsaids (Non-Steroid* Other: See Comments GI damage- Trazodone Hives, Swelling- Tylenol [Acetaminop* Swelling- Ultram [Tramadol] GI Upset, VomitingReview of SystemsConstitutional: Negative for activity change and appetite change.HENT: Negative for congestion and dental problem.Eyes: Negative for discharge and itching.Respiratory: Negative for apnea and chest tightness.Cardiovascular: Negative for chest pain and leg swelling.Gastrointestinal: Negative for abdominal distention and abdominal pain.Endocrine: Negative for cold intolerance and heat intolerance.Genitourinary: Negative for difficulty urinating and dysuria.Musculoskeletal: Negative for arthralgias and back pain.Skin: Negative for color change and pallor.Allergic/Immunologic: Negative for environmental allergies and foodallergies.Neurological: Negative for dizziness and facial asymmetry.Hematological: Negative for adenopathy. Does not bruise/bleed easily.Psychiatric/Behavioral: Negative for agitation and behavioral problems.Physical ExamPulse 118 Resp 16 SpO2 99%Physical ExamConstitutional : She is oriented to person, place, and time. She appearswell-developed and well- nourished. No distress.HENT:Head: Normocephalic and atraumatic.Nose: Nose normal.Mouth/ Throat: Oropharynx is clear and moist.Eyes: EOM are normal. Pupils are equal, round, and reactive to light.Neck: Normal range of motion. Neck supple.Cardiovascular: Normal rate, regular rhythm and normal heart sounds.Pulmonary/Chest: Effort normal and breath sounds normal. No respiratorydistress.Abdominal: Soft. Bowel sounds are normal. There is no guarding.Connector portion of drain broken. Minimal brown drainage present inseparated drain.Musculoskeletal: Normal range of motion. She exhibits no edema ordeformity.Neurological: She is alert and oriented to person , place, and time.Skin: Skin is warm and dry.Nursing note and vitals reviewed.Diagnostic TestingED Labs Ordered and Reviewed - No data to displayProceduresMedical Decision Making / ED CourseED CourseEncounter Diagnosis ICD-10-CM1. Broken Fito-Herrera drain, initial encounter T85.698ABroken piece was replaced. Patient was discharged home in stablecondition with follow-up as instructed.PlanThe Patient was DISCHARGED: Counseled patient regarding suspecteddiagnosis AND need for follow-up. Discharged home with verbal and writteninstructions. They were instructed to return as needed for persistent orworsening symptoms or any new concerns.Condition at time of disposition: stableSIGNATURE: Sadia Adams, MDCarlynn (Res) Bryan, VYExnieubw84/12/18 0300Cadence Montana MD05/30/17 0315 ED NOTE Observed: 05/30/2017 Status: COMPLETED Source: [place] 1:09 AM [facility] OTHER [place] REPOSITORY HNO ID: [id number]: Isabel (Rn) KARL Dasilvaervice: Emergency MedicineAuthor Type: Registered NurseType: ED NotesFiled: 05/30/2017 1:10 AMNote Text:Pt's memo drain unscrewed from attachment while sleeping. CNDS Observed: 05/29/2017 Status: COMPLETED Source: [place] 3:33 PM [facility] OTHER [place] REPOSITORY HNO ID: [id number]: Carmen (Res) TremellingService: General SurgeryAuthor Type: ResidentType: Discharge SummariesFiled: 05/29/2017 3:47 PMNote Text:DISCHARGE SUMMARYPATIENT NAME: Laurence Marr ADMISSION DATE: 05/24/2017MRN: [id number] DISCHARGE DATE: 05/29/2017ATTENDING PHYSICIAN: Valentina Rivera FOR HOSPITALIZATION: fever, intraabdominal abscess, SBODIAGNOSIS: Active Problems: Abscess after procedureResolved Problems: * No resolved hospital problems. *OPERATIONS DURING HOSPITALIZATION: NonePROCEDURES DURING HOSPITALIZATION: IR percutaneous drain placementHOSPITAL COURSE:32 y/o F s/p SBR for Meckels diverticulum, presented with fever andworsening abdominal pain. She was found to have an intraabdominal abscessand small bowel obstruction. She was admitted, made NPO, and started on IVantibiotics. An IR guided percutaneous drain was placed into the abscesscavity. As her obstruction resolved her diet was advanced. Infectiousdisease was consulted for home going antibiotic recommendations.LABS AND PROCEDURES PENDING AT DISCHARGE: No pending results.CONSULTING TEAMS DURING HOSPITALIZATION: Pain Management, InfectiousDisease, Nurtrition Support teamPATIENT CONDITION AT DISCHARGE: StableDISCHARGE DISPOSITION: Home/Self CareDISCHARGE MEDICATION:Current Discharge Medication ListSTART taking these medicationsmetroNIDAZOLE (FLAGYL) 500 mgTake 500 mg by mouth every 8 hours.Qty: 25 tablet Refills: 0cefdinir (OMNICEF) 300 mgTake 300 mg by mouth twice daily.Qty: 17 capsule Refills: 0senna-docusate (SENNA-S) 1 tabletTake 1 tablet by mouth twice daily.polyethylene glycol 3350 (MIRALAX, GLYCOLAX) 17 gTake 17 g by mouth once daily as needed.CONTINUE these medications which have CHANGEDoxyCODONE IR (ROXICODONE) 5-10 mgTake 5-10 mg by mouth every 4 hours as needed. Aware of OARRS Rx 05/21 Oxy5mg #30Earliest Fill Date: 05/28/17Qty: 25 tablet Refills: 0Associated Diagnoses:Postprocedural intraabdominal abscessCONTINUE these medications which have NOT CHANGEDQUEtiapine (SEROQUEL) 200 mg tabletTAKE TWO TABLETS ONCE DAILY AT BEDTIME PRNRefills: 2lamoTRIgine (LaMICtal) 150 mgTake 150 mg by mouth once daily.Associated Diagnoses:Acute bronchitis, unspecified organism; Cough;Generalized abdominal pain; Post-nasal drainageclonazePAM (KlonoPIN) 0.5 mgTake 0.5 mg by mouth twice daily as needed for Anxiety.Associated Diagnoses: Hematuria; Hepatic cyst; Nausea; Generalizedabdominal pain; Acute midline low back pain without sciatica; Encounterfor vitamin deficiency screening; Screening for lipid disorders; Screeningfor thyroid disorder; Bipolar affective disorder in remission (HCC);Nonintractable epilepsy without status epilepticus, unspecified epilepsytype (HCC)gabapentin (NEURONTIN) 300 mgTake 300 mg by mouth three times daily.Associated Diagnoses:Hematuria; Hepatic cyst; Nausea; Generalizedabdominal pain; Acute midline low back pain without sciatica; Encounterfor vitamin deficiency screening; Screening for lipid disorders; Screeningfor thyroid disorder; Bipolar affective disorder in remission (HCC);Nonintractable epilepsy without status epilepticus, unspecified epilepsytype (HCC)topiramate (TOPAMAX) 100 mgTake 100 mg by mouth twice daily.Associated Diagnoses:Hematuria; Hepatic cyst; Nausea; Generalizedabdominal pain; Acute midline low back pain without sciatica; Encounterfor vitamin deficiency screening; Screening for lipid disorders; Screeningfor thyroid disorder; Bipolar affective disorder in remission (HCC);Nonintractable epilepsy without status epilepticus, unspecified epilepsytype ([facility])STOP taking these medicationsbuprenorphine (BUTRANS) 5 mcg/hourComments:Reason for Stopping:suvorexant 1 tabletComments: Reason for Stopping:FUTURE APPOINTMENTS:Dr. Moncada in 1 weekTIME OF CARE (Use first blank if not applicable): TIME OF CARE: DischargeManagement: I personally spent greater than 30 minutes involved in thedischarge management of this patient.SIGNATURE: Carmen Goldberg MD PATIENT NAME: Laurence FuentessDATE: May 29, 2017 : 3:33 PM PAGER/CONTACT #: [phone] CHEST 1 VIEW Observed: 05/29/2017 Status: F Source: [facility] 2:17 PM HEALTH SYSTEM REPOSITORY Performed at [facility] APPROVED BY: Ken Dodson MD EXAM TITLE: PORTABLE UPRIGHT CHEST DATE:05/29/2017 14:10 COMPARISON : 05/24/2017 CLINICAL INDICATION/HISTORY: Evaluate right-sided PICC line RESULTS: A right-sided PICC line is present. The tip appears to terminate within the mid SVC. This has been somewhat retracted compared to the prior radiograph. Shallow depth of inspiration. Bibasilar subsegmental atelectasis. No focal consolidation or pleural effusion is seen. No pneumothorax. Osseous structures are unremarkable. IMPRESSION: 1. The right-sided PICC line appears to have been retracted by a few centimeters, however still resides within the mid SVC. 2. Bibasilar subsegmental atelectasis without significant change. PROGRESS Observed: 05/29/2017 Status: COMPLETED Source: [place] 9:03 AM CLINIC OTHER CAMPUS REPOSITORY O ID: [id number]: Woo Escobar ScantlingService: Pain ManagementAuthor Type: PhysicianType: Progress NotesFiled: 05/29/2017 1:00 PMNote Text:RX Pain Management Progress NoteName: Laurence FuentessMRN: [id number]: [id number]-*Pain Diagnosis: ?Abdominal painIs patient's pain today ? Better; tolerating dietIs amount of pain relief currently experienced by patient adequate frompatient's view? YesPain score?8/10 improves to 5/10 with prn use and with few?hour(s) reliefDescription of pain: Aching, Constant and StabbingExacerbating Maneuvers:?Movement and PalpationRelieving Maneuvers:?Opiates and RestAdverse Effects:?NoneAdverse Effects treatment related: ?noLast BM: Number of BMs: 1 (05/27/17 1430)Allergies:ALLERGIESAllergen Reactions- Compazine [Prochlor* Swelling Tongue swelled- Darvocet A500 [Prop* GI Upset, Vomiting- Nsaids (Non-Steroid* Other: See Comments GI damage- Trazodone Hives, Swelling- Tylenol [ Acetaminop* Swelling- Ultram [Tramadol] GI Upset, VomitingCurrent Medications:Current hospital medications:oxyCODONE IR 5-10 mg tab(s) (ROXICODONE) 5-10 mg ORAL q 3 H PRNParenteral Nutrition - Adult INTRAVENOUS ONCE TPN (1800 START)morphine 2 mg injection 2 mg INTRAVENOUS q 3 H PRNcefdinir 300 mg (OMNICEF) 300 mg ORAL BIDmetroNIDAZOLE 500 mg tab(s) (FLAGYL) 500 mg ORAL q 8 Hsenna-docusate 8.6-50 mg 1 tablet (SENNA-S) 1 tablet ORAL BIDpolyethylene glycol 3350 17 g packet (MIRALAX, GLYCOLAX) 17 g ORAL DAILYPRNQUEtiapine 400 mg tab(s) (SEROquel) 400 mg ORAL AT BEDTIMEiv contrast (radiology procedure) INTRAVENOUS DIRECTED PRNbuprenorphine 5 mcg/hour 1 Patch (BUTRANS) 1 Patch TRANSDERMAL q 1 WEEK0.9% NaCl 3-5 mL 3-5 mL INTRAVENOUS q 12 Hondansetron 4 mg tab(s) (ZOFRAN) 4 mg ORAL q 6 H PRNondansetron (PF) 4 mg injection (ZOFRAN) 4 mg INTRAVENOUS q 6 H PRNenoxaparin 40 mg injection (LOVENOX) 40 mg SUBCUTANEOUS DAILYpantoprazole 40 mg injection (PROTONIX) 40 mg INTRAVENOUS DAILY (6 AM)0.9% NaCl 10 mL 10 mL INTRAVENOUS q 12 H0.9% NaCl 20 mL 20 mL INTRAVENOUS PRNOpiate Use/Notes (Opiate use last 24 hrs): Morphine 2mg x3, Oxycodone 25yia1Ncvgnobrpn tests reviewed for today's visit:Most recent labs and imaging results.Hemoglobin (g/dL)Date Value06/06/2015 11.0 HGB (g/dL)Date Value05/29/2017 7.7 Hematocrit (%)Date Value05/29/2017 23.3 WBC (thou/cmm)Date Value05/29/2017 9.58 Glucose (mg/dL)Date Value2017 126 Potassium (mEq/L)Date Value05/29/2017 4.5 Sodium (mEq/L) Date Value05/29/2017 132 Chloride (mEq/L)Date Value05/29/2017 102 CO2 (mEq/L)Date Value05/29/2017 23 Creatinine (mg/dL)Date Value05/29/2017 0.59 BUN (mg/dL)Date Value05/29/2017 13 Anion Gap (no units) Date Value05/29/2017 12 Calcium (mg/dL)Date Value05/29/2017 7.9 Active Problem List:Active Hospital Problems Diagnosis Date Noted- Abscess after procedure 05/24/2017PHYSICAL EXAMINATION:BP 114/55 Pulse 98 Temp 36 ?C (96.8 ?F) ( Temporal Artery) Resp 18 Ht 172.7 cm (5' 8) Wt 75 kg (165 lb 5.5 oz) SpO2 98% BMI 25.14kg/s5Dxdadnp appearance: alert, pleasant, resting comfortablySkin:?Skin color, texture, turgor normal, no suspicious rashes or lesionsHEENT: +NGTLungs:?Lungs clear to auscultation. No wheezing, rhonchi, ralesHeart:?RRR without murmur, gallop, or rubs. ?No ectopyAbdomen:?soft, BS+ mild tender LUQ + drainExtremities:?No deformities, edema, skin discoloration, clubbing orcyanosis. Good capillary refill.Neuro:?Negative.??Urine Tox Screen + benzo/opiatesOARRS review: ?YesRx at D/C:?YesRx on chart:?Yes?Outpatient Pain Management: ?Yes. ?Other: BasaliOpiate Status:Episodic??Assessment: 32yo F s/p diagnostic laparoscopy, excision of abdominal wallcystic mass (Meckel's diverticulum), mini laparotomy, small bowelresection with primary anastomosis on 05/18/17, now with pelvic fluidcollection vs abscess, PSBO?. S/p IR perc drain and drain placement 05/24.?Tolerating po.??Recommendations: Continue present regimen; tolerating more po; anticipatedischarge home soonSIGNATURE: Woo Mei MD PATIENT NAME: Laurence LemaATE: May 29, 2017 : 12:57 PM PAGER: [phone] PROGRESS Observed: 05/29/2017 Status: COMPLETED Source: [place] 8:16 AM [facility] REPOSITORY HNO ID: [id number]: Sarah Hesservice: NST- Nutrition Support TeamAuthor Type: PhysicianType: Progress NotesFiled: 05/29/2017 8:17 AMNote Text:Diet advanced- Torerating 0-50 % of mealsWill not renew TPN and follow intakePotential discharge notedH Mark Liu MD PROGRESS Observed: 05/29/2017 Status: COMPLETED Source: [place] 5:47 AM [facility] OTHER [place] REPOSITORY HNO ID: [id number]: Jimi (Vonnie) ElenapService: General SurgeryAuthor Type: ResidentType: Progress NotesFiled: 05/29/2017 6:56 AMNote Text: ------ Attestation signed by Stas Meneses at 05/29/2017 3:04 PMAttending NoteI personally saw and examined the patient. I reviewed the resident's note. Leticia with the resident's assessment and plan with the following revisionsand/or additions: dc home todaySignature: Stas MenesesNHUNGate: 05/29/2017Time: 3:04 PM ---Gen eral Surgery Progress NoteSERVICE DATE: 05/29/2017SUBJECTIVE:Doing well. Denies fevers, chills, nausea, emesis. (+) flatus and BM.Ambulating. Pain well controlled. Hopeful to go home today?Tolerating diet DIET GASTRO INTESTINALParenteral Nutrition - AdultOBJECTIVE:Vitals:Temp (24hrs), Av.3 ?C (99.1 ?F), Min:36.7 ?C (98.1 ?F ), Max:37.8 ?C(100 ?F)BP 121/59 Pulse 103 Temp 37.8 ?C (100 ?F) (Oral) Resp 18 Ht 172.7cm (5' 8) Wt 82.2 kg (181 lb 3.5 oz) SpO2 98% BMI 27.55 kg/m2O2 Therapy: Room AirIANDO:Date 05/28/17 07 - 05/29/17 0659 05/29/17 07 - 05/30 0659Shift 4666-1911 4365-6374 8128-2037 24 Hour Total 4280-7591 1500-88258104- 0659 24 Hour TotalINTAKE PO 240 480 720 PO 240 480 720 TPN/PPN 1523 1523 TPN 1523 1523 Irrigants 5 5 Irrigant/Flush Amount In (Drain/Tube 05/24/17 1800 Assessment LeftPosterior Buttocks Drain #1) 5 5 Shift Total 240 20078OUTPUT Urine 1000 5014 651 8505 Void (ml) 1000 2264 934 7776 Urine Incontinence/Not Saved 1 x 1 x Tubes 2.5 0 2.5 Drain/Tube Output (Drain/Tube 05/24/17 1800 Assessment Left PosteriorButtocks Drain #1) 2.5 0 2.5 Shift Total 1000 1702.5 900 3602.5Weight (kg) 82.2 82.2 82.2 82.2 82.2 82.2 82.2 82.2MEDICATIONSCurrent Facility-Administered Medications:oxyCODONE IR 5-10 mg tab(s) (ROXICODONE) 5-10 mg ORAL q 3 H PRNParenteral Nutrition - Adult INTRAVENOUS ONCE TPN (1800 START)morphine 2 mg injection 2 mg INTRAVENOUS q 3 H PRNcefdinir 300 mg (OMNICEF) 300 mg ORAL BIDmetroNIDAZOLE 500 mg tab(s) (FLAGYL) 500 mg ORAL q 8 Hsenna-docusate 8.6-50 mg 1 tablet (SENNA-S) 1 tablet ORAL BIDpolyethylene glycol 3350 17 g packet (MIRALAX, GLYCOLAX) 17 g ORAL DAILYPRNQUEtiapine 400 mg tab(s) (SEROquel) 400 mg ORAL AT BEDTIMEiv contrast (radiology procedure) INTRAVENOUS DIRECTED PRNbuprenorphine 5 mcg/hour 1 Patch (BUTRANS) 1 Patch TRANSDERMAL q 1 WEEK0.9% NaCl 3-5 mL 3-5 mL INTRAVENOUS q 12 Hondansetron 4 mg tab(s) (ZOFRAN) 4 mg ORAL q 6 H PRNOrondansetron (PF) 4 mg injection (ZOFRAN) 4 mg INTRAVENOUS q 6 H PRNenoxaparin 40 mg injection ( LOVENOX) 40 mg SUBCUTANEOUS DAILYpantoprazole 40 mg injection (PROTONIX) 40 mg INTRAVENOUS DAILY (6 AM)0.9% NaCl 10 mL 10 mL INTRAVENOUS q 12 H0.9% NaCl 20 mL 20 mL INTRAVENOUS PRNLabs:Recent Labs 05/28/1802NA 132* 134*K 4.5 4.4CHLOR 102 104CO2 23 24BUN 13 11CREAT 0.59 0.65GLUC 126* 107*ANION 12 10CA 7.9* 8.0*MG 2.2 2.4P 4.1 3.8WBC 9.58 8.02HB 7.7* 9.7*HCT 23.3* 28.1*PLT 408* 238Exam:GENERAL: No distress, AlertNEURO: AANDOx3, CN II-XII grossly intactHEENT: normocephalic, atraumaticLUNGS: Unlabored breathingCARDIAC: Regular rate and rhythm as aboveABDOMEN: Soft, mild distension, mild tenderness LLQ. Incisions c/d/i. JPtan/serousEXTREMITIES: PASTRANA , No deformities, No edemaSKIN: Skin color, texture, turgor normal, No rashes or lesionsASSESSMENT AND PLAN:Active Hospital Problems Diagnosis Date Noted- Abscess after procedure 05/24/201732 year old female hx of diagnostic laparoscopy, excision of abdominalwall cystic mass, mini laparotomy, small bowel resection with primaryanastomosis on 05/18/17, now with pelvic fluid collection vs abscess. S/ pIR perc drain and drain placement 05/24??- soft GI diet- TPN- Cultures are showing rare Escherichia coli and Bacteroides. ?Alsogrowing Morganella morganii.- antibiotics per ID: [email or web address], flagyl- drain cultures pending. Too young to speciate- pain management consulted; would appreciate recs for pain meds at timeof discharge- possible d/ c home todaySIGNATURE: Jimi Reddy MD PATIENT NAME: Laurence LemaATE: May 29, 2017 : 5:47 AM Pager: [phone] HEMOGRAM/DIFF Collected: 05/29/2017 Status: F Source: [facility] 3:25 AM HEALTH SYSTEM REPOSITORY TYPE CODE TESTS RESULT OUT OF REFERENCE UNITS RANGE LAB WBC(LOINC) 3.98-10.04 thou/cmm WBC 9.58 LAB RBC(LOINC) Low 3.93-5.22 mil/cmm RBC 2.46 LAB HGB(LOINC) Low 11.2-15.7 g/dL Hgb 7.7 LAB HCT(LOINC) Low 34.1-44.9 % Hct 23.3 LAB MCV(LOINC) 79.4-94.8 fl MCV 94.7 LAB MCH(LOINC) 25.6-32.2 pg MCH 31.3 LAB MCHC(LOINC 31.6-34.8 % ) MCHC 33.0 LAB RDW(LOINC) 11.7-14.4 % RDW 13.6 LAB RDWSD(LOIN High 36.4-46.3 fl C) RDW SD 47.1 LAB PLT(LOINC) High 182-369 thou/cmm Platelet 408 LAB MPV(LOINC) 9.4-12.3 fl MPV 10.9 LAB SEG(LOINC) % Seg 61.2 Neutrophil LAB IGRE(LOINC % ) Immature 1.80 Grans LAB LYMPH(LOIN % C) Lymphocyte 21.0 LAB MNO(LOINC) % Monocyte 11.7 LAB EOSIN(LOIN % C) Eosinophil 3.9 LAB BASO(LOINC % ) Basophil 0.4 LAB SEGN(LOINC 1.56-6.13 thou/cmm ) Abs. Neut 5.86 LAB IGAB(LOINC High 0.00-0.05 thou/cmm ) Abs Immature 0.17 Grans LAB LYMN(LOINC 1.18-3.74 thou/cmm ) Abs. Lymph 2.01 LAB MONON(LOIN High 0.27-0.70 thou/cmm C) Abs. [place] 1.12 LAB EOSN(LOINC High 0.00-0.31 thou/cmm ) Abs. Eosin 0.37 LAB BASON(LOIN 0.01-0.08 thou/cmm C) Abs. Baso 0.04 Result Comment: Smear scanned; tech agrees with automated differential Performed By: #### CBCD1 ####[place] [address] MAGNESIUM BLOOD Collected: 05/29/2017 Status: F Source: [facility] 3:25 AM HEALTH SYSTEM REPOSITORY TYPE CODE TESTS RESULT OUT OF REFERENCE UNITS RANGE LAB MAG(LOINC) 1.6-2.6 mg/dL Magnesium 2.2 Blood Performed By: #### MAG ####[place] [address] PHOSPHORUS BLOOD Collected: 05/29/2017 Status: F Source: [facility] 3:25 AM HEALTH SYSTEM REPOSITORY TYPE CODE TESTS RESULT OUT OF REFERENCE UNITS RANGE LAB PHOS(LOINC 2.5-4.9 mg/dL ) Phosphorus 4.1 Blood Performed By: #### PHOS ####[place] [address] BASIC PANEL Collected: 05/29/2017 Status: F Source: [facility] 3:25 AM HEALTH SYSTEM REPOSITORY TYPE CODE TESTS RESULT OUT OF REFERENCE UNITS RANGE LAB NA(LOINC) Low 136-145 mEq/L Sodium Blood 132 LAB K(LOINC) 3.5-5.1 mEq/L Potassium 4.5 Blood LAB CL(LOINC) 98-107 mEq/L Chloride 102 Blood LAB CO2(LOINC) 21-32 mEq/L CO2 Blood 23 LAB GLU(LOINC) High 70-99 mg/dL Glucose Blood 126 LAB BUN(LOINC) 7-18 mg/dL BUN Blood 13 LAB CREA(LOINC 0.51-0.95 mg/dL ) Creatinine 0.59 Blood LAB CA(LOINC) Low 8.5-10.1 mg/dL Calcium Blood 7.9 LAB ANGAP(LOIN 8-16 C) Anion Gap 12 Performed By: #### P8 ####[place] [address] MDRD GFR Collected: 05/29/2017 Status: F Source: [facility] 3:25 AM HEALTH SYSTEM REPOSITORY TYPE CODE TESTS RESULT OUT OF RANGE REFERENCE UNITS LAB GFRFN(LOINC >60mL/min/1. ) eGFR >60 73m2 Result Comment: If the patient is , multiply the result by 1.210. Performed By: #### GFR ####[place] [address] PROGRESS Observed: 05/28/2017 Status: COMPLETED Source: [place] 8:08 AM [facility] OTHER [place] REPOSITORY HNO ID: [id number]: Sarah Flores AwenderService: NST- Nutrition Support TeamAuthor Type: PhysicianType: Progress NotesFiled: 05/28/2017 8:09 AMNote Text:Diet advanced to soft GIPO intake still seems lowElectrolytes are OKA/P: Readmit with infected pelvic fluid collection Will cont TPN todayH Mark Liu MD PROGRESS Observed: 05/28/2017 Status: COMPLETED Source: [place] 6:50 AM [facility] OTHER [place] REPOSITORY HNO ID: [id number]: Woo Escobar ScantlingService: Pain ManagementAuthor Type: PhysicianType: Progress NotesFiled: 05/28/2017 4:36 PMNote Text:RX Pain Management Progress NoteName: Laurence GilN: [id number]: [id number]-*Pain Diagnosis: Abdominal painIs patient's pain today ? Better; tolerating dietIs amount of pain relief currently experienced by patient adequate frompatient's view? YesPain score 9/10 improves to 5/10 with prn use and with few hour(s) reliefDescription of pain: Aching, Constant and StabbingExacerbating Maneuvers: Movement and PalpationRelieving Maneuvers: Opiates and RestAdverse Effects: NoneAdverse Effects treatment related: noLast BM: Number of BMs: 1 (05/27/17 1430)Allergies:ALLERGIESAllergen Reactions- Compazine [Prochlor* Swelling Tongue swelled- Darvocet A500 [Prop* GI Upset, Vomiting- Nsaids (Non-Steroid* Other: See Comments GI damage- Trazodone Hives, Swelling- Tylenol [ Acetaminop* Swelling- Ultram [Tramadol] GI Upset, VomitingCurrent Medications:Current hospital medications:oxyCODONE IR 5-10 mg tab(s) (ROXICODONE) 5-10 mg ORAL q 3 H PRNParenteral Nutrition - Adult INTRAVENOUS ONCE TPN (1800 START)Parenteral Nutrition - Adult INTRAVENOUS ONCE TPN (1800 START)morphine 2 mg injection 2 mg INTRAVENOUS q 3 H PRNcefdinir 300 mg (OMNICEF) 300 mg ORAL BIDmetroNIDAZOLE 500 mg tab(s) (FLAGYL ) 500 mg ORAL q 8 Hsenna-docusate 8.6-50 mg 1 tablet (SENNA-S) 1 tablet ORAL BIDpolyethylene glycol 3350 17 g packet (MIRALAX, GLYCOLAX) 17 g ORAL DAILYPRNQUEtiapine 400 mg tab(s) (SEROquel) 400 mg ORAL AT BEDTIMEiv contrast (radiology procedure) INTRAVENOUS DIRECTED PRNbuprenorphine 5 mcg/hour 1 Patch (BUTRANS) 1 Patch TRANSDERMAL q 1 WEEK0.9% NaCl 3-5 mL 3-5 mL INTRAVENOUS q 12 Hondansetron 4 mg tab(s) (ZOFRAN) 4 mg ORAL q 6 H PRNondansetron (PF) 4 mg injection (ZOFRAN) 4 mg INTRAVENOUS q 6 H PRNenoxaparin 40 mg injection (LOVENOX) 40 mg SUBCUTANEOUS DAILYpantoprazole 40 mg injection (PROTONIX) 40 mg INTRAVENOUS DAILY (6 AM)0.9% NaCl 10 mL 10 mL INTRAVENOUS q 12 H0.9% NaCl 20 mL 20 mL INTRAVENOUS PRNOpiate Use/Notes (Opiate use last 24 hrs): Morphine 2mg x4, Oxycodone 5mgx 5 - states not much relief with 5mg doseDiagnostic tests reviewed for today's visit :Most recent labs and imaging results.Hemoglobin (g/dL)Date Value06/06/2015 11.0 HGB (g/dL)Date Value05/28/2017 9.7 Hematocrit (%)Date Value05/28/2017 28.1 WBC (thou/cmm)Date Value05/28/2017 8.02 Glucose (mg/dL)Date Value05/28/2017 107 Potassium (mEq/L )Date Value05/28/2017 4.4 Sodium (mEq/L)Date Value05/28/2017 134 Chloride (mEq/L)Date Value05/28/2017 104 CO2 (mEq/L)Date Value05/28/2017 24 Creatinine (mg/dL)Date Value05/28/2017 0.65 BUN (mg/dL) Date Value05/28/2017 11 Anion Gap (no units)Date Value05/28/2017 10 Calcium (mg/dL)Date Value05/28/2017 8.0 Active Problem List:Active Hospital Problems Diagnosis Date Noted- Abscess after procedure 05/24/2017PHYSICAL EXAMINATION:BP 121/73 Pulse 100 Temp 36.7 ?C (98.1 ?F) ( Oral) Resp 18 Ht 172.7cm (5' 8) Wt 82.2 kg (181 lb 3.5 oz) SpO2 100% BMI 27.55 kg/n5Udwxtga appearance: alert, pleasant, resting comfortablySkin: Skin color, texture, turgor normal, no suspicious rashes or lesionsHEENT: +NGTLungs: Lungs clear to auscultation. No wheezing, rhonchi, ralesHeart: RRR without murmur, gallop, or rubs. No ectopyAbdomen: soft, BS+ mild tender LUQExtremities: No deformities, edema, skin discoloration, clubbing orcyanosis. Good capillary refill.Neuro: Negative. ?Urine Tox Screen + benzo/opiatesOARRS review: YesRx at D/C: YesRx on chart: YesOutpatient Pain Management: Yes. Other: BasaliOpiate Status:Episodic?Assessment: 32yo F s/p diagnostic laparoscopy, excision of abdominal wallcystic mass (Meckel's diverticulum), mini laparotomy, small bowelresection with primary anastomosis on 05/18/17, now with pelvic fluidcollection vs abscess, PSBO?. S/p IR perc drain and drain placement 05/24.?Tolerating po.?Recommendations: Increase Oxycodone 5-10mg po q4h prn.SIGNATURE: Woo Mei MD PATIENT NAME: Laurence LemaATE: May 28, 2017 : 4:33 PM PAGER: [phone] PROGRESS Observed: 05/28/2017 Status: COMPLETED Source: [place] 6:14 AM CLINIC OTHER CAMPUS REPOSITORY HNO ID: [id number]: Jimi (oVnnie) CrispService: General SurgeryAuthor Type: ResidentType: Progress NotesFiled: 05/28/2017 9:13 AMNote Text: ------ Attestation signed by Stas Meneses at 05/29/2017 3:04 PMAttending NoteI personally saw and examined the patient. I reviewed the resident's note. Leticia with the resident's assessment and plan with the following revisionsand/or additions: anticipate dc 05/29Signature: Stas Meneses MDDate: 05/29/2017Time: 3:03 PM.i -----G eneral Surgery Progress NoteSERVICE DATE: 05/28/2017SUBJECTIVE:ELPIDIOEON.Tolerating diet Parenteral Nutrition - AdultDIET GASTRO INTESTINALNausea YesEmesis NoFlatus YesBowel movement YesPain Controlled YesAmbulating YesOBJECTIVE:Vitals:Temp (24hrs), Avg :37.6 ?C (99.6 ?F), Min:37 ?C (98.6 ?F), Max:37.8 ?C (100?F)BP 113/71 Pulse 91 Temp 37.8 ?C (100 ?F) (Oral) Resp 18 Ht 172.7cm (5' 8) Wt 82.2 kg (181 lb 3.5 oz) SpO2 97% BMI 27.55 kg/m2O2 Therapy: Room AirIANDO:Date 05/27/17699 - 59 05/28/17699 - 05/29/17 0659Shift 8056-5775 2971-8407 8550-0437 24 Hour Total 5027-2001 4912-63459162-8270 24 Hour TotalINTAKE PO 400 400 PO 400 400 IV 402 245 647 NS 0.9% 402 245 647 TPN/PPN 989 174 402 9868 TPN 989 902 028 9356 Irrigants 5 5 10 Irrigant/Flush Amount In (Drain/Tube 05/24/17 1800 Assessment LeftPosterior Buttocks Drain #1) 5 5 10 Shift Total 1394 1373 980 3747OUTPUT Urine 1700 8979 742 5517 Void (ml) 1700 3879 159 9377 Tubes 0 0 0 Drain/Tube Output (Drain/Tube 05/24/17 1800 Assessment Left PosteriorButtocks Drain #1) 0 0 0 # of BMs Number of BMs 1 x 1 x Shift Total 1700 1500 900 4100Weight (kg) 80 82.2 82.2 82.2 82.2 82.2 82.2 82.2MEDICATIONSCurrent Facility-Administered Medications:Parenteral Nutrition - Adult INTRAVENOUS ONCE TPN (1800 START) morphine 2 mg injection 2 mg INTRAVENOUS q 3 H PRNoxyCODONE IR 5 mg tab(s) (ROXICODONE) 5 mg ORAL q 3 H PRNcefdinir 300 mg (OMNICEF) 300 mg ORAL BIDmetroNIDAZOLE 500 mg tab (s) (FLAGYL) 500 mg ORAL q 8 Hsenna-docusate 8.6-50 mg 1 tablet (SENNA-S) 1 tablet ORAL BIDpolyethylene glycol 3350 17 g packet (MIRALAX, GLYCOLAX) 17 g ORAL DAILYPRNQUEtiapine 400 mg tab(s) (SEROquel) 400 mg ORAL AT BEDTIMEiv contrast (radiology procedure) INTRAVENOUS DIRECTED PRNbuprenorphine 5 mcg/hour 1 Patch (BUTRANS) 1 Patch TRANSDERMAL q 1 WEEK0.9% NaCl 3-5 mL 3-5 mL INTRAVENOUS q 12 Hondansetron 4 mg tab(s) (ZOFRAN) 4 mg ORAL q 6 H PRNOrondansetron (PF) 4 mg injection (ZOFRAN) 4 mg INTRAVENOUS q 6 H PRNenoxaparin 40 mg injection ( LOVENOX) 40 mg SUBCUTANEOUS DAILYpantoprazole 40 mg injection (PROTONIX) 40 mg INTRAVENOUS DAILY (6 AM)0.9% NaCl 10 mL 10 mL INTRAVENOUS q 12 H0.9% NaCl 20 mL 20 mL INTRAVENOUS PRNLabs:Recent Labs 05/27/1802NA 134* 136K 4.4 3.3*CHLOR 104 104CO2 24 25BUN 11 7CREAT 0.65 0.53GLUC 107* 117*ANION 10 10CA 8.0* 7.9*MG 2.4 2.1P 3.8 3.6WBC 8.02 9.66HB 9.7* 7.4*HCT 28.1* 22.1*PLT 238 318Exam:GENERAL: No distress, AlertNEURO: AANDOx3, CN II-XII grossly intactHEENT: normocephalic, atraumaticLUNGS: Unlabored breathingCARDIAC: Regular rate and rhythm as aboveABDOMEN: Soft, mild/moderate distension, mild tenderness LLQ. Incisionsc/d/i. MEMO serosangEXTREMITIES: PASTRANA, No deformities, No edemaSKIN: Skin color, texture, turgor normal, No rashes or lesionsASSESSMENT AND PLAN:Active Hospital Problems Diagnosis Date Noted- Abscess after procedure 05/24/201732 year old female hx of diagnostic laparoscopy, excision of abdominalwall cystic mass, mini laparotomy, small bowel resection with primaryanastomosis on 05/18/17, now with pelvic fluid collection vs abscess. S/ pIR perc drain and drain placement 05/24??- soft GI diet- TPN- Cultures are showing rare Escherichia coli and Bacteroides. Alsogrowing Morganella morganii.- antibiotics per ID: cefdinir, flagyl- drain cultures pending. Too young to speciate- pain management consultedSIGNATURE: Jimi Reddy MD PATIENT NAME: Laurence LemaATE: May 28, 2017 : 6:14 AM Pager: [phone] HEMOGRAM/DIFF Collected: 05/28/2017 Status: F Source: [facility] 3:11 AM [facility]ALTH SYSTEM REPOSITORY TYPE CODE TESTS RESULT OUT OF REFERENCE UNITS RANGE LAB WBC(LOINC) 3.98-10.04 thou/cmm WBC 8.02 LAB RBC(LOINC) Low 3.93-5.22 mil/cmm RBC 3.07 LAB HGB(LOINC) Low 11.2-15.7 g/dL Hgb 9.7 LAB HCT(LOINC) Low 34.1-44.9 % Hct 28.1 LAB MCV(LOINC) 79.4-94.8 fl MCV 91.5 LAB MCH(LOINC) 25.6-32.2 pg MCH 31.6 LAB MCHC(LOINC 31.6-34.8 % ) MCHC 34.5 LAB RDW(LOINC) 11.7-14.4 % RDW 13.5 LAB RDWSD(LOIN 36.4-46.3 fl C) RDW SD 45.4 LAB PLT(LOINC) 182-369 thou/cmm Platelet 238 LAB MPV(LOINC) 9.4-12.3 fl MPV 10.6 LAB NRBCR(LOIN High 0.0-0.2 % C) Nucleated RBC 0.5 % LAB NRBCA(LOIN High 0.00-0.01 thou/cmm C) Nucleated RBC 0.04 Absolute LAB SEG(LOINC) % Seg 63.3 Neutrophil LAB IGRE(LOINC % ) Immature 1.40 Grans LAB LYMPH(LOIN % C) Lymphocyte 19.6 LAB MNO(LOINC) % Monocyte 12.7 LAB EOSIN(LOIN % C) Eosinophil 2.6 LAB BASO(LOINC % ) Basophil 0.4 LAB SEGN(LOINC 1.56-6.13 thou/cmm ) Abs. Neut 5.08 LAB IGAB(LOINC High 0.00-0.05 thou/cmm ) Abs Immature 0.11 Grans LAB LYMN(LOINC 1.18-3.74 thou/cmm ) Abs. Lymph 1.57 LAB MONON(LOIN High 0.27-0.70 thou/cmm C) Abs. [place] 1.02 LAB EOSN(LOINC 0.00-0.31 thou/cmm ) Abs. Eosin 0.21 LAB BASON(LOIN 0.01-0.08 thou/cmm C) Abs. Baso 0.03 Result Comment: Smear scanned; tech agrees with automated differential Performed By: #### CBCD1 ####[place] [address] MAGNESIUM BLOOD Collected: 05/28/2017 Status: F Source: [facility] 3:11 AM [facility]ALTH SYSTEM REPOSITORY TYPE CODE TESTS RESULT OUT OF REFERENCE UNITS RANGE LAB MAG(LOINC) 1.6-2.6 mg/dL Magnesium 2.4 Blood Performed By: #### MAG ####[place] [address] PHOSPHORUS BLOOD Collected: 05/28/2017 Status: F Source: [facility] 3:11 AM HEALTH SYSTEM REPOSITORY TYPE CODE TESTS RESULT OUT OF REFERENCE UNITS RANGE LAB PHOS(LOINC 2.5-4.9 mg/dL ) Phosphorus 3.8 Blood Performed By: #### PHOS ####[place] [address] BASIC PANEL Collected: 05/28/2017 Status: F Source: [facility] 3:11 AM HEALTH SYSTEM REPOSITORY TYPE CODE TESTS RESULT OUT OF REFERENCE UNITS RANGE LAB NA(LOINC) Low 136-145 mEq/L Sodium Blood 134 LAB K(LOINC) 3.5-5.1 mEq/L Potassium 4.4 Blood LAB CL(LOINC) 98-107 mEq/L Chloride 104 Blood LAB CO2(LOINC) 21-32 mEq/L CO2 Blood 24 LAB GLU(LOINC) High 70-99 mg/dL Glucose Blood 107 LAB BUN(LOINC) 7-18 mg/dL BUN Blood 11 LAB CREA(LOINC 0.51-0.95 mg/dL ) Creatinine 0.65 Blood LAB CA(LOINC) Low 8.5-10.1 mg/dL Calcium Blood 8.0 LAB ANGAP(LOIN 8-16 C) Anion Gap 10 Performed By: #### P8 ####[place] [address] MDRD GFR Collected: 05/28/2017 Status: F Source: [facility] 3:11 AM HEALTH SYSTEM REPOSITORY TYPE CODE TESTS RESULT OUT OF RANGE REFERENCE UNITS LAB GFRFN(LOINC >60mL/min/1. ) eGFR >60 73m2 Result Comment: If the patient is , multiply the result by 1.210. Performed By: #### GFR ####[place] [address] CONSULT Observed: 05/27/2017 Status: COMPLETED Source: [facility] 4:01 PM CLINIC OTHER CAMPUS REPOSITORY HNO ID: [id number]: Kenyon Bryan IIIService: Infectious DiseaseAuthor Type: PhysicianType: ConsultsFiled: 05/27/2017 8:50 PMNote Text: Full note to follow- cefdinir plus flagy for another 10 days forintra-abdominal abscessINFECTIOUS DISEASEFebruary 2017 4:01 PMREASON FOR CONSULT: recs for culture- homegoing this weekendREFERRING PHYSICIAN: Dr. Meehan:32 year old female with history of multiple abdominal surgeries who hadlaparoscopy with abdominal wall cyst excision and small bowel resectionfor Meckel's diverticulum on 05/18. Discharged home on 05/21. Readmitted on05/24 with small bowel obstruction and intra-abdominal abscess. Hadpercutaneous drain placed. We were consulted today for antibioticrecommendations.No fevers or chills now. Had fever to 102F with chills prior toadmission.Mild abdominal pain at present- better compared to prior to drainplacement.ALLERGIESAllergen Reactions- Compazine [Prochlor* Swelling Tongue swelled- Darvocet A500 [Prop* GI Upset, Vomiting- Nsaids (Non-Steroid* Other: See Comments GI damage- Trazodone Hives, Swelling- Tylenol [Acetaminop* Swelling- Ultram [Tramadol] GI Upset, VomitingPAST MEDICAL HISTORYDiagnosis Date- Abdominal pain decreased with position change- Anxiety- Bipolar 1 disorder (HCC )- Depression- Dysthymic disorder Depression (non-psychotic)- Endometriosis Frozen Pelvis- Epilepsy (HCC) LAST seizure almost 3 years ago, uses topamax- Generalized anxiety disorder Anxiety, Generalized- Other and unspecified ovarian cyst Ovarian cyst on left side- Overdose, drug 2016 opiodSocial History Marital status: Single Spouse name: Years of education: Number of children: 0Occupational HistoryOccupation Employer CommentdisabilitySocial History Main Topics Smoking status: Current Every Day Smoker Packs/day: 0.00 Years: 10.00 Types: Cigarettes Smokeless status: Never Used Comment: 2- 3 CIGS DAILY Alcohol use: Yes Comment: Occasional Drug use: No Sexual activity : Not CurrentlyOther Topics ConcernMilitary Service NoBlood Transfusions NoCaffeine Concern No Comment:20 oz of diet coke, teaOccupational Exposure NoHobby Hazards NoSleep Concern Yes Comment: Does not sleep wellStress Concern Yes Comment:Health ProblemsWeight Concern YesSpecial Diet NoBack Care NoExercise No Comment:TriesBike Helmet NoSeat Belt YesSelf-Exams NoCurrent Facility-Administered Medications:Parenteral Nutrition - Adult INTRAVENOUS ONCE TPN (1800 START) H ScottAwendermorphine 2 mg injection 2 mg INTRAVENOUS q 3 H PRN Woo K Scantling 2 mgat 05/27/17 1552oxyCODONE IR 5 mg tab(s) (ROXICODONE) 5 mg ORAL q 3 H PRN Woo KScantling 5 mg at 05/27/17 1448senna- docusate 8.6-50 mg 1 tablet (SENNA-S) 1 tablet ORAL BID [facility] ([facility])Bg 1 tablet at 05/27/17 0815polyethylene glycol 3350 17 g packet (MIRALAX, GLYCOLAX) 17 g ORAL DAILYPRN [facility] ([facility]) SokolowskiQUEtiapine 400 mg tab(s) (SEROquel) 400 mg ORAL AT BEDTIME [employer] (Res)Conry 400 mg at 05/26/17 2100iv contrast (radiology procedure) INTRAVENOUS DIRECTED PRN Kyler(Res) Taylor Cheathamprenorphine 5 mcg/hour 1 Patch (BUTRANS) 1 Patch TRANSDERMAL q 1 WEEKMary (Pharmacy Technician Infusion) Sokolowski0.9% NaCl 3-5 mL 3- 5 mL INTRAVENOUS q 12 H [facility] ([facility]) Bg 5 mL at05/25/17 0938ondansetron 4 mg tab(s) (ZOFRAN) 4 mg ORAL q 6 H PRN [facility] ([facility]) SokolowskiOrondansetron (PF) 4 mg injection (ZOFRAN) 4 mg INTRAVENOUS q 6 H PRN [facility]) Sokolowskienoxaparin 40 mg injection (LOVENOX) 40 mg SUBCUTANEOUS DAILY [facility] ([facility])Bg 40 mg at 05/27/17 0815piperacillin-tazobactam 3.375 g in dextrose (iso-osmotic) 50 mL (ZOSYN) 3.375 g INTRAVENOUS q 6 H [facility] ([facility]) Bg 3.375 g at 05/27/17 1129pantoprazole 40 mg injection (PROTONIX) 40 mg INTRAVENOUS DAILY (6 AM)[facility]) Bg 40 mg at 05/27/17 88267.9% NaCl 10 mL 10 mL INTRAVENOUS q 12 H [facility]) Bg 10 mL at05/26/17 25232.9% NaCl 20 mL 20 mL INTRAVENOUS PRN [facility] ([facility]) SokolowskiACTIVE PROBLEM LISTNauseaGeneralized Abdominal PainAcute Midline Low Back Pain Without SciaticaEncounter for Vitamin Deficiency ScreeningScreening for Lipid DisordersScreening for Thyroid DisorderBipolar Affective Disorder in Remission (Hcc)Nonintractable Generalized Idiopathic Epilepsy Without Status Epilepticus(Hcc)Nicotine use disorder, F17.2Abscess After ProcedureReview of SystemsConstitutional: Negative for chills and fever.HENT: Negative for congestion, mouth sores and sore throat.Eyes: Negative for visual disturbance.Respiratory: Negative for cough and shortness of breath.Cardiovascular: Negative for chest pain and palpitations.Gastrointestinal: Positive for abdominal pain. Negative for diarrhea,nausea and vomiting.Genitourinary: Negative for dysuria, frequency and urgency.Musculoskeletal: Negative.Skin: Negative.Hematological: Negative for adenopathy. Does not bruise/bleed easily. 0 05/27/1814BP: 128/76 125/75 116/58 134/89Pulse: 98 99 100 95Resp: 16 16 18 18Temp: 37.3 ?C (99.1 ?F) 37.6 ?C (99.7 ?F) 37 ?C (98.6 ?F) 37.7 ?C (99.9?F)TempSrc: Oral Oral Temporal Artery OralSpO2: 98% 98% 100% 100%Weight:Height:Physical ExamConstitutional: She is oriented to person, place, and time andwell- developed, well-nourished, and in no distress.HENT:Mouth/Throat: Oropharynx is clear and moist. No oropharyngeal exudate.Eyes: Conjunctivae are normal. Pupils are equal, round , and reactive tolight. No scleral icterus.Neck: Neck supple.Cardiovascular: Normal rate and regular rhythm.Pulmonary/Chest: Effort normal and breath sounds normal.Abdominal: Soft.Transgluteal drain in place. Bowel sounds normal. Abdomen soft. Mildlytender throughout abdomen without rebound or guarding.Musculoskeletal: She exhibits no edema.Lymphadenopathy: She has no cervical adenopathy. She has no axillary adenopathy.Neurological: She is alert and oriented to person, place, and time.Skin: Skin is warm and dry. No rash noted. She is not diaphoretic.Vitals reviewed.DATA:05/24 abdominal abscess- Morganella morganii, E. Coli and Bacteroidesfragilis Escherichia coli Morganella morganii? AMIKACIN ?<=16 ? S ?<=16 ? S? AMP/SULBACTAM ?<=8/4 ? S ?>16/8 ? R? AMPICILLIN ?<=8 ? S ?>16 ? R? AZTREONAM ?& lt;=4 ? S ?<=4 ? S? CEFAZOLIN ?<=8 ? S? CEFEPIME ?<=4 ? S ?<=4 ? S? CEFOXITIN ?<=8 ? S ?<=8 ? S? CEFTAZIDIME ?<=1 ? S ?<=1 ? S? CEFTRIAXONE ?& lt;=8 ? S ?<=8 ? S? CEFUROXIME ?<=4 ? S ?>16 ? R? CIPROFLOXACIN ?<=1 ? S ?<=1 ? S? DORIPENEM ?<=0.5 ? S ?<=0.5 ? S? ERTAPENEM ?<=1 ? S ?& lt;=1 ? S? GENTAMICIN ?<=4 ? S ?<=4 ? S? LEVOFLOXACIN ?<=2 ? S ?<=2 ? S? MEROPENEM ?<=1 ? S ?<=1 ? S? PIPERACILLIN/TAZOBACTAM ?<=16 ? S ?< =16 ? S? TETRACYCLINE ?<=4 ? S ?>8 ? R? TOBRAMYCIN ?<=4 ? S ?<=4 ? S? TRIMETH/SULFA ?<=2/38 ? S ?<=2/38 ? S??Creatinine 0.53WBC 9.66ASSESSMENT :1. Postprocedural intraabdominal abscess - ICD9: 998.59, ICD10: T81.4XXA(primary diagnosis)With Morganella morganii, E. Coli and Bacteroides fragilis s/ ppercutaneous drain.2. Depression on seroquel (plan to avoid fluoroquinolone due to potentialfor QT prolongation with both agents)PLAN:1) Oral cefdinir 500 BID plus Flagyl 500 TID for another ten days2) F/u imaging per surgeryPlan discussed with surgical nurse practitioner at time of consultKenyon Bryan III, MDPager [phone] CASE MANAGEM Observed: 05/27/2017 Status: COMPLETED Source: [place] 11:47 AM [facility] OTHER [place] REPOSITORY HNO ID: [id number]: Romina (Rn) KARL Garciaervice: Care ManagementAuthor Type: Registered NurseType: Care Mgt Progress NoteFiled: 2017 11:51 AMNote Text:CARE MANAGEMENT PROGRESS NOTESERVICE DATE: 05/27/2017SERVICE TIME: 1147 LOS: 3 daysNeeds Prior to Discharge: To Be DeterminedMD notes reviewed: NGT removed; trial of clear liquid diet, TPN. +IVZosyn, PICC. Drain cultures still pending. HHC following, if needed atdischarge.SIGNATURE: Romina Garcia RN PATIENT NAME: Laurence LemaATE: May 27, 2017 : 11:47 AM PAGER/CONTACT #: [phone] PROGRESS Observed: 05/27/2017 Status: COMPLETED Source: [place] 7:40 AM [facility] OTHER [place] REPOSITORY HNO ID: [id number]: Woo Osorioervice: Pain ManagementAuthor Type: PhysicianType: Progress NotesFiled: 05/27/2017 9:58 AMNote Text:RX Pain Management Progress NoteName: Laurence FuentessMRN: [id number]: [id number]-*Pain Diagnosis: Abdominal painIs patient's pain today ? BetterIs amount of pain relief currently experienced by patient adequate frompatient's view? YesPain score 9/10 improves to 6/10 with prn use and with few hour(s) reliefDescription of pain: Aching, Constant and StabbingExacerbating Maneuvers: Movement and PalpationRelieving Maneuvers: Opiates and RestAdverse Effects: NoneAdverse Effects treatment related: noLast BM: Number of BMs: 1 (following Fleets) (05/26/171999)Allergies:ALLERGIESAllergen Reactions- Compazine [Prochlor* Swelling Tongue swelled- Darvocet A500 [Prop* GI Upset, Vomiting- Nsaids (Non-Steroid* Other: See Comments GI damage- Trazodone Hives, Swelling- Tylenol [Acetaminop* Swelling- Ultram [Tramadol] GI Upset, VomitingCurrent Medications:Current hospital medications:potassium chloride ER 40 mEq tab(s) (K -DUR, KLOR-CON) 40 mEq ORAL ONCEParenteral Nutrition - Adult INTRAVENOUS ONCE TPN ( 1800 START)senna-docusate 8.6-50 mg 1 tablet (SENNA-S) 1 tablet ORAL BIDpolyethylene glycol 3350 17 g packet (MIRALAX, GLYCOLAX) 17 g ORAL DAILYPRNParenteral Nutrition - Adult INTRAVENOUS ONCE TPN (1800 START)morphine 2-4 mg injection 2-4 mg INTRAVENOUS q 3 H PRNQUEtiapine 400 mg tab(s) (SEROquel) 400 mg ORAL AT BEDTIMEiv contrast (radiology procedure) INTRAVENOUS DIRECTED PRNbuprenorphine 5 mcg/hour 1 Patch (BUTRANS) 1 Patch TRANSDERMAL q 1 WEEK0.9% NaCl 3-5 mL 3-5 mL INTRAVENOUS q 12 Hondansetron 4 mg tab(s) (ZOFRAN) 4 mg ORAL q 6 H PRNondansetron (PF) 4 mg injection (ZOFRAN) 4 mg INTRAVENOUS q 6 H PRNenoxaparin 40 mg injection (LOVENOX) 40 mg SUBCUTANEOUS DAILYpiperacillin-tazobactam 3.375 g in dextrose (iso-osmotic) 50 mL (ZOSYN)3.375 g INTRAVENOUS q 6 Hpantoprazole 40 mg injection (PROTONIX) 40 mg INTRAVENOUS DAILY (6 AM)0.9% NaCl 10 mL 10 mL INTRAVENOUS q 12 H0.9% NaCl 20 mL 20 mL INTRAVENOUS PRNOpiate Use/Notes (Opiate use last 24 hrs): Morphine 4mg x6, 2mg o6Wnjlxzepre tests reviewed for today's visit:Most recent labs and imaging results.Glucose (mg/dL)Date Value05/27/2017 117 Potassium (mEq/L)Date Value05/27/2017 3.3 Sodium (mEq/L)Date Value05/27/2017 136 Chloride (mEq/L)Date Value05/27/2017 104 CO2 (mEq/L)Date Value05/27/2017 25 Creatinine (mg/dL)Date Value05/27/2017 0.53 BUN (mg/dL) Date Value05/27/2017 7 Anion Gap (no units)Date Value05/27/2017 10 Calcium (mg/dL)Date Value05/27/2017 7.9 Hemoglobin (g/dL) Date Value06/06/2015 11.0 HGB (g/dL)Date Value05/27/2017 7.4 Hematocrit (%)Date Value05/27/2017 22.1 WBC (thou/cmm)Date Value05/27/2017 9.66 Active Problem List:Active Hospital Problems Diagnosis Date Noted - Abscess after procedure 05/24/2017PHYSICAL EXAMINATION:BP 116/58 Pulse 100 Temp 37 ?C (98.6 ?F) (Temporal Artery) Resp 18 Ht 172.7 cm (5' 8) Wt 80 kg ( 176 lb 5.9 oz) SpO2 100% BMI 26.82kg/t4Vxrktqe appearance: alert, pleasant, resting comfortablySkin: Skin color, texture, turgor normal, no suspicious rashes or lesionsHEENT: unremarkableLungs: Lungs clear to auscultation. No wheezing, rhonchi, ralesHeart: RRR without murmur, gallop, or rubs. No ectopyAbdomen: soft, BS+ mild tender LUQ +drainExtremities: No deformities, edema, skin discoloration, clubbing orcyanosis. Good capillary refill.Neuro: Negative.?Urine Tox Screen + benzo/opiatesOARRS review: YesRx at D/C: YesRx on chart: NoOutpatient Pain Management: Yes. Other: BasaliOpiate Status:Episodic?Assessment: 32yo F s/p diagnostic laparoscopy, excision of abdominal wallcystic mass (Meckel's diverticulum), mini laparotomy, small bowelresection with primary anastomosis on 05/18/17, now with pelvic fluidcollection vs abscess, PSBO?. S/p IR perc drain and drain placement 05/24.NGT removed; trial CLD?Recommendations: Try decrease opiate regimen- decrease Morphine 2mg IV q3hprn; add option Oxycodone 5mg po q3h prnSIGNATURE: Woo Mei MD PATIENT NAME: Laurence LemaATE: May 27, 2017 : 9:53 AM PAGER: [phone] PROGRESS Observed: 05/27/2017 Status: COMPLETED Source: [place] 6:20 AM [facility] OTHER CAMPUS REPOSITORY HNO ID: [id number]: Jimi (Res) CrispService: General SurgeryAuthor Type: ResidentType: Progress NotesFiled: 05/27/2017 9:15 AMNote Text: ------Attestati on signed by Valentina Moncada at 05/27/2017 1:13 PMI personally saw and examined the patient. I reviewed the resident's note. Iagree with the resident's assessment and plan unless otherwise noted below.Doing Very well today. NG tube is out and tolerating clear fluids. No nauseaor vomiting. Passing flatus and having bowel movements. No melena or brightred blood. No fevers or chills. IR drain drained 5 cc further ofserosanguineous fluid. No purulent or enteric drainage.Cultures are showing rare Escherichia coli and Bacteroides. Also growingMorganella morganii. Currently on IV Zosyn and TPN for protein malnutritionlikely leading to pelvic ascites which became inoculated. Currently no signsor symptoms of anastomotic leak. We will ask infectious disease to see fordischarge antibiotic planning. Advance to soft GI diet. Abdominal exam benign -------General Surgery Progress NoteSERVICE DATE: 05/27/2017SUBJECTIVE:YAYO. Reports abdomen more tender today. Denies N/V. (+) flatus and BM.Pain controlled. Ambulating. Tolerating clearsTolerating diet Parenteral Nutrition - AdultParenteral Nutrition - AdultDIET LIQUIDOBJECTIVE:Vitals:Temp (24hrs), Av.2 ?C (99 ?F), Min:36.7 ?C (98.1 ?F), Max:37.6 ?C(99.7 ?F)BP 125 /75 Pulse 99 Temp 37.6 ?C (99.7 ?F) (Oral) Resp 16 Ht 172.7cm (5' 8) Wt 80 kg (176 lb 5.9 oz) SpO2 98% BMI 26.82 kg/m2O2 Therapy: Room AirIANDO:Date 05/26/17699 - 0659 05/27/17699 - 05/28/17 0659Shift 9128-4679 2472-8809 0597-6451 24 Hour Total 3999-6744 4810-98894585-6634 24 Hour TotalINTAKE PO 550 550 PO 550 550 IV 8790 188 8810 NS 0.9% 3890 074 0640 TPN/PPN 1083 1781 2864 TPN 1083 1781 2864 Irrigants 5 5 10 Irrigant/Flush Amount In (Drain/Tube 05/24/17 1800 Assessment LeftPosterior Buttocks Drain #1) 5 5 10 Shift Total 2323 555 2150 5028OUTPUT Urine 7173 199 4205 Void ( ml) 0966 440 3670 Urine Incontinence/Not Saved 4 x 1 x 5 x Tubes 102.5 225 2.5 330 Drain/Tube Output (Drain/Tube 05/24/17 1800 Assessment Left PosteriorButtocks Drain #1) 2.5 0 2.5 5 Output ([REMOVED] GI Feed/Drain 05/24/17 1129 Nasogastric Right Naris18 Fr 05/26/171999) 100 225 325 # of BMs Number of BMs 1 x 2 x 3 x Shift Total 1802.5 825 2.5 2630Weight (kg) 80 80 80 80 80 80 80 80MEDICATIONSCurrent Facility-Administered Medications:Parenteral Nutrition - Adult INTRAVENOUS ONCE TPN (1800 START)senna-docusate 8.6-50 mg 1 tablet ( SENNA-S) 1 tablet ORAL BIDpolyethylene glycol 3350 17 g packet (MIRALAX, GLYCOLAX) 17 g ORAL DAILYPRNParenteral Nutrition - Adult INTRAVENOUS ONCE TPN (1800 START)morphine 2-4 mg injection 2 -4 mg INTRAVENOUS q 3 H PRNQUEtiapine 400 mg tab(s) (SEROquel) 400 mg ORAL AT BEDTIMEiv contrast (radiology procedure) INTRAVENOUS DIRECTED PRNbuprenorphine 5 mcg/hour 1 Patch (BUTRANS) 1 Patch TRANSDERMAL q 1 WEEK0.9% NaCl 3-5 mL 3-5 mL INTRAVENOUS q 12 Hondansetron 4 mg tab(s) (ZOFRAN) 4 mg ORAL q 6 H PRNOrondansetron (PF) 4 mg injection (ZOFRAN) 4 mg INTRAVENOUS q 6 H PRNenoxaparin 40 mg injection (LOVENOX) 40 mg SUBCUTANEOUS DAILYpiperacillin- tazobactam 3.375 g in dextrose (iso-osmotic) 50 mL (ZOSYN)3.375 g INTRAVENOUS q 6 Hpantoprazole 40 mg injection (PROTONIX) 40 mg INTRAVENOUS DAILY (6 AM)0.9% NaCl 10 mL 10 mL INTRAVENOUS q 12 H0.9% NaCl 20 mL 20 mL INTRAVENOUS PRNLabs:Recent Labs 7 NA 136 135*K 3.3* 3.0*CHLOR 104 105CO2 25 22BUN 7 7CREAT 0.53 0.54GLUC 117* 125*ANION 10 11CA 7.9* 7.7*MG 2.1 1.9P 3.6 2.2*WBC 9.66 7.88HB 7.4* 7.3*HCT 22.1* 22.0*PLT 318 260Exam:GENERAL: No distress, AlertNEURO: AANDOx3, CN II-XII grossly intactHEENT: normocephalic, atraumaticLUNGS: Unlabored breathingCARDIAC: Regular rate and rhythm as aboveABDOMEN: Soft, mild/moderate distension, mild tenderness LLQ. Incisionsc/d/i. MEMO serosangEXTREMITIES: PASTRANA, No deformities, No edemaSKIN: Skin color, texture, turgor normal, No rashes or lesionsASSESSMENT AND PLAN:Active Hospital Problems Diagnosis Date Noted- Abscess after procedure 05/24/201732 year old female hx of diagnostic laparoscopy, excision of abdominalwall cystic mass, mini laparotomy, small bowel resection with primaryanastomosis on 05/18/17, now with pelvic fluid collection vs abscess. S/pIR perc drain and drain placement 05/24??- clear liquid- TPN- zosyn- drain cultures pending. Too young to speciate- pain management consultedSIGNATURE: Jimi Reddy MD PATIENT NAME: Laurence LemaATE: May 27, 2017 : 6:20 AM Pager: [phone] HEMOGRAM/DIFF Collected: 05/27/2017 Status: F Source: [facility] 3:17 AM [facility] SYSTEM REPOSITORY TYPE CODE TESTS RESULT OUT OF REFERENCE UNITS RANGE LAB WBC(LOINC) 3.98-10.04 thou/cmm WBC 9.66 LAB RBC(LOINC) Low 3.93-5.22 mil/cmm RBC 2.35 LAB HGB(LOINC) Low 11.2-15.7 g/dL Hgb 7.4 LAB HCT(LOINC) Low 34.1-44.9 % Hct 22.1 LAB MCV(LOINC) 79.4-94.8 fl MCV 94.0 LAB MCH(LOINC) 25.6-32.2 pg MCH 31.5 LAB MCHC(LOINC 31.6-34.8 % ) MCHC 33.5 LAB RDW(LOINC) 11.7-14.4 % RDW 13.4 LAB RDWSD(LOIN 36.4-46.3 fl C) RDW SD 45.5 LAB PLT(LOINC) 182-369 thou/cmm Platelet 318 LAB MPV(LOINC) 9.4-12.3 fl MPV 10.4 LAB NRBCR(LOIN 0.0-0.2 % C) Nucleated RBC 0.2 % LAB SEG(LOINC) % Seg 62.7 Neutrophil LAB IGRE(LOINC % ) Immature 0.70 Grans LAB LYMPH(LOIN % C) Lymphocyte 22.7 LAB MNO(LOINC) % Monocyte 10.9 LAB EOSIN(LOIN % C) Eosinophil 2.8 LAB BASO(LOINC % ) Basophil 0.2 LAB NRBCA(LOIN High 0.00-0.01 thou/cmm C) Nucleated RBC 0.02 Absolute LAB SEGN(LOINC 1.56-6.13 thou/cmm ) Abs. Neut 6.06 LAB IGAB(LOINC High 0.00-0.05 thou/cmm ) Abs Immature 0.07 Grans LAB LYMN(LOINC 1.18-3.74 thou/cmm ) Abs. Lymph 2.19 LAB MONON(LOIN High 0.27-0.70 thou/cmm C) Abs. [place] 1.05 LAB EOSN(LOINC 0.00-0.31 thou/cmm ) Abs. Eosin 0.27 LAB BASON(LOIN 0.01-0.08 thou/cmm C) Abs. Baso 0.02 Performed By: #### CBCD1 ####[place] [address] MAGNESIUM BLOOD Collected: 05/27/2017 Status: F Source: [facility] 3:17 AM [facility]ALTH SYSTEM REPOSITORY TYPE CODE TESTS RESULT OUT OF REFERENCE UNITS RANGE LAB MAG(LOINC) 1.6-2.6 mg/dL Magnesium 2.1 Blood Performed By: #### MAG ####[place] [address] PHOSPHORUS BLOOD Collected: 05/27/2017 Status: F Source: [facility] 3:17 AM [facility]ALTH SYSTEM REPOSITORY TYPE CODE TESTS RESULT OUT OF REFERENCE UNITS RANGE LAB PHOS(LOINC 2.5-4.9 mg/dL ) Phosphorus 3.6 Blood Performed By: #### PHOS ####[place] [address] BASIC PANEL Collected: 05/27/2017 Status: F Source: [facility] 3:17 AM [facility] SYSTEM REPOSITORY TYPE CODE TESTS RESULT OUT OF REFERENCE UNITS RANGE LAB NA(LOINC) 136-145 mEq/L Sodium Blood 136 LAB K(LOINC) Low 3.5-5.1 mEq/L Potassium 3.3 Blood LAB CL(LOINC) 98-107 mEq/L Chloride 104 Blood LAB CO2(LOINC) 21-32 mEq/L CO2 Blood 25 LAB GLU(LOINC) High 70-99 mg/dL Glucose Blood 117 LAB BUN(LOINC) 7-18 mg/dL BUN Blood 7 LAB CREA(LOINC 0.51-0.95 mg/dL ) Creatinine 0.53 Blood LAB CA(LOINC) Low 8.5-10.1 mg/dL Calcium Blood 7.9 LAB ANGAP(LOIN 8-16 C) Anion Gap 10 Performed By: #### P8 ####[address] [address] MDRD GFR Collected: 05/27/2017 Status: F Source: [facility] 3:17 AM [facility] REPOSITORY TYPE CODE TESTS RESULT OUT OF RANGE REFERENCE UNITS LAB GFRFN(LOINC >60mL/min/1. ) eGFR >60 73m2 Result Comment: If the patient is , multiply the result by 1.210. Performed By: #### GFR ####[address] [address] NUTRITION Observed: 05/26/2017 Status: COMPLETED Source: [place] 11:35 AM CLINIC OTHER CAMPUS REPOSITORY HNO ID: [id number]: Priscila Sands) Arcadio Guidryice: RIGOBERTOT-Nutrition Support TeamAuthor Type: Registered DietitianType: NutritionFiled: 05/26/2017 11:47 AMNote Text: ------Attestation signed by Sarah Liu at 05/26/2017 7:[address] and agree with RD 's findings and plan as documented inthe RD's note.A/P; Improving Will cont TPN todayH Mark Liu MD ---NUTRITION SUPPORT TEAMTOPIC: NUTRITION SUPPORT TEAM PROGRESS NOTEPATIENT NAME: Laurence Rivera: [id number] OF : 1985DATE: 05/26/2017Nutritional Status: NO MALNUTRITION IDENTIFIED--> at risk r/t poor poprior to admission with slight weight loss?In the context of Acute Illness or Injury based on:Insufficient Energy Intake: less than or equal to 50% for greater than orequal to 5 daysPPN started 05/24/17, changed CTPN after PICC placed 05/25/17Not certain if TPN will be needed at home.HHC tasked per CM?Interval History: LOD d 2, tolerating TPN, pain is 7 out of 10, + feverand chills, had drain placed in IR 05/24/17, remains NPO, + BM, no emesisAssessment: 32-year-old female presents to the emergency room forevaluation of fever, abdominal pain. ?Patient is approximately 4 dayspostop from a small bowel resection as well as a Meckel diverticulumresection. ?Patient states that since leaving the hospital she has not hada bowel movement despite using MiraLAX. ?Patient is currently onoxycodone. ?Patient also states that since about 11 PM last night she hashad acutely worsening diffuse abdominal pain, distention as well as afever, Tmax: of 102. No flatus.?Tmax: 37.7WBC: 7.88Edema: noneLines : 2L PICC --> right arm, placed 05/24/17--> WNLLytes: reviewed--> hypokalemia addressedPAB: severely low at 6.2--> first levelUOP: 1.725 LRecommendations: TPN renewed: increased Mg, KCL, Na Phos and NACLTPN script: 3.0 L/24 hrs providing 2000 calories (27 kcal/kg UBW 72 kg)and 100 gms pro ( 1.38 gms/kg UBW 72 kg)Collaborated with Dr Liu and orders written. --------Vitals:Temperature Max in 24 hours: Temp (24hrs), Av.2 ?C (98.9 ?F) , Min:36.7?C (98.1 ?F), Max:37.7 ?C (99.9 ?F)Current Vital Signs: BP 134/80 Pulse 100 Temp 36.7 ?C (98.1 ?F) (Oral) Resp 16 Ht 172.7 cm (5' 8) Wt 80 kg (176 lb 5.9 oz) SpO2 100% BMI 26.82 kg/ h8Jkbduir Weight: Weight: 80 kg (176 lb 5.9 oz)Intake AND Output:Intake/Output Summary (Last 24 hours) at 1135Last data filed at 05/26/17 1108 Gross per 24 hourIntake 1819 mlOutput 3150 mlNet -1331 mlLaboratory Data:Recent Labs 05/25/1814NA 135* -- 138 127*K 3.0* 3.6 2.8* 3.5CHLOR 105 -- 104 97*CO2 22 -- 27 24CREAT 0.54 - - 0.59 0.76BUN 7 -- 8 13GLUC 125* -- 121* 128*P 2.2* -- 2.0* 2.5TPROT -- -- -- 6.9ALB -- -- -- 2.6*MG 1.9 -- 2.3 --CA 7.7* -- 7.3* 8.0*Recent Labs PREALB 6.2*Priscila Guidry RD, LDPager: [phone]: 3 ABDOMEN 1 VIEW Observed: 05/26/2017 Status: F Source: [facility] 10:00 AM HEALTH SYSTEM REPOSITORY Performed at [facility] APPROVED BY: Ant Neil MD EXAM TITLE: ABDOMEN 1 VIEW DATE: 05/26/2017 09:56 INDICATION: Abdominal distention. Patient is status post surgical procedure recently and recent drainage of pelvic fluid collection. COMPARISON: 05/25/2017. Supine view of the abdomen and pelvis and supine view of the pelvis shows decreased gaseous dilatation of loops of small bowel centrally in the abdomen. There is persistent distention of the left side of the colon with stool and gas. An enteric tube is seen with tip in the stomach. There is a percutaneously placed pigtail catheter overlying the left side of the pelvis. Surgical staple line is seen near the umbilicus. IMPRESSION : Interval decrease in dilatation of loops of small bowel centrally in the abdomen. Less colonic distention. Pigtail catheter seen overlying the left pelvis. CASE MANAGEM Observed: 05/26/2017 Status: COMPLETED Source: [place] 8:42 AM [facility] REPOSITORY HNO ID: [id number]: Romina Loredo) KARL Garciaervice: Care ManagementAuthor Type: Registered NurseType: Care Mgt Progress NoteFiled: 2017 11:06 AMNote Text:CARE MANAGEMENT PROGRESS NOTESERVICE DATE: 05/26/2017SERVICE TIME: 0842 LOS: 2 daysNeeds Prior to Discharge: To Be DeterminedMD notes reviewed: patient remains NPO with TPN, NGT, IV antibiotics.+PICC, IR-placed drain. Drain cultures pending. HHC following, if neededat discharge.SIGNATURE: Romina Garcia RN PATIENT NAME: Laurence FuentessDATE: May 26, 2017 : 8:42 AM PAGER/ CONTACT #: [phone] PROGRESS Observed: 05/26/2017 Status: COMPLETED Source: [place] 7:15 AM [facility] OTHER [place] REPOSITORY HNO ID: [id number]: Woo Osorioervice: Pain ManagementAuthor Type: PhysicianType: Progress NotesFiled: 05/26/2017 12:34 PMNote Text:RX Pain Management Progress NoteName: Laurence FuentessMRN: [id number]: [id number]-*Pain Diagnosis: Abdominal painIs patient's pain today ? BetterIs amount of pain relief currently experienced by patient adequate frompatient's view? YesPain score 8/10 improves to 5/10 with prn use and with few hour(s) reliefDescription of pain: Aching, Constant and StabbingExacerbating Maneuvers: Movement and PalpationRelieving Maneuvers: Opiates and RestAdverse Effects: NoneAdverse Effects treatment related: noLast BM: Number of BMs: 1 (05/26/17 0700)Allergies:ALLERGIESAllergen Reactions- Compazine [Prochlor* Swelling Tongue swelled- Darvocet A500 [Prop* GI Upset, Vomiting- Nsaids (Non-Steroid* Other: See Comments GI damage- Trazodone Hives, Swelling- Tylenol [ Acetaminop* Swelling- Ultram [Tramadol] GI Upset, VomitingCurrent Medications:Current hospital medications:potassium phosphate 30 mmol in NaCl 0.9% 250 mL 30 mmol INTRAVENOUS ONCEParenteral Nutrition - Adult INTRAVENOUS ONCE TPN (1800 START)Parenteral Nutrition - Adult INTRAVENOUS ONCE TPN (1800 START)morphine 2-4 mg injection 2 -4 mg INTRAVENOUS q 3 H PRNQUEtiapine 400 mg tab(s) (SEROquel) 400 mg ORAL AT BEDTIMEiv contrast (radiology procedure) INTRAVENOUS DIRECTED PRNbuprenorphine 5 mcg/ hour 1 Patch (BUTRANS) 1 Patch TRANSDERMAL q 1 WEEK0.9% NaCl 3-5 mL 3-5 mL INTRAVENOUS q 12 Hondansetron 4 mg tab(s) (ZOFRAN) 4 mg ORAL q 6 H PRNondansetron (PF) 4 mg injection (ZOFRAN) 4 mg INTRAVENOUS q 6 H PRNenoxaparin 40 mg injection (LOVENOX) 40 mg SUBCUTANEOUS DAILYpiperacillin-tazobactam 3.375 g in dextrose (iso-osmotic) 50 mL (ZOSYN)3.375 g INTRAVENOUS q 6 Hpantoprazole 40 mg injection (PROTONIX) 40 mg INTRAVENOUS DAILY (6 AM)0.9% NaCl 10 mL 10 mL INTRAVENOUS q 12 H0.9% NaCl 20 mL 20 mL INTRAVENOUS PRNOpiate Use/Notes (Opiate use last 24 hrs): Morphine 4mg i2Hnvhiicqhr tests reviewed for today's visit:Most recent labs and imaging results.Hemoglobin (g/dL)Date Value06/06/2015 11.0 HGB (g/dL)Date Value05/26/2017 7.3 Hematocrit (%)Date Value05/26/2017 22.0 WBC (thou/cmm) Date Value05/26/2017 7.88 Glucose (mg/dL)Date Value05/26/2017 125 Potassium (mEq/L)Date Value05/26/2017 3.0 Sodium (mEq/L) Date Value05/26/2017 135 Chloride (mEq/L)Date Value05/26/2017 105 CO2 (mEq/L)Date Value05/26/2017 22 Creatinine (mg/dL)Date Value05/26/2017 0.54 BUN (mg/dL)Date Value05/26/2017 7 Anion Gap (no units) Date Value05/26/2017 11 Calcium (mg/dL)Date Value05/26/2017 7.7 Active Problem List:Active Hospital Problems Diagnosis Date Noted- Abscess after procedure 05/24/2017PHYSICAL EXAMINATION:BP 134/80 Pulse 100 Temp 36.7 ?C (98.1 ?F) ( Oral) Resp 16 Ht 172.7cm (5' 8) Wt 80 kg (176 lb 5.9 oz) SpO2 100% BMI 26.82 kg/r9Yvxjztr appearance: alert, pleasant, resting comfortablySkin: Skin color, texture, turgor normal, no suspicious rashes or lesionsHEENT: +NGTLungs: Lungs clear to auscultation. No wheezing, rhonchi, ralesHeart: RRR without murmur, gallop, or rubs. No ectopyAbdomen: soft, BS+ mild tender LUQExtremities: No deformities, edema, skin discoloration, clubbing orcyanosis. Good capillary refill.Neuro: Negative.Urine Tox Screen + benzo/opiatesOARRS review: YesRx at D/C: YesRx on chart: NoOutpatient Pain Management: Yes. Other: BasaliOpiate Status:EpisodicAssessment: 32yo F s /p diagnostic laparoscopy, excision of abdominal wallcystic mass (Meckel's diverticulum), mini laparotomy, small bowelresection with primary anastomosis on 05/18/17, now with pelvic fluidcollection vs abscess, PSBO?. S/p IR perc drain and drain placement 05/24.NPO/NGTRecommendations: Continue current TherapySIGNATURE: Woo Mei MD PATIENT NAME: Laurence LemaATE: May 26, 2017 : 12:31 PM PAGER: [phone] PROGRESS Observed: 05/26/2017 Status: COMPLETED Source: [place] 6:21 AM [facility] OTHER CAMPUS REPOSITORY HNO ID: [id number]: Jimi (Res) CrispService: General SurgeryAuthor Type: ResidentType: Progress NotesFiled: 05/26/2017 8:14 AMNote Text: ------Attestation signed by Valentina Moncada at 05/26/2017 1:03 PMI personally saw and examined the patient. I reviewed the resident's note. Iagree with the resident's assessment and plan unless otherwise noted below.Feeling much better. Pain and abdominal distention improving. Passing flatusand had 2 bowel movements today. Abdomen soft and nontender. KUB looksmoderately improved. Gas all throughout the colon and significant colonicstool burden. We will try an enema if she is agreeable. Plan to discontinueNG tube, start clear fluids. Continue TPN per NST for protein malnutrition.Continue antibiotics. General Surgery Progress NoteSERVICE DATE: 05/26/2017SUBJECTIVE:ELPIDIORUSH. Pt reports fevers/ chills. However. No objective fever per vitals.Denies nausea/vomiting. (+) BMTolerating diet DIET NPOParenteral Nutrition - AdultParenteral Nutrition - AdultNausea NoEmesis NoFlatus NoBowel movement YesPain Controlled YesAmbulating YesOBJECTIVE:Vitals:Temp (24hrs), Av.2 ?C (99 ?F) , Min:36.9 ?C (98.4 ?F), Max:37.7 ?C(99.9 ?F)BP 135/75 Pulse 111 Temp 37.1 ?C (98.8 ?F) ( Temporal Artery) Resp 18 Ht 172.7 cm (5' 8) Wt 79.7 kg (175 lb 11.3 oz) SpO2 98% BMI 26.72kg/ m2O2 Therapy: Room AirIANDO:Date 05/25/17699 - 05/26/17 0659 05/26/17699 - 05/27/17 0659Shift 3424-8502 7418-0352 0070-8371 24 Hour Total 0218-6692 [id number] 24 Hour TotalINTAKE IV 250 100 350 NS 0.9% 100 100 Zosyn IV 100 100 200 Potassium IVPB 50 50 TPN/PPN 1464 1464 TPN 1464 1464 Irrigants 5 5 10 Irrigant/Flush Amount In (Drain/Tube 05/24/17 1800 Assessment LeftPosterior Buttocks Drain #1) 5 5 10 Shift Total 5 255 1564 1824OUTPUT Urine 5521 798 1637 Void (ml) 1630 532 5365 Tubes 175 150 325 Drain/Tube Output (Drain/Tube 05/24/17 1800 Assessment Left PosteriorButtocks Drain #1) 25 0 25 Output (GI Feed/Drain 05/24/17 1129 Nasogastric Right Naris 18 Fr) 691681 300 # of BMs Number of BMs 1 x 1 x Shift Total 1400 650 2050Weight (kg) 79.7 79.7 79.7 79.7 79.7 79.7 79.7 79.7MEDICATIONSCurrent Facility-Administered Medications:Parenteral Nutrition - Adult INTRAVENOUS ONCE TPN (1800 START)morphine 2-4 mg injection 2 -4 mg INTRAVENOUS q 3 H PRNQUEtiapine 400 mg tab(s) (SEROquel) 400 mg ORAL AT BEDTIMEiv contrast ( radiology procedure) INTRAVENOUS DIRECTED PRNbuprenorphine 5 mcg/hour 1 Patch (BUTRANS) 1 Patch TRANSDERMAL q 1 WEEK0.9% NaCl 3-5 mL 3-5 mL INTRAVENOUS q 12 Hondansetron 4 mg tab(s) (ZOFRAN) 4 mg ORAL q 6 H PRNOrondansetron (PF) 4 mg injection (ZOFRAN) 4 mg INTRAVENOUS q 6 H PRNenoxaparin 40 mg injection (LOVENOX) 40 mg SUBCUTANEOUS DAILYpiperacillin-tazobactam 3.375 g in dextrose ( iso-osmotic) 50 mL (ZOSYN)3.375 g INTRAVENOUS q 6 Hpantoprazole 40 mg injection (PROTONIX) 40 mg INTRAVENOUS DAILY (6 AM)0.9% NaCl 10 mL 10 mL INTRAVENOUS q 12 H0.9% NaCl 20 mL 20 mL INTRAVENOUS PRNParenteral Nutrition - Adult INTRAVENOUS ONCE TPN (1800 START)Labs:Recent Labs 0 05/25/1804428NA 135* -- -- -- 138 127*K 3.0* -- 3.6 -- 2.8* 3.5CHLOR 105 -- -- -- 104 97*CO2 22 -- -- -- 27 24BUN 7 -- -- -- 8 13CREAT 0.54 -- -- -- 0.59 0.76GLUC 125* -- -- -- 121* 128*ANION 11 -- -- -- 10 10CA 7.7* -- -- -- 7.3* 8.0*MG 1.9 -- -- -- 2.3 --P 2.2* -- -- -- 2.0* 2.5ALB -- -- - - -- -- 2.6*AST -- -- -- -- -- 26ALT -- -- -- -- -- 14ALKPHOS -- -- -- -- -- 58TBILI -- -- -- -- -- 1.5*WBC 7.88 6.31 5.80 < > -- 5.05HB 7.3* 7.5 * 7.1* < > -- 8.4*HCT 22.0* 21.3* 20.2* < > -- 23.9*PLT 260 272 242 < > -- 196LACT -- -- -- -- -- 0.7INR -- -- -- -- -- 1.10< > = values in this interval not displayed.Exam:GENERAL: No distress, AlertNEURO: AANDOx3, CN II-XII grossly intactHEENT: normocephalic, atraumaticLUNGS: Unlabored breathingCARDIAC: Regular rate and rhythm as aboveABDOMEN: Soft, mild distension, mild tenderness. Incisions c/d/i. JPserosangEXTREMITIES : PASTRANA, No deformities, No edemaSKIN: Skin color, texture, turgor normal, No rashes or lesionsASSESSMENT AND PLAN:Active Hospital Problems Diagnosis Date Noted- Abscess after procedure 05/24/201732 year old female hx of diagnostic laparoscopy, excision of abdominalwall cystic mass, mini laparotomy , small bowel resection with primaryanastomosis on 05/18/17, now with pelvic fluid collection vs abscess. S/pIR perc drain and drain placement 05/24?- NPO/IVF- TPN- NG LIWS- zosyn- drain cultures pending- hypokalemia, hypophosphatemia - pending- pain management consultedSIGNATURE: Jimi Reddy MD PATIENT NAME: Laurence LemaATE: May 26, 2017 : 6:21 AM Pager: [phone] HEMOGRAM/DIFF Collected: 05/26/2017 Status: F Source: [facility] 6:00 AM HEALTH SYSTEM REPOSITORY TYPE CODE TESTS RESULT OUT OF REFERENCE UNITS RANGE LAB WBC(LOINC) 3.98-10.04 thou/cmm WBC 7.88 LAB RBC(LOINC) Low 3.93-5.22 mil/cmm RBC 2.32 LAB HGB(LOINC) Low 11.2-15.7 g/dL Hgb 7.3 LAB HCT(LOINC) Low 34.1-44.9 % Hct 22.0 LAB MCV(LOINC) 79.4-94.8 fl MCV 94.8 LAB MCH(LOINC) 25.6-32.2 pg MCH 31.5 LAB MCHC(LOINC 31.6-34.8 % ) MCHC 33.2 LAB RDW(LOINC) 11.7-14.4 % RDW 13.2 LAB RDWSD(LOIN 36.4-46.3 fl C) RDW SD 45.2 LAB PLT(LOINC) 182-369 thou/cmm Platelet 260 LAB MPV(LOINC) 9.4-12.3 fl MPV 11.2 LAB NRBCR(LOIN High 0.0-0.2 % C) Nucleated RBC 0.3 % LAB SEG(LOINC) % Seg 65.0 Neutrophil LAB IGRE(LOINC % ) Immature 0.50 Grans LAB LYMPH(LOIN % C) Lymphocyte 22.8 LAB MNO(LOINC) % Monocyte 9.6 LAB EOSIN(LOIN % C) Eosinophil 2.0 LAB BASO(LOINC % ) Basophil 0.1 LAB NRBCA(LOIN High 0.00-0.01 thou/cmm C) Nucleated RBC 0.02 Absolute LAB SEGN(LOINC 1.56-6.13 thou/cmm ) Abs. Neut 5.12 LAB IGAB(LOINC 0.00-0.05 thou/cmm ) Abs Immature 0.04 Grans LAB LYMN(LOINC 1.18-3.74 thou/cmm ) Abs. Lymph 1.80 LAB MONON(LOIN High 0.27-0.70 thou/cmm C) Abs. Hickory 0.76 LAB EOSN(LOINC 0.00-0.31 thou/cmm ) Abs. Eosin 0.16 LAB BASON(LOIN 0.01-0.08 thou/cmm C) Abs. Baso 0.01 Performed By: #### CBCD1 ####[place] [address] PREALBUMIN Collected: 05/26/2017 Status: F Source: [facility] 6:00 HEALTH SYSTEM REPOSITORY TYPE CODE TESTS RESULT OUT OF REFERENCE UNITS RANGE LAB PAB(LOINC) Low 20.0-40.0 mg/dL Prealbumin 6.2 Performed By: #### PAB ####[place] [address] MAGNESIUM BLOOD Collected: 05/26/2017 Status: F Source: [facility] 6:00 HEALTH SYSTEM REPOSITORY TYPE CODE TESTS RESULT OUT OF REFERENCE UNITS RANGE LAB MAG(LOINC) 1.6-2.6 mg/dL Magnesium 1.9 Blood Performed By: #### MAG ####[place] [address] PHOSPHORUS BLOOD Collected: 05/26/2017 Status: F Source: [facility] 6:00 HEALTH SYSTEM REPOSITORY TYPE CODE TESTS RESULT OUT OF REFERENCE UNITS RANGE LAB PHOS(LOINC Low 2.5-4.9 mg/dL ) Phosphorus 2.2 Blood Performed By: #### PHOS ####[place] [address] BASIC PANEL Collected: 05/26/2017 Status: F Source: [facility] 6:00 HEALTH SYSTEM REPOSITORY TYPE CODE TESTS RESULT OUT OF REFERENCE UNITS RANGE LAB NA(LOINC) Low 136-145 mEq/L Sodium Blood 135 LAB K(LOINC) Low 3.5-5.1 mEq/L Potassium 3.0 Blood LAB CL(LOINC) 98-107 mEq/L Chloride 105 Blood LAB CO2(LOINC) 21-32 mEq/L CO2 Blood 22 LAB GLU(LOINC) High 70-99 mg/dL Glucose Blood 125 LAB BUN(LOINC) 7-18 mg/dL BUN Blood 7 LAB CREA(LOINC 0.51-0.95 mg/dL ) Creatinine 0.54 Blood LAB CA(LOINC) Low 8.5-10.1 mg/dL Calcium Blood 7.7 LAB ANGAP(LOIN 8-16 C) Anion Gap 11 Performed By: #### P8 ####[place] [address] MDRD GFR Collected: 05/26/2017 Status: F Source: [facility] 6:00 AM HEALTH SYSTEM REPOSITORY TYPE CODE TESTS RESULT OUT OF RANGE REFERENCE UNITS LAB GFRFN(LOINC >60mL/min/1. ) eGFR >60 73m2 Result Comment: If the patient is , multiply the result by 1.210. Performed By: #### GFR ####[facility] [place] [address] HEMOGRAM/DIFF Collected: 05/25/2017 Status: F Source: [facility] 7:50 PM HEALTH SYSTEM REPOSITORY TYPE CODE TESTS RESULT OUT OF REFERENCE UNITS RANGE LAB WBC(LOINC) 3.98-10.04 thou/cmm WBC 6.31 LAB RBC(LOINC) Low 3.93-5.22 mil/cmm RBC 2.28 LAB HGB(LOINC) Low 11.2-15.7 g/dL Hgb 7.5 LAB HCT(LOINC) Low 34.1-44.9 % Hct 21.3 LAB MCV(LOINC) 79.4-94.8 fl MCV 93.4 LAB MCH(LOINC) High 25.6-32.2 pg MCH 32.9 LAB MCHC(LOINC High 31.6-34.8 % ) MCHC 35.2 LAB RDW(LOINC) 11.7-14.4 % RDW 13.2 LAB RDWSD(LOIN 36.4-46.3 fl C) RDW SD 45.3 LAB PLT(LOINC) 182-369 thou/cmm Platelet 272 LAB MPV(LOINC) 9.4-12.3 fl MPV 10.6 LAB SEG(LOINC) % Seg 66.0 Neutrophil LAB IGRE(LOINC % ) Immature 0.60 Grans LAB LYMPH(LOIN % C) Lymphocyte 21.2 LAB MNO(LOINC) % Monocyte 9.2 LAB EOSIN(LOIN % C) Eosinophil 3.0 LAB BASO(LOINC % ) Basophil 0.0 LAB SEGN(LOINC 1.56-6.13 thou/cmm ) Abs. Neut 4.16 LAB IGAB(LOINC 0.00-0.05 thou/cmm ) Abs Immature 0.04 Grans LAB LYMN(LOINC 1.18-3.74 thou/cmm ) Abs. Lymph 1.34 LAB MONON(LOIN 0.27-0.70 thou/cmm C) Abs. Hickory 0.58 LAB EOSN(LOINC 0.00-0.31 thou/cmm ) Abs. Eosin 0.19 LAB BASON(LOIN Low 0.01-0.08 thou/cmm C) Abs. Baso 0.00 Performed By: #### CBCD1 ####[address] [address] TYPE AND SCREEN Collected: 05/25/2017 Status: F Source: [facility] 6:50 PM HEALTH SYSTEM REPOSITORY TYPE CODE TESTS RESULT OUT OF REFERENCE UNITS RANGE LAB ABO(LOINC) ABO Group O LAB STRATIGRAPHER(LOINC ) RH Type Positive LAB ABSCR(LOIN C) Antibody NEGATIVE Screen LAB BBCMT(LOIN C) Comment See Below Result Comment: Screen &/or Xmatch expires in 3 days at 12 midnight. Redrawpatient at that time. Performed By: #### T&S ####[address] [address] HEMOGRAM Collected: 05/25/2017 Status: F Source: [facility] 3:40 PM HEALTH SYSTEM REPOSITORY TYPE CODE TESTS RESULT OUT OF REFERENCE UNITS RANGE LAB WBC(LOINC) 3.98-10.04 thou/cmm WBC 5.80 LAB RBC(LOINC) Low 3.93-5.22 mil/cmm RBC 2.03 LAB HGB(LOINC) Low 11.2-15.7 g/dL Hgb 7.1 LAB HCT(LOINC) Low 34.1-44.9 % Hct 20.2 LAB MCV(LOINC) High 79.4-94.8 fl MCV 99.5 LAB MCH(LOINC) High 25.6-32.2 pg MCH 35.0 LAB MCHC(LOINC) High 31.6-34.8 % MCHC 35.1 LAB RDW(LOINC) 11.7-14.4 % RDW 13.2 LAB RDWSD(LOINC High 36.4-46.3 fl ) RDW SD 47.7 LAB PLT(LOINC) 182-369 thou/cmm Platelet 242 LAB MPV(LOINC) 9.4-12.3 fl MPV 11.2 Performed By: #### CBC1 ####[facility] [place], [place] [address] POTASSIUM BLOOD Collected: 05/25/2017 Status: F Source: [facility] 3:40 PM HEALTH SYSTEM REPOSITORY TYPE CODE TESTS RESULT OUT OF REFERENCE UNITS RANGE LAB K(LOINC) 3.5-5.1 mEq/L Potassium 3.6 Blood Performed By: #### K ####[address] [address] CASE MGT INIT Observed: 05/25/2017 Status: COMPLETED Source: [place] [facility] 3:24 PM CLINIC OTHER CAMPUS REPOSITORY HNO ID: [id number]: Rick (Rn) KARL Lojaervice: Care ManagementAuthor Type: Registered NurseType: Care Mgt Initial AssessmentFiled: 05/25/2017 3:29 PMNote Text:CARE MANAGEMENT: ASSESSMENT AND DISCHARGE PLANSERVICE DATE: 05/25/2017SERVICE TIME: 1524PRIMARY CARE PHYSICIAN:SABRINA Beverlyhone : [phone] STATUS: InpatientPOTENTIAL DISCHARGE PLANSHomeHome CarePatient/Metal Window Frame Maker Stated Goals: HomeNeeds Prior to Discharge: To Be DeterminedHealth Insurance: Medicare, Medicaid, MyCare UHCLiving Arrangement: HomeLives With: MotherFinancial Resources: DisabledPrimary Contact:Extended Emergency Contact InformationPrimary Emergency Contact: Adriel Echevarriaddress: [address] [place], [place] [address]Npac Kttsad Bnmafkyy : MotherSupportive: YesOther Important Patient Contacts: NoneCAREGIVER ASSESSMENT:Caregiver is ready, willing and able to meet the patient's needs asrecommended by the inter-professional team? YesPatient's transition needs and plan for meeting these needs: To bedeterminedDoes the patient have an acute stroke diagnosis, or has the patient had astroke during this admission? NoADVANCE DIRECTIVES:Does Patient Have Advance Directives? No, Patient refusedDoes Patient Have Concerns About Advance Directives? NoPRIOR TO ADMISSION:Baseline Mental Status : Alert AND Oriented, Person, Place , Time andSituationFunctional Status: IndependentDoes Patient Currently Receive Any Community Services or Home Care? NoneEquipment Prior to Admission: NoneHEALTH:Health Issues Impacting Discharge Plan: NoneHealth Literacy Issues: NoPSYCHOSOCIAL:Is the Patient Psychosocially Complex? NoFamily/Patient Understanding of Illness/Diagnosis: YesMedication Adherence:Do you forget to take your medications? I do not forget to take mymedicationHave you ever stopped taking medications because you felt worse? None ofthe timeHave you ever taken less of your medication than what was prescribed byyour doctor? None of the timeIn the past 3 months, have you had issues obtaining one or more of yourmedications? None of the timeAre you interested in bedside delivery of your medications? YesFood Concerns:In the Last Month, Have You had Trouble Getting Food? No trouble gettingfoodDuring the Last Month, Have You Worried Whether Your Food Would Run OutBefore You Had Enough Money to Buy More? NoPsychosocial Needs: NoneUTILIZATION:Last Admission Date: Previous admit date: 05/18/2017Is this Within the Past 30 days? YesIs This a Planned Readmission? No: Fluid collection after a recent surgeryFollowed Up with Appointment Prior to Admission: Patient scheduled, butreadmitted priorWhere Did the Patient Come From? HomeIntervention Taken to Avoid Future Readmission? HHC following forpossible needsHas the Patient Been in a Custodial Facility in the Past 30 days? NoFREEDOM OF CHOICE EXPLAINED:N/CELINE COMMUNICATION:Pt from home with family , independent prior to admission, no DME in use athome. Pt does not drive or work , family provides transportation. Shecurrently is NPO with PICC and TPN, HHC following for possible d/c needs.Anticipate home vs HHC at d/c if pt is still on TPN.SIGNATURE: Rick Loja RN PATIENT NAME: Laurence LemaATE: May 25, 2017 : 3:24 PM PAGER/CONTACT #: [phone] ABDOMEN 1 VIEW Observed: 05/25/2017 Status: F Source: [facility] 1:57 PM HEALTH SYSTEM REPOSITORY Performed at [facility] APPROVED BY: Tin Zarate MD EXAM TITLE: ABDOMEN 1 VIEW DATE: 05/25/2017 13:56 COMPARISON: 05/24/2017 CLINICAL INDICATION/HISTORY: Abdominal distention. TECHNIQUE: A single view of the abdomen is presented. FINDINGS: Partially visualized NG tube. The upper abdomen was not entirely imaged. Moderate gaseous distention of central bowel loops within the abdomen, presumably representing small bowel. Findings appear relatively similar. Gas and stool is noted throughout the colon. There is an indeterminate catheter material coiled over the left proximal femur. Clinical correlation is recommended. No definite free air appreciated on this limited portable AP view the abdomen. IMPRESSION: Indeterminate catheter material coiled projecting over the left hip joint. Clinical correlation recommended. Persistent moderate gaseous distention of bowel centrally within the abdomen, which may reflect ileus or obstruction. Clinical and radiographic follow-up recommended. A wet read phone call was placed to the referring clinical service by the file room at the time this dictation on 05/25/2017 URINE DRUG SCREEN Collected: 05/25/2017 Status: F Source: [facility] 11:44 AM HEALTH SYSTEM REPOSITORY TYPE CODE TESTS RESULT OUT OF REFERENCE UNITS RANGE LAB UAMP(LOINC Non-Detected ) Urine Amphetamine Non-detecte d LAB UBARB(LOIN Non-Detected C) Urine Barbiturates Non-detecte d LAB UBENZ(LOIN Non-Detected C) Urine Benzodiazepine see below Result Comment: Detected (unconfirmed) LAB UCOC(LOINC) Non-Detected Urine Non-detected Cocaine Metab LAB UOPI(LOINC) Non-Detected Urine see below Opiate Result Comment: Detected (unconfirmed) LAB UPCP(LOINC) Non-Detected Non-detected Urine PCP LAB UTHC2(LOINC) Non-Detected Non-detected Urine THC Result Comment: Urine Drug Cutoff LevelsUrine Amphetamine 500 ng/mLUrine Barbiturate 200 ng/ mLUrine Benzodiazepines 200 ng/mLUrine Cocaine 150 ng/ mLUrine Phencyclidine (PCP) 25 ng/mLUrine Opiates 300 ng/ mLUrine THC 50 ng/mLThe results of these analytes are unconfirmed and reportedqualitatively as detected or non-detected relative to the cutoffvalue. Detected results indicate the sample is likely to containthe analyte. Non- detected results indicate that either the sampledoes not contain the analyte or it is present in concentrations belowthe cutoff level. This drug screen should be used for medical diagnosticpurposes only. Performed By: #### UDRG2 ####[place] [address] ALLIED HEALTH Observed: 05/25/2017 Status: COMPLETED Source: [place] 11:23 AM CLINIC OTHER CAMPUS REPOSITORY HNO ID: [id number]: Tiarra Yu Office CoordService: (none)Author Type: (none)Type: Allied HealthFiled: 05/25/2017 11:30 AMNote Text: COAL LOADER NOTESERVICE DATE: 05/25/2017SERVICE TIME: 1124Referral:Home Care referral received by: CMReferral to verify Infusion benefitsReferral to verify TPN benefitsWill continue to follow for physician ordersSIGNATURE: Tiarra Yu Office Coord PATIENT NAME: Laurence LemaATE: May 25, 2017 : 11:24 AM HEMOGRAM/DIFF Collected: 05/25/2017 Status: F Source: [facility] 11:00 AM HEALTH SYSTEM REPOSITORY TYPE CODE TESTS RESULT OUT OF REFERENCE UNITS RANGE LAB WBC(LOINC) 3.98-10.04 thou/cmm WBC 5.28 LAB RBC(LOINC) Low 3.93-5.22 mil/cmm RBC 2.02 LAB HGB(LOINC) Low alert 11.2-15.7 g/dL Hgb 7.0 LAB HCT(LOINC) Low alert 34.1-44.9 % Hct 20.0 LAB MCV(LOINC) High 79.4-94.8 fl MCV 99.0 LAB MCH(LOINC) High 25.6-32.2 pg MCH 34.7 LAB MCHC(LOINC High 31.6-34.8 % ) MCHC 35.0 LAB RDW(LOINC) 11.7-14.4 % RDW 13.3 LAB RDWSD(LOIN High 36.4-46.3 fl C) RDW SD 48.3 LAB PLT(LOINC) 182-369 thou/cmm Platelet 219 LAB MPV(LOINC) 9.4-12.3 fl MPV 11.7 LAB SEG(LOINC) % Seg 62.4 Neutrophil LAB IGRE(LOINC % ) Immature 0.20 Grans LAB LYMPH(LOIN % C) Lymphocyte 23.5 LAB MNO(LOINC) % Monocyte 9.7 LAB EOSIN(LOIN % C) Eosinophil 4.0 LAB BASO(LOINC % ) Basophil 0.2 LAB SEGN(LOINC 1.56-6.13 thou/cmm ) Abs. Neut 3.29 LAB IGAB(LOINC 0.00-0.05 thou/cmm ) Abs Immature 0.01 Grans LAB LYMN(LOINC 1.18-3.74 thou/cmm ) Abs. Lymph 1.24 LAB MONON(LOIN 0.27-0.70 thou/cmm C) Abs. [place] 0.51 LAB EOSN(LOINC 0.00-0.31 thou/cmm ) Abs. Eosin 0.21 LAB BASON(LOIN 0.01-0.08 thou/cmm C) Abs. Baso 0.01 Performed By: #### CBCD1 ####[place] [address] NUTRITION Observed: 05/25/2017 Status: COMPLETED Source: [place] 10:28 AM CLINIC OTHER CAMPUS REPOSITORY HNO ID: [id number]: JAIRO Ayala Rdervice: NST-Nutrition Support TeamAuthor Type: Registered DietitianType: NutritionFiled : 05/25/2017 10:32 AMNote Text: ------ Attestation signed by Sarah Liu at 05/25/2017 1:56 [address] the RD and agree with RD's findings and plan as documented inthe RD's note.A/P; Readmitted with pain distention, and fever. WBC 5 S/P resection of meckels- Pelvic fluid collection Will cont TPN given current problemsH Mark Liu MD ---D/s with Dr Hess/p PICC 05/24/17Lytes notedRemains NPOTPN renewed: Increased K Phos, and nutrientsTPN solution: 3.0 L/24 hrs providing 2000 calories (27 kcal/kg ABW 72kg) and 100 gms pro (1.38 gms/kg ABW 72 kg)Check PAB in [facility]corewell [facility] reed city hospitalRafael Partida CASE MANAGEM Observed: 05/25/2017 Status: COMPLETED Source: [place] 9:32 AM [facility] REPOSITORY HNO ID: [id number]: Romina (Rn) KARL Garciaervice: Care ManagementAuthor Type: Registered NurseType: Care Mgt Progress NoteFiled: 2017 9:32 AMNote Text:CARE MANAGEMENT PROGRESS NOTESERVICE DATE: 05/25/2017SERVICE TIME: 0932 LOS: 1 dayNeeds Prior to Discharge: To Be DeterminedMD notes reviewed: patient admitted with pelvic fluid collection, possibleabscess; s/p IR percutaneous drainage of pelvic fluid collection and drainplacement yesterday. Febrile overnight. Patient remains NPO diet with IVfluids, TPN, IV antibiotics. +PICC placement. Pain Management consultpending. Continue to follow for discharge planning needs.SIGNATURE: Romina Garcia RN PATIENT NAME: Laurence LemaATE: May 25, 2017 : 9:32 AM PAGER/CONTACT #: [phone] CONSULT Observed: 05/25/2017 Status: COMPLETED Source: [place] 7:35 AM [facility] REPOSITORY HNO ID: [id number]: Woo Osorioervice: Pain ManagementAuthor Type: PhysicianType: ConsultsFiled: 05/25/2017 9:40 AMNote Text :PAIN MANAGEMENT CONSULTName: Laurence FuentessMRN: [id number] Diagnosis: Abdominal painHistory of present illness:Laurence Marr is a 32 year old female s/p diagnostic laparoscopy,excision of abdominal wall cystic mass, mini laparotomy , small bowelresection with primary anastomosis on 05/18/17 who presents with pelvicfluid collection vs abscess. S/p IR perc drain and drain placement 05/24.Pt had worsening abdominal pain, nausea, and fever. Our team was involvedin her care during admission last week.Location of pain: abdomenIs the amount of pain relief currently experienced by patient adequatefrom patient's view? NoPain Score: 9/10 Improves to 7/10 with PRN use and provides <2-3 hour(s)relief.Description of pain: Aching, Constant and StabbingExacerbating Maneuvers: Deep inspirations, Movement and PalpationRelieving Maneuvers: Non-opiates, Opiates and RestAdverse Effects: constipationAre the above adverse effects related to Opiate Treatment? possibleOpiate Use: Morphine 4mg d2Bbvyy to admission Opiate: DependentOARRS Review? Yes 05/23 Clonazepam 0.5mg #30, 05/21 Oxycodone 5mg #30, 05/13Butrans 5mcg #4Last BM: greater than a weekOutpatient Pain Management: Yes. Other: BasaliActive Hospital Problems Diagnosis Date Noted- Abscess after procedure 05/24/2017Past Medical History:PAST MEDICAL HISTORYDiagnosis Date- Abdominal pain decreased with position change- Anxiety- Bipolar 1 disorder (HCC)- Depression- Dysthymic disorder Depression (non-psychotic)- Endometriosis Frozen Pelvis- Epilepsy (HCC) LAST seizure almost 3 years ago, uses topamax- Generalized anxiety disorder Anxiety, Generalized- Other and unspecified ovarian cyst Ovarian cyst on left side- Overdose, drug 2016 opiodPast Surgical History:PAST SURGICAL HISTORYProcedure Laterality Date- COLONOSCOPY 2016- EXPLORATORY OF ABDOMEN 11/16/2010 Laparotomy, exp, for 10 years had a Laparoscopy every year.- HAND SURGERY HX Bilateral- L'SCOPE DX W/WO BRUSHINGS/WASHINGS Laparoscopy x7- TOTAL ABDOM HYSTERECTOMY 2012 BSOALLERGIESAllergen Reactions- Compazine [Prochlor* Swelling Tongue swelled- Darvocet A500 [Prop* GI Upset, Vomiting- Nsaids (Non-Steroid* Other: See Comments GI damage- Trazodone Hives, Swelling- Tylenol [ Acetaminop* Swelling- Ultram [Tramadol] GI Upset, VomitingCurrent Facility-Administered Medications:Parenteral Nutrition - Adult INTRAVENOUS ONCE TPN (1800 START) [facility]) INTRAVENOUS DIRECTED PRN Kyler(Vonnie) MD Lindenbuprenorphine 5 mcg/hour 1 Patch (BUTRANS) 1 Patch [facility]SDERMAL q 1 [facility] Sokolowski0.9% NaCl 3-5 mL 3-5 mL INTRAVENOUS q 12 H [facility] ( [facility]) Bg 5 mL at05/24/17 2007ondansetron 4 mg tab(s) (ZOFRAN) 4 mg ORAL q 6 H PRN [facility] ([facility]) SokolowskiOrondansetron (PF) 4 mg injection (ZOFRAN) 4 mg INTRAVENOUS q 6 H PRN [facility]) Sokolowskienoxaparin 40 mg injection (LOVENOX) 40 mg SUBCUTANEOUS DAILY [facility] ([facility])Sokolowskipiperacillin-tazobactam 3.375 g in dextrose (iso- osmotic) 50 mL (ZOSYN)3.375 g INTRAVENOUS q 6 H [facility] ([facility]) Bg 3.375 g at 0521pantoprazole 40 mg injection (PROTONIX) 40 mg INTRAVENOUS DAILY (6 AM)[facility] ([facility]) Bg 40 mg at 05/25/17 86468.9% NaCl 10 mL 10 mL INTRAVENOUS q 12 H [facility] ([facility]) Bg 10 mL at05/24/17 55968.9% NaCl 20 mL 20 mL INTRAVENOUS PRN [facility] ([facility] ) Sokolowskimorphine 2-4 mg injection 2-4 mg INTRAVENOUS q 4 H PRN [facility] ([facility]) Bg 4 mg at 05/25/17 0229Parenteral Nutrition - Adult INTRAVENOUS ONCE TPN (1800 START) H ScottAwender Last Rate: 125 mL/hr at 05/24/17 1802ibuprofen 400 mg tab(s) ( MOTRIN) 400 mg ORAL q 6 H PRN Xena (Res)Fatchikova 400 mg at 05/24/17 2229FAMILY HISTORYProblem Relation Age of Onset- Hypertension Mother- Genetic Mother Lupus- Obesity Mother- Psychiatry Mother Depression- Cancer Father Neuroblastoma when he was 29- Psychiatry Paternal Grandmother- Heart Paternal Grandmother- Cancer Maternal Grandmother and unknown type- Cancer Maternal Grandfather and unknown type- Breast Cancer Maternal Grandfather Cousin- ms [ OTHER] Maternal Grandfather Aunt, Uncle, Cousin- Diabetes OtherSocial History Marital status: Single Spouse name: Years of education: Number of children: 0Occupational HistoryOccupation Employer CommentdisabilitySocial History Main Topics Smoking status: Current Every Day Smoker Packs/day: 0.00 Years: 10.00 Types: Cigarettes Smokeless status: Never Used Comment: 2-3 CIGS DAILY Alcohol use: Yes Comment: Occasional Drug use: No Sexual activity: Not CurrentlyOther Topics ConcernMilitary Service NoBlood Transfusions NoCaffeine Concern No Comment:20 oz of diet coke, teaOccupational Exposure NoHobby Hazards NoSleep Concern Yes Comment:Does not sleep wellStress Concern Yes Comment:Health ProblemsWeight Concern YesSpecial Diet NoBack Care NoExercise No Comment:TriesBike Helmet NoSeat Belt YesSelf-Exams NoREVIEW OF SYSTEMSGENERAL: Weight loss, Fatigue, poor appetite (now on TPN) +fever/chillsHEENT: Negative for frequent or significant headaches, No changes inhearing or vision, no nose bleeds or other nasal problemsNECK: Negative for lumps, goiter, pain and significant neck swellingRESPIRATORY: Negative for cough, hemoptysis, wheezing, COPD, dyspnea orshortness of breathCARDIOVASCULAR: Negative for chest pain, leg swelling, hypertension, CHFor palpitationsGI: See HPIGU: No history of dysuria, frequency or incontinenceMUSCULOSKELETAL: Negative for joint pain or swelling, back pain or musclepainSKIN: Negative for lesions, rash, and itchingPSYCH: sleep fragmented + bipolar, substance abuseHEMATOLOGY/LYMPHOLOGY: Negative for prolonged bleeding, bruising easily orswollen nodesENDOCRINE: Negative for cold or heat intolerance , polyuria, polydipsia andgoiterNEURO: No history of headaches, syncope, paralysis + epilepsyPHYSICAL EXAMINATION:BP (P) 125/68 Pulse 94 Temp 37.2 ?C (99 ?F) ( Oral) Resp 18 Ht172.7 cm (5' 8) Wt 72.6 kg (160 lb) SpO2 96% BMI 24.33 kg/k7Orttjfp appearance: tired, arousable, pleasantSkin: Skin color, texture, turgor normal, no suspicious rashes or lesionsHead: Normocephalic, no masses, lesions, tenderness or abnormalitiesEyes: Anicteric sclera. Pupils are equally round and reactive to light.Ears: Not examinedNose/Sinuses: + NGTOropharynx: Lips, mucosa , and tongue normalNeck: Supple, no adenopathyBack: Normal examLungs: Lungs clear to auscultation. No wheezing, rhonchi, ralesHeart: RRR without murmur, gallop, or rubs. No ectopyAbdomen: Abdomen soft,BS+ midline incision with flakito c/d/i, tender LUQExtremities: No deformities, edema, skin discoloration, clubbing orcyanosis. Good capillary refill.Musculoskeletal: No joint swelling, deformity, or tendernessPeripheral pulses: NormalNeuro: Negative. Diagnostic tests reviewed for today's visit:Most recent labs and imaging results.CBC with diff:WBC 5.05 05/24/2017RBC 2.53 05/24/2017Hemoglobin 8.4 05/24/2017Hematocrit 23.9 05/24/2017MCV 94.5 05/24/2017MCH 33.2 05/24/2017MCHC 35.1 05/24/2017Platelet Count 196 05/24/2017MPV 11.4 05/24/2017Glucose (mg/dL) Date Value05/25/2017 121 Potassium (mEq/L)Date Value05/25/2017 2.8 Sodium (mEq/L)Date Value05/25/2017 138 Chloride (mEq/L) Date Value05/25/2017 104 CO2 (mEq/L)Date Value05/25/2017 27 Creatinine (mg/dL)Date Value05/25/2017 0.59 BUN (mg/dL)Date Value05/25/2017 8 Anion Gap (no units)Date Value05/25/2017 10 Calcium (mg/dL) Date Value05/25/2017 7.3 Protein, Total (g/dL)Date Value05/24/2017 6.9 Albumin (g/dL)Date Value05/24/2017 2.6 Bilirubin, Total (mg/dL)Date Value05/24/2017 1.5 Alkaline Phosphatase (U/L)Date Value05/24/2017 58 AST (U/L)Date Value05/24/2017 26 ALT (U/L) Date Value05/24/2017 14 ABD/PELVIC CTIMPRESSION:?1. ?There is evidence of a large 7.6 x 9.5 x 9.4 cm peripherally enhancingfluidand air collection within the pelvis. ?An abscess is of primary concern.2. ?Wall thickening is favored over incomplete distention involvingrectum,sigmoid colon and small bowel in the pelvis.3. ? Abnormal dilated loops of small bowel with associated air-fluid levelsand anapparent transition point in the central pelvis highly concerning for ahigh grade?small bowel obstruction.4. ?Nonspecific mild prominence of the right renal collecting system,probablyrelated to slight mass effect on the right ureter related to the pelvicfluidcollection. ?5. Bandlike areas of atelectasis and/or consolidation in both lower lobes.6. Air is noted within the bladder. ?Correlation with urinalysis andclinicalhistory is needed.7. ?Additional findings as detailed above.IMPRESSION/[id number] F s/p diagnostic laparoscopy, excision of abdominal wall cystic mass(Meckel's diverticulum), mini laparotomy, small bowel resection withprimary anastomosis on 05/18/17, now with pelvic fluid collection vsabscess, PSBO?. S/p IR perc drain and drain placement 05/24.Pt recently started Butrans 5mcg patch weekly per Dr. Cast (chronicabdominal pain)- continue to hold Butrans patchHx opiod OD 2 years ago when she unintentionally took 3 Oxycodone pillsand passed outNPO/NGTChange Morphine 2-4mg IV q3h prnDiscontinue Ibuprofen for now (risks>benefits)Plan to f/u Dr. Cast after dischargeMofrantz Mei MD 05/25/2017 9:25 AM PROGRESS Observed: 05/25/2017 Status: COMPLETED Source: [place] 6:03 AM [facility] OTHER CAMPUS REPOSITORY HNO ID: [id number]: Jimi (Res) CrispService: General SurgeryAuthor Type: ResidentType: Progress NotesFiled: 05/25/2017 6:58 AMNote Text: ------Attestation signed by Valentina Moncada at 05/25/2017 4:34 PMShe is feeling much better. She is passing some flatus. Abdominal painimproving. IR drain is serosanguineous but more on the serous side. Noperitoneal findings. Hemoglobin somewhat low but stable on repeat. We'llcontinue to monitor this. I would like to keep her NG in place overnight andreassess in the morning. Continue TPN for protein malnutrition. General Surgery Progress NoteSERVICE DATE: 05/25/2017SUBJECTIVE:Percutaenous drainage of pelvic fluid collection yesterday; pt toleratedwell. Fever overnight: Tmax 39.2, improved with motrin. Denies N/V. Paincontrolled. Has not ambulated. Passing flatus, but no BMTolerating diet DIET NPOParenteral Nutrition - AdultOBJECTIVE:Vitals:Temp (24hrs), Av.8 ?C (100 ?F), Min:36.9 ?C (98.4 ?F), Max:39.2 ?C(102.6 ?F)BP 118/61 Pulse 107 Temp 37.4 ?C (99.3 ?F) (Oral) Resp 18 Ht 172.7cm (5' 8) Wt 72.6 kg (160 lb) SpO2 92% BMI 24.33 kg/m2O2 Therapy: Room AirIANDO:Date 10/03 - 05/25/17 0659 05/25/17 07 - 05/26/17 0659Shift 3476-0700 2070-9926 6922-7030 24 Hour Total 7635-7679 3744-47984623-9255 24 Hour TotalINTAKE IV 50 260 310 NS 0.9% 160 160 Zosyn IV 50 100 150 TPN/PPN 1000 1000 TPN 1000 1000 Irrigants 5 5 Irrigant/Flush Amount In (Drain/Tube 05/24/17 1800 Assessment LeftPosterior Buttocks Drain #1) 5 5 Shift Total 50 5 1260 1315OUTPUT Urine 600 600 Void (ml) 600 600 Urine Incontinence/Not Saved 1 x 1 x Tubes 50 215 265 Drain/Tube Output (Drain/Tube 05/24/17 1800 Assessment Left PosteriorButtocks Drain #1) 50 15 65 Output (GI Feed/Drain 05/24/17 1129 Nasogastric Right Naris 18 Fr)200 200 Shift Total 50 815 865Weight (kg) 72.6 72.6 72.6 72.6 72.6 72.6 72.6 72.6MEDICATIONSCurrent Facility- Administered Medications:iv contrast (radiology procedure) INTRAVENOUS DIRECTED PRNbuprenorphine 5 mcg/ hour 1 Patch (BUTRANS) 1 Patch TRANSDERMAL q 1 WEEK0.9% NaCl 3-5 mL 3-5 mL INTRAVENOUS q 12 Hondansetron 4 mg tab(s) (ZOFRAN) 4 mg ORAL q 6 H PRNOrondansetron (PF) 4 mg injection (ZOFRAN) 4 mg INTRAVENOUS q 6 H PRNenoxaparin 40 mg injection (LOVENOX) 40 mg SUBCUTANEOUS DAILYpiperacillin- tazobactam 3.375 g in dextrose (iso-osmotic) 50 mL (ZOSYN)3.375 g INTRAVENOUS q 6 Hpantoprazole 40 mg injection (PROTONIX) 40 mg INTRAVENOUS DAILY (6 AM)0.9% NaCl 10 mL 10 mL INTRAVENOUS q 12 H0.9% NaCl 20 mL 20 mL INTRAVENOUS PRNmorphine 2-4 mg injection 2-4 mg INTRAVENOUS q 4 H PRNParenteral Nutrition - Adult INTRAVENOUS ONCE TPN (1800 START)ibuprofen 400 mg tab(s) (MOTRIN) 400 mg ORAL q 6 H PRNLabs:Recent Labs NA 127*K 3.5CHLOR 97*CO2 24BUN 13CREAT 0.76GLUC 128*ANION 10CA 8.0*P 2.5ALB 2.6*AST 26ALT 14ALKPHOS 58TBILI 1.5*WBC 5.05HB 8.4*HCT 23.9*PLT 196LACT 0.7INR 1.10Exam :GENERAL: No distress, AlertNEURO: AANDOx3, CN II-XII grossly intactHEENT: normocephalic, atraumaticLUNGS: Unlabored breathingCARDIAC: Regular rate and rhythm as aboveABDOMEN: Soft, mild distension, moderately tender. Incisions c/d/i. JPserosangEXTREMITIES: PASTRANA, No deformities, No edemaSKIN: Skin color, texture, turgor normal, No rashes or lesionsASSESSMENT AND PLAN:Active Hospital Problems Diagnosis Date Noted- Abscess after procedure 05/24/201732 year old female hx of diagnostic laparoscopy, excision of abdominalwall cystic mass, mini laparotomy, small bowel resection with primaryanastomosis on 05/18/17, now with pelvic fluid collection vs abscess. S/pIR perc drain and drain placement 05/24- NPO/IVF- TPN- NG LIWS- zosyn- pain management consultedSIGNATURE: Jimi Reddy MD PATIENT NAME: Laurence FuentesMSATE: May 25, 2017 : 6:04 AM Pager: [phone] MAGNESIUM BLOOD Collected: 05/25/2017 Status: F Source: [facility] 5:35 AM HEALTH SYSTEM REPOSITORY TYPE CODE TESTS RESULT OUT OF REFERENCE UNITS RANGE LAB MAG(LOINC) 1.6-2.6 mg/dL Magnesium 2.3 Blood Performed By: #### MAG ####[address] [address] PHOSPHORUS BLOOD Collected: 05/25/2017 Status: F Source: [facility] 5:35 AM HEALTH SYSTEM REPOSITORY TYPE CODE TESTS RESULT OUT OF REFERENCE UNITS RANGE LAB PHOS(LOINC Low 2.5-4.9 mg/dL ) Phosphorus 2.0 Blood Performed By: #### PHOS ####[place] [address] BASIC PANEL Collected: 05/25/2017 Status: F Source: [facility] 5:35 AM HEALTH SYSTEM REPOSITORY TYPE CODE TESTS RESULT OUT OF REFERENCE UNITS RANGE LAB NA(LOINC) 136-145 mEq/L Sodium Blood 138 LAB K(LOINC) Low 3.5-5.1 mEq/L Potassium 2.8 Blood LAB CL(LOINC) 98-107 mEq/L Chloride 104 Blood LAB CO2(LOINC) 21-32 mEq/L CO2 Blood 27 LAB GLU(LOINC) High 70-99 mg/dL Glucose Blood 121 LAB BUN(LOINC) 7-18 mg/dL BUN Blood 8 LAB CREA(LOINC 0.51-0.95 mg/dL ) Creatinine 0.59 Blood LAB CA(LOINC) Low 8.5-10.1 mg/dL Calcium Blood 7.3 LAB ANGAP(LOIN 8-16 C) Anion Gap 10 Performed By: #### P8 ####[place] [address] MDRD GFR Collected: 05/25/2017 Status: F Source: [facility] 5:35 AM HEALTH SYSTEM REPOSITORY TYPE CODE TESTS RESULT OUT OF RANGE REFERENCE UNITS LAB GFRFN(LOINC >60mL/min/1. ) eGFR >60 73m2 Result Comment: If the patient is , multiply the result by 1.210. Performed By: #### GFR ####[place] [address] TRIGLYCERIDE BLOOD Collected: 05/25/2017 Status: F Source: [facility] 5:35 AM HEALTH SYSTEM REPOSITORY TYPE CODE TESTS RESULT OUT OF REFERENCE UNITS RANGE LAB TRIG(LOINC 0-149 mg/dL ) Triglyceride 68 Blood Result Comment: < 200 DesirableResult invalid if not a fasting specimen. Performed By: #### TRIG ####[place] [address] NURSING PROG Observed: 05/24/2017 Status: COMPLETED Source: [place] 9:51 PM CLINIC OTHER CAMPUS REPOSITORY HNO ID: [id number]: Esperanza (Rn) Hassan, RNService: NursingAuthor Type: Registered NurseType: Nursing Progress NoteFiled: 05/24/2017 9:53 PMNote Text: Temp 39.2. Dr. Huerta paged. Pt has allergy to tylenol, pt states myarms swell up, it's like hives NURSING PROG Observed: 05/24/2017 Status: COMPLETED Source: [place] 8:17 PM CLINIC OTHER CAMPUS REPOSITORY HNO ID: [id number]: Esperanza (Rn) Mo, RNService: NursingAuthor Type: Registered NurseType: Nursing Progress NoteFiled: 05/24/2017 8:21 PMNote Text:Pt has a temp of 38.4 last two vitals checks and is slightly tachycardicat 108. #[phone] Deanna notified. States that she will order PRN tylenol for feverabove 38.4. RN will continue to monitor Observed: 05/24/2017 Status: F Source: [facility] 5:41 PM [facility]ALTH SYSTEM AND [facility]ER REPOSITORY [facility]Mod[facility] WBCNo organisms seenORGANISM: Morganella morganii (ID: 1)FewORGANISM: Escherichia coli (ID: 2)RareORGANISM: Bacteroides fragilis group (ID: 3)Rare Performed By: #### C_ANA ####[place] [address] [address] IMAGING GUIDANCE Observed: 05/24/2017 Status: F Source: [facility] 5:32 PM HEALTH SYSTEM PERITONEAL REPOSITORY Performed at [facility] APPROVED BY: ANTWON CHAN MD EXAM TITLE: CT GUIDED DRAINAGE OF PELVIC FLUID COLLECTION DATE: 05/24/2017 15:43 COMPARISON: CT abdomen/pelvis 05/24/2017 at 5:30 AM CLINICAL INDICATION/HISTORY: 32-year-old female referred for CT-guided drainage of pelvic abscess. TECHNIQUE: Informed consent was obtained from the patient. The risks, benefits, and alternatives to the procedure were explained. The patient agrees to the procedure. The patient was evaluated for the safety and appropriateness of conscious sedation and the Moderate Sedation Record was completed. The patient was sedated with intravenous Fentanyl and Versed administered by the trained independent radiology nurse observer. The patient's vital signs were monitored during the procedure by the trained independent radiology nurse observer. Total intra- service work encounter time was approximately 40 minutes. The patient was placed in a prone position and with CT guidance an appropriate skin entrance site was identified, prepped, and anesthetized. A trocar needle was passed into the pelvic fluid collection. Approximately 10 mL of serosanguinous fluid was aspirated from the fluid collection and then with guidewire exchange and Seldinger technique a 8-Arabic Skater APDL drainage catheter was deployed and locked in place. Further aspiration yielded approximately 120 mL of serous sanguinous fluid. Aspiration specimen were sent to microbiology. The drainage catheter was secured to the skin and hooked to a Fito-Herrera suction bulb. There were no apparent complications. The patient was discharged from the radiology department and returned to the floor. IMPRESSION : 1. Technically successful CT-guided drainage of pelvic fluid collection as described in the body of the report. CHEST 1 VIEW Observed: 05/24/2017 Status: F Source: [facility] 5:29 PM HEALTH SYSTEM REPOSITORY Performed at [facility] APPROVED BY: Jose Daniel Vegas MD EXAM TITLE: CHEST 1 VIEW DATE: 05/24/2017 17:24 COMPARISON: 06/03/2015 CLINICAL INDICATION/HISTORY: Status post PICC line placement TECHNIQUE: An AP upright view of the chest is presented. FINDINGS:Status post PICC line placement the tip near the caval atrial junction. NG tube passes into the upper abdomen.Moderately elevated diaphragm with decreased lung volumes.The cardiac silhouette is within normal limits. The thoracic aorta and mediastinum are unremarkable.Subsegmental parenchymal change in the lung bases greater left sideThe pulmonary vessels are within normal limits.The bony structures are intact. IMPRESSION: Status post PICC line placement the tip near the caval atrial junction. NG tube passes into the upper abdomen.Subsegmental parenchymal change in the lung bases greater left side BRIEF OP NOT Observed: 05/24/2017 Status: COMPLETED Source: [place] 5:08 PM [facility] OTHER CAMPUS REPOSITORY HNO ID: [id number]: Antwon Hannonice: (none) Author Type: PhysicianType: Brief Op NoteFiled: 05/24/2017 5:10 PMNote Text:INTERVENTIONAL RADIOLOGYPOST PROCEDURE NOTEDATE: 05/24/17NAME: Laurence Rivera: [id number] ID: [id number] Diagnosis: Pelvic fluid collectionPost Procedure Diagnosis : Same.Parts Driver: SABRINA Sweetrocedure: DrainageAnesthesia: Procedural SedationFindings: See report under Imaging ReportsEstimated Blood Loss: Minimal (Less Than 25 mL).Specimen: Approximately 10ml serosanguineous fluid sent to microbiologyfor analysis.Complications: None.Full report with procedural details to follow and will become availableunder Imaging Reports. Please contact for any questions or concerns. PROCEDURE Observed: 05/24/2017 Status: COMPLETED Source: [place] 2:53 PM CLINIC OTHER CAMPUS REPOSITORY HNO ID: [id number]: Nanci (Rn) KARL Garciaervice: PICC TeamAuthor Type: Registered NurseType: ProceduresFiled: 05/24/2017 2:59 PMNote Text:PICC NURSE INSERTION NOTEDATE OF PROCEDURE: May 24, 2017TIME OF PROCEDURE: 1400ORDERING PHYSICIAN: Michael zacarias CONSENT: Obtained per hospital policy.INDICATION FOR LINE PLACEMENT: Incompatible drugs/need more linesavailable IV therapy over six days PH/OsmolalityCONDITION OF LINE PLACEMENT: SterilePRIMARY PROCEDURALIST: Nanci Garcia, RNASSISTANT: Susie Banegas RNPRE-PROCEDURE REVIEWALLERGIESAllergen Reactions- Compazine [Prochlor* Swelling Tongue swelled- Darvocet A500 [Prop* GI Upset, Vomiting- Nsaids (Non-Steroid* Other: See Comments GI damage- Trazodone Hives, Swelling- Tylenol [Acetaminop* Swelling- Ultram [Tramadol] GI Upset, VomitingKnown History of Venous Thrombosis: NoKnown History of Permanent Pacemaker or Automated Implanted CardiacDevice: NoPrevious Breast Surgery of Lymph Node Dissection: NoHistory of Renal Disease with Arterio- Venous Fistula in Place or Planned:NoUltrasound Assessment Complete: YesPROCEDURE NARRATIVESAFE PRACTICEHand Hygiene per Hospital Policy: YesSkin Preparation Unit Dose Applicator Used: Chloraprep (CHG + alcohol),allowed to dry.Procedure Surface Cleansed with Antimicrobial Wipes: YesBarriers Used by Proceduralist and all Assisting Personnel: YesUNIVERSAL PROTOCOL / SAFETY CHECKLISTProcedure to be performed: Peripherally Inserted Central CatheterSign in Communication: CompletedTime Out : Team Confirms the Correct Patient, Correct Procedure, CorrectSite and Site Marking, Correct Position (if applicable), Prep and Dry Time(if applicable). Time: 1400Affirmation of Time Out: N/ASign Out Discussion: Completed, Handoff to Lino SHEPPARD, PICC OK TO Shay Garcia RNCATHETER PLACEMENTBrand: Arrow Lot: [id number] of Lumens: 2Type of PICC: Power Injectable PICCLumen Size: 5.5 FrenchPLACEMENT TECHNIQUELidocaine: Yes. Strength: 1% Volume 1ccModified Seldinger Technique Used to Place Line via the Right BrachialUltrasound Guidance: YesNumber of Attempts at Insertion: 1Internal Length: 38 cm External Length: 2 cm Trim Length: 40 cmMid-Arm Circumference Above Insertion Site: 29 centimetersPost Insertion Pain Level Related to Procedure: 0Action Taken to Address Pain: None neededVerified Placement: Blood return all ports, Ultrasound and Tip locationsystem or device indicates the tip is located in the SVC/CAJ.Line was Flushed with 20 cc normal salineLine Secured with: Securement deviceSterile Dressing Applied and Dated: YesSterile Caps on all Ports Prior to Leaving Procedure Area: YesSPECIMENS: NoneCOMPLICATIONS: NonePatient Education Materials: Placed in chart, [facility] PICC information brochure and Catheter Associated BloodstreamInfections Fact sheet [facility] Central Line Insertion Checklist utilizedduring this procedureQUESTIONS or PROBLEMS: Call [phone]: Nanci Garcia RN PATIENT NAME: Laurence LemaATE: May 24, 2017 : 2:53 PM PAGER/CONTACT PHONE: [phone] NUTRITION Observed: 05/24/2017 Status: COMPLETED Source: [place] 1:40 PM CLINIC OTHER CAMPUS REPOSITORY HNO ID: [id number]: JAIRO Ayala Rdervice: RIGOBERTOT-Nutrition Support TeamAuthor Type: Registered DietitianType: NutritionFiled : 05/24/2017 1:56 PMNote Text: ------ Attestation signed by Sarah Liu at 05/24/2017 10:16 PMDiscussed with the RD and agree with RD's findings and plan as documented inthe RD's note.A/P; Readmitted with pain distention, and fever S/P resection of meckels Will start PPN given current problems, and duration of time withlow/poor po intakeH Mark Liu MD ---NUT RITION THERAPY INITIAL ASSESSMENTSERVICE DATE: 05/24/2017SERVICE TIME: 1:40 PMRECOMMENDED MALNUTRITION DIAGNOSIS: NO MALNUTRITION IDENTIFIED--> at riskr /t poor po prior to admission with slight weight lossIn the context of Acute Illness or Injury based on:Insufficient Energy Intake: less than or equal to 50% for greater than orequal to 5 daysNUTRITION CARE PLAN:Problem, Etiology and Signs/Symptoms:Altered GI function related to recent operation on 05/18/17 discharged [facility], need for NGT, NPO, fever and need forTPNIntervention:Start PPN, until PICC is placedPPN script: 3.0 L providing 1560 calories and 65 gms pro, osms: 739Change to CTPN once PICC placedAxillary standing orders completedDc IVF once PPN availableCollaborated with Dr Liu and orders written.Coordination of Care:RN, ptMonitor and Evaluation:Monitor fluid/ electrolyte balanceMonitor labs, I/Os, vital signs, weightDischarge Nutrition Recommendations:To be determinedPer HPI: Per ED-->32-year-old female presents to the emergency room forevaluation of fever, abdominal pain. Patient is approximately 4 dayspostop from a small bowel resection as well as a Meckel diverticulumresection. Patient states that since leaving the hospital she has not hada bowel movement despite using MiraLAX. Patient is currently onoxycodone. Patient also states that since about 11 PM last night she hashad acutely worsening diffuse abdominal pain, distention as well as afever, Tmax: of 102. No flatus.Present Diet Order: NPOEnteral Access: NGT to LWISNutritional Intake Prior to Admission: 0-25% estimated energy needs overthe past 1 week(s)GI symptoms: abdominal pain and early satietyAbdominal Exam: abdomen is distended and no flatus or BMIs the patient having any pain that is interfering with oral/enteralintake? Yes LOCATION: abdominPAIN SCALE: 8 on a scale of 0-10ANTHROPOMETRICSHeight: 172.7 cm (5' 8)Admission Weight: 76.2 kg (168 lb) Current Weight: 72.6 kg (160 lb)Body mass index is 24.33 kg/(m2). normalWeight has decreased by 4 % in last 3 weeksLast Wt05/24/17 : 72.6 kg (160 lb)05/18/17 : 75.8 kg ( 167 lb 1.7 oz)05/02/17 : 75.8 kg (167 lb)04/20/17 : 72.9 kg (160 lb 12.8 oz)04/08/17 : 76.1 kg (167 lb 12.8 oz)04/01/17 : 73.7 kg (162 lb 6.4 oz)02/25/17 : 75.2 kg (165 lb 12.8 oz)09/10/16 : 73.6 kg (162 lb 3.2 oz)08/20/16 : 77.4 kg (170 lb 9.6 oz) : 79.2 kg (174 lb 9.6 oz)Usual Body Weight: 72kgResting Metabolic Rate: 1476Estimated kilocalorie needs: 1800 kilocalories determined by 25 kcal/kgEstimated protein needs: 108 grams determined by 1.5-2.0 g/kg UsualweightEstimated fluid needs: 3000+ milliliters based on 1 mL per kcal, andfurther for hydrationNUTRITION FOCUSED PHYSICAL EXAM:Subcutaneous Fat LossOrbital No fat lossTriceps No fat lossMid-axillary at the iliac crest No fat lossMuscle Loss Locations: Temporalis No muscle lossPectoralis No muscle lossDeltoids No muscle lossInterosseous No muscle lossLatissimus dorsi, trapezius No muscle lossQuadriceps No muscle lossGastrocnemius No muscle lossPotential micronutrient deficiency revealed in : No deficiency identifiedEdema: NoAscites: NoAssessment of Functional Status: Functional, yet not normal, able to be upand about with fairly normal activities for a duration of 1 weeksTemperature Max in 24 hours: Temp (24hrs), Av.4 ?C (99.3 ?F), Min:36.9?C (98.4 ?F), Max:38.1 ?C (100.6 ?F) BP 128/63 Pulse 97 Temp 36.9 ? C (98.4 ?F) (Oral) Resp 16 Ht 172.7cm (5' 8) Wt 72.6 kg (160 lb) SpO2 100% BMI 24.33 kg/u9Yvmbkd Labs GLUC 128*BUN 13CREAT 0.76NA 127*K 3.5CHLOR 97*CO2 24ALB 2.6*HB 8.4*HCT 23.9*WBC 5.05P 2.5Potential Signs of Inflammation: hyperglycemia, hypoalbuminemia,tachycardia and imaging studiesALLERGIESAllergen Reactions- Compazine [Prochlor* Swelling Tongue swelled- Darvocet A500 [Prop* GI Upset, Vomiting- Nsaids (Non-Steroid* Other: See Comments GI damage- Trazodone Hives, Swelling- Tylenol [Acetaminop* Swelling- Ultram [Tramadol] GI Upset, VomitingCurrent Facility-Administered Medications:iv contrast (radiology procedure) INTRAVENOUS DIRECTED PRNNaCl 0.9% 1,000 mL iv bolus 1,000 mL INTRAVENOUS ONCEbuprenorphine 5 mcg/hour 1 Patch (BUTRANS) 1 Patch TRANSDERMAL q 1 WEEK0.9 % NaCl 3-5 mL 3-5 mL INTRAVENOUS q 12 Hondansetron 4 mg tab(s) (ZOFRAN) 4 mg ORAL q 6 H PRNOrondansetron (PF) 4 mg injection (ZOFRAN) 4 mg INTRAVENOUS q 6 H PRNenoxaparin 40 mg injection (LOVENOX) 40 mg SUBCUTANEOUS DAILYpiperacillin-tazobactam 3.375 g in dextrose (iso-osmotic) 50 mL (ZOSYN)3.375 g INTRAVENOUS q 6 Hlidocaine 10 mg/ mL (1 %) 10-20 mg injection (XYLOCAINE) 1-2 mL INTRADERMALONCE0.9% NaCl 10 mL 10 mL INTRAVENOUS q 12 H0.9% NaCl 20 mL 20 mL INTRAVENOUS PRNmorphine 2-4 mg injection 2-4 mg INTRAVENOUS q 4 H PRNIntake/Output NoneSurgical Incision 05/24/17 1315 Abdomen - Midline (Active)Dressing Status None: Open to Air 05/24/2017 12:30 PMIncision Closures Flakito 05/24/2017 12:30 PMDrainage Description None 05/24/2017 12:30 PMDrainage Amount None 05/24/2017 12:30 PMEdges Clear 05/24/2017 12:30 PMHematoma No 05/24/2017 12:30 PMNumber of days:0Surgical Incision 05/24/17 1316 Abdomen - Laparoscopy Sites (Active)Dressing Status Clean, Dry AND Intact 05/24/2017 12:30 PMIncision Closures SteriStrips 05/24/2017 12:30 PMDrainage Description None 05/24/2017 12:30 PMDrainage Amount None 05/24/2017 12:30 PMEdges Clear 05/24/2017 12:30 PMHematoma No 05/24/2017 12:30 PMNumber of days:0MNT Billing Type: Initial Assess/15 min 4 unitsSIGNATURE: Priscila Guidry RD, LD PATIENT NAME: Laurence FuentesMSATE: May 24, 2017 : 1:40 PM PAGER: [phone] ED NOTE Observed: 05/24/2017 Status: COMPLETED Source: [place] 11:46 AM CLINIC OTHER CAMPUS REPOSITORY HNO ID: [id number]: Caroline (Rn) KARL Florianervice: Emergency MedicineAuthor Type: Registered NurseType: ED NotesFiled: 05/24/2017 11 :46 AMNote Text: Per sr community manager room is ready ABDOMEN 1 VIEW Observed: 05/24/2017 Status: F Source: [facility] 11:43 AM HEALTH SYSTEM REPOSITORY Performed at [facility] APPROVED BY: ANTWON CHAN MD CLINICAL INDICATION: NG tube placement COMPARISON: CT abdomen/pelvis 05/24/2017 FINDINGS:Portable supine frontal view of the abdomen. Nasogastric tube is in place with the tip and side-port below the diaphragm coiled in the expected position of the stomach. There is gaseous distention of numerous small bowel loops concerning for small bowel obstruction. Subsegmental atelectasis is noted at both lung bases. IMPRESSION:1. Satisfactory position of nasogastric tube within the stomach. 2. Gaseous distention of numerous small bowel loops concerning for small bowel obstruction. ED NOTE Observed: 05/24/2017 Status: COMPLETED Source: [place] 11:33 AM [facility] REPOSITORY HNO ID: [id number]: Salma (Rn) KARL Daveervice: Emergency MedicineAuthor Type: Registered NurseType: ED NotesFiled: 05/24/2017 11 :33 AMNote Text: Pt ready for xray ED NOTE Observed: 05/24/2017 Status: COMPLETED Source: [place] 11:30 AM [facility] REPOSITORY HNO ID: [id number]: Salma (Rn) KARL Daveervice: Emergency MedicineAuthor Type: Registered NurseType: ED NotesFiled: 05/24/2017 11 :30 AMNote Text: Placed NG into R nare; verified placement by auscultation. PLAN OF CARE Observed: 05/24/2017 Status: COMPLETED Source: [place] 11:19 AM [facility] REPOSITORY HNO ID: [id number]: Harris Craig (Compensator Worker) Service: (none)Author Type: TechnicianType: Plan of CareFiled: 05/24/2017 11:22 AMNote Text:MEDICATION HISTORYPatient Name:DeborahLaurence L Nicole: [id number]: 1985Source of history:Patient: Reliability of source: Appears reliable,clearly identified: Medication name, Medication dose, Medication routeand Medication frequency and Pharmacy records: [facility] ([phone])Medication Nonadherence Identified: No barriers notedThe above information represents the best possible medication history: YesAdditional comments: N/AAllergies: ALLERGIESAllergen Reactions- Compazine [Prochlor* Swelling Tongue swelled- Darvocet A500 [Prop* GI Upset, Vomiting- Nsaids (Non-Steroid* Other: See Comments GI damage- Trazodone Hives, Swelling- Tylenol [Acetaminop* Swelling- Ultram [Tramadol] GI Upset, VomitingPreferred Pharmacy: [facility] ([phone])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 Postop painPatient taking differently: Take 5-10 mg by mouth as directed. Postop pain 05/23/2017 Yesbuprenorphine (BUTRANS) 5 mcg/hour APPLY ONE PATCH TO SKIN EVERY SEVENDAYS CHANGE ON THE 7th DAY Past Week Yessuvorexant (BELSOMRA) 10 mg tab Take 1 tablet by mouth daily at bedtime. 05/22/2017 YesQUEtiapine (SEROQUEL) 200 mg tablet TAKE TWO TABLETS ONCE DAILY AT BEDTIMEPRN 05/23/2017 YeslamoTRIgine (LAMICTAL) 150 mg tablet Take 150 mg by mouth once daily.2017 YesclonazePAM (KLONOPIN) 0.5 mg tablet Take 0.5 mg by mouth twice daily asneeded for Anxiety. 05/23/2017 Yesgabapentin (NEURONTIN) 300 mg capsule Take 300 mg by mouth three timesdaily. 05/23/2017 Yesdocusate sodium (COLACE) 100 mg capsule Take 100 mg by mouth twice daily.topiramate (TOPAMAX) 100 mg tablet Take 100 mg by mouth twice daily.Harris Craig (Compensator Worker) WK pager [id number] 2017 11:19 AM HISTORY PHYSICAL Observed: 05/24/2017 Status: COMPLETED Source: [place] 8:32 AM CLINIC OTHER CAMPUS REPOSITORY HNO ID: [id number]: Anahi ([facility]) Lancevice: General SurgeryAuthor Type: Nurse SpecialistType: HANDPFiled: 05/24/2017 2:28 PMNote Text: ------Attes tation signed by Valentina Moncada at 05/24/2017 4:59 PMI personally saw and examined the patient. I reviewed the resident's note. Leticia with the resident's assessment and plan unless otherwise noted below.NPO, NG tube, IR drain for pelvic collection vs abscess likely causingsecondary SBO. -----ACUTE CARE SURGERYINITIAL CONSULTHistory and PhysicalSERVICE DATE: 05/24/2017SERVICE TIME: 0730REASON FOR CONSULT: Intraabdominal abscess, SBOREQUESTING PHYSICIAN: Gin Moncada [facility] PHYSICIAN: Romelia Cardenas MDASSESSMENT AND PLANPatient Active Hospital Problem List:No active hospital problems.D/W Dr Moncada:-Admit to Surgery Service-NPO/IV Fluids-NG tube-IV Zosyn-IR Drain-PICC for TPN-Daily Labs-Mgmt of pain/nausea-PPI Prophylaxis-DVT ProphylaxisSUBJECTIVEHISTORY OF PRESENT ILLNESS : Ms. Marr is a 32 year old female whopresents for increasing abdominal pain, nausea, fever, fatigue. S/Pdiagnostic laparascopy, mini laparotomy, small bowel resection forMeckel's diverticulum, and excision of cystic abdominal wall mass on05/18/17. Sts discharged on 05/21/17 and returned home - intially toleratedregular diet but appetite poor. Sts did not pass flatus or have a BM sinceprior to surgery. Developed above S/S, increasing in severity X 24 hrs.Alert, oriented X 3. Denies CP/SOB. 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.Pain management on consult for prior admission.PAST MEDICAL HISTORY:PAST MEDICAL HISTORYDiagnosis Date- Abdominal pain decreased with position change- Anxiety- Bipolar 1 disorder (HCC)- Depression- Dysthymic disorder Depression (non-psychotic)- Endometriosis Frozen Pelvis- Epilepsy ( HCC) LAST seizure almost 3 years ago, uses topamax- Generalized anxiety disorder Anxiety, Generalized- Other and unspecified ovarian cyst Ovarian cyst on left side- Overdose, drug 2016 opiodPAST SURGICAL HISTORY:PAST SURGICAL HISTORYProcedure Laterality Date- COLONOSCOPY 2016- EXPLORATORY OF ABDOMEN 11/16/2010 Laparotomy, exp, for 10 years had a Laparoscopy every year.- HAND SURGERY HX Bilateral- L'SCOPE DX W/WO BRUSHINGS/ WASHINGS Laparoscopy x7- TOTAL ABDOM HYSTERECTOMY 2012 BSOFAMILY HISTORY:FAMILY HISTORYProblem Relation Age of Onset- Hypertension Mother- Genetic Mother Lupus- Obesity Mother- Psychiatry Mother Depression- Cancer Father Neuroblastoma when he was 29 - Psychiatry Paternal Grandmother- Heart Paternal Grandmother- Cancer Maternal Grandmother and unknown type- Cancer Maternal Grandfather and unknown type- Breast Cancer Maternal Grandfather Cousin- ms [OTHER] Maternal Grandfather Aunt, Uncle, Cousin- Diabetes OtherSOCIAL HISTORY:Social HistorySubstance Use Topics- Smoking status : Current Every Day Smoker Years: 10.00 Types: Cigarettes- Smokeless tobacco: Never Used Comment: 2-3 CIGS DAILY- Alcohol use Yes Comment: OccasionalMEDICATIONS: Prior to Admission Medications:(Not in a hospital admission)Current hospital medications :iv contrast (radiology procedure) INTRAVENOUS DIRECTED PRNNaCl 0.9% 1,000 mL iv bolus 1,000 mL INTRAVENOUS ONCEALLERGIES:ALLERGIESAllergen Reactions- Compazine [ Prochlor* Swelling Tongue swelled- Darvocet A500 [Prop* GI Upset, Vomiting- Nsaids (Non- Steroid* Other: See Comments GI damage- Trazodone Hives, Swelling- Tylenol [ Acetaminop* Swelling- Ultram [Tramadol] GI Upset, VomitingCOMPLETE REVIEW OF SYSTEMS: PAIN ASSESSMENT: CURRENTLY HAVING PAIN; LOCATION/DISTRIBUTION:Generalized abdominal pain, increased over LLQ, LMQ abdomenPAIN SCALE: 7 on 0-10 scale per patientPAIN CHARACTER: moderate and pressureSee HPIGENERAL: Febrile, sts fatigue, poor appetite since dischargeRESPIRATORY: Negative for cough, hemoptysis, wheezing, COPD, dyspnea orshortness of breathCARDIOVASCULAR: Negative for chest pain, leg swelling, hypertension, CHFor palpitationsGI: See HPIGU: No history of dysuria, frequency or incontinenceGYN : Negative for abnormal vaginal bleeding, abnormal vaginal discharge.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 No rashes or lesions.LUNGS: Lungs clear to auscultation, Good diaphragmatic excursionCARDIAC: Rhythm: regular rate and rhythm, Rate: tachycardiaABDOMEN: Positive findings: distended, moderate tenderness, increased withpalpation location: LUQ and LLQ, hypoactive bowel soundsEXTREMITIES: Normal exam of the extremitiesNEURO: Grossly normal cognition, motor function, and cranial nervesIII-XIIWOUND: Clean, dry and intact, flakito over midline incisionDATA: Diagnostic tests reviewed for today's visit:Most recent labs and imaging results.CBC, Coags, BMP, Mg, PhosRecent Labs WBC 5.05HB 8.4*HCT 23.9*PLT 196INR 1.10APTT 26.5NA 127*K 3.5CHLOR 97*CO2 24BUN 13CREAT 0.76GLUC 128*CA 8.0*P 2.5Liver Function, Amylase , AND LipaseRecent Labs TPROT 6.9ALB 2.6*ALT 14AST 26ALKPHOS 58TBILI 1.5* LIPASE 93LACT 0.7ED Imaging Ordered Start Ordered Status Ordering Provider 0400 05/24/[address] ABD/PEL W IVCON Final result KYLER CHEATHAM (RES)IMPRESSION:? 1. ?There is evidence of a large 7.6 x 9.5 x 9.4 cm peripherally enhancingfluidand air collection within the pelvis. ?An abscess is of primary concern.2. ?Wall thickening is favored over incomplete distention involvingrectum,sigmoid colon and small bowel in the pelvis.3. ?Abnormal dilated loops of small bowel with associated air-fluid levelsand anapparent transition point in the central pelvis highly concerning for ahigh grade?small bowel obstruction.4. ?Nonspecific mild prominence of the right renal collecting system,probablyrelated to slight mass effect on the right ureter related to the pelvicfluidcollection. ?5. Bandlike areas of atelectasis and/or consolidation in both lower lobes.6. Air is noted within the bladder. ?Correlation with urinalysis andclinicalhistory is needed.7. ?Additional findings as detailed above.SIGNATURE: VIRAL Lazar PATIENT NAME: Laurence LemaATE: May 24, 2017 : 8:33 AM PAGER/CONTACT #: [phone] URINALYSIS ROUTINE Collected: 05/24/2017 Status: F Source: [facility] 7:50 AM [facility] REPOSITORY TYPE CODE TESTS RESULT OUT OF RANGE REFERENCE UNITS LAB COLOR(LOIN C) Urine Color YELLOW LAB APPUR(LOIN C) Urine CLEAR Appearance LAB GLUUR(LOIN Negative mg/dL C) Glucose Urine NEGATIVE LAB KETON(LOIN Abnormal Negative mg/dL C) Ketone TRACE Urine LAB HGBUR(LOIN Negative C) Hemoglobin,Urin NEGATIVE e LAB PROTU(LOIN Negative mg/dL C) Protein Urine NEGATIVE LAB NITRI(LOIN Negative C) Nitrites Urine NEGATIVE LAB BILIU(LOIN Negative C) Bilirubin Urine NEGATIVE LAB SPG(LOINC) Abnormal 1.005-1.030 Specific [place], Ur >1.045 LAB PHUR(LOINC 5.0-8.0 ) pH,Urine 6.5 LAB UROBI(LOIN 0.0-1.0 EU/dL C) 1.0 Urobilinogen,Ur LAB LEUKO(LOIN Negative C) Leukocytes Esterase NEGATIVE LAB RBCU1(LOIN 0.0-5.0 /hpf C) RBC,Urine * LAB WBCU1(LOIN 0.0-5.0 /hpf C) WBC, Urine * LAB EPIT1(LOIN 0.0-5.0 /hpf C) Ep Cells * Urine LAB BACT1(LOIN None C) Bacteria * Urine LAB HYCA1(LOIN 0.0-1.0 /lpf C) Hyaline * Cast Performed By: #### URIN2 ####[place] [address] Observed: 05/24/2017 Status: F Source: [place] [facility]INE 7:50 AM HEALTH SYSTEM REPOSITORY Test [facility] at [facility]<10,000 CFU/ml gram positive organisms cultured. No furtheridentification or susceptibility testing will be performed.Plates will be held for 5 days. Performed By: #### C_URI ####[place] [address] Observed: 05/24/2017 Status: F Source: [place] [facility] BLOOD 7:31 AM HEALTH SYSTEM REPOSITORY [facility]No growth Performed By: #### C_BLO ####[place] [address] ED PROV NOTE Observed: 05/24/2017 Status: COMPLETED Source: [place] 7:16 AM CLINIC OTHER CAMPUS REPOSITORY HNO ID: [id number]: Andrew Gurrolarvice: Emergency MedicineAuthor Type: PhysicianType: ED Provider NotesFiled: 05/24/2017 7:23 AMNote Text:ED ATTENDING NOTE:I personally saw and examined this patient. I reviewed the resident'snote. I agree with the resident's assessment and plan unless otherwisenoted.HPI:32-year-old female presents to the emergency room for evaluation of fever,abdominal pain. Patient is approximately 4 days postop from a small bowelresection as well as a Meckel diverticulum resection. Patient states thatsince leaving the hospital she has not had a bowel movement despite usingMiraLAX. Patient is currently on oxycodone. Patient also states thatsince about 11 PM last night she has had acutely worsening diffuseabdominal pain, distention as well as a fever, MAXIMUM TEMPERATURE of 102.No flatus.PE:Vital signs reviewed and are significant for tachycardia, fever.HEENT: Dry mucous membranes, EOMI, PERRL, head nontraumatic,normocephalic.CV: RRR, +S1, S2. No murmurs, gallops, rubs.Resp: CTAB, no wheezes, rales, rhonchi.Abd: soft, midline periumbilical incision dry, intact, diffusely tender,distension, inspection within normal. Decreased bowel sounds.Extr: Strength is normal, sensation normal, no edema. Cap refill <3seconds.Neuro: Awake, alert, oriented ?3, speech normal, equal and symmetric motorstrength in upper and lower extremities bilaterally, cranial nervesgrossly intact.Medical decision making: Labs and imaging ordered based on HPI. DDx:postob abscess, UTI, SBO, PNA. Pt meets sepsis criteria. Blood cx, lacticobtained. Surgery consult. See resident note for additional details.Yahaira Ibrahim, DO7:23 AMPmicha Ibrahim, DO05/24/17 0723 ED PROV NOTE Observed: 05/24/2017 Status: COMPLETED Source: [place] 6:46 AM CLINIC OTHER CAMPUS REPOSITORY HNO ID: [id number]: Yahaira Ibrahim, DOService: Emergency MedicineAuthor Type: PhysicianType: ED Provider NotesFiled: 05/24/2017 11:17 PMNote Text:ED Provider NotePatient Name: Laurence Escobedo Nicole: [id number] DATE: 05/24/17HistoryPatient presents with:Fever: States she had abd surgery on Tue- had Meckel's diverticulumremoved. States onset fever 1100pm States hasn't passed gas or had BM yet.HPI Comments: The patient is a 32 year old female with a signficant pastmedical history of epilepsy, polysubstance abuse, bipolar disorder, andrecent abdominal surgery to remove a Meckel's diverticulum/small bowelresection, who presents to the ED for evaluation of abdominal pain since11 PM. The patient describes the pain as a severe in nature. Associatedsymptoms include constipation, abdominal distention, nausea, and a feverwith a maximum temperature of 102?. The patient has been taking oxycodonefor her abdominal pain, but it has not been working. The patient deniesUTI symptoms, hematuria, flank pain, chills, vomiting, chest pain,dyspnea , or additional complaints.History provided by: PatientLanguage saddle maker used: NoPAST MEDICAL HISTORYDiagnosis Date- Abdominal pain decreased with position change- Anxiety- Bipolar 1 disorder (HCC)- Depression- Dysthymic disorder Depression (non-psychotic)- Endometriosis Frozen Pelvis- Epilepsy (HCC) LAST seizure almost 3 years ago, uses topamax- Generalized anxiety disorder Anxiety, Generalized- Other and unspecified ovarian cyst Ovarian cyst on left side- Overdose, drug 2016 opiodPAST SURGICAL HISTORYProcedure Laterality Date- COLONOSCOPY 2016- EXPLORATORY OF ABDOMEN 11/16/2010 Laparotomy, exp, for 10 years had a Laparoscopy every year.- HAND SURGERY HX Bilateral- L'SCOPE DX W/WO BRUSHINGS/WASHINGS Laparoscopy x7- TOTAL ABDOM HYSTERECTOMY 2012 BSOFAMILY HISTORYProblem Relation Age of Onset- Hypertension Mother- Genetic Mother Lupus- Obesity Mother- Psychiatry Mother Depression- Cancer Father Neuroblastoma when he was 29- Psychiatry Paternal Grandmother- Heart Paternal Grandmother- Cancer Maternal Grandmother and unknown type- Cancer Maternal Grandfather and unknown type- Breast Cancer Maternal Grandfather Cousin- ms [OTHER] Maternal Grandfather Aunt, Uncle, Cousin- Diabetes OtherSocial HistorySocial History Main Topics- Smoking status: Current Every Day Smoker Years: 10.00 Types: Cigarettes- Smokeless tobacco: Never Used Comment: 2-3 CIGS DAILY- Alcohol use Yes Comment: Occasional- Drug use: No- Sexual activity: Not CurrentlyALLERGIESAllergen Reactions- Compazine [Prochlor* Swelling Tongue swelled- Darvocet A500 [Prop* GI Upset, Vomiting- Nsaids (Non-Steroid* Other: See Comments GI damage- Trazodone Hives, Swelling- Tylenol [Acetaminop* Swelling- Ultram [Tramadol] GI Upset, VomitingReview of SystemsConstitutional: Positive for fever. Negative for activity change, appetitechange and chills.HENT: Negative for ear discharge, ear pain and rhinorrhea.Eyes: Negative for pain and redness.Respiratory: Negative for cough, chest tightness and shortness of breath.Cardiovascular: Negative for chest pain.Gastrointestinal: Positive for abdominal distention, abdominal pain,constipation and nausea. Negative for blood in stool, diarrhea andvomiting.Genitourinary: Negative for difficulty urinating, dysuria, frequency,hematuria and urgency.Musculoskeletal: Negative for back pain, neck pain and neck stiffness.Skin: Negative for rash and wound.Physical ExamBP 118/60 Pulse 101 Temp (Src) 100.6 (Oral) Resp 16 Ht 5' 8(1.73m) Wt 168 lb (76.2kg) SpO2 96% BMI 25.55 kg/(m2).Physical ExamConstitutional: She is oriented to person, place, and time. She appearswell-developed and well-nourished. She appears distressed.HENT:Head: Normocephalic and atraumatic.Right Ear: External ear normal.Left Ear: External ear normal.Eyes: Conjunctivae and EOM are normal. Pupils are equal, round, andreactive to light.Neck: Normal range of motion. Neck supple.Cardiovascular: Regular rhythm and normal heart sounds. Tachycardiapresent. Exam reveals no gallop and no friction rub.No murmur heard.Pulmonary/Chest: Effort normal and breath sounds normal. No respiratorydistress. She has no wheezes. She has no rales.Abdominal: Soft. She exhibits distension. She exhibits no mass. Bowelsounds are decreased. There is generalized tenderness. There is guarding.Well-healing surgical incision sites.Musculoskeletal: Normal range of motion. She exhibits no edema, tendernessor deformity.Neurological: She is alert and oriented to person , place, and time. Nocranial nerve deficit. Coordination normal.Skin: Skin is warm and dry. No rash noted. No erythema. No pallor.Nursing note and vitals reviewed.Diagnostic TestingResults for orders placed or performed during the hospital encounter of05/24/17CT ABD/PEL W IVCONResult Value Ref Range Lidar Scientist REASON FOR EXAM: Fever, reported abdominal surgery on 131, Meckel'sdiverticulumremoved , concern for postoperative infectionPROCEDURE: CT ABDOMEN AND PELVIS WITH CONTRASTTECHNIQUE: CT ABDOMEN AND PELVIS WITH CONTRAST; CT of the abdomen andpelvis wasperformed with 150 mL of Omnipaque 300 intravenous contrast using standardtechnique.COMPARISON: None.RESULT:Brattice Builder: No additional finding.Lower Thorax: There are bandlike areas of atelectasis and/or consolidationin both lower lobes.Liver: A 10 mm low-attenuation structure within the right hepatic lobesuperiorlyis too small to fully characterize but appears similar to the comparison.Biliary: Bladder full noted. No definite biliary duct dilatation.Pancreas: No mass or duct dilation.Spleen: No mass. No splenomegaly.Adrenals: No mass.Kidneys: There is mild prominence of the right renal collecting system andrightureter but no radiodense obstructing stone. The distal ureters areslightlyobscured but there is no calcification along the expected course of eitherureter.Pelvis: No bladder wall thickening is demonstrated. Air is noted withinthebladder. There is a peripherally enhancing 7.6 x 9.5 x 9.4 cm fluid andaircollection in the deep pelvis anterior to the rectum which appearsseparate frombowel and is most consistent with an organized fluid collection..GI tract: There is mild fluid and fat stranding within the perirectalregion.There are postsurgical changes involving small bowel in the righthemipelvis. The course of the large bowel is somewhat difficult to follow. There is wallthickening versus incomplete distention involving sigmoid colon in theleft lowerquadrant and rectum in the central pelvis. The colon is mildly distendedproximally with air and formed stool. There is a moderate amount offormed stoolin the ascending colon. The presumed appendix appears of normal caliber.Postsurgical changes are noted involving bowel in the right hemipelvis.Incomplete gastric distention limits evaluation for wall thickening.There isabnormal dilation of small bowel loops noted diffusely throughout theabdomen with scattered air-fluid levels. Small bowel loops measure up to 5.1 cm incaliberwith associated air-fluid levels. There is abnormal fecalization of smallbowelcontents in the pelvis and a bowel anastomosis and postsurgical changeinvolvingsmall bowel loops in the right lower quadrant. There is a suspectedtransitionpoint in the central pelvis posterior to the bladder. There is suspectedmildwall thickening involving small bowel distal to this transition point.Vasculature: The major vessels appear grossly patent.Lymph nodes: No overt adenopathy. Scattered mesenteric nodes appearsubcentimeter in short axis.Mesentery/Peritoneum: There is a small amount of abdominopelvic ascites.No overt free air is demonst rated. Tiny focus of low attenuation adjacent to theIVC onimage 49 of series 2 is not convincing for any free air.Bones/Soft tissues: Lucent area within the right ilium appearsnonaggressive. Noacute or suspicious osseous finding. There are postsurgical changes alongtheanterior abdominal wall with subcutaneous emphysema and surgical clips.IMPRESSION:1. There is evidence of a large 7.6 x 9.5 x 9.4 cm peripherally enhancingfluidand air collection within the pelvis. An abscess is of primary concern.2. Wall thickening is favored over incomplete distention involvingrectum,sigmoid colon and small bowel in the pelvis.3. Abnormal dilated loops of small bowel with associated air-fluid levelsand anapparent transition point in the central pelvis highly concerning for ahigh grade small bowel obstruction.4. Nonspecific mild prominence of the right renal collecting system, probablyrelated to slight mass effect on the right ureter related t o the pelvicfluidcollection.5. Bandlike areas of atelectasis and/or consolidation in both lower lobes.6. Air is noted within the bladder. Correlation with urinalysis andclinicalhistory is needed.7. Additional findings as detailed above.COMPREHENSIVE METABOLIC PANEL (AK,AV,EU,FV,HL,DIANE,MM,SP)Result Value Ref Range Sodium 127 (L) 136 - 145 mEq/L Potassium 3.5 3.5 - 5.1 mEq/L Chloride 97 (L) 98 - 107 mEq/L CO2 24 21 - 32 mEq /L Glucose 128 (H) 70 - 99 mg/dL BUN 13 7 - 18 mg/dL Creatinine 0.76 0.51 - 0.95 mg/dL Calcium 8.0 (L) 8.5 - 10.1 mg/dL Albumin 2.6 (L) 3.4 - 5.0 g/dL Protein, Total 6.9 6.4 - 8.2 g/dL AST 26 9 - 37 U/L ALT 14 12 - 78 U/L Alkaline Phosphatase 58 46 - 116 U/L Bilirubin, Total 1.5 (H) 0.2 - 1.0 mg/dL Anion Gap 10 8 - 16LIPASE BLOOD (AK,AV,EU,FV,HL,DIANE,MM,SP)Result Value Ref Range Lipase 93 73 - 393 U/LCBC + AUTO DIFF (AK,AV,EU,FV,HL,DIANE,MM,SP)Result Value Ref Range WBC 5.05 3.98 - 10.04 thou/cmm RBC 2.53 (L) 3.93 - 5.22 mil/cmm HGB 8.4 (L) 11.2 - 15.7 g/dL Hematocrit 23.9 (L) 34.1 - 44.9 % MCV 94.5 79.4 - 94.8 fl MCH 33.2 (H) 25.6 - 32.2 pg MCHC 35.1 (H) 31.6 - 34.8 % RDW 13.2 11.7 - 14.4 % RDW-SD 45.3 36.4 - 46.3 fl Platelet Count 196 182 - 369 thou/cmm MPV 11.4 9.4 - 12.3 fl Seg Neutrophil 68.3 % Immature Grans 0.20 % Lymphocyte 16.0 % Monocyte 13.9 % Eosinophil 1.4 % Basophil 0.2 % Seg. Neut. # 3.45 1.56 - 6.13 thou/cmm Immature Grans # 0.01 0.00 - 0.05 thou/cmm Lymphocyte # 0.81 (L) 1.18 - 3.74 thou/cmm Monocyte # 0.70 0.27 - 0.70 thou/cmm Eosinophil # 0.07 0.00 - 0.31 thou/cmm Basophil # 0.01 0.01 - 0.08 thou/cmmLACTIC ACID / LACTATE (AK,AV,EU,FV,HL,DIANE,MM,SP)Result Value Ref Range Lactic Acid 0.7 0.4 - 2.0 mEq/ LMDRD GFRResult Value Ref Range eGFR >60 >60mL/min/1.42z3VgkriapaiwJuxpidg Decision Making / ED CourseED CourseThe patient is a 32 year old female with a signficant past medical historyof epilepsy, polysubstance abuse, bipolar disorder, and recent abdominalsurgery to remove a Meckel's diverticulum/small bowel resection, whopresents to the ED for evaluation of abdominal pain since 11 PM. Thepatient was evaluated by myself and the attending physician. The patientis hemodynamically stable but tachycardic and febrile. The patient appearsto significantly uncomfortable. Physical exam demonstrates diffuseabdominal pain to palpation with guarding. Significant distention notedwith hypoactive bowel sounds. Well-healing surgical incision site. Thepatient was given 1 L of normal saline, 4 mg of morphine, and 4 mg ofZofran. CBC shows acute anemia with a hemoglobin of 8.4 without aleukocytosis. Lactic acidosis was within normal limits. CMP demonstratesacute hyponatremia. Blood cultures are pending. CT abdomen and pelviswith contrast demonstrates a peripherally enhancing fluid collection inthe pelvis concerning for an abscess. There is also concern for ahigh-grade small bowel obstruction. There also bandlike areas ofatelectasis and/or consolidation in both lower lobes. The patient wasinformed of these findings. Surgery was consulted. Per theirrecommendation, the patient was given a dose of intravenous Zosyn. Thepatient was given a second liter of normal saline. The patient isagreeable with admission. The patient was admitted to Dr. Roman in stable condition.Encounter Diagnosis ICD-10-CM1. Postprocedural intraabdominal abscess T81.4XXASIGNATURE: Layla Pemberton (Res) Lind[place], [id number]/ 06/18 0825Poreginaldo Ibrahim DO05/24/17 2317 ED NOTE Observed: 05/24/2017 Status: COMPLETED Source: [place] 5:38 AM [facility] OTHER [facility] REPOSITORY HNO ID: [id number]: Celeste (Rn) KARL Gilmoreervice: Emergency MedicineAuthor Type: Registered NurseType: ED NotesFiled: 05/24/2017 5:38 AMNote Text:Patient returned to the Emergency Department. CT ABDOMEN AND PELVIS Observed: 05/24/2017 Status: F Source: [facility] WITH CONTRAST 5:27 AM HEALTH SYSTEM REPOSITORY Performed at [facility] APPROVED BY: JM BLISS DO REASON FOR EXAM: Fever, reported abdominal surgery on 131, Meckel's diverticulum removed, concern for postoperative infection PROCEDURE: CT ABDOMEN AND PELVIS WITH CONTRAST TECHNIQUE: CT ABDOMEN AND PELVIS WITH CONTRAST; CT of the abdomen and pelvis was performed with 150 mL of Omnipaque 300 intravenous contrast using standard technique. COMPARISON: None. RESULT: Brattice Builder: No additional finding. Lower Thorax: There are bandlike areas of atelectasis and/or consolidation in both lower lobes. Liver: A 10 mm low-attenuation structure within the right hepatic lobe superiorly is too small to fully characterize but appears similar to the comparison. Biliary: Bladder full noted. No definite biliary duct dilatation. Pancreas: No mass or duct dilation. Spleen: No mass. No splenomegaly. Adrenals: No mass. Kidneys: There is mild prominence of the right renal collecting system and right ureter but no radiodense obstructing stone. The distal ureters are slightly obscured but there is no calcification along the expected course of either ureter. Pelvis: No bladder wall thickening is demonstrated. Air is noted within the bladder. There is a peripherally enhancing 7.6 x 9.5 x 9.4 cm fluid and air collection in the deep pelvis anterior to the rectum which appears separate from bowel and is most consistent with an organized fluid collection.. GI tract: There is mild fluid and fat stranding within the perirectal region. There are postsurgical changes involving small bowel in the right hemipelvis. The course of the large bowel is somewhat difficult to follow. There is wall thickening versus incomplete distention involving sigmoid colon in the left lower quadrant and rectum in the central pelvis. The colon is mildly distended proximally with air and formed stool. There is a moderate amount of formed stool in the ascending colon. The presumed appendix appears of normal caliber. Postsurgical changes are noted involving bowel in the right hemipelvis. Incomplete gastric distention limits evaluation for wall thickening. There is abnormal dilation of small bowel loops noted diffusely throughout the abdomen with scattered air-fluid levels. Small bowel loops measure up to 5.1 cm in caliber with associated air-fluid levels. There is abnormal fecalization of small bowel contents in the pelvis and a bowel anastomosis and postsurgical change involving small bowel loops in the right lower quadrant. There is a suspected transition point in the central pelvis posterior to the bladder. There is suspected mild wall thickening involving small bowel distal to this transition point. Vasculature: The major vessels appear grossly patent. Lymph nodes: No overt adenopathy. Scattered mesenteric nodes appear subcentimeter in short axis. Mesentery/Peritoneum: There is a small amount of abdominopelvic ascites. No overt free air is demonstrated. Tiny focus of low attenuation adjacent to the IVC on image 49 of series 2 is not convincing for any free air. Bones/Soft tissues: Lucent area within the right ilium appears nonaggressive. No acute or suspicious osseous finding. There are postsurgical changes along the anterior abdominal wall with subcutaneous emphysema and surgical clips. IMPRESSION: 1. There is evidence of a large 7.6 x 9.5 x 9.4 cm peripherally enhancing fluid and air collection within the pelvis. An abscess is of primary concern.2. Wall thickening is favored over incomplete distention involving rectum, sigmoid colon and small bowel in the pelvis.3. Abnormal dilated loops of small bowel with associated air-fluid levels and an apparent transition point in the central pelvis highly concerning for a high grade small bowel obstruction.4. Nonspecific mild prominence of the right renal collecting system, probably related to slight mass effect on the right ureter related to the pelvic fluid collection. 5. Bandlike areas of atelectasis and/or consolidation in both lower lobes.6. Air is noted within the bladder. Correlation with urinalysis and clinical history is needed.7. Additional findings as detailed above. ED NOTE Observed: 05/24/2017 Status: COMPLETED Source: [place] 5:23 AM [facility] REPOSITORY HNO ID: [id number]: Celeste Loredo) KARL Gilmoreervice: Emergency MedicineAuthor Type: Registered NurseType: ED NotesFiled: 05/24/2017 5:23 AMNote Text:Patient transported to CT ED NOTE Observed: 05/24/2017 Status: COMPLETED Source: [place] 5:15 AM [facility] REPOSITORY HNO ID: [id number]: KARL Hollingsworth Rnervice: Emergency MedicineAuthor Type: Registered NurseType: ED NotesFiled: 05/24/2017 5:16 AMNote Text: Called ER Transportation for transport pt to CT at this time ED NOTE Observed: 05/24/2017 Status: COMPLETED Source: [place] 4:33 AM [facility] REPOSITORY HNO ID: [id number]: KARL Hollingsworth Rnervice: Emergency MedicineAuthor Type: Registered NurseType: ED NotesFiled: 05/24/2017 4:34 AMNote Text: Dr. Ibrahim in room with pt ED NOTE Observed: 05/24/2017 Status: COMPLETED Source: [place] 4:28 AM [facility] REPOSITORY HNO ID: [id number]: KARL Hollingsworth Rnervice: Emergency MedicineAuthor Type: Registered NurseType: ED NotesFiled: 05/24/2017 5:15 AMNote Text:1st set of Blood cultures drawn and sent. HEMOGRAM/DIFF Collected: 05/24/2017 Status: F Source: [facility] 4:28 AM HEALTH SYSTEM REPOSITORY TYPE CODE TESTS RESULT OUT OF REFERENCE UNITS RANGE LAB WBC(LOINC) 3.98-10.04 thou/cmm WBC 5.05 LAB RBC(LOINC) Low 3.93-5.22 mil/cmm RBC 2.53 LAB HGB(LOINC) Low 11.2-15.7 g/dL Hgb 8.4 LAB HCT(LOINC) Low 34.1-44.9 % Hct 23.9 LAB MCV(LOINC) 79.4-94.8 fl MCV 94.5 LAB MCH(LOINC) High 25.6-32.2 pg MCH 33.2 LAB MCHC(LOINC High 31.6-34.8 % ) MCHC 35.1 LAB RDW(LOINC) 11.7-14.4 % RDW 13.2 LAB RDWSD(LOIN 36.4-46.3 fl C) RDW SD 45.3 LAB PLT(LOINC) 182-369 thou/cmm Platelet 196 LAB MPV(LOINC) 9.4-12.3 fl MPV 11.4 LAB SEG(LOINC) % Seg 68.3 Neutrophil LAB IGRE(LOINC % ) Immature 0.20 Grans LAB LYMPH(LOIN % C) Lymphocyte 16.0 LAB MNO(LOINC) % Monocyte 13.9 LAB EOSIN(LOIN % C) Eosinophil 1.4 LAB BASO(LOINC % ) Basophil 0.2 LAB SEGN(LOINC 1.56-6.13 thou/cmm ) Abs. Neut 3.45 LAB IGAB(LOINC 0.00-0.05 thou/cmm ) Abs Immature 0.01 Grans LAB LYMN(LOINC Low 1.18-3.74 thou/cmm ) Abs. Lymph 0.81 LAB MONON(LOIN 0.27-0.70 thou/cmm C) Abs. [place] 0.70 LAB EOSN(LOINC 0.00-0.31 thou/cmm ) Abs. Eosin 0.07 LAB BASON(LOIN 0.01-0.08 thou/cmm C) Abs. Baso 0.01 Performed By: #### CBCD1 ####[address] [address] LACTIC ACID Collected: 05/24/2017 Status: F Source: [facility] 4:28 AM HEALTH SYSTEM REPOSITORY TYPE CODE TESTS RESULT OUT OF REFERENCE UNITS RANGE LAB LAC(LOINC) 0.4-2.0 mEq/L Lactic 0.7 Acid Performed By: #### LAC ####[facility] [place] [address] COMPREHENSIVE PANEL Collected: 05/24/2017 Status: F Source: [facility] 4:28 AM HEALTH SYSTEM REPOSITORY TYPE CODE TESTS RESULT OUT OF REFERENCE UNITS RANGE LAB NA(LOINC) Low 136-145 mEq/L Sodium 127 Blood LAB K(LOINC) 3.5-5.1 mEq/L Potassium 3.5 Blood Result Comment: SPECIMEN SLIGHTLY HEMOLYZED LAB CL(LOINC) Low 98-107 mEq/L Chloride Blood 97 LAB CO2(LOINC) 21-32 mEq/L CO2 Blood 24 LAB GLU(LOINC) High 70-99 mg/dL Glucose Blood 128 LAB BUN(LOINC) 7-18 mg/dL BUN Blood 13 LAB CREA(LOINC) 0.51-0.95 mg/dL Creatinine Blood 0.76 LAB CA(LOINC) Low 8.5-10.1 mg/dL Calcium Blood 8.0 LAB ALB(LOINC) Low 3.4-5.0 g/dL Albumin Blood 2.6 LAB TP(LOINC) 6.4-8.2 g/dL Total Protein 6.9 LAB AST(LOINC) 9-37 U/L AST-SGOT Blood 26 Result Comment: SPECIMEN SLIGHTLY HEMOLYZED LAB ALT(LOINC) 12-78 U/L ALT-SGPT Blood 14 LAB ALKP(LOINC) 46-116 U/L Alk Phosphatase 58 LAB BILIT(LOINC) High 0.2-1.0 mg/dL Total Bilirubin 1.5 LAB ANGAP(LOINC) 8-16 Anion Gap 10 Performed By: #### P14 ####[address] [address] LIPASE BLOOD Collected: 05/24/2017 Status: F Source: [facility] 4:28 AM HEALTH SYSTEM REPOSITORY TYPE CODE TESTS RESULT OUT OF REFERENCE UNITS RANGE LAB LIP(LOINC) 73-393 U/L Lipase 93 Blood Performed By: #### LIP ####[place] [address] MDRD GFR Collected: 05/24/2017 Status: F Source: [facility] 4:28 AM HEALTH SYSTEM REPOSITORY TYPE CODE TESTS RESULT OUT OF RANGE REFERENCE UNITS LAB GFRFN(LOINC >60mL/min/1. ) eGFR >60 73m2 Result Comment: If the patient is , multiply the result by 1.210. Performed By: #### GFR ####[place] [address] PROTIME Collected: 05/24/2017 Status: F Source: [facility] 4:28 AM HEALTH SYSTEM REPOSITORY TYPE CODE TESTS RESULT OUT OF REFERENCE UNITS RANGE LAB PTI(LOINC) 9.3-11.9 sec Prothrombin 11.2 Time LAB INR(LOINC) INR 1.10 Result Comment: Standard Therapy 2.0-3.0High Dose 2.5-3.5 Performed By: #### PT ####[place] [address] ACTIVATED PTT Collected: 05/24/2017 Status: F Source: [facility] 4:28 AM HEALTH SYSTEM REPOSITORY TYPE CODE TESTS RESULT OUT OF REFERENCE UNITS RANGE LAB APTT(LOINC 22.0-34.0 sec ) Activated 26.5 PTT Performed By: #### APTT ####[place] [address] PHOSPHORUS BLOOD Collected: 05/24/2017 Status: F Source: [facility] 4:28 AM HEALTH SYSTEM REPOSITORY TYPE CODE TESTS RESULT OUT OF REFERENCE UNITS RANGE LAB PHOS(LOINC 2.5-4.9 mg/dL ) Phosphorus 2.5 Blood Performed By: #### PHOS ####[place] [address] Observed: 05/24/2017 Status: F Source: [facility] CULT BLOOD 4:28 AM HEALTH SYSTEM REPOSITORY [facility] Performed By: #### C_BLO ####[place] [address] HOSP Observed: 05/24/2017 Status: COMPLETED Source: [place] 12:00 AM CLIN[facility] OTHER CAMPUS REPOSITORY Patient:Laurence Marr LMRN: <[id number]>Height:5' 8(1.727 m)Weight:160 lb (72.576 kg)Outpatient Medications as of 05/24/17: oxyCODONE IR (ROXICODONE) 5 mg immediate release tabletsuvorexant (BELSOMRA) 10 mg tabQUEtiapine (SEROQUEL) 200 mg tabletlamoTRIgine (LAMICTAL) 150 mg tabletclonazePAM ( KLONOPIN) 0.5 mg tabletgabapentin (NEURONTIN) 300 mg capsuletopiramate (TOPAMAX) 100 mg tabletAdmission/Clinic Administered Medications as of 05/24/17:iv contrast ( radiology procedure)NaCl 0.9% 1,000 mL iv bolusbuprenorphine 5 mcg/hour 1 Patch (BUTRANS) 0.9% NaCl 3-5 mLondansetron 4 mg tab(s) (ZOFRAN)ondansetron (PF) 4 mg injection (ZOFRAN)enoxaparin 40 mg injection (LOVENOX)piperacillin-tazobactam 3.375 g in dextrose (iso-osmotic) 50 mL (ZOSYN)pantoprazole 40 mg injection (PROTONIX) lidocaine 10 mg/mL (1 %) 10-20 mg injection (XYLOCAINE)0.9% NaCl 10 mL0.9% NaCl 20 mLmorphine 2-4 mg injectionParenteral Nutrition - AdultProblem List:Nausea [R11.0] Generalized abdominal pain [R10.84]Acute midline low back pain without sciatica [M54.5] Encounter for vitamin deficiency screening [Z13.21]Screening for lipid disorders [Z13.220]Screening for thyroid disorder [Z13.29]Bipolar affective disorder in remission (HCC) [F31.70]Nonintractable generalized idiopathic epilepsy without status epilepticus (HCC)[G40.309]Nicotine use disorder, F17.2 [F17.200]Abscess after procedure [T81.4XXA]Allergies:Compazine [Prochlorperazine]Darvocet A500 [ Propoxyphene N-Acetaminophen]Nsaids (Non-Steroidal Anti-Inflammatory Drug)TrazodoneTylenol [Acetaminophen]Ultram [Tramadol]Date Verified: 05/24/17Lab ValuesLab Value Units Date High LowPOTA* 3.5 mEq/L 05/24/2017 5.1 3.5HEMA* 23.9 % 05/24/2017 44.9 34.1Progress Notes ( FIRE OBSERVER AG BATH):Piper Royer 05/23/2017 2:09 PM SignedPatient was confused about having 2 different Post Op appts with 2 doctors. Adonay willing to reschedule, [facility].Piper LintonProtyler Notes (GENS AG ACC 492):Celeste Leroy 05/16/2017 4:26 PM SignedMichelle, please enter the prior auth info. - no prior auth req.Dr. Moncada, please enter surgical orders.Thank you! Celeste Leroy CNDS Observed: 05/21/2017 Status: COMPLETED Source: [place] 3:43 PM CLINIC OTHER CAMPUS REPOSITORY HNO ID: [id number]: Ariana Reddy) JasonService: General SurgeryAuthor Type: Nurse PractitionerType: Discharge SummariesFiled: 05/21/2017 3:46 PMNote Text:DISCHARGE SUMMARYPATIENT NAME: Laurence MitchellRN: [id number] Information Admission Information ADMIT DATE: 05/18/2017DISCHARGE DATE: 2017[facility]CT[facility] AND MEDICAL TE[facility] Doctor: Valentina Meyer Care Provider: Micah Beverly Medical Team Members: Treatment Team:Attending Provider: Valentina Cavazosulting: Amado Paez CONDITION AT DISCHARGE: StableREASON I WAS IN THE HOSPITAL: Diagnostic LaparoscopySUMMARY OF WHAT HAPPENED WHILE I WAS IN THE HOSPITAL: Diagnosticlaparoscopy to mini laparotomy, small bowel resection for meckel'sdiverticulum, and excision of cystic abdominal wall mass on .Clear liquid diet started following surgery and advanced to full liquidsPOD 1. Pain management consulted for recommendations. POD 3 transitionedto soft diet with returning of bowel function. With improvement insurgical pain and reports preoperative pain in left lower quadrantsubsiding stable for discharge.OTHER PROBLEMS/DIAGNOSIS:Active Problems: Nicotine use disorder, F17.2Resolved Problems: Abdominal pain decreased with position change Abdominal adhesions Abdominal painOPERATIONS PERFORMED WHILE IN THE HOSPITAL: Diagnostic Laparoscopy, Lysisof Adhesions, Mini Laparotomy, Small Bowel Resection for Meckel'sdiverticulum, and excision of cystic abdominal wall mass.IMPORTANT TEST/PROCEDURES:No procedures performedTEST RESULTS NOT AVAILABLE AT THIS TIME:Pathology results-review at follow up apointment Discharge Disposition Discharge Disposition: Home With Self CareActivity When You Leave the Hospital Lifting is restricted to: 10-15 pounds for 2 weeks May bathe and shower No tubs/whirlpool. Pat area dry. Avoid rubbing. May use stairs No driving for: While taking narcotic medications or the ability to make quick movements No prolonged bedrest, longer than 8 hours in a 24 hour period No walking restrictionsDiet Instructions Soft FoodsFor Pain When You Leave the Hospital No alcohol or driving while on pain medication Use the dispensed medication (see prescription) You should use an ifom-qdk-ajnnqrn stool softener (Docusate sodium)and/or a fiber supplement (Metamucil, Fiber Con) every day while takingprescribed pain medicationWound/Surgical Site Care It is normal to have swelling, mild bruising, blood on the steri-strips,numbness and firmness around the incision Leave open to air Steri strips can get wet. Let them fall off or remove in: At follow up appointment Wash your hands frequently, especially before touching your incision,after using restroom and before eatingCall Your Doctor If There is an unusual odor from the wound area There is severe pain at the operative site You have lightheadedness, fainting, or confusion You have persistent nausea/vomiting over 24 hours You have persistent or heavy bleeding You have redness, swelling, pus or drainage from the wound You have swollen glands or cold and clammy skin Your temperature is greater than 101FFollow Up Appointments Follow-Up Appointment When: In 2 weeksPatient/Parents to call for appointment?: YesValentina [phone] [address] [facility] [address] [address] Requested ReferralFOLLOW-UP APPOINTMENTS ALREADY SCHEDULED WITH A [facility] PROVIDER:Future AppointmentsDate Time Provider Department Center05/23/2017 1:00 PM Petrona Estrada [address]05/26/2017 2:00 PM Valentina FAN Ambulator07/07/2017 11:00 AM Rom[facility] MEDICATION: Current Discharge Medication ListSTART taking these medicationsoxyCODONE IR (ROXICODONE) 5-10 mgTake 5-10 mg by mouth every 4 hours as needed. Postop painEarliest Fill Date: 05/20/17Qty: 30 tablet Refills: 0Associated Diagnoses:Abdominal adhesionsCONTINUE these medications which have NOT CHANGEDbuprenorphine (BUTRANS) 5 mcg/hourAPPLY ONE PATCH TO SKIN EVERY SEVEN DAYS CHANGE ON THE 7th DAYRefills: 0suvorexant (BELSOMRA) 10 mg tabTake by mouth.QUEtiapine (SEROQUEL) 200 mg tabletTAKE ONE TABLET ONCE DAILY AT BEDTIME PRNRefills: 2lamoTRIgine (LaMICtal) 150 mgTake 150 mg by mouth once daily.Associated Diagnoses:Acute bronchitis, unspecified organism; Cough;Generalized abdominal pain; Post-nasal drainageclonazePAM (KlonoPIN) 0.5 mgTake 0.5 mg by mouth twice daily as needed.Associated Diagnoses:Hematuria; Hepatic cyst; Nausea; Generalizedabdominal pain; Acute midline low back pain without sciatica; Encounterfor vitamin deficiency screening; Screening for lipid disorders; Screeningfor thyroid disorder; Bipolar affective disorder in remission (HCC);Nonintractable epilepsy without status epilepticus, unspecified epilepsytype (HCC)gabapentin (NEURONTIN) 300 mgTake 300 mg by mouth twice daily as needed.Associated Diagnoses:Hematuria; Hepatic cyst; Nausea; Generalizedabdominal pain; Acute midline low back pain without sciatica; Encounterfor vitamin deficiency screening; Screening for lipid disorders; Screeningfor thyroid disorder; Bipolar affective disorder in remission (HCC);Nonintractable epilepsy without status epilepticus, unspecified epilepsytype (HCC)topiramate (TOPAMAX) 100 mgTake 100 mg by mouth twice daily.Associated Diagnoses:Hematuria; Hepatic cyst ; Nausea; Generalizedabdominal pain; Acute midline low back pain without sciatica ; Encounterfor vitamin deficiency screening; Screening for lipid disorders; Screeningfor thyroid disorder; Bipolar affective disorder in remission (HCC);Nonintractable epilepsy without status epilepticus, unspecified epilepsytype (HCC)STOP taking these medicationsglycerin ADULT 1 SuppositoryComments:Reason for Stopping:TIME OF CARE: Discharge Management: I personally spent less than 30minutes involved in the discharge management of this patient.SIGNATURE: Ariana Gomez CNP PAGER/CONTACT #: [phone]: May 21, 2017TIME: 3:44 PM PROGRESS Observed: 05/21/2017 Status: COMPLETED Source: [place] 6:54 AM CLINIC OTHER CAMPUS REPOSITORY HNO ID: [id number]: Jimi (Res) CrispService: General SurgeryAuthor Type: ResidentType: Progress NotesFiled: 05/21/2017 8:35 AMNote Text:General Surgery Progress NoteSERVICE DATE: 05/21/2017SUBJECTIVE:NAEON. Denies N/V. Tolerating full liquids. (+) flatus. No BM yet.Tolerating diet DIET LIQUIDNausea NoEmesis NoFlatus YesBowel movement NoPain Controlled YesAmbulating YesOBJECTIVE:Vitals:Temp (24hrs), Av.7 ?C (98 ?F), Min:36.5 ?C (97.7 ?F), Max:36.8 ?C(98.2 ?F)BP 125/70 Pulse 102 Temp 36.6 ?C (97.9 ?F) (Temporal Artery) Resp 20 Ht 172.7 cm (5' 7.99) Wt 75.8 kg (167 lb 1.7 oz) SpO2 100% BMI25.41 kg/m2O2 Therapy: Room AirIANDO:Date 05/20/17699 - 05/21/17 0659 05/21/17 07 - 05/22/17 0659Shift 0132-1029 7045-8870 3892-6878 24 Hour Total 2100-8097 0831-68342252-6397 24 Hour TotalINTAKE PO 180 600 780 PO 180 600 780 Shift Total 180 600 780OUTPUT Urine 300 260 210 4065 Void (ml) 300 315 785 5480 Urine Incontinence/Not Saved 1 x 1 x Shift Total 300 600 900 1800Weight (kg) 75.8 75.8 75.8 75.8 75.8 75.8 75.8 75.8MEDICATIONSCurrent Facility-Administered Medications:oxyCODONE IR 5-15 mg tab(s) (ROXICODONE) 5-15 mg ORAL q 3 H PRNmorphine 2-4 mg injection 2-4 mg INTRAVENOUS q 3 H PRNbelladonna-opium 16.2-60 mg 1 Suppository suppository (B and O 16-A) 1Suppository RECTAL q 6 H PRNclonazePAM 0.5 mg tab(s) (KlonoPIN) 0.5 mg ORAL BID PRNgabapentin 300 mg cap(s) (NEURONTIN) 300 mg ORAL BID PRNlamoTRIgine (LaMICtal) tab(s) 150 mg 150 mg ORAL DAILYtopiramate 100 mg tab(s) (TOPAMAX) 100 mg ORAL BIDNaCl 0.9% iv infusion 50 mL/hr INTRAVENOUS CONTINUOUSondansetron 4 mg tab(s) (ZOFRAN) 4 mg ORAL q 6 H PRNOrondansetron (PF ) 4 mg injection (ZOFRAN) 4 mg INTRAVENOUS q 6 H PRNQUEtiapine 400 mg tab(s) (SEROquel ) 400 mg ORAL AT BEDTIMEpill splitter (patient-specific) 1 Each Miscell. (Med.Supl.;Non-Drugs) PRNLabs:Recent Labs 05/19/1803NA 133* 135* K 3.8 4.3CHLOR 101 102CO2 28 27BUN 10 9CREAT 0.87 0.85GLUC 110* 101*ANION 8 10CA 8.7 8.5WBC 7.24 8.13HB 10.7* 11.8HCT 32.5* 33.9*PLT 197 202Exam:GENERAL: No distress, AlertNEURO: AANDOx3, CN II-XII grossly intactHEENT: normocephalic, atraumaticLUNGS: Unlabored breathingCARDIAC: Regular rate and rhythm as aboveABDOMEN: Soft, nondistended, minimally TTP diffusely. Incisions c/d/i.EXTREMITIES: PASTRANA, No deformities, No edemaSKIN: Skin color, texture, turgor normal, No rashes or lesionsASSESSMENT AND PLAN:Active Hospital Problems Diagnosis Date Noted- Nicotine use disorder, F17.2 05/21/2017- Abdominal pain 05/18/2017- Abdominal pain decreased with position change 05/16/2017 Overview Note: Added automatically from request for surgery [id number]- Abdominal adhesions 05/16/2017 Overview Note: Added automatically from request for surgery [id number] year old female with chronic abdominal pain , now s/p diagnosticlaparoscopy --> mini laparotomy, small bowel resection for meckel'sdiverticulum, and excision of cystic abdominal wall mass.??- advancing to soft GI diet- home meds- pain management consulted. Need recs/meds for discharge- d/c home todaySIGNATURE: Jimi Reddy MD PATIENT NAME: Laurence LemaATE: May 21, 2017 : 6:54 AM Pager: [phone] PROGRESS Observed: 05/21/2017 Status: COMPLETED Source: [place] 4:32 AM CLINIC OTHER CAMPUS REPOSITORY HNO ID: [id number]: Amado Ganice: Pain ManagementAuthor Type: PhysicianType: Progress NotesFiled: 05/21/2017 7:46 AMNote Text:Laurence Fuentess106/10/1984PAIN PROGRESS NOTE: Postoperative abdominal pain with history of chronicpainPAIN DESCRIPTION: [CONSTANT, ACHING]PAIN SCORE PRE- TX: 01/25PAIN SCORE POST-TX: [5]/10OPIATE USE: Morphine 4 mg IV prior to loss of IV access, oxycodone 10 mg?5, doses will be increased to 10?15 milligrams per dose , no 15 mg dosesusedOPIATE SIDE EFFECTS: [NONE]LAST BOWEL MOVEMENT [yesterday] Overall doing wellBP 102/63 Pulse 111 Temp (Src) 97.7 (Oral) Resp 18 Ht 5' 7.992(1.73m) Wt 167 lb 1.7 oz (75.8kg) SpO2 100% BMI 25.41 kg/(m2) .GENERAL: [ Alert and oriented, no distress, appears comfortable]HEENT: UnremarkableNECK: No JVD, no nodes,CHEST: Clear to auscultationHEART: RRR, nl, s1 and s2, no murmurs, clicks, rubs, gallopsABD: Nondistended, BS present, no organomegaly, masses, or tendernessEXT: Normal without deformity, decrease in ROM, clubbing, or edemaOTHER:PAIN PSYCHIATRIC EXAM:GENERAL: alert, oriented to person, place, timeJUDGMENT AND INSIGHT: intactAPPEARANCE: neatly groomedDEMEANOR: coooperative, not hostile, mistrustful, preoccupied, ordemandingACTIVITY: normal, not hyperactive or hypoactive, no tremors, ticsEYE CONTACT: normalSPEECH: normal, rate, volume, articulation, coherence, spontaneityMOOD: normal, without overt sadness, grief , anxiety, appropriate tosituationIDEATION: normal and without suicidal or homicidal ideationMEMORY: intactACTIVE PROBLEM LISTNauseaGeneralized Abdominal PainAcute Midline Low Back Pain Without SciaticaEncounter for Vitamin Deficiency ScreeningScreening for Lipid DisordersScreening for Thyroid DisorderBipolar Affective Disorder in Remission (Hcc)Nonintractable Generalized Idiopathic Epilepsy Without Status Epilepticus(Hcc)Abdominal Pain Decreased With Position ChangeAbdominal AdhesionsAbdominal PainNicotine use disorder, F17.2PLAN:[No change in therapy][ OK for discharge from pain perspective] prescription needed discharge,yes, placed on chart for oxycodone #30, to resume BUTRANS postdischargeAmado Eastman MD NURSING PROG Observed: 05/21/2017 Status: COMPLETED Source: [place] 1:16 AM [facility] REPOSITORY HNO ID: [id number]: KARL Felix Rnervice: NursingAuthor Type: Registered NurseType: Nursing Progress NoteFiled: 05/21/2017 1:18 AMNote Text: Nursing Progress NotePatient Name: Laurence Rivera: [id number] Location: [place] [address] [address]-* Dr. Eastman paged regarding loss of IV access for morphine administration.States to increase dose of oxy ir to 5-15mg Q3 prn. RN will continue tomonitorThis note was completed by: Esperanza Hassan RN NURSING PROG Observed: 05/21/2017 Status: COMPLETED Source: [place] 1:15 AM [facility] REPOSITORY HNO ID: [id number]: KARL Felix Rnervice: NursingAuthor Type: Registered NurseType: Nursing Progress NoteFiled: 05/21/2017 1:19 AMNote Text: Nursing Progress NotePatient Name: Laurence Rivera: [id number] Location: [place] [address]/[id number]-* Lost IV access and after multiple attempts, was unable to restart IV. notified. No new orders received. RN will continue to monitor.This note was completed by: Chu Felix. Barry states OK to leave IV out. Will continue to monitor NURSING PROG Observed: 05/20/2017 Status: COMPLETED Source: [place] 11:54 PM [facility] REPOSITORY HNO ID: [id number]: Harrison (Rn) KARL Torreservice: (none)Author Type: Registered NurseType: Nursing Progress NoteFiled: 05/20/2017 11:57 PMNote Text:Able to find veins but unable to thread an IV into veins with two attemptsusing a #22 IV, RN notified. Much reassurance and emotional support given.[employer] CASE MANAGEM Observed: 05/20/2017 Status: COMPLETED Source: [place] 12:38 PM [facility] REPOSITORY HNO ID: [id number]: Maris Loredo) KARL Adamservice: Case ManagementAuthor Type: Registered NurseType: Care Mgt Progress NoteFiled: 2017 12:38 PMNote Text:Continue to follow to assist wit discharge plans. Current plan is fordischaarge home. PROGRESS Observed: 05/20/2017 Status: COMPLETED Source: [place] 7:13 AM [facility] REPOSITORY HNO ID: [id number]: Woo Osorioervice: Pain ManagementAuthor Type: PhysicianType: Progress NotesFiled: 05/20/2017 11:53 AMNote Text:RX Pain Management Progress NoteName: Laurence Rivera: [id number]: [id number]-*Pain Diagnosis: Lower abd pain s/p diagnostic laparoscopy, excision ofabdominal wall cystic mass, mini laparotomy, small bowel resection withprimary anastomosis 05/18Is patient's pain today? BetterIs amount of pain relief currently experienced by patient adequate frompatient's view? YesPain score 10/ 10 improves to 6/10 with prn use and with few hour(s) reliefDescription of pain: Aching and SharpExacerbating Maneuvers: Movement and PalpationRelieving Maneuvers: Opiates and RestAdverse Effects: NoneAdverse Effects treatment related: noLast BM:Allergies:ALLERGIESAllergen Reactions- Compazine [Prochlor* Swelling Tongue swelled- Darvocet A500 [Prop* GI Upset, Vomiting- Nsaids (Non-Steroid* Other: See Comments GI damage- Trazodone Hives, Swelling- Tylenol [Acetaminop* Swelling- Ultram [Tramadol] GI Upset, VomitingCurrent Medications:Current hospital medications:morphine 2-4 mg injection 2-4 mg INTRAVENOUS q 3 H PRNoxyCODONE IR 5-10 mg tab(s) (ROXICODONE) 5-10 mg ORAL q 3 H PRNbelladonna-opium 16.2-60 mg 1 Suppository suppository (B and O 16-A) 1Suppository RECTAL q 6 H PRNclonazePAM 0.5 mg tab(s) (KlonoPIN) 0.5 mg ORAL BID PRNgabapentin 300 mg cap(s) (NEURONTIN) 300 mg ORAL BID PRNlamoTRIgine (LaMICtal) tab(s) 150 mg 150 mg ORAL DAILYtopiramate 100 mg tab(s) (TOPAMAX) 100 mg ORAL BIDNaCl 0.9% iv infusion 50 mL/hr INTRAVENOUS CONTINUOUSondansetron 4 mg tab(s) (ZOFRAN) 4 mg ORAL q 6 H PRNondansetron (PF) 4 mg injection (ZOFRAN) 4 mg INTRAVENOUS q 6 H PRNQUEtiapine 400 mg tab(s) (SEROquel ) 400 mg ORAL AT BEDTIMEpill splitter (patient-specific) 1 Each Miscell. (Med.Supl.;Non-Drugs) PRNOpiate Use/Notes (Opiate use last 24 hrs): Morphine 4mg x3, 6mg x1,Oxycodone 10mg z3Vcggcyudkb tests reviewed for today's visit:Most recent labs and imaging results.Hemoglobin (g/dL)Date Value06/06/2015 11.0 HGB (g/dL)Date Value05/20/2017 10.7 Hematocrit (%)Date Value05/20/2017 32.5 WBC (thou/cmm)Date Value05/20/2017 7.24 Glucose (mg/dL) Date Value05/20/2017 110 Potassium (mEq/L)Date Value05/20/2017 3.8 Sodium (mEq/L)Date Value05/20/2017 133 Chloride (mEq/L) Date Value05/20/2017 101 CO2 (mEq/L)Date Value05/20/2017 28 Creatinine (mg/dL)Date Value05/20/2017 0.87 BUN (mg/dL)Date Value05/20/2017 10 Anion Gap (no units)Date Value05/20/2017 8 Calcium (mg/dL) Date Value05/20/2017 8.7 Active Problem List:Active Hospital Problems Diagnosis Date Noted- Abdominal pain 05/18/2017- Abdominal pain decreased with position change 05/16/2017 Overview Note: Added automatically from request for surgery [id number]- Abdominal adhesions 05/16/2017 Overview Note: Added automatically from request for surgery [id number] EXAMINATION:BP 112/59 Pulse 113 Temp 36.7 ?C (98.1 ?F) (Oral) Resp 16 Ht 172.7cm (5' 7.99) Wt 75.8 kg (167 lb 1.7 oz) SpO2 96 % BMI 25.41 kg/w4Ffqqcvl appearance: Well appearing, alert, in no acute distress,well-hydrated, well nourished.Skin: Skin color, texture, turgor normal , no suspicious rashes or lesionsHEENT: unremarkableLungs: Lungs clear to auscultation. No wheezing, rhonchi, ralesHeart: RRR without murmur, gallop, or rubs. No ectopyAbdomen: BS+ soft, mild tender mid abdomen, dressing c/d/iExtremities: No deformities, edema, skin discoloration, clubbing orcyanosis. Good capillary refill.Neuro: Negative.OARRS review: YesRx at D/C: YesRx on chart: YesOutpatient Pain Management: No.Opiate Status:EpisodicAssessment: 32yo F s/p diagnostic laparoscopy, excision of abdominal wallcystic mass, mini laparotomy, SBR w primary anastamosis. Recently startedon Butrans 5mcg/h patch by Dr. Cast.Recommendations:Discontinue Morphine after 24hCLD- to be advanced per GSWill leave Rx Oxycodone 5mg #30- when finishes; resume home regimenButrans 5mcg patchF/U Dr. Cast as plannedSIGNATURE: Woo Mei MD PATIENT NAME: Laurence LemaATE: May 20, 2017 : 11:50 AM PAGER: [phone] PROGRESS Observed: 05/20/2017 Status: COMPLETED Source: [place] 5:48 AM [facility] REPOSITORY HNO ID: [id number]: Jimi (Res) CrispService: General SurgeryAuthor Type: ResidentType: Progress NotesFiled: 05/20/2017 11:15 AMNote Text: ------Attestation signed by Valentina Moncada at 05/20/2017 2:05 PMI personally saw and examined the patient. I reviewed the resident's note. Iagree with the resident's assessment and plan unless otherwise noted below.Incisional pain improving. Still some mild nausea but no vomiting. Herpreoperative left lower quadrant pain has subsided. No flatus as of yet. Sheis tolerating full fluids. Awaiting bowel function before advancing anddischarge. General Surgery Progress NoteSERVICE DATE: 05/20/2017SUBJECTIVE:YAYO. Denies flatus or BM, but tolerating diet - mild nausea, no emesis.Pain not fully controlled. Pt is ambulating, voiding without difficultyTolerating diet DIET LIQUIDOBJECTIVE:Vitals:Temp (24hrs), Av.9 ? C (98.4 ?F), Min:36.2 ?C (97.2 ?F), Max:37.2 ?C(99 ?F)BP 126/76 Pulse 88 Temp 37.1 ?C (98.8 ?F) ( Oral) Resp 18 Ht 172.7cm (5' 7.99) Wt 75.8 kg (167 lb 1.7 oz) SpO2 99% BMI 25.41 kg/m2O2 Therapy: Room AirIANDO:Date 05/19/17699 - 05/20/17 0659 05/20/17699 - 05/21/17 0659Shift 9800-3789 8231-8875 2073-6372 24 Hour Total 9993-3105 6152-07903199-5876 24 Hour TotalINTAKE PO 240 360 600 PO 240 360 600 Shift Total 240 360 600OUTPUT Urine 1350 302 876 9264 Void (ml) 1350 296 708 7771 Shift Total 1350 800 500 2650Weight (kg) 75.8 75.8 75.8 75.8 75.8 75.8 75.8 75.8MEDICATIONSCurrent Facility-Administered Medications:morphine 4-6 mg injection 4-6 mg INTRAVENOUS q 2 H PRNoxyCODONE IR 5-10 mg tab(s) (ROXICODONE) 5-10 mg ORAL q 3 H PRNbelladonna-opium 16.2-60 mg 1 Suppository suppository (B and O 16-A) 1Suppository RECTAL q 6 H PRNclonazePAM 0.5 mg tab(s ) (KlonoPIN) 0.5 mg ORAL BID PRNgabapentin 300 mg cap(s) (NEURONTIN) 300 mg ORAL BID PRNlamoTRIgine (LaMICtal) tab(s) 150 mg 150 mg ORAL DAILYtopiramate 100 mg tab(s) (TOPAMAX) 100 mg ORAL BIDNaCl 0.9 % iv infusion 50 mL/hr INTRAVENOUS CONTINUOUSondansetron 4 mg tab(s) (ZOFRAN) 4 mg ORAL q 6 H PRNOrondansetron (PF) 4 mg injection (ZOFRAN) 4 mg INTRAVENOUS q 6 H PRNQUEtiapine 400 mg tab(s) (SEROquel ) 400 mg ORAL AT BEDTIMEpill splitter (patient-specific) 1 Each Miscell. (Med.Supl.;Non-Drugs) PRNLabs:Recent Labs 400NA 133* 135*K 3.8 4.3CHLOR 101 102CO2 28 27BUN 10 9CREAT 0.87 0.85GLUC 110* 101*ANION 8 10CA 8.7 8.5WBC 7.24 8.13HB 10.7* 11.8HCT 32.5* 33.9*PLT 197 202Exam:GENERAL: No distress, AlertNEURO: AANDOx3, CN II-XII grossly intactHEENT: normocephalic, atraumaticLUNGS: Unlabored breathingCARDIAC: Regular rate and rhythm as aboveABDOMEN: Soft, mildly distended, moderately TTP diffusely. Incisionsc/d/i.EXTREMITIES: PASTRANA, No deformities, No edemaSKIN: Skin color, texture, turgor normal, No rashes or lesionsASSESSMENT AND PLAN:Active Hospital Problems Diagnosis Date Noted- Abdominal pain 05/18/2017- Abdominal pain decreased with position change 05/16/2017 Overview Note: Added automatically from request for surgery [id number]- Abdominal adhesions 05/16/2017 Overview Note: Added automatically from request for surgery [id number] year old female with chronic abdominal pain, now s/p diagnosticlaparoscopy --> mini laparotomy, small bowel resection for meckel'sdiverticulum, and excision of cystic abdominal wall mass.?- full liquids- IV fluids. Will d/c with adequate PO- home meds- pain management consulted- awaiting return of bowel functionSIGNATURE: Jimi Reddy MD PATIENT NAME: Laurence LemaATE: May 20, 2017 : 5:49 AM Pager: [phone] HEMOGRAM/DIFF Collected: 05/20/2017 Status: F Source: [facility] 2:45 AM HEALTH SYSTEM REPOSITORY TYPE CODE TESTS RESULT OUT OF REFERENCE UNITS RANGE LAB WBC(LOINC) 3.98-10.04 thou/cmm WBC 7.24 LAB RBC(LOINC) Low 3.93-5.22 mil/cmm RBC 3.30 LAB HGB(LOINC) Low 11.2-15.7 g/dL Hgb 10.7 LAB HCT(LOINC) Low 34.1-44.9 % Hct 32.5 LAB MCV(LOINC) High 79.4-94.8 fl MCV 98.5 LAB MCH(LOINC) High 25.6-32.2 pg MCH 32.4 LAB MCHC(LOINC 31.6-34.8 % ) MCHC 32.9 LAB RDW(LOINC) 11.7-14.4 % RDW 13.4 LAB RDWSD(LOIN High 36.4-46.3 fl C) RDW SD 48.8 LAB PLT(LOINC) 182-369 thou/cmm Platelet 197 LAB MPV(LOINC) 9.4-12.3 fl MPV 11.3 LAB SEG(LOINC) % Seg 44.9 Neutrophil LAB IGRE(LOINC % ) Immature 0.30 Grans LAB LYMPH(LOIN % C) Lymphocyte 41.9 LAB MNO(LOINC) % Monocyte 9.0 LAB EOSIN(LOIN % C) Eosinophil 3.3 LAB BASO(LOINC % ) Basophil 0.6 LAB SEGN(LOINC 1.56-6.13 thou/cmm ) Abs. Neut 3.25 LAB IGAB(LOINC 0.00-0.05 thou/cmm ) Abs Immature 0.02 Grans LAB LYMN(LOINC 1.18-3.74 thou/cmm ) Abs. Lymph 3.03 LAB MONON(LOIN 0.27-0.70 thou/cmm C) Abs. [place] 0.65 LAB EOSN(LOINC 0.00-0.31 thou/cmm ) Abs. Eosin 0.24 LAB BASON(LOIN 0.01-0.08 thou/cmm C) Abs. Baso 0.04 Performed By: #### CBCD1 ####[place] [id number] BASIC PANEL Collected: 05/20/2017 Status: F Source: [facility] 2:45 AM HEALTH SYSTEM REPOSITORY TYPE CODE TESTS RESULT OUT OF REFERENCE UNITS RANGE LAB NA(LOINC) Low 136-145 mEq/L Sodium Blood 133 LAB K(LOINC) 3.5-5.1 mEq/L Potassium 3.8 Blood LAB CL(LOINC) 98-107 mEq/L Chloride 101 Blood LAB CO2(LOINC) 21-32 mEq/L CO2 Blood 28 LAB GLU(LOINC) High 70-99 mg/dL Glucose Blood 110 LAB BUN(LOINC) 7-18 mg/dL BUN Blood 10 LAB CREA(LOINC 0.51-0.95 mg/dL ) Creatinine 0.87 Blood LAB CA(LOINC) 8.5-10.1 mg/dL Calcium Blood 8.7 LAB ANGAP(LOIN 8-16 C) Anion Gap 8 Performed By: #### P8 ####[place] [id number] MDRD GFR Collected: 05/20/2017 Status: F Source: [facility] 2:45 AM HEALTH SYSTEM REPOSITORY TYPE CODE TESTS RESULT OUT OF RANGE REFERENCE UNITS LAB GFRFN(LOINC >60mL/min/1. ) eGFR >60 73m2 Result Comment: If the patient is , multiply the result by 1.210. Performed By: #### GFR ####[place] [address] CONSULT Observed: 05/19/2017 Status: COMPLETED Source: [place] 11:23 AM CLINIC OTHER CAMPUS REPOSITORY HNO ID: [id number]: Woo Escobar ScantlingService: Pain ManagementAuthor Type: PhysicianType: ConsultsFiled: 05/19/2017 8:07 PMNote Text :PAIN MANAGEMENT CONSULTName: Laurence MitchellRN: [id number]: [id number]-*Pain Diagnosis: Lower abd pain s/p diagnostic laparoscopy, excision ofabdominal wall cystic mass, mini laparotomy, small bowel resection withprimary anastomosisHistory of present illness: Patient is a 32 year old Black female POD #1diagnostic laparoscopy, excision of abdominal wall cystic mass, minilaparotomy, small bowel resection with primary anastomosis due to chronicabd pain.Pt states hx opiod OD was two years ago when she unintentionally took too much- states 3 Oxycodone pills that she had leftover and thenpassed out Denies any hx opiate addiction/abuse/misuse.?Past Medical History:PAST MEDICAL HISTORYDiagnosis Date- Abdominal pain decreased with position change- Anxiety- Bipolar 1 disorder (HCC)- Depression- Dysthymic disorder Depression (non- psychotic)- Endometriosis Frozen Pelvis- Epilepsy (HCC) LAST seizure almost 3 years ago, uses topamax- Generalized anxiety disorder Anxiety, Generalized- Other and unspecified ovarian cyst Ovarian cyst on left side- Overdose, drug 2016 opiodPast Surgical History:PAST SURGICAL HISTORYProcedure Laterality Date- COLONOSCOPY 2016- EXPLORATORY OF ABDOMEN 11/16/2010 Laparotomy, exp, for 10 years had a Laparoscopy every year.- HAND SURGERY HX Bilateral- L'SCOPE DX W/WO BRUSHINGS/WASHINGS Laparoscopy x7- TOTAL ABDOM HYSTERECTOMY 2013 BSOSocial History Marital status: Single Spouse name: Years of education: Number of children: 0Occupational HistoryOccupation Employer CommentdisabilitySocial History Main Topics Smoking status: Current Every Day Smoker Packs/day: 0.00 Years: 10.00 Types: Cigarettes Smokeless status: Never Used Comment: 2-3 CIGS DAILY Alcohol use: Yes Comment: Occasional Drug use: No Sexual activity: Not CurrentlyOther Topics ConcernMilitary Service NoBlood Transfusions NoCaffeine Concern No Comment:20 oz of diet coke, teaOccupational Exposure NoHobby Hazards NoSleep Concern Yes Comment:Does not sleep wellStress Concern Yes Comment:Health ProblemsWeight Concern YesSpecial Diet NoBack Care NoExercise No Comment:TriesBike Helmet NoSeat Belt YesSelf-Exams NoFAMILY HISTORYProblem Relation Age of Onset- Hypertension Mother- Genetic Mother Lupus- Obesity Mother- Psychiatry Mother Depression- Cancer Father Neuroblastoma when he was 29- Psychiatry Paternal Grandmother- Heart Paternal Grandmother- Cancer Maternal Grandmother and unknown type- Cancer Maternal Grandfather and unknown type- Breast Cancer Maternal Grandfather Cousin- ms [OTHER] Maternal Grandfather Aunt, Uncle, Cousin- Diabetes OtherALLERGIESAllergen Reactions- Compazine [Prochlor* Swelling Tongue swelled- Darvocet A500 [Prop* GI Upset, Vomiting- Nsaids (Non-Steroid* Other: See Comments GI damage- Trazodone Hives, Swelling- Tylenol [Acetaminop* Swelling- Ultram [Tramadol] GI Upset, VomitingPain:Location of pain: lower abdIs the amount of pain relief currently experienced by patient adequatefrom patient 's view? NoPain Score: 10/10 Improves to 6-7/10 with PRN IV morphine use andprovides few minutes relief. Tolerable for pt is 5-6/10.Description of pain: Aching, Constant, Intermittent and StabbingExacerbating Maneuvers: Movement and PalpationRelieving Maneuvers: Opiates and RestAdverse Effects: NoneAre the above adverse effects related to Opiate Treatment? noLabs/Diagnostics:WBC (thou/cmm) Date Value05/19/2017 8.13Hemoglobin (g/dL)Date Value06/06/2015 11.0 (L)HGB (g/dL) Date Value05/19/2017 11.8Hematocrit (%)Date Value05/19/2017 33.9 (L)Platelet Count (thou/cmm)Date Value05/19/2017 202Creatinine (mg/dL)Date Value05/19/2017 0.85Diagnostic tests reviewed for today's visit:No new labsCurrent Medications:Current Facility-Administered Medications:clonazePAM 0.5 mg tab(s) (KlonoPIN) 0.5 mg ORAL BID PRNgabapentin 300 mg cap(s) (NEURONTIN) 300 mg ORAL BID PRNlamoTRIgine (LaMICtal) tab(s) 150 mg 150 mg ORAL DAILYtopiramate 100 mg tab( s) (TOPAMAX) 100 mg ORAL BIDNaCl 0.9% iv infusion 50 mL/hr INTRAVENOUS CONTINUOUSondansetron 4 mg tab(s) (ZOFRAN) 4 mg ORAL q 6 H PRNOrondansetron (PF ) 4 mg injection (ZOFRAN) 4 mg INTRAVENOUS q 6 H PRNmorphine 2-4 mg injection 2-4 mg INTRAVENOUS q 2 H PRNQUEtiapine 400 mg tab(s) (SEROquel) 400 mg ORAL AT BEDTIMEpill splitter (patient-specific) 1 Each Miscell. (Med.Supl.;Non-Drugs) PRNOpiate Use:Morphine 4 mg IV x 6 dosesFentanyl 50 mcg IV x 4 in PACU yesterdayAdditional Information: 05/18/1822BP: 136/91 126/ 87 135/92 121/81Pulse: 74 83 84 88Resp: 16 18 16 18Temp: 36.9 ?C (98.4 ?F) 36.7 ? C (98.1 ?F) 37.2 ?C (99 ?F) 36.2 ?C (97.2?F)TempSrc: Oral Oral Oral Temporal ArterySpO2 : 100% 100% 97% 100%Weight: 75.8 kg (167 lb 1.7 oz)Height: 172.7 cm (5' 7.99)Tox Screen:Amphetamines, UrineDate Value Ref Range Xdlpyl4410/11/2015 Non-detected Non-Detected Final Barbiturates, UrineDate Value Ref Range Slwaim9210/10 Non-detected Non-Detected Final Benzodiazepines, UrineDate Value Ref Range Jhbdne3710/11/2015 Non-detected Non-Detected Final Cocaine Metab, UrineDate Value Ref Range Azhpdr4810/11/2015 Non-detected Non-Detected Final Opiates, UrineDate Value Ref Range Yfjwvf1310/11/2015 Detected Non-Detected Final Phencyclidine, UrineDate Value Ref Range Yvtmni4610/11/2015 Non- detected Non-Detected Final THC (Marijuana) UrineDate Value Ref Range Gzuxnp5010/11/2015 Non-detected Non-Detected FinalComment: Urine Drug Cutoff LevelsUrine Amphetamine 500 ng/mLUrine Barbituate 200 ng/mLUrine Benzodiazepines 200 ng/mLUrine Cocaine 150 ng/mLUrine Phencyclidine (PCP) 25 ng/mLUrine Opiates 300 ng/mLUrine THC 50 ng/mLThe results of these analytes are unconfirmed and reportedqualitatively as detected or non-detected relative to the cutoff value.Detected results indicate the sample is likely to contain the analyte.Non-detected results indicate that either the sample does notcontain the analyte or it is present in concentrations belowthe cutoff level. This drug screen should be used for medical diagnosticpurposes only. NPO: No - full liquid dietNausea: YesVomiting: NoPrior to admission Opiate: NaiveOARRS Review? Yes - most recently filled Butrans 5 mcg/hr #4/30 days on05/13/[address] Suzanna Cast. Pt reports wore for 3 days then removed theday before surgery.Belsomra 10 mg #30/ 30 days on 05/06/[address] Hernandez IvanGabapentin 300 mg #90/30 days on 05/01/2017 from [facility] - pt reportsshe uses this prn for anxiety (typically once every few days) though fillsmonthly per OARRSKlonopin 0.5 mg #60/30 days on 04/23/2017 from [facility] Horan BM:Outpatient Pain Management: Yes. [facility] - next appointment is 05/30/2017.Recommendations:1. Consider increase morphine 4-6 mg IV Q 2 hours prn severe pain2. Consider adding oxycodone 5-10 mg PO Q 3 hours prn moderate pain3. Noted h/o opioid overdose, unable to use APAP and/or NSAIDs due topatient intolerance4. Consider B AND O suppository 1 DE Q 6 hours prn cramping/painAbove discussed with team.LELIA JUAREZ, PHARMACIST 05/19/2017 11 :23 AMADDENDUM:The patient was seen and examined separately but discussed with our team.I agree with the evaluation above and will add the following:REVIEW OF SYSTEMSPAIN ASSESSMENT: See aboveGENERAL: Fatigue, poor appetiteHEENT: No changes in hearing or vision, no nose bleeds or other nasalproblems, + headachesNECK: Negative for lumps, goiter, pain and significant neck swellingRESPIRATORY: Negative for cough, hemoptysis, wheezing, COPD, dyspnea orshortness of breathCARDIOVASCULAR: Negative for chest pain, leg swelling, hypertension, CHFor palpitationsGI: See HPIMUSCULOSKELETAL: Negative for joint pain or swelling, back pain or musclepainSKIN: Negative for lesions, rash, and itchingPSYCH: sleep fragmentedHEMATOLOGY/LYMPHOLOGY: Negative for prolonged bleeding, bruising easily orswollen nodesENDOCRINE: Negative for cold or heat intolerance, polyuria, polydipsia andgoiterNEURO: No history of syncope, paralysis, seizures or tremorsPHYSICAL EXAMINATION:General appearance: alert, pleasant, NADSkin: Skin color, texture, turgor normal, no suspicious rashes or lesionsHead: Normocephalic, no masses, lesions, tenderness or abnormalitiesEyes : Anicteric sclera. Pupils are equally round and reactive to light.Ears: Not examinedNose/Sinuses: Nares normal, septum midline, mucosa normal, no drainage orsinus tendernessOropharynx: Lips, mucosa, and tongue normalNeck: Supple, no adenopathyBack: Normal examLungs: Lungs clear to auscultation. No wheezing, rhonchi, ralesHeart: RRR without murmur, gallop, or rubs. No ectopyAbdomen: BS+ soft, mild tender mid abdomenExtremities: No deformities, edema, skin discoloration, clubbing orcyanosis. Good capillary refill.Musculoskeletal: No joint swelling, deformity , or tendernessPeripheral pulses: NormalNeuro: Negative.IMPRESSION/RECOMMENDATION: 32yo F s/p diagnostic laparoscopy, excision of abdominal wall cystic mass,mini laparotomy, SBR w primary anastamosis. Recently started on Acoizkx2gly/h patch by Dr. Cast.Increase Morphine 4-6mg UV q2h prn severe painAdd Oxycodone 5-10mg po q3h prn moderate painContinue to hold recently prescribed Butrans patch for nowIntolerant of APAP/NSAIDsAdd OANDB suppository q6h prn cramping/painThank you for this consult.Woo BAUM/U Dr. Cast as planned for outpatient pain management CASE MGT INIT Observed: 05/19/2017 Status: COMPLETED Source: [facility] 10:54 AM CLINIC OTHER CAMPUS REPOSITORY HNO ID: [id number]: Romina (Rn) KARL Garciaervice: Care ManagementAuthor Type: Registered NurseType: Seth Keith Initial AssessmentFiled: 05/19/2017 10:58 AMNote Text:CARE MANAGEMENT: ASSESSMENT AND DISCHARGE PLANSERVICE DATE: 05/19/2017SERVICE TIME: 1015PRIMARY CARE PHYSICIAN:SABRINA Beverlyhone : [phone] STATUS: InpatientPOTENTIAL DISCHARGE PLANSHomePatient/Metal Window Frame Maker Stated Goals: Patient plans to return home withfamily when medically stable.Needs Prior to Discharge: None;To Be DeterminedHealth Insurance: MedicareLiving Arrangement: Home, 2-story home with 1 step to enter;bedroom/bathroom on 2nd floorLives With: Mother and AuntFinancial Resources: UnemployedPrimary Contact:Extended Emergency Contact InformationPrimary Emergency Contact: Adriel Echevarriaddress: [address] [place], [place] [address]Tzxl Oifgly Ehjybpdr: MotherSupportive: YesOther Important Patient Contacts: NoneCAREGIVER ASSESSMENT:Caregiver is ready, willing and able to meet the patient's needs asrecommended by the inter-professional team? YesPatient's transition needs and plan for meeting these needs: Patient plansto return home with family when medically stable.Does the patient have an acute stroke diagnosis, or has the patient had astroke during this admission? NoADVANCE DIRECTIVES:Does Patient Have Advance Directives? No, Patient refusedDoes Patient Have Concerns About Advance Directives? NoPRIOR TO ADMISSION:Baseline Mental Status: Alert AND Oriented, Person, Place , Time andSituationFunctional Status: Independent; except drivingDoes Patient Currently Receive Any Community Services or Home Care? NoneEquipment Prior to Admission: NoneHEALTH:Health Issues Impacting Discharge Plan: NoneHealth Literacy Issues: NoPSYCHOSOCIAL:Is the Patient Psychosocially Complex? NoFamily/Patient Understanding of Illness/Diagnosis: yesMedication Adherence:Do you forget to take your medications? I do not forget to take mymedicationHave you ever stopped taking medications because you felt worse? None ofthe timeHave you ever taken less of your medication than what was prescribed byyour doctor? None of the timeIn the past 3 months, have you had issues obtaining one or more of yourmedications? None of the timeAre you interested in bedside delivery of your medications? YesFood Concerns:In the Last Month, Have You had Trouble Getting Food? No trouble gettingfoodDuring the Last Month, Have You Worried Whether Your Food Would Run OutBefore You Had Enough Money to Buy More? NoPsychosocial Needs: NoneUTILIZATION:Last Admission Date: noneIs this Within the Past 30 days? NoHas the Patient Been in a Custodial Facility in the Past 30 days? NoFREEDOM OF CHOICE EXPLAINED:N/A --no discharge needs noted at this timeHANDOFF COMMUNICATION:Family will transport home at time of discharge.SIGNATURE: Romina Garcia RN PATIENT NAME: Laurence Lamb: May 19, 2017 : 10:54 AM PAGER/CONTACT #: [phone] CASE MANAGEM Observed: 05/19/2017 Status: COMPLETED Source: [place] 7:52 AM [facility] OTHER [place] REPOSITORY HNO ID: [id number]: Romina Loredo) KARL Garciaervice: Care ManagementAuthor Type: Registered NurseType: Care Mgt Progress NoteFiled: 2017 7:53 AMNote Text:CARE MANAGEMENT PROGRESS NOTESERVICE DATE: 05/19/2017SERVICE TIME: 0753 LOS: 1 day MD notes reviewed: patient POD#1 s/p scheduled diagnostic laparoscopy,excision of abdominal wall cystic mass, mini laparotomy, small bowelresection with primary anastomosis. Continue pain and nausea control.Clear diet. Await return of bowel function. Continue to follow fordischarge planning needs.SIGNATURE: Romina Garcia RN PATIENT NAME: Laurence Lamb: May 19, 2017 : 7:52 AM PAGER/CONTACT #: [phone] PROGRESS Observed: 05/19/2017 Status: COMPLETED Source: [place] 6:24 AM CLINIC OTHER CAMPUS REPOSITORY HNO ID: [id number]: Rena Mondragon MSService: (none) Author Type: (none)Type: Progress NotesFiled: 05/19/2017 6:31 AMNote Text:MEDICAL STUDENT PROGRESS NOTESURGICAL SERVICESSERVICE DATE: 05/19/2017SERVICE TIME: 6:25 AMAttending Note This note was generated by a MEDICAL STUDENT working under the supervisionof an Attending Physician and is not authenticated until addended andcosigned by the Attending Physician at the beginning of this note.POD #1SUBJECTIVECHIEF COMPLAINT: Abdominal pain s/p diagnostic laparoscopy, excision ofabdominal wall cystic mass, mini laparotomy, small bowel resection withprimary anastamosisINTERVAL HISTORY OF PRESENT ILLNESS: The patient reports aching painwhich is worse with movement. She is unsure if this is different from herpre-operative pain. She endorses nausea but denies any episodes ofemesis. She has been out of bed to the restroom and is able to urinatewithout problem. She has had some sips of water. +F/-BMMEDICATIONS: Current hospital medications:ceFAZolin 2 g in dextrose (iso-osmotic) 100 mL (ANCEF, KEFZOL) 2 gINTRAVENOUS Pre-Op OnceclonazePAM 0.5 mg tab(s) (KlonoPIN) 0.5 mg ORAL BID PRNgabapentin 300 mg cap(s) (NEURONTIN) 300 mg ORAL BID PRNlamoTRIgine ( LaMICtal) tab(s) 150 mg 150 mg ORAL DAILYtopiramate 100 mg tab(s) (TOPAMAX) 100 mg ORAL BIDNaCl 0.9% iv infusion 50 mL/hr INTRAVENOUS CONTINUOUSondansetron 4 mg tab(s) (ZOFRAN ) 4 mg ORAL q 6 H PRNondansetron (PF) 4 mg injection (ZOFRAN) 4 mg INTRAVENOUS q 6 H PRNmorphine 2-4 mg injection 2-4 mg INTRAVENOUS q 2 H PRNQUEtiapine 400 mg tab( s) (SEROquel) 400 mg ORAL AT BEDTIMEpill splitter (patient-specific) 1 Each Miscell. (Med.Supl.;Non-Drugs) PRNOBJECTIVEPHYSICAL EXAM:BP 126/87 Pulse 83 Temp 36.7 ?C (98.1 ?F) (Oral) Resp 18 Ht 172.7cm (5' 7.99) Wt 75.8 kg (167 lb 1.7 oz ) SpO2 100% BMI 25.41 kg/m2Body mass index is 25.41 kg/(m2).PHYSICAL EXAMINATION:General appearance: Awake, alert, oriented e8Evufm: Lungs clear to auscultation. No wheezing, rhonchi, ralesHeart: RRR without murmur, gallop, or rubs. No ectopyAbdomen: Abdomen tender to palpation. Bloody drainage from site of minilaparotomy. Port dressings c/d/i with minimal drainage.DATA:Diagnostic tests reviewed for today's visit:WBC (thou/cmm)Date Value05/19/2017 8.13RBC (mil/cmm) Date Value05/19/2017 3.58 (L)Hemoglobin (g/dL)Date Value06/06/2015 11.0 (L)HGB (g/dL )Date Value05/19/2017 11.8Hematocrit (%)Date Value05/19/2017 33.9 (L)MCV (fl)Date Value05/19/2017 94.7MCH (pg)Date Value05/19/2017 33.0 (H)MCHC (%)Date Value04/2017 34.8Platelet Count (thou/cmm)Date Value05/19/2017 202MPV (fl)Date Value2017 11.1ASSESSMENT AND PLAN:Assessment: 32 y/o female with a history of abdominal pain s/p diagnosticlaparoscopy, excision of abdominal wall cystic mass, mini laparotomy,small bowel resection with primary anastamosisPlan: 1. Pain and nausea control 2. Advance diet as tolerated 3. OOB 4. DVT prophylaxisSIGNATURE: Rena Mondragon MS PATIENT NAME: Laurence FuentessDATE: May 19, 2017 : 6:25 AM PAGER/CONTACT #: [phone] PROGRESS Observed: 05/19/2017 Status: COMPLETED Source: [place] 5:27 AM CLINIC OTHER CAMPUS REPOSITORY HNO ID: [id number]: Valentina Serenityrvice: General SurgeryAuthor Type: PhysicianType: Progress NotesFiled: 05/19/2017 6:33 PMNote Text:General Surgery Progress NoteSERVICE DATE: 05/19/2017SUBJECTIVE:NAEON. Mild nausea, no emesis. Small PO intake 2/2 to pain. Voidingwithout difficulty. Denies CP/SOB, F/CTolerating diet DIET LIQUIDNausea YesEmesis NoFlatus YesBowel movement NoPain Controlled NoAmbulating YesOBJECTIVE:Vitals:Temp (24hrs), Av.7 ?C ( 98 ?F), Min:36.1 ?C (97 ?F), Max:37.2 ?C (99?F)BP 126/87 Pulse 83 Temp 36.7 ?C ( 98.1 ?F) (Oral) Resp 18 Ht 172.7cm (5' 7.99) Wt 75.8 kg (167 lb 1.7 oz) SpO2 100% BMI 25.41 kg/m2O2 Therapy: Room AirIANDO:Date 05/18/17 07 - 05/19/17 0659 05/05 07 - 05/20/17 0659Shift 4362-5922 9805-1044 0599-4906 24 Hour Total 2657-2860 5300-03019890-9055 24 Hour TotalINTAKE IV 2200 2200 LR 400 400 OR Crystalloid intake (mL) 1800 1800 Shift Total 2200 2200OUTPUT Urine 1100 1100 Void (ml) 900 900 OR Urine Output 200 200 Blood 30 30 Estimated Blood loss 30 30 Shift Total 1130 1130Weight (kg) 75.8 75.8 75.8 75.8 75.8 75.8 75.8MEDICATIONSCurrent Facility-Administered Medications:ceFAZolin 2 g in dextrose (iso-osmotic) 100 mL (ANCEF, KEFZOL) 2 gINTRAVENOUS Pre-Op OnceclonazePAM 0.5 mg tab(s) (KlonoPIN) 0.5 mg ORAL BID PRNgabapentin 300 mg cap(s) (NEURONTIN) 300 mg ORAL BID PRNlamoTRIgine (LaMICtal) tab(s) 150 mg 150 mg ORAL DAILYtopiramate 100 mg tab(s) (TOPAMAX) 100 mg ORAL BIDNaCl 0.9% iv infusion 50 mL/hr INTRAVENOUS CONTINUOUSondansetron 4 mg tab(s) (ZOFRAN) 4 mg ORAL q 6 H PRNOrondansetron (PF ) 4 mg injection (ZOFRAN) 4 mg INTRAVENOUS q 6 H PRNmorphine 2-4 mg injection 2-4 mg INTRAVENOUS q 2 H PRNpill splitter (patient-specific) 1 Each Miscell. (Med.Supl.;Non-Drugs) PRNLabs:Recent Labs 05/19/650044JAS 8.13HB 11.8HCT 33.9* PLT 202Exam:GENERAL: No distress, AlertNEURO: AANDOx3, CN II-XII grossly intactHEENT: normocephalic, atraumaticLUNGS: Unlabored breathingCARDIAC: Regular rate and rhythm as aboveABDOMEN: Soft, mildly distended, moderately TTP diffusely. Incisionsc/d /i. Mild serosanguineous drainage on midline wound dressingEXTREMITIES: PASTRANA, No deformities, No edemaSKIN: Skin color, texture, turgor normal, No rashes or lesionsASSESSMENT AND PLAN:Active Hospital Problems Diagnosis Date Noted- Abdominal pain 05/18/2017- Abdominal pain decreased with position change 05/16/2017 Overview Note: Added automatically from request for surgery [id number]- Abdominal adhesions 05/16/2017 Overview Note: Added automatically from request for surgery [id number] year old female with chronic abdominal pain, now s/p diagnosticlaparoscopy --& gt; mini laparotomy, small bowel resection for meckel'sdiverticulum, and excision of cystic abdominal wall mass.- advancing to full liquids- IV fluids. D/c with adequate PO- home meds- pain management consultSIGNATURE: Jimi Reddy MD PATIENT NAME: Laurence LemaATE: May 19, 2017 : 5:27 AM Pager: [phone] personally saw and examined the patient. I reviewed the resident's note.I agree with the resident's assessment and plan unless otherwise notedbelow. HEMOGRAM/DIFF Collected: 05/19/2017 Status: F Source: [facility] 4:00 AM HEALTH SYSTEM REPOSITORY TYPE CODE TESTS RESULT OUT OF REFERENCE UNITS RANGE LAB WBC(LOINC) 3.98-10.04 thou/cmm WBC 8.13 LAB RBC(LOINC) Low 3.93-5.22 mil/cmm RBC 3.58 LAB HGB(LOINC) 11.2-15.7 g/dL Hgb 11.8 LAB HCT(LOINC) Low 34.1-44.9 % Hct 33.9 LAB MCV(LOINC) 79.4-94.8 fl MCV 94.7 LAB MCH(LOINC) High 25.6-32.2 pg MCH 33.0 LAB MCHC(LOINC 31.6-34.8 % ) MCHC 34.8 LAB RDW(LOINC) 11.7-14.4 % RDW 13.4 LAB RDWSD(LOIN High 36.4-46.3 fl C) RDW SD 47.0 LAB PLT(LOINC) 182-369 thou/cmm Platelet 202 LAB MPV(LOINC) 9.4-12.3 fl MPV 11.1 LAB SEG(LOINC) % Seg 66.6 Neutrophil LAB IGRE(LOINC % ) Immature 0.40 Grans LAB LYMPH(LOIN % C) Lymphocyte 25.7 LAB MNO(LOINC) % Monocyte 7.0 LAB EOSIN(LOIN % C) Eosinophil 0.1 LAB BASO(LOINC % ) Basophil 0.2 LAB SEGN(LOINC 1.56-6.13 thou/cmm ) Abs. Neut 5.41 LAB IGAB(LOINC 0.00-0.05 thou/cmm ) Abs Immature 0.03 Grans LAB LYMN(LOINC 1.18-3.74 thou/cmm ) Abs. Lymph 2.09 LAB MONON(LOIN 0.27-0.70 thou/cmm C) Abs. [place] 0.57 LAB EOSN(LOINC 0.00-0.31 thou/cmm ) Abs. Eosin 0.01 LAB BASON(LOIN 0.01-0.08 thou/cmm C) Abs. Baso 0.02 Performed By: #### CBCD1 ####[place] [address] BASIC PANEL Collected: 05/19/2017 Status: F [facility] 4:[facility] AM [facility] REPOSITORY TYPE CODE TESTS RESULT OUT OF REFERENCE UNITS RANGE LAB NA(LOINC) Low 136-145 mEq/L Sodium Blood 135 LAB K(LOINC) 3.5-5.1 mEq/L Potassium 4.3 Blood LAB CL(LOINC) 98-107 mEq/L Chloride 102 Blood LAB CO2(LOINC) 21-32 mEq/L CO2 Blood 27 LAB GLU(LOINC) High 70-99 mg/dL Glucose Blood 101 LAB BUN(LOINC) 7-18 mg/dL BUN Blood 9 LAB CREA(LOINC 0.51-0.95 mg/dL ) Creatinine 0.85 Blood LAB CA(LOINC) 8.5-10.1 mg/dL Calcium Blood 8.5 LAB ANGAP(LOIN 8-16 C) Anion Gap 10 Performed By: #### P8 ####[place] [address] MDRD GFR Collected: 05/19/2017 Status: F [facility]: [facility] 4:00 AM HEALTH SYSTEM REPOSITORY TYPE CODE TESTS RESULT OUT OF RANGE REFERENCE UNITS LAB GFRFN(LOINC >60mL/min/1. ) eGFR >60 73m2 Result Comment: If the patient is , multiply the result by 1.210. Performed By: #### GFR ####[place] [address] NURSING PROG Observed: 05/18/2017 Status: COMPLETED Source: [place] 6:37 PM [facility] OTHER [place] REPOSITORY HNO ID: [id number]: Ariana (Rn) KARL Hollingsworthervice: (none)Author Type: Registered NurseType: Nursing Progress NoteFiled: 05/18/2017 6:38 PMNote Text:Room not ready. ANES POST Observed: 05/18/2017 Status: COMPLETED Source: [place] 6:03 PM [facility] OTHER [place] REPOSITORY HNO ID: [id number]: Sadi TsuiService: AnesthesiologyAuthor Type: PhysicianType: Anesthesia PostOpFiled: 05/18/2017 6:04 PMNote Text:POST ANESTHESIA EVALUATION NOTESERVICE DATE: 05/18/2017SERVICE TIME: 1800DOB: 1985Vitals: 05/18/1815Temp: 37.2 ?C (99 ?F) 36.4 ?C (97.5 ?F) 05/18/1816BP: 126/85 135/89 130/92 142 /91 05/18/1816Pulse: 67 66 67 63 05/18/1816Resp: 15 10 9 8 05/18/1816SpO2: 100% 100% 100% 100%Validated Vital Signs: YesPOST ANES STATUS: No apparent anesthetic complications. The patient isappropriately hydrated with stable respiratory and cardiovascular status.Patient has safe and adequate airway control. The patient has appropriatepain relief and no significant post operative nausea or vomiting. Thepatient has achieved baseline mental status.Further assessment by Anesthesia Service: NoneOther Remarks: Pt awake and alert; conversed fluently and appropriately.SIGNATURE: Sadi Kelly MD PATIENT NAME: Laurence LemaATE: May 18, 2017 : 6:03 PM PAGER/CONTACT #: [phone] OP NOT Observed: 05/18/2017 Status: COMPLETED Source: [place] 4:59 PM [facility] OTHER CAMPUS REPOSITORY HNO ID: [id number]: Jimi Wardervice: General SurgeryAuthor Type: ResidentType: Brief Op NoteFiled: 05/18/2017 5:05 PMNote Text:BRIEF OPERATIVE / PROCEDURE NOTELOG ID: [id number]/Procedure Date: 05/18/2017Incision/Procedure Start Time: 2:07 PMIncision Close/Procedure End Time: 4:45 PMSurgeon(s)/Proceduralist(s) and Wire Products Inspector(s):Surgeon(s) and Role: * Valentina Moncada - Primary * Jimi Reddy - Resident - Assisting * Petrona Parmar - AssistingNo Additional StaffProcedure(s): diagnostic laparoscopy, excision of abdominal wall cysticmass, mini laparotomy, small bowel resection with primary anastomosisAnesthesia: GeneralFindings: RLQ abdominal wall cystic mass, serous fluid in pelvis, meckel'sdiverticulum, normal appearing appendixEstimated Blood Loss : 30 mlsSpecimens: small bowel, abdominal wall cystic massComplications: NonePre-Op/Pre-Procedure Diagnosis: Abdominal pain decreased with positionchange [R10.9]Abdominal adhesions [K66.0]Post-Op/Post-Procedure Diagnosis: Abdominal pain decreased with positionchange [R10.9], meckel's diverticulum, abdominal wall cystic massSIGNATURE: Jimi Reddy MD PATIENT NAME: Laurence Lamb: May 18, 2017 : 5:01 PM PAGER/CONTACT #: [phone] HISTORY PHYSICAL Observed: 05/18/2017 Status: COMPLETED Source: [place] 12:57 PM [facility] REPOSITORY HNO ID: [id number]: Valentina RichardsoneService: General SurgeryAuthor Type: PhysicianType: HANDPFiled: 05/18/2017 12:57 PMNote Text: UPDATED HISTORY AND PHYSICAL EXAMINATIONSERVICE DATE: 05/18/2017SERVICE TIME: 12:57 PMPHYSICAL EXAM MUST BE COMPLETED ON ADMISSIONThe History and Physical ( completed in the past 30 days) has been reviewedand the patient has been examined. The contents accurately reflect thepatient's condition with the following additions or revisions since theHANDP was completed.Examination indicates no changes.Provisional Diagnosis/Treatment Plan: Procedure(s) (LRB):DIAGNOSTIC LAPAROSCOPY, (N/A) LYSIS OF ADHESIONS (N/A)POSSIBLE LAPAROTOMY (N/A)This HANDP can be found in the Electronic Medical Record dated 05/02/2017.SIGNATURE: Valentina Moncada MD PATIENT NAME: Laurence Lamb: May 18, 2017 : 12:57 PM PAGER: JAVIER PREOP Observed: 05/18/2017 Status: COMPLETED Source: [place] 12:33 PM [facility] REPOSITORY HNO ID: [id number]: Sadi TsuiService: AnesthesiologyAuthor Type: PhysicianType: Anesthesia PreOpFiled: 05/18/2017 12:33 PMNote Text: ANESTHESIOLOGY DAY OF SURGERY NOTESERVICE DATE: 05/18/2017SERVICE TIME: 1130DOB: 1985Procedure(s) (LRB):DIAGNOSTIC LAPAROSCOPY, (N/A)LYSIS OF ADHESIONS (N/A)POSSIBLE LAPAROTOMY (N/A)Surgeon(s):Valentina Brown (Res) CrispEstimated body mass index is 25.39 kg/(m2) as calculated from thefollowing: Height as of 05/02/17: 172.7 cm (5' 8). 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)Abdominal Pain Decreased With Position ChangeAbdominal AdhesionsPAST MEDICAL HISTORYDiagnosis Date- Abdominal pain decreased with position change- Anxiety- Bipolar 1 disorder (HCC)- Depression- Dysthymic disorder Depression (non-psychotic)- Endometriosis Frozen Pelvis- Epilepsy (HCC) LAST seizure almost 3 years ago, uses topamax- Generalized anxiety disorder Anxiety, Generalized- Other and unspecified ovarian cyst Ovarian cyst on left side- Overdose, drug 2016 opiodPAST SURGICAL HISTORYProcedure Laterality Date- COLONOSCOPY 2016- EXPLORATORY OF ABDOMEN 11/16/2010 Laparotomy, exp, for 10 years had a Laparoscopy every year.- HAND SURGERY HX Bilateral- L'SCOPE DX W/WO BRUSHINGS/WASHINGS Laparoscopy x7- TOTAL ABDOM HYSTERECTOMY 2012 BSOFAMILY HISTORYProblem Relation Age of Onset- Hypertension Mother- Genetic Mother Lupus- Obesity Mother- Psychiatry Mother Depression- Cancer Father Neuroblastoma when he was 29- Psychiatry Paternal Grandmother- Heart Paternal Grandmother- Cancer Maternal Grandmother and unknown type- Cancer Maternal Grandfather and unknown type- Breast Cancer Maternal Grandfather Cousin- ms [OTHER] Maternal Grandfather Aunt, Uncle, Cousin- Diabetes OtherSocial History:Social HistorySubstance Use Topics- Smoking status: Current Every Day Smoker Years: 10.00 Types: Cigarettes- Smokeless tobacco: Never Used Comment: 2-3 CIGS DAILY- Alcohol use Yes Comment: OccasionalNo current facility-administered medications on file prior to encounter.Current Outpatient Prescriptions on File Prior to Encounter:suvorexant (BELSOMRA) 10 mg tab Take by mouth.QUEtiapine ( SEROQUEL) 200 mg tablet TAKE ONE TABLET ONCE DAILY AT BEDTIMEPRNlamoTRIgine (LAMICTAL) 150 mg tablet Take 150 mg by mouth once daily.clonazePAM (KLONOPIN) 0.5 mg tablet Take 0.5 mg by mouth twice daily asneeded.gabapentin (NEURONTIN) 300 mg capsule Take 300 mg by mouth twice daily asneeded.topiramate (TOPAMAX) 100 mg tablet Take 100 mg by mouth twice daily.glycerin ADULT suppository 1 Suppository by RECTAL route as needed forConstipation.No current facility-administered medications for this encounter.Allergies:ALLERGIESAllergen Reactions- Compazine [Prochlor* Swelling Tongue swelled- Darvocet A500 [Prop* GI Upset, Vomiting- Nsaids (Non-Steroid* Other: See Comments GI damage- Trazodone Hives, Swelling- Tylenol [ Acetaminop* Swelling- Ultram [Tramadol] GI Upset, VomitingDOS EXAM: Adequate NPO status: YesAnesthetic risks, benefits, alternatives, personnel and consent discussed:YesPatient agrees to proceed: YesPrevious Anesthesia: No history of adverse event.Airway Assessment: MP 1; Neck ROM: Full ROM without neurologic symptoms; Airway Evaluation: No significant abnormalitiesSymptoms of Sleep Apnea: NoneDentition : Teeth intactAdditional Physical Exam:Lungs: Lungs clear to auscultation. Good diaphragmatic excursion.Cardiac: normal S1 and S2; no rubs, no murmurs, and no gallopsAdditional Pertinent Findings: N/ABlood Products: Not anticipated for this procedure.Anesthetic Plan: General, Standard ASA MonitorsPain Management Plan: Parenteral or OralASA Class: 2Other Medical Problems: NoneChronic Beta Nury medication administered within 24 hours: N/AI have interviewed and examined the patient. I have reviewed the medicalrecord and/or the pre-anesthesia evaluation, pertinent labs, and testresults.Significant changes in the patient's condition since the History andPhysical, not otherwise documented in primary service progress notes: NoThis contains updated information obtained within 48 hours ofSurgery/ Procedure.SIGNATURE: Sadi Kelly MD PATIENT NAME: Laurence FuentessDATE: May 18, 2017 : 12:33 PM CSN: [id number] OPERATIVE NO Observed: 05/18/2017 Status: COMPLETED Source: [place] 12:00 AM CLINIC OTHER CAMPUS REPOSITORY HNO ID: [id number]: Valentina Bentonrvice: General SurgeryAuthor Type: PhysicianType: Operative ReportFiled: 05/19/2017 6:52 PMNote Text:[facility] - Operative ReportSURGEON: SABRINA SánchezATIENT NAME: LAURENCE MARR LMRN: [id number] CSN: [id number] OF SURGERY: 05/18/2017DATE OF : 1985 SEX/AGE: F/32PATIENT TYPE: I HOSP SVC : [facility] LOCATION: [id number] OF SURGERY: 05/18/2017SURGEON: RACHEL SánchezEFERRREKHA PHYSICIAN: SABRINA SánchezROCEDURE:1. Diagnostic laparoscopy.2. Laparoscopic excision of cystic peritoneal/abdominal wall mass.3. Mini- laparotomy.4. Small bowel resection with primary anastomosis.WAGE ANALYST:1. Dr. Petrona Pierre (Gynecology).2. Dr. Wayne Reddy (certified surgical first assistant).ANESTHESIA: General anesthetic without complications.PREOPERATIVE DIAGNOSIS: Chronic left lower quadrant pain.POSTOPERATIVE DIAGNOSES:1. Cystic mass adherent to the peritoneum in the right lower quadrant.2. Normal-appearing appendix which was retrocecal.3. Meckel diverticulum.4. No evidence of intraabdominal adhesions.SPECIMENS:1. Pelvic fluid for cytology.2. Cystic mass from the peritoneal lining of the right lower quadrantabdominal wall.3. Small bowel resection containing Meckel diverticulum.COMPLICATIONS: None.ESTIMATED BLOOD LOSS: 40 mL.WOUND CLASS: 2.SURGICAL COUNTS: All sponge and needle counts were correct at the end ofthe case.OPERATIVE PROCEDURE: The patient was brought to the operative theater instable condition. The preprocedural checklist was completed to thesatisfaction of the entire surgical team and verified the patient. Ernieid have preoperativeantibiotics in the form of IV Ancef. She had DVT prophylaxis in the formof subcu Lovenox and SCD stockings. A Pal catheter was placed afterintubation. Once she was induced and intubated by Anesthesia, she wasprepped and draped in the usual fashion. She did have a history ofseveral previous diagnosticlaparoscopies and other procedures. However, the left upper quadrant doappear to be relatively virgin in nature. 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 Tobegin with the procedure, we started by doing a Veress needle entry inthe left upper quadrant. A #15 blade was used to make the skin incision.Veress needle was carefully introduced. Saline drop and aspiration testwere negative. Insufflation was hooked up with appropriate insufflationpressures. A 5 mm 0-degree scope within a 5 mm optical trocar was thenused to gain entry into the abdomen. There was no evidence of injury tosurrounding structures. We then switched to a 5 mm 30- degree scope tofacilitate our diagnostic laparoscopy. For the remainder of theprocedure, we did have 2 other 5-mm ports in the right abdomen, 1 further5-mm port in the suprapubic region, and 1 further 12-mm port in the leftabdomen. We did a formal diagnostic laparoscopy. Of note, the patientdid have some free fluid in the pelvis in a small to moderate amount. Idid suction this out using a laparoscopic spatula and sent the fluid forcytology. We also noted a cystic mass which was somewhat irregular andadherent to the right lower quadrant peritoneum. There were peritonealattachments to this. The remainder of the colon wascompletely normal. There was a normal appearing appendix in theretrocecallocation. I ran the entire small bowel from the terminal ileum all theway to the ligament of Treitz. We did note a Meckel diverticulum in themid small bowel, with what appeared to be possible ectopic tissue at thetip. This was in the midabdomen. to the left side of the abdomen, andpotentially could explain her chronic and severe abdominal complaints,however, this was not definitive. There was no obvious gastric or liverpathology. No other pathology was noted atlaparoscopy. At this point, I turned my attention to resecting the cysticmass adherent to the anterior abdominal wall. Harmonic energy device wasused to mobilize this from the peritoneum, taking great care not tobreach the cystic capsule. Ultimately, this was placed within anEndoCatch bag and removed via the 12-mm port site which is why we upsizedto this in the first place. There was no breach or spillage, and thespecimen was sent off to pathology. At this point, we then turned ourattention to reidentifying the Meckel diverticulum, which again was morein the mid small bowel in the distal small bowel. To facilitateresection of this area, given the patient's symptoms, we did make a mini-laparotomy in the midabdomen surrounding the umbilicus. A #15 blade wasused to make the incision. Electrocautery was used to dissect downthrough thesubcutaneous tissues. The anterior sheath was identified and incised.Great care was taken to stay in midline. We ultimately came down to theperitoneum under laparoscopic guidance to ensure no injury to surroundingstructures. Once our laparotomy incision was opened, the Meckeldiverticulum was set up through the incision using the laparoscopicgrasper. At that point, the grasper was removed and all of ourlaparoscopic ports were removed. The remainder of the procedure was viamini-laparotomy. The wound protector was placed within the wound. Danial identified the small segment of small bowel with the Meckeldiverticulum. I then performed a small bowel resection. Endo-ROBERT blue80 was used with 2 firings to perform our small bowel resection. TheHarmonic energy device on the advanced hemostasis function was used tocome across the small bowel mesentery as hers was extremely thin withsmall vasculature. This was done with excellent hemostasis. The specimenwas then sent off to pathology. We then performed a vfzz-la-dkoj smallbowel anastomosis. Enterotomies were made at the antimesenteric borders.The Endo-ROBERT blue 80 was used to make our nsbj-sc-tpqq eqqzrjwtfdfxv-bj-znk small bowel anastomosis. The resulting enterotomy wasapproximated staggering staple line using a series of Allis clamps. MARCO ANTONIO- 60 blue load was then fired to complete the anastomosis. Theresulting staple line was dunked using a series of 3-0 silk pop-offs. A3-0 silk was also used for a crotch stitch and a running 3-0 silk wasused to close the mesenteric defects. There was excellent hemostasis. Wealso had green towels around the area throughout this. Once the smallbowel resection was complete, we ensured we had good hemostasis. Theanastomosis was dunked back into the mini-laparotomy in excellentorientation. We then irrigated out the abdomen. The wound protector andtowels were all removed. The team changed all of our gloves. Theresulting incision was closed with 2 separate #1 PDS which were tied inthe midline. Midline laparotomy incision was closed with a series ofskin flakito. The laparoscopic ports were closed with 4 -0 subcuticularMonocryl. The Pal was removed at the end of the case. The patienttolerated the procedure very well and was returned to recovery in stablecondition.CHELSEA SánchezD:modlD: 05/18/2017 18:11:39T: 2017 02:27:11Job #: [id number] CYTOLOGY, MEDICAL Observed: 05/18/2017 Status: F Source: [facility] 12:00 AM [facility]ALTH [facility] REPOSITORY Test performed at [address] [id number]: LAURENCE MARR [id number] REQUESTING: GIN MONCADA MD DIAGNOSIS PELVIC WASHINGS, FLUID - NEGATIVE FOR MALIGNANT CELLS.NARRATIVEHISTIOCYTES, PMNS. SPECIMEN: A) PEL, PELVIC WASHING Description: Materials Prepared & Examined: Volume : ......... 20 # of Monolayers: .......... 1 Color: ............ Yellow # of Slides: ................. Clear: ............. Y 1 Other: ............. TP onlyElectronically Signed: 2017Screened by: [facility], CT(ASCP)Signed Out by: PETRONA WADE M.D., PATHOLOGISTPrinted on: May 19, 2017 Page 1 of 1 Performed By: #### CYTOM ####[place] [address] SURGICAL TISSUE EXAM Observed: 05/18/2017 Status: F Source: [facility] 12:00 AM HEALTH SYSTEM REPOSITORY Test performed at [place] [id number]: LAURENCE MARR [id number] REQUESTING: GIN MONCADA MDFINAL DIAGNOSIS:A) ABDOMINAL WALL LESION, EXCISION - SIMPLE PERITONEAL (MESOTHELIAL)CYSTS.B) SMALL BOWEL SEGMENT, EXCISION - BENIGN DIVERTICULUM WITH ECTOPICGASTRIC TISSUE COMPATIBLE WITH MECKEL'S DIVERTICULUM.OPERATIVE PROCEDURE : Diagnostic laparoscopyCLINICAL INFORMATION: Abdominal adhesionsGROSS DESCRIPTION:A) Cystic abdominal wall massReceived in formalin labeled cystic abdominal wall mass is an intactcyst measuring 4 x 3 x 1 cm. The external surface is smooth andglistening. The cyst is filled with a clear serous fluid. Nopapillations are identified. The inner surface is also smooth and freeof neoplasm. The specimen is totally submitted in formalin incassettes A1 and A2.B) Small bowel with Meckel's diverticulumReceived in formalin labeled small bowel with Meckel's diverticulum stephanie segment of apparent small bowel with two stapled margins measuring9.0 cm in length and 5.0 cm in circumference. One stapled margin isinked blue and the opposite is inked orange. The serosal surfaceappears dull, but smooth. The bowel is opened longitudinally to reveala 1.5 x 1.2 x 1.0 diverticulum located 2.5 cm from the blue-inkedmargin of resection. The remaining mucosal surface appears grosslyunremarkable. The wall averages 0.2 cm in thickness. Representativesections are submitted as follows : B1 - perpendicular inked margins ofresection; B2-B3 - diverticulum, totally submitted. ARH:lori GARCIA M.D., PATHOLOGIST(Electronic signature on file)Signed out: 05/20/2017 16:33PRINTED: 05/20/2017 Page 1 of 1 Performed By: #### SURG ####[place] [address] HOSP Observed: 05/16/2017 Status: COMPLETED Source: [place] 12:00 AM CLINIC OTHER CAMPUS REPOSITORY Patient:Laurence Marr LMRN: <[id number]>Height:5' 8(1.727 m)Weight:167 lb (75.751 kg)Outpatient Medications as of 05/18/17:buprenorphine (BUTRANS) 5 mcg/hoursuvorexant (BELSOMRA) 10 mg tabglycerin ADULT suppositoryQUEtiapine (SEROQUEL) 200 mg tabletlamoTRIgine (LAMICTAL) 150 mg tabletclonazePAM (KLONOPIN) 0.5 mg tabletgabapentin (NEURONTIN) 300 mg capsuletopiramate (TOPAMAX) 100 mg tabletAdmission/Clinic Administered Medications as of 05/18/17:lactated ringers infusionmeperidine (PF) 12.5 mg injection (DEMEROL)fentaNYL 50 mcg/mL 50 mcg injection (SUBLIMAZE)fentaNYL 50 mcg/mL 50 mcg injection (SUBLIMAZE)ondansetron (PF) 4 mg injection (ZOFRAN)bupivacaine 0.5 % injection (MARCAINE MDV)NaCl 0.9% irrigation solutionwater for irrigation irrigationProblem List:Nausea [R11.0]Generalized abdominal pain [R10.84]Acute midline low back pain without sciatica [M54.5]Encounter for vitamin deficiency screening [Z13.21]Screening for lipid disorders [Z13.220]Screening for thyroid disorder [Z13.29]Bipolar affective disorder in remission (HCC) [F31.70]Nonintractable generalized idiopathic epilepsy without status epilepticus (HCC)[G40.309] Abdominal pain decreased with position change [R10.9]Abdominal adhesions [K66.0]Allergies:Compazine [Prochlorperazine]Darvocet A500 [Propoxyphene N-Acetaminophen]Nsaids (Non-Steroidal Anti-Inflammatory Drug)TrazodoneTylenol [Acetaminophen]Ultram [Tramadol]Date Verified: 05/18/17Lab ValuesNo results within the last 30 days for the following basenames: K,HCTProgress Notes ([facility] ACC 492) :Celeste Mckeonn 05/16/2017 4:26 PM SignedMichelle, please enter the prior auth info. - no prior auth req.Dr. Moncada, please enter surgical orders.Thank you!Celeste MckeonnProgress Notes ([facility] HWC BATH 200):Sana Carrillo CMA 04/28/2017 10: 03 AM SignedAn unknown pharmacy faxed over medication orders for several meds, topical painointment, omeprazole, spray, triamcinolone and Medi. Left a message on Swank for a return call to obtain info from pt. Who prescribed, or if needed.Omayra Ca CMA 04/28/2017 2:41 PM SignedThe pt returned call and I asked pt if she needed the Rx's and who prescribedthem. Pt stated that she does not need those Rx's.Sade Schaffer CMA HISTORY PHYSICAL Observed: 05/02/2017 Status: COMPLETED Source: [place] 10:40 AM CLINIC OTHER CAMPUS REPOSITORY HNO ID: [id number]: Dianna (Securities Adviser) DAVID CheService: (none)Author Type: Nurse PractitionerType: HANDPFiled: 05/02/2017 11:07 AMNote Text: HISTORY AND PHYSICAL EXAMINATIONSERVICE DATE: 05/02/2017SERVICE TIME: 10:54 AMPRICHANDLER [facility]ENTERY CARE PHYSICIAN: NATALIA Beverly FOR VISIT:Laurence Marr is a 32 year old female who is scheduled forLAPAROSCOPY, SURGICAL, LYSIS OF ADHESIONS UTERUS/OMETUM/ABDOMINAL WALL ,LAPAROSCOPY, SURGICAL; WITH FULGURATION OR EXCISION OF LESIONS OF THEOVARY, PELVIC VISCERA, OR PERITONEAL SURFACE BY ANY METHOD, EXPLORATORYLAPAROTOMY ADULT at the request of Dr. Petrona Parmar for routineHANDP.The patient has the following:ACTIVE PROBLEM LISTNauseaGeneralized Abdominal PainAcute Midline Low Back Pain Without SciaticaEncounter for Vitamin Deficiency ScreeningScreening for Lipid DisordersScreening for Thyroid DisorderBipolar Affective Disorder in Remission (Hcc)Nonintractable Generalized Idiopathic Epilepsy Without Status Epilepticus(Hcc)SUBJECTIVECHIEF COMPLAINT: LLQ abdominal painHPI: Laurence is a 32 year old female that presents with above. Historyof endometriosis and hysterectomy 2012. She c/o a constant LLQ stomachpain for at least 3 years getting progressively worse. 2016 had acolonoscopy that did not reveal cause of pain. She has also had anultrasound of the abdomen and ct scan of the abdomen in 2016. She c/o aconstant throbbing shooting pain in LLQ that radiates to LBP. She deniesN/V/D or bloating. She is not currently using any medication for pain butplans to start going to pain management. She has discussed surgery risksand benefits with the surgeon and agreed.PAST MEDICAL HISTORYDiagnosis Date- Anxiety- Bipolar 1 disorder (HCC)- Depression- Dysthymic disorder Depression (non- psychotic)- Endometriosis Frozen Pelvis- Epilepsy (HCC) LAST seizure almost 3 years ago, uses topamax- Generalized anxiety disorder Anxiety, Generalized- Other and unspecified ovarian cyst Ovarian cyst on left side- Overdose, drug 2016 opiodPAST SURGICAL HISTORYProcedure Laterality Date- COLONOSCOPY 2016- EXPLORATORY OF ABDOMEN 11/16/2010 Laparotomy, exp, for 10 years had a Laparoscopy every year.- HAND SURGERY HX Bilateral- HYSTERECTOMY- L'SCOPE DX W/WO BRUSHINGS/WASHINGS Laparoscopy q8WETCRP HISTORYProblem Relation Age of Onset- Hypertension Mother- Genetic Mother Lupus- Obesity Mother- Psychiatry Mother Depression- Cancer Father Neuroblastoma when he was 29- Psychiatry Paternal Grandmother- Heart Paternal Grandmother- Cancer Maternal Grandmother and unknown type- Cancer Maternal Grandfather and unknown type- Breast Cancer Maternal Grandfather Cousin- ms [ OTHER] Maternal Grandfather Aunt, Uncle, Cousin- Diabetes OtherSOCIAL HISTORY:Social History Marital status: Single Spouse name: Years of education: Number of children: 0Occupational HistoryOccupation Employer CommentdisabilitySocial History Main Topics Smoking status: Current Every Day Smoker Packs/day: 0.00 Years: 10.00 Types: Cigarettes Smokeless status: Never Used Comment: 2-3 CIGS DAILY Alcohol use: Yes Comment: Occasional Drug use: No Sexual activity: Not CurrentlyOther Topics ConcernMilitary Service NoBlood Transfusions NoCaffeine Concern No Comment: 20 oz of diet coke, teaOccupational Exposure NoHobby Hazards NoSleep Concern Yes Comment:Does not sleep wellStress Concern Yes Comment: Health ProblemsWeight Concern YesSpecial Diet NoBack Care NoExercise No Comment:TriesBike Helmet NoSeat Belt YesSelf-Exams NoPrior to Admission medications as of 1037Medication Sig Last Dose Takingsuvorexant (BELSOMRA) 10 mg tab Take by mouth. YesQUEtiapine (SEROQUEL) 200 mg tablet TAKE ONE TABLET ONCE DAILY AT BEDTIMEPRN YeslamoTRIgine (LAMICTAL) 150 mg tablet Take 150 mg by mouth once daily. YesclonazePAM (KLONOPIN) 0.5 mg tablet Take 0.5 mg by mouth twice daily asneeded. Yesgabapentin (NEURONTIN) 300 mg capsule Take 300 mg by mouth twice daily asneeded. Yestopiramate (TOPAMAX) 100 mg tablet Take 100 mg by mouth twice daily. Yesdocusate sodium (COLACE) 100 mg capsule Take 100 mg by mouth twice daily.glycerin ADULT suppository 1 Suppository by RECTAL route as needed forConstipation.No medication comments found.ALLERGIESAllergen Reactions- Compazine [Prochlor* Swelling Tongue swelled- Darvocet A500 [Prop* GI Upset, Vomiting- Nsaids (Non-Steroid* Other: See Comments GI damage- Trazodone Hives, Swelling- Ultram [Tramadol] GI Upset, VomitingREVIEW OF SYSTEMS:PAIN ASSESSMENT: PainPain Score: 7/10Pain Location: Abdomen-Left Upper QuadrantDescription: ThrobbingDuration Amount of Time: 3Duration Units: YearsFrequency: ContinuousIntervention: RepositionGeneral: Denies fever, chills, and unexpected weight change.Neuro: Denies dizziness and headaches.Respiratory: Denies SOB or coughCardiovascular: Denies CP and palpitations.GI: +SEE HPGU: Denies dysuria.CARTOONIST SPECIAL EFFECTS: Denies abnormal vaginal bleeding. HSYT, [id number]: No history of diabetes or thyroid diseaseHematology: Denies history of bleeding or clotting disorder.Psych: +BIPOLARMusculoskeletal: Denies joint pain and swelling.Skin: Denies open sores and rashes.OBJECTIVEPHYSICAL EXAM: VITALS:BP 117/83 Pulse 80 Temp (Src) 99 (Temporal Artery) Resp 16 Ht 5'8 (1.73m ) Wt 167 lb (75.8kg) SpO2 98% BMI 25.40 kg/(m2).General: NAD. Cooperative.Skin: Skin is warm, no rashes, and no open sores.HEENT: Normocephalic.Cardiovascular: Normal S1 AND S2. No murmur.Lungs: CTA. No respiratory distress.Abdomen: SEE HPI .Neurological: Alert and oriented to person, place, and time.Diagnostic tests reviewed for today's visit: Lab Value Units Date High Low HB No results within date range. HCT No results within date range. WBC No results within date range. PLT No results within date range. NA No results within date range. K No results within date range. GLUC No results within date range. BUN No results within date range. CREAT No results within date range. PTSEC No results within date range. INR No results within date range. APTT No results within date range. ALT No results within date range. AST No results within date range. TBILI No results within date range. TSH No results within date range. Lab Value Units Date High Low HCGQT No results within date range. UHCG No results within date range. HCG, BODY* No results within date range. Lab Value Units Date High Low ABORHD No results within date range. ABSCREEN No results within date range.No results found for: [id number] recent labsMost recent imagingASSESSMENT/PLANChronic abdominal pain , Abdominal adhesionsPatient has the following medical conditions which may affectperi-operative courseEpilepsy: stable per patient. Last seizure was 3 years ago. Takes TopamaxdailyMETS:Climb a flight of stairs or walk up a hill (5.50 METs)ANESTHESIA FINDINGS:Intubation History: No history of difficult intubationSignificant Anesthesia Considerations: NonePLANPlanned Procedure: LAPAROSCOPY, SURGICAL, LYSIS OF ADHESIONSUTERUS/OMETUM/ABDOMINAL WALL , LAPAROSCOPY, SURGICAL; WITH FULGURATION OREXCISION OF LESIONS OF THE OVARY, PELVIC VISCERA, OR PERITONEAL SURFACE BYANY METHOD, EXPLORATORY LAPAROTOMY ADULTCONSULTS:Per patient no clearances were requested for this procedure.The Following Tests/Procedures Have Been Initiated:No orders of the defined types were placed in this encounter.Planned Anesthetic: GeneralInstructions Given to Patient: Patient given verbal and written preop instructions and voicescomprehension and compliance.SIGNATURE: Dianna Che CNP PATIENT NAME: Laurence LemaATE: May 02, 2017 : 10:40 AM PAGER/CONTACT #: PROGRESS Observed: 04/20/2017 Status: COMPLETED Source: [place] 12:03 PM CLINIC OTHER CAMPUS REPOSITORY HNO ID: [id number]: Petrona Morales Mc KnightService: (none)Author Type: PhysicianType: Progress NotesFiled: 04/20/2017 12:09 PMNote Text:HPI:Laurence Marr is a 32 year old who presents for preop apptsch for surg eval with Dr. Moncada and myself on 05/10. She is consentedfor l/s, poss laparotomy and excsion vs vaporization of endometriosis byme. I figure Dr. Moncada will handle any adhesolysis if necessary. Givenmultiple drug allergies, plan oxycodone without tylenol for postop pain.Has an appt with pain management 05/05. As before, she is aware thatthis surgery may not improve her pain, also reiterated by Dr. Moncada.Contraception: hysterectomyHISTORY:Obstetric History T0 L0 SAB1 TAB0 Ectopic0 Multiple0 Live [id number] MEDICAL HISTORYDiagnosis Date- Dysthymic disorder Depression (non-psychotic)- Endometriosis Frozen Pelvis- Generalized anxiety disorder Anxiety, Generalized- Other and unspecified ovarian cyst Ovarian cyst on left sidePAST SURGICAL HISTORYProcedure Laterality Date- EXPLORATORY OF ABDOMEN 11-16-10 Laparotomy, exp- L'SCOPE DX W/WO BRUSHINGS/WASHINGS Laparoscopy x7- TOT ABDOMINL HYSTERECTOMY 09/2012 BSOREVIEW OF SYSTEMS:General : No weight loss, malaise or fevers.Abdomen: No nausea, vomiting, diarrhea, or constipation. No bloating,early satiety, indigestion, or increased flatulence.Bladder: No dysuria, gross hematuria, urinary frequency, urinary urgency,or incontinence.Breast: No breast lumps, nipple d/c, overlying skin changes, redness orskin retraction.PHYSICAL EXAM:GENERAL: Well developed, well nourished, Thin in no apparent distressASSESSMENT/PLAN:1. Chronic pelvic pain in female - ICD9: 625.9, 338.29, ICD10: R10.2,G89.29- Consents signed today, npo after 12 mn. No change in home medsrequired.25 Mandy Parmar MD CNOV Observed: 04/20/2017 Status: COMPLETED Source: [place] 11:30 AM CLINIC OTHER CAMPUS REPOSITORY Office Visit (CHELSI) MARRLAURENCE Dang ([id number]) 1985 [facility] Time Provider Department04/20/17 11:30 AM PETRONA PARMAR During your visit today, we recorded the following information about you: Blood pressure Weight Height 140/ 80 72.9 kg 1.727 Hollie Parmar MD 04/20/2017 12:09 PM SignedHPI:Laurence Marr is a 32 year old who presents for preop appt man forsurg eval with Dr. Moncada and myself on . She is consented for l/s, posslaparotomy and excsion vs vaporization of endometriosis by me. I figure will handle any adhesolysis if necessary. Given multiple drugallergies, plan oxycodone without tylenol for postop pain. Has an appt withpain management 05/05/17. As before, she is aware that this surgery may notimprove her pain, also reiterated by Dr. Moncada.Contraception: hysterectomyHISTORY: Obstetric History T0 L0 SAB1 TAB0 Ectopic0 Multiple0 Live [id number] MEDICAL HISTORYDiagnosis Date- Dysthymic disorder Depression (non-psychotic)- Endometriosis Frozen Pelvis- Generalized anxiety disorder Anxiety, Generalized- Other and unspecified ovarian cyst Ovarian cyst on left sidePAST SURGICAL HISTORYProcedure Laterality Date- EXPLORATORY OF ABDOMEN 11-16-10 Laparotomy, exp- L'SCOPE DX W/ WO BRUSHINGS/WASHINGS Laparoscopy x7- TOT ABDOMINL HYSTERECTOMY 09/2012 BSOREVIEW OF SYSTEMS: General : No weight loss, malaise or fevers.Abdomen: No nausea, vomiting, diarrhea, or constipation. No bloating, earlysatiety, indigestion, or increased flatulence.Bladder: No dysuria, gross hematuria, urinary frequency, urinary urgency, orincontinence.Breast: No breast lumps, nipple d/c, overlying skin changes, redness or skinretraction.PHYSICAL EXAM:GENERAL: Well developed, well nourished, Thin in no apparent distressASSESSMENT/PLAN:1. Chronic pelvic pain in female - ICD9: 625.9, 338.29 , ICD10: R10.2, G89.29- Consents signed today, npo after 12 mn. No change in home meds required.25 Mandy Parmar, MDReferring Provider: SELF [200]Allergies As of Date: 04/20/2017 Noted Allergy ReactionCOMPAZINE (PROCHLORPERAZINE) 12/24/2010 7 - Swelling Comments: Tongue swelledDARVOCET A500 (PROPOXYPHENE N-KITA*12/24/2010 8 - GI Upset 11 - VomitingNSAIDS (NON-STEROIDAL ANTI-INFLAM*11/19/2015 14 - Other: See Comments Comments: GI damageULTRAM (TRAMADOL) 12/24/2010 8 - GI Upset 11 - VomitingDate Reviewed: 04/20/2017Reviewed by: Petrona Parmar - Fully AssessedReason for Visit: Pre-Op Visit [1235]Primary Visit Diagnosis:Chronic pelvic pain in female [R10.2, G89.29] Prescriptions as of 04/20/2017 Sig: DOCUSATE SODIUM 100 MG CAPSULE Take 100 mg by mouth twice da* SUVOREXANT 10 MG TABLET Take by mouth. GLYCERIN (ADULT) RECTAL SUPPO* 1 Suppository by RECTAL route* QUETIAPINE 200 MG TABLET TAKE ONE TABLET ONCE DAILY AT* LAMOTRIGINE 150 MG TABLET Take 150 mg by mouth once rolan* CLONAZEPAM 0.5 MG TABLET Take 0.5 mg by mouth twice da* GABAPENTIN 300 MG CAPSULE Take 300 mg by mouth twice da* TOPIRAMATE 100 MG TABLET Take 100 mg by mouth twice da*Problem List As Of Date 04/20/2017 Noted Resolved Nausea [R11.0] INVALID FOR* Generalized abdominal pain [R10.84] INVALID FOR * Acute midline low back pain without sciatica [M*INVALID FOR* Encounter for vitamin deficiency screening [Z13*INVALID FOR* Screening for lipid disorders [Z13.220] INVALID FOR* Screening for thyroid disorder [Z13.29] INVALID FOR* Bipolar affective disorder in remission (HCC) [*INVALID FOR* Nonintractable generalized idiopathic epilepsy *INVALID FOR* More...Medications Discontinued During This Encounter cephALEXin (KEFLEX) 500 mg capsule 0 10/08/2016 04/20/2017 Class: Historical Med Sig: TAKE ONE CAPSULE BY MOUTH TWICE DAILY UNTIL GONE Disc: Erroneous entry clonazePAM (KLONOPIN) 0.5 mg tablet 09/10/2016 04/20/2017 Class: Historical Med Route: ORAL Sig: Take by mouth. Disc: Erroneous entry fluticasone (FLONASE) 50 mcg/actuati* 04/22/2016 04/20/2017 Class: Historical Med Sig: Disc: Erroneous entry lamoTRIgine (LAMICTAL) 150 mg tablet 09/10/2016 04/20/2017 Class: Historical Med Sig: TAKE ONE TABLET ONCE DAILY Disc: Erroneous entry QUEtiapine (SEROQUEL) 200 mg tablet 08/25/20162017 Class: Historical Med Route: ORAL Sig: Take by mouth. Disc: Erroneous entry QUEtiapine (SEROQUEL) 50 mg tablet 04/14/2016 04/20/2017 Class: Historical Med Route: ORAL Sig: Take 200 mg by mouth once daily. Disc: Erroneous entry omeprazole (PRILOSEC) 20 mg capsule 1 10/11/2016 04/20/2017 Class: Historical Med Route: ORAL Sig: Take 20 mg by mouth once daily. Disc: Erroneous entry ondansetron orally disintegrating (Z* 0 10/08/2016 04/20/2017 Class: Historical Med Sig: dissolve one tablet under the tongue 3 times daily as needed Disc: Erroneous entryEncounter Number: [id number] Status:Closed by PETRONA PIERRE MD on 04/20/17 HEMOGRAM W/ AUTODIFF Collected: 04/19/2017 Status: F Source: [place] 2:44 PM SYSTEM REPOSITORY TYPE CODE TESTS RESULT OUT OF REFERENCE UNITS RANGE LAB IWBC Normal 3.6-10.7 10*3/uL WBC 7.0 LAB RBC Normal 3.80-5.20 10*6/uL RBC 4.26 LAB HGB Normal 11.7-16.0 g/dL Hemoglobin 13.7 LAB HCT Normal 35.0-47.0 % Hematocrit 41.2 LAB MCV Normal 79.0-98.0 fL MCV 96.6 LAB MCH Normal 26.0-34.0 pg MCH 32.1 LAB MCHC Normal 32.0-36.0 % MCHC 33.2 LAB RDW Normal 11.5-14.5 % RDW 14.0 LAB PLT Normal 140-440 10*3/uL Platelet 220 LAB MPV Normal 7.4-10.4 fL MPV 10.3 LAB AEC Normal 0.0-0.5 10*3/uL Abs Eosin Cnt 0.0 LAB ABC Normal 0.0-0.2 10*3/uL Abs Baso Cnt 0.0 LAB GRAN% Normal % Granulocytes 51.1 LAB LYMP% Normal % Lymphocytes 40.5 LAB MONO% Normal % Monocytes 6.2 LAB EOS% Normal % Eosinophils 1.8 LAB BAS% Normal % Basophils 0.4 LAB ANC Normal 1.8-7.0 10*3/uL Abs Neutrophile 3.5 Cnt LAB ALC Normal 1.0-4.3 10*3/uL Abs Lymph Cnt 2.8 LAB AMC Normal 0.0-0.8 10*3/uL Abs Monocyte Cnt 0.4 Performed By: #### HEMDF, BMP3, TSH4 ####[place] [address] BASIC METABOLIC PANEL Collected: 04/19/2017 Status: F Source: [place] 2:44 PM SYSTEM REPOSITORY TYPE CODE TESTS RESULT OUT OF RANGE REFERENCE UNITS LAB NA3 Normal 137-145 mmol/L Sodium 139 LAB K3 Normal 3.5-5.1 mmol/L Potassium 4.8 LAB CL3 Normal 98-107 mmol/L Chloride 102 LAB CO23 Normal 22-30 mmol/L Carbon 24 Dioxide LAB ANIN3 Normal Anion Gap 13 LAB GLUC3 Low 70-100 mg/dL Glucose 63 LAB BUN3 Normal 7-20 mg/dL Urea Nitrogen 12 LAB CRET3 Normal 0.52-1.25 mg/dL Creatinine 0.74 LAB GF3BR Normal >60 mL/min eGFR >60.0 LAB GF3WR Normal >60 mL/min eGFR OTHER >60.0 Result Comment: Source- MDRD equation with creatinine calibration to IDMS(NKDEP)eGFR not recommended for drug dose adjustment LAB CA3 Normal 8.4-10.2 mg/dL Calcium 9.7 Performed By: #### HEMDF, BMP3, TSH4 ####[place] [address] [place] [address] THYROID STIM. Collected: 04/19/2017 Status: F Source: [place] 2:44 PM SYSTEM REPOSITORY TYPE CODE TESTS RESULT OUT OF REFERENCE UNITS RANGE LAB TSH4 Low 0.465-4.680 uU/mL Thyroid 0.193 Stim. Hormone Performed By: #### HEMDF, BMP3, TSH4 ####[place] [address] [place] [id number] PROGRESS Observed: 04/08/2017 Status: COMPLETED Source: [place] 12:13 PM CLINIC OTHER CAMPUS REPOSITORY HNO ID: [id number]: Romelia Garcia: (none) Author Type: PhysicianType: Progress NotesFiled: 04/08/2017 12:16 PMNote Text:SUBJECTIVE:Laurence Marr is a 30 year old female here today here for follow up ,She is here with main complaint of hair loss. Patient states that in past3 weeks or so she has lost half for her hair.Denies any other symptoms other than abdominal pain and she states thatthat has been getting her a lot. Has been planned for surgery on may 10Social History Marital status: Single Spouse name: Years of education: Number of children: 0Occupational HistoryOccupation Employer CommentdisabilitySocial History Main Topics Smoking status: Current Every Day Smoker Packs/day: 0.00 Years : 0.00 Types: Cigarettes Smokeless status: Current User Comment: 2 CIGS DAILY Alcohol use: Yes Comment: Occasional Drug use: No Sexual activity: Not CurrentlyOther Topics ConcernMilitary Service NoBlood Transfusions NoCaffeine Concern No Comment:20 oz of diet coke, teaOccupational Exposure NoHobby Hazards NoSleep Concern Yes Comment:Does not sleep wellStress Concern Yes Comment:Health ProblemsWeight Concern YesSpecial Diet NoBack Care NoExercise No Comment: TriesBike Helmet NoSeat Belt YesSelf-Exams NoFAMILY HISTORYProblem Relation Age of Onset- Hypertension Mother- Genetic Mother Lupus- Obesity Mother- Psychiatry Mother Depression- Cancer Father Neuroblastoma when he was 29- Psychiatry Paternal Grandmother- Heart Paternal Grandmother- Cancer Maternal Grandmother and unknown type- Cancer Maternal Grandfather and unknown type- Breast Cancer Maternal Grandfather Cousin- ms [ OTHER] Maternal Grandfather Aunt, Uncle, CousinPAST MEDICAL HISTORYDiagnosis Date- Dysthymic disorder Depression (non-psychotic)- Endometriosis Frozen Pelvis- Generalized anxiety disorder Anxiety, Generalized- Other and unspecified ovarian cyst Ovarian cyst on left sidePAST SURGICAL HISTORYProcedure Laterality Date- EXPLORATORY OF ABDOMEN 11-16-10 Laparotomy, exp- L'SCOPE DX W/WO BRUSHINGS/WASHINGS Laparoscopy x7- TOT ABDOMINL HYSTERECTOMY 09/2012 BSONo current outpatient prescriptions on file prior to visit.No current facility-administered medications on file prior to visit.REVIEW OF SYSTEMSGENERAL: No weight loss, fatigue and tired, no feverHEENT: Negative for frequent or significant headaches, No changes inhearing or vision , no nose bleeds or other nasal problemsRESPIRATORY: Negative for cough, hemoptysis, wheezing or shortness ofbreathCARDIOVASCULAR: Negative for chest pain, leg swelling or palpitationsGI: Positive for nausea, no diarrhea, chronic pain.: Increased frequency, denies any further hematuriaGYN: Negative for abnormal vaginal bleeding, abnormal vaginal dischargeMUSCULOSKELETAL: Negative for joint pain or swelling , back pain or musclepainPSYCH: Negative for sleep disturbance, mood disorder and recentpsychosocial stressorsENDOCRINE: Negative for cold or heat intolerance, polyuria, polydipsia andgoiterPHYSICAL EXAMINATION:BP 120/78 Pulse 64 Temp (Src) 97.8 (Left Tympanic) Resp 18 Ht 5'8.5 (1.74m) Wt 167 lb 12.8 oz (76.1kg ) BMI 25.14 kg/(m2).General Appearance: Well appearing, alert, in no acute distress, Scalp :no scarring ,thich hairHead: Normocephalic, no masses, lesions, tenderness or abnormalities.Neck: Supple, thyroid symmetric, normal size,Lungs: Lungs clear to auscultation. No wheezing, rhonchi, rales.Heart: RRR without murmur, gallop, or rubs. No ectopy.Abdomen: Abdominal tenderness with palpation RUQ but whenguarded--->tightening ABD muscles during exam her I was able to examineher she was mildly tender on examination but no organomegaly. Negativefor Rodriguez's sign.Extremities: No deformities, edema, skin discoloration, clubbing orcyanosis. Good capillary refill. .A/p1. Generalized abdominal pain - ICD9: 789.07, ICD10: R10.84 (primarydiagnosis)--Has extensive workup done. Normal colonoscopy normal CT scan. Patienthas seen GI /Gen.--has been planned for laparoscopic ,lysis adhesion on May 10 by and Mariusz.2. Hair loss--non scarring--likely stress related-- labs--recommended otc rogaine6. Nonintractable generalized idiopathic epilepsy without statusepilepticus (HCC) - ICD9: 345.90, ICD10: G40.309Continue to neurology and kush7. Tobacco abuse counseling - ICD9: V65.42, 305.1, ICD10: Z71.6- Cessation encouraged. Also recommended due to her strong history ofbipolar and suicidal ideation I do not believe she is a great candidatefor Chantix at this point. But recommended using nicotine gum at thispoint.- Physiologic and physical aspects of tobacco addiction as well asstrategies for quitting were discussed.- Counseling was given focusing on the harmful effects of this addictionespecially given the patient's medical condition(s) which will be worsenedbecause of the chemicals in tobacco.- Counseling was given 3-4 minutes.- Prescription for gum given unable to give chantix or wellbutrin givenher dynamic psych history. Pt encourage to follow up with kush and MD SHERIN Reynolds Observed: 04/08/2017 Status: COMPLETED Source: [place] 10:30 AM CLINIC OTHER CAMPUS REPOSITORY Office Visit (AGINTBA) LAURENCE MARR ([id number]) 1985 [facility] Time Provider Reywbjkulh55/22/17 10:30 AM ROMELIA CARDENAS During your visit today, we recorded the following information about you: Temperature Pulse Respiration Blood pressure 97.8 degrees 64/minute 18/minute 120/78 Weight Height 76.1 kg 1.74 Malia Cardenas MD 04/08/2017 12:16 PM SignedSUBJECTIVE:Laurence Marr is a 30 year old female here today here for follow up ,She is here with main complaint of hair loss. Patient states that in past 3weeks or so she has lost half for her hair.Denies any other symptoms other than abdominal pain and she states that thathas been getting her a lot. Has been planned for surgery on may 10Social History Marital status: Single Spouse name: Years of education: Number of children: 0Occupational HistoryOccupation Employer CommentdisabilitySocial History Main Topics Smoking status: Current Every Day Smoker Packs/day: 0.00 Years: 0.00 Types: Cigarettes Smokeless status: Current User Comment: 2 CIGS DAILY Alcohol use: Yes Comment: Occasional Drug use: No Sexual activity: Not CurrentlyOther Topics ConcernMilitary Service NoBlood Transfusions NoCaffeine Concern No Comment:20 oz of diet coke, teaOccupational Exposure NoHobby Hazards NoSleep Concern Yes Comment:Does not sleep wellStress Concern Yes Comment:Health ProblemsWeight Concern YesSpecial Diet NoBack Care NoExercise No Comment:TriesBike Helmet NoSeat Belt YesSelf-Exams NoFAMILY HISTORYProblem Relation Age of Onset- Hypertension Mother - Genetic Mother Lupus- Obesity Mother- Psychiatry Mother Depression- Cancer Father Neuroblastoma when he was 29- Psychiatry Paternal Grandmother- Heart Paternal Grandmother- Cancer Maternal Grandmother and unknown type- Cancer Maternal Grandfather and unknown type- Breast Cancer Maternal Grandfather Cousin- ms [OTHER] Maternal Grandfather Aunt, Uncle, CousinPAST MEDICAL HISTORYDiagnosis Date- Dysthymic disorder Depression (non-psychotic)- Endometriosis Frozen Pelvis- Generalized anxiety disorder Anxiety, Generalized- Other and unspecified ovarian cyst Ovarian cyst on left sidePAST SURGICAL HISTORYProcedure Laterality Date- EXPLORATORY OF ABDOMEN 11-16-10 Laparotomy, exp- L'SCOPE DX W/ WO BRUSHINGS/WASHINGS Laparoscopy x7- TOT ABDOMINL HYSTERECTOMY 09/2012 BSONo current outpatient prescriptions on file prior to visit.No current facility-administered medications on file prior to visit.REVIEW OF SYSTEMSGENERAL: No weight loss, fatigue and tired, no feverHEENT: Negative for frequent or significant headaches, No changes in hearing orvision, no nose bleeds or other nasal problemsRESPIRATORY: Negative for cough, hemoptysis, wheezing or shortness of breathCARDIOVASCULAR: Negative for chest pain, leg swelling or palpitationsGI: Positive for nausea, no diarrhea, chronic pain.: Increased frequency, denies any further hematuriaGYN: Negative for abnormal vaginal bleeding, abnormal vaginal dischargeMUSCULOSKELETAL: Negative for joint pain or swelling, back pain or muscle painPSYCH: Negative for sleep disturbance, mood disorder and recent psychosocialstressorsENDOCRINE: Negative for cold or heat intolerance, polyuria , polydipsia andgoiterPHYSICAL EXAMINATION:BP 120/78 Pulse 64 Temp (Src) 97.8 (Left Tympanic) Resp 18 Ht 5'8.5ANDquot; (1.74m) Wt 167 lb 12.8 oz (76.1kg) BMI 25.14 kg/(m2).General Appearance: Well appearing, alert, in no acute distress, Scalp : noscarring ,thich hairHead: Normocephalic , no masses, lesions, tenderness or abnormalities.Neck: Supple, thyroid symmetric, normal size,Lungs : Lungs clear to auscultation. No wheezing, rhonchi, rales.Heart: RRR without murmur, gallop, or rubs. No ectopy.Abdomen: Abdominal tenderness with palpation RUQ but whenguarded---ANDgt;tightening ABD muscles during exam her I was able to examine hershe was mildly tender on examination but no organomegaly. Negative forMurphy's sign.Extremities: No deformities, edema, skin discoloration, clubbing or cyanosis.Good capillary refill. .A/p1. Generalized abdominal pain - ICD9: 789.07, ICD10: R10.84 (primary diagnosis)--Has extensive workup done. Normal colonoscopy normal CT scan. Patient hasseen GI /Gen.--has been planned for laparoscopic ,lysis adhesion on May 10 by and Mariusz.2. Hair loss--non scarring--likely stress related-- labs--recommended otc rogaine6. Nonintractable generalized idiopathic epilepsy without status epilepticus(HCC) - ICD9: 345.90, ICD10: G40.309Continue to neurology and pysch7. Tobacco abuse counseling - ICD9: V65.42, 305.1, ICD10: Z71.6- Cessation encouraged. Also recommended due to her strong history of bipolarand suicidal ideation I do not believe she is a great candidate for Chantix atthis point. But recommended using nicotine gum at this point.- Physiologic and physical aspects of tobacco addiction as well as strategiesfor quitting were discussed.- Counseling was given focusing on the harmful effects of this addictionespecially given the patient's medical condition(s) which will be worsenedbecause of the chemicals in tobacco.- Counseling was given 3-4 minutes.- Prescription for gum given unable to give chantix or wellbutrin given herdynamic psych history. Pt encourage to follow up with kush and get theirthoughtsSPatricia Hu Provider: SELF [200]Allergies As of Date: 04/08/2017 Noted Allergy ReactionCOMPAZINE (PROCHLORPERAZINE) 12/24/2010 7 - Swelling Comments: Tongue swelledDARVOCET A500 (PROPOXYPHENE N-KITA*12/24/2010 8 - GI Upset 11 - VomitingNSAIDS (NON-STEROIDAL ANTI-INFLAM*11/19/2015 14 - Other: See Comments Comments: GI damageULTRAM (TRAMADOL) 12/24/2010 8 - GI Upset 11 - VomitingDate Reviewed: 04/08/2017Reviewed by: Sana Carrillo - Fully AssessedReason for Visit: Abdominal Pain [1] Hair Loss [933]Primary Visit Diagnosis:Generalized abdominal pain [R10.84] Other Visit Diagnoses:Nonscarring hair loss [L65.9] Screening for thyroid disorder [Z13.29] Screening for lipid disorders [Z13.220] Vitamin D deficiency [E55.9]Order(s):CBC [SQCBC] Order #: [id number] COMP METABOLIC PANEL [SQCMP] Order #: [id number] VITAMIN D 25 HYDROXY [SQVITD] Order #: [id number] TSH, REFLEX [3525341] Order #: [id number] FUTURE VITAMIN B12 BLOOD [SQB12] Order #: [id number] as of 04/08/2017 Sig: DOCUSATE SODIUM 100 MG CAPSULE Take 100 mg by mouth twice da* SUVOREXANT 10 MG TABLET Take by mouth. GLYCERIN (ADULT) RECTAL SUPPO* 1 Suppository by RECTAL route* QUETIAPINE 200 MG TABLET TAKE ONE TABLET ONCE DAILY AT* LAMOTRIGINE 150 MG TABLET Take 150 mg by mouth once rolan* CLONAZEPAM 0.5 MG TABLET Take 0.5 mg by mouth twice da* TOPIRAMATE 100 MG TABLET Take 100 mg by mouth twice da* CEPHALEXIN 500 MG CAPSULE TAKE ONE CAPSULE BY MOUTH TWI* OMEPRAZOLE 20 MG CAPSULE,RENEE* Take 20 mg by mouth once shakeel* ONDANSETRON 4 MG DISINTEGRATI* dissolve one tablet under the* CLONAZEPAM 0.5 MG TABLET Take by mouth. LAMOTRIGINE 150 MG TABLET TAKE ONE TABLET ONCE DAILY QUETIAPINE 200 MG TABLET Take by mouth. FLUTICASONE 50 MCG/ACTUATION * QUETIAPINE 50 MG TABLET Take 200 mg by mouth once rolan* GABAPENTIN 300 MG CAPSULE Take 300 mg by mouth twice da*Medication notes this encounter CEPHALEXIN 500 MG CAPSULE >> Sana Carrillo MA 04/08/2017 10:17 AM >> SANA CARRILLO CMA TueApr 08, 2017 10:17 AM NOT TAKING OMEPRAZOLE 20 MG CAPSULE,DELAYED RELEASE >> Sana Carrillo MA 04/08/2017 10:18 AM >> SANA CARRILLO CMA TueApr 08, 2017 10:18 AM NOT TAKING ONDANSETRON 4 MG DISINTEGRATING TABLET >> Sana Carrillo MA 04/08/2017 10:18 AM >> SANA CARRILLO CMA TueApr 08, 2017 10:18 AM NOT TAKING CLONAZEPAM 0.5 MG TABLET >> Sana Carrillo MA 04/08/2017 10:17 AM >> SANA CARRILLO CMA TueApr 08, 2017 10:17 AM DUPLICATE LAMOTRIGINE 150 MG TABLET >> Sana Carrillo MA 04/08/2017 10:18 AM >> VICKIE CALDERON SANA TueApr 08, 2017 10:18 AM DUPLICATE QUETIAPINE 200 MG TABLET >> Sana Carrillo MA 04/08/2017 10:19 AM >> VICKIE CALDERON SANA TueApr 08, 2017 10:19 AM DUPLICATE FLUTICASONE 50 MCG/ ACTUATION NASAL SPRAY,SUSPENSION >> Sana Carrillo MA 04/08/2017 10:18 AM >> VICKIE CALDERON SANA TueApr 08, 2017 10:18 AM NOT TAKING QUETIAPINE 50 MG TABLET >> Sana Carrillo MA 2016 10:19 AM >> VICKIE CALDERON SANA TueApr 08, 2017 10:19 AM DUPLICATEProblem List As Of Date 04/08/2017 Noted Resolved Nausea [R11.0] INVALID FOR* Generalized abdominal pain [R10.84] INVALID FOR* Acute midline low back pain without sciatica [M*INVALID FOR* Encounter for vitamin deficiency screening [Z13*INVALID FOR* Screening for lipid disorders [Z13.220] INVALID FOR* Screening for thyroid disorder [Z13.29] INVALID FOR* Bipolar affective disorder in remission (HCC) [*INVALID FOR* Nonintractable generalized idiopathic epilepsy *INVALID FOR* More...Disposition: Return in about 3 months (around ), or if symptoms worsen or fail to improve, for chronic issues.Follow-up and Disposition History RecordedEncdavid grant usaf medical centerer Number: [id number] Status:Closed by ROMELIA CARDENAS on 04/08/17 [place] Observed: 04/04/2017 Status: COMPLETED Source: [place] 12:00 AM CLINIC OTHER CAMPUS REPOSITORY Telephone (AGINTBA) LAURENCE MARR ([id number]) 1985 FDate Time Provider Jlabcdxqkv88/18/17 ROMELIA CARDENAS During your visit today, we recorded the following information about you:Sade Schaffer CMA 04/04/2017 1:53 PM SignedThe pt called requesting a referral to pain management and is requesting thereferral be faxed to she states that she has an appointment on and needs the referral faxed to their office. Please advise.Darrell Potter MD 04/04/2017 1:56 PM SignedFor what kind of pain? Please set it upCarrandy Pettit CMA 04/04/2017 2:30 PM SignedPt states that she is having ANDquot;the same abdomin pain I also haveANDquot;. Ptstates that this pain is located in left lower region. The pain is persistentand onset was years ago. Pt states that within the last few weeks the pain has become muchworse. The pain was described as being a sharp pulsating pain. Pt states thatthis area is very tender to touch. Pt did state that she is scheduled inFebruary to have exploratory surgery with Dr. Moncada. Pt has tried nothingexcept Tylenol and Ibuprofen. Pt hopes that in surgery ANDquot; scar tissue canbe removed and either that will make me feel better or at least open up what isactually wrong so I can feel betterANDquot; .Please adviseCaDarrell Lin MD 04/04/2017 2:36 PM SignedorderPrincess Gregory Vc++ Developer 04/04/2017 3:48 PM SignedOrder placed via [facility] online referrals portal for consult to pain management.Referral # [id number] Zuschin Vc++ Developer 04/06/2017 10:58 AM SignedRon,This e-mail is to ALERT you that your patient listed below has NOT beenscheduled as noted below, should you have any questions or concerns regardingthis appointment please contact the office listed below directly:Appointment Attempted To Be Scheduled With:[facility]Phone: *If following up with the patient please provide the contact number above.Reason Not Scheduled: Unable To Contact Patient ? We Have Made A Minimum Of 2 Calls To The PatientBut Have Not [place] Back From Patient. This Patient Has Been Removed From OurWork List At This Time ? If Patient Contacts Your Office Please Advise ThePatient To Call The Office Listed Above Directly Patient Declined Appointment ? We Spoke With The Patient Who Declined ToSchedule With Our Director Of Purchasing.X Office Unable To Schedule: The Office Is Unable To Schedule This Patient Please See ?Additional Notes? BelowAdditional Notes:Thank You,Yohan As of Date : 04/04/2017 Noted Allergy ReactionCOMPAZINE (PROCHLORPERAZINE) 12/24/2010 7 - Swelling Comments: Tongue swelledDARVOCET A500 (PROPOXYPHENE N-KITA*12/24/2010 8 - GI Upset 11 - VomitingNSAIDS (NON-STEROIDAL ANTI-INFLAM*11/19/2015 14 - Other: See Comments Comments: GI damageULTRAM (TRAMADOL) 12/24/2010 8 - GI Upset 11 - VomitingDate Reviewed: 04/01/2017Reviewed by: Valentina Moncada - Fully AssessedReason for Visit: Referral Request [124]Primary Visit Diagnosis:Generalized abdominal pain [ R10.84]Order(s):CONSULT TO PAIN MGT ANESTHESIA [19990724] Order #: [id number]: 1Prescriptions as of 2016 Sig: SUVOREXANT 10 MG TABLET Take by mouth. GLYCERIN (ADULT) RECTAL SUPPO* 1 Suppository by RECTAL route* CEPHALEXIN 500 MG CAPSULE TAKE ONE CAPSULE BY MOUTH TWI* OMEPRAZOLE 20 MG CAPSULE,RENEE* Take 20 mg by mouth once shakeel* ONDANSETRON 4 MG DISINTEGRATI* dissolve one tablet under the* QUETIAPINE 200 MG TABLET TAKE ONE TABLET ONCE DAILY AT* CLONAZEPAM 0.5 MG TABLET Take by mouth. LAMOTRIGINE 150 MG TABLET TAKE ONE TABLET ONCE DAILY QUETIAPINE 200 MG TABLET Take by mouth. FLUTICASONE 50 MCG/ACTUATION * LAMOTRIGINE 150 MG TABLET Take 150 mg by mouth once rolan* QUETIAPINE 50 MG TABLET Take 200 mg by mouth once rolan* CLONAZEPAM 0.5 MG TABLET Take 0.5 mg by mouth twice da* GABAPENTIN 300 MG CAPSULE Take 300 mg by mouth twice da* TOPIRAMATE 100 MG TABLET Take 100 mg by mouth twice da*Problem List As Of Date Noted Resolved Nausea [R11.0] INVALID FOR* Generalized abdominal pain [R10.84] INVALID FOR* Acute midline low back pain without sciatica [M*INVALID FOR* Encounter for vitamin deficiency screening [Z13*INVALID FOR* Screening for lipid disorders [Z13.220] INVALID FOR* Screening for thyroid disorder [Z13.29] INVALID FOR* Bipolar affective disorder in remission (HCC) [*INVALID FOR* Nonintractable generalized idiopathic epilepsy *INVALID FOR* More... Status:Closed by RASHIDA CASAS on 04/04/17 PROGRESS Observed: 04/01/2017 Status: COMPLETED Source: [place] 3:56 PM CLINIC OTHER CAMPUS REPOSITORY HNO ID: [id number]: Petrona Becerra: (none)Author Type: PhysicianType: Progress NotesFiled: 04/01/2017 3:57 PMNote Text:Can you or Terrie call her to man a preop appt. PROGRESS Observed: 04/01/2017 Status: COMPLETED Source: [place] 2:58 PM CLINIC OTHER CAMPUS REPOSITORY HNO ID: [id number]: Valentina Stout: (none) Author Type: PhysicianType: Progress NotesFiled: 04/01/2017 3:06 PMNote Text:General surgery clinic follow-upHPI: This is a 31 year old female who presents for follow up regarding herchronic left lower quadrant/pelvic pain. This has going on for severalyears. She has had innumerable abdominal procedures and told she hassignificant scar tissue. She also has a history of endometriosis. Onprevious imaging she did have a significant stool burden. We did trylaxatives that she has been having multiple bowel movement per day with noresolution of her symptoms. Her left lower quadrant/pelvic pain ischaracterized as sharp and 8 out of 10. It is constant with noresolution. She was previously managed by pain management but currentlyis not. She did ask about possible pain management moving towards surgerytoday, which I advised her that I will not be providing pain medicationsfor her except for the immediate postoperative period. She understandsthis. If her pain worsens after surgery he also understands that she willhave to see pain management.She did state today that she has been told not to take Tylenol andendorsed multiple Tylenol based suicide attempts as a child withassociated liver dysfunction at that time. She does have quitesignificant psychiatric history.PAST MEDICAL HISTORYDiagnosis Date- Dysthymic disorder Depression (non-psychotic)- Endometriosis Frozen Pelvis- Generalized anxiety disorder Anxiety, Generalized- Other and unspecified ovarian cyst Ovarian cyst on left sidePAST SURGICAL HISTORYProcedure Laterality Date- EXPLORATORY OF ABDOMEN 11-16-10 Laparotomy, exp- L'SCOPE DX W/ WO BRUSHINGS/WASHINGS Laparoscopy x7- TOT ABDOMINL HYSTERECTOMY 09/2012 BSOFAMILY HISTORYProblem Relation Age of Onset- Hypertension Mother- Genetic Mother Lupus- Obesity Mother- Psychiatry Mother Depression- Cancer Father Neuroblastoma when he was 29- Psychiatry Paternal Grandmother- Heart Paternal Grandmother- Cancer Maternal Grandmother and unknown type- Cancer Maternal Grandfather and unknown type- Breast Cancer Maternal Grandfather Cousin- ms [ OTHER] Maternal Grandfather Aunt, Uncle, CousinSocial History Marital status: Single Spouse name: Years of education: Number of children: 0Occupational HistoryOccupation Employer CommentdisabilitySocial History Main Topics Smoking status: Former Smoker Packs/day: 0.10 Years: 6.00 Types: Cigarettes Smokeless status: Never Used Alcohol use: Yes Comment: Occasional Drug use: No Sexual activity: Not CurrentlyOther Topics ConcernMilitary Service NoBlood Transfusions NoCaffeine Concern No Comment:20 oz of diet coke, teaOccupational Exposure NoHobby Hazards NoSleep Concern Yes Comment:Does not sleep wellStress Concern Yes Comment:Health ProblemsWeight Concern YesSpecial Diet NoBack Care NoExercise No Comment:TriesBike Helmet NoSeat Belt YesSelf-Exams NoCurrent Outpatient Prescriptions:suvorexant (BELSOMRA) 10 mg tab Take by mouth.glycerin ADULT suppository 1 Suppository by RECTAL route as needed forConstipation.omeprazole (PRILOSEC) 20 mg capsule Take 20 mg by mouth once daily.ondansetron orally disintegrating (ZOFRAN ODT) 4 mg disintegrating tabletdissolve one tablet under the tongue 3 times daily as neededQUEtiapine (SEROQUEL) 200 mg tablet TAKE ONE TABLET ONCE DAILY AT BEDTIMEclonazePAM (KLONOPIN) 0.5 mg tablet Take by mouth.lamoTRIgine (LAMICTAL) 150 mg tablet TAKE ONE TABLET ONCE DAILYQUEtiapine (SEROQUEL) 200 mg tablet Take by mouth.fluticasone (FLONASE) 50 mcg/actuation nasal spraylamoTRIgine (LAMICTAL) 150 mg tablet Take 150 mg by mouth once daily.QUEtiapine (SEROQUEL) 50 mg tablet Take 200 mg by mouth once daily.clonazePAM (KLONOPIN) 0.5 mg tablet Take 0.5 mg by mouth twice daily asneeded.gabapentin (NEURONTIN) 300 mg capsule Take 300 mg by mouth twice daily asneeded.topiramate (TOPAMAX) 100 mg tablet Take 100 mg by mouth twice daily.cephALEXin (KEFLEX) 500 mg capsule TAKE ONE CAPSULE BY MOUTH TWICE DAILYUNTIL GONENo current facility-administered medications for this visit.ALLERGIESAllergen Reactions- Compazine [Prochlor* Swelling Tongue swelled- Darvocet A500 [Prop* GI Upset, Vomiting- Nsaids (Non-Steroid* Other: See Comments GI damage- Ultram [Tramadol] GI Upset, VomitingREVIEW OF SYSTEMS:GENERAL: No weight loss, malaise or feversGI: Negative for nausea , vomiting, diarrhea, constipation and signs ofjaundice Positive for abdominal pain LLQPHYSICAL EXAM:BP 124/85 Pulse 83 Ht 5' 7.5 (1.72m) Wt 162 lb 6.4 oz (73.7kg) BMI 25.05 kg/(m2).GENERAL APPEARANCE: Well appearing, alert, in no acute distress,well-hydrated, well nourished.. No jaundice or scleral icterus.ABDOMEN: Abdomen soft, non-tender. Bowel sounds normal. No masses,organomegaly. Distract we'll tenderness. No peritoneal findings. Noobvious abdominal wall hernia. Unable to palpate the liver or splenicedge. Negative Rodriguez's sign.NEURO: Alert, oriented x3 and speech clear and articulateDATA:Diagnostic tests reviewed for today's visit:No new labsASSESSMENT/PLAN:1. Chronic abdominal pain - ICD9: 789.00, 338.29, ICD10: R10.9, G89.29(primary diagnosis)2. Abdominal adhesions - ICD9: 568.0, ICD10: K66.0For the first time, she was present with her mother today. I am offeringdiagnostic laparoscopy, lysis of adhesions, possible need for laparotomy.I do believe her when she states she does have chronic left lower quadrantpain, however, she does have components of her history and physical whichconcern me for psychogenic pain versus seeking. I will ask my officecoordinate with Dr. Pierre so he can be available on the day of surgeryto assess her pelvis if any signs of endometriosis or gynecological causesof her pain.Valentina Moncada MD CNOV Observed: 04/01/2017 Status: COMPLETED Source: [place] 2:30 PM CLINIC OTHER CAMPUS REPOSITORY Office Visit (AGGENS4) LAURENCE MARR ([id number]) 1985 [facility] Time Provider Bxjjnpanis77/15/17 2:30 PM VALENTINA MONCADA AGGENS4 During your visit today, we recorded the following information about you: Pulse Blood pressure Weight Height 83/minute 124/85 73.7 kg 1.715 Madhavi Moncada MD 04/01/2017 3:06 PM SignedGalion Community Hospitalral surgery clinic follow-upHPI: This is a 31 year old female who presents for follow up regarding herchronic left lower quadrant/pelvic pain. This has going on for several years.She has had innumerable abdominal procedures and told she has significant scartissue. She also has a history of endometriosis. On previous imaging she didhave a significant stool burden. We did try laxatives that she has been havingmultiple bowel movement per day with no resolution of her symptoms. Her leftlower quadrant/pelvic pain is characterized as sharp and 8 out of 10. It isconstant with no resolution. She was previously managed by pain management butcurrently is not. She did ask about possible pain management moving towardssurgery today, which I advised her that I will not be providing painmedications for her except for the immediate postoperative period. Sheunderstands this. If her pain worsens after surgery he also understands thatshe will have to see pain management.She did state today that she has been told not to take Tylenol and endorsedmultiple Tylenol based suicide attempts as a child with associated liverdysfunction at that time. She does have quite significant psychiatric history.PAST MEDICAL HISTORYDiagnosis Date- Dysthymic disorder Depression (non-psychotic)- Endometriosis Frozen Pelvis- Generalized anxiety disorder Anxiety, Generalized- Other and unspecified ovarian cyst Ovarian cyst on left sidePAST SURGICAL HISTORYProcedure Laterality Date- EXPLORATORY OF ABDOMEN 11-16-10 Laparotomy, exp- L'SCOPE DX W/ WO BRUSHINGS/WASHINGS Laparoscopy x7- TOT ABDOMINL HYSTERECTOMY 09/2012 BSOFAMILY HISTORYProblem Relation Age of Onset- Hypertension Mother- Genetic Mother Lupus- Obesity Mother- Psychiatry Mother Depression- Cancer Father Neuroblastoma when he was 29- Psychiatry Paternal Grandmother- Heart Paternal Grandmother- Cancer Maternal Grandmother and unknown type- Cancer Maternal Grandfather and unknown type- Breast Cancer Maternal Grandfather Cousin- ms [OTHER] Maternal Grandfather Aunt, Uncle, CousinSocial History Marital status: Single Spouse name: Years of education: Number of children: 0Occupational HistoryOccupation Employer CommentdisabilitySocial History Main Topics Smoking status: Former Smoker Packs/day: 0.10 Years: 6.00 Types: Cigarettes Smokeless status: Never Used Alcohol use: Yes Comment: Occasional Drug use: No Sexual activity: Not CurrentlyOther Topics ConcernMilitary Service NoBlood Transfusions NoCaffeine Concern No Comment:20 oz of diet coke, teaOccupational Exposure NoHobby Hazards NoSleep Concern Yes Comment:Does not sleep wellStress Concern Yes Comment:Health ProblemsWeight Concern YesSpecial Diet NoBack Care NoExercise No Comment:TriesBike Helmet NoSeat Belt YesSelf- Exams NoCurrent Outpatient Prescriptions:suvorexant (BELSOMRA) 10 mg tab Take by mouth.glycerin ADULT suppository 1 Suppository by RECTAL route as needed forConstipation.omeprazole (PRILOSEC) 20 mg capsule Take 20 mg by mouth once daily.ondansetron orally disintegrating (ZOFRAN ODT) 4 mg disintegrating tabletdissolve one tablet under the tongue 3 times daily as neededQUEtiapine ( SEROQUEL) 200 mg tablet TAKE ONE TABLET ONCE DAILY AT BEDTIMEclonazePAM (KLONOPIN) 0.5 mg tablet Take by mouth.lamoTRIgine (LAMICTAL) 150 mg tablet TAKE ONE TABLET ONCE DAILYQUEtiapine (SEROQUEL) 200 mg tablet Take by mouth.fluticasone (FLONASE) 50 mcg/actuation nasal spraylamoTRIgine (LAMICTAL) 150 mg tablet Take 150 mg by mouth once daily.QUEtiapine (SEROQUEL) 50 mg tablet Take 200 mg by mouth once daily.clonazePAM (KLONOPIN) 0.5 mg tablet Take 0.5 mg by mouth twice daily as needed.gabapentin (NEURONTIN) 300 mg capsule Take 300 mg by mouth twice daily asneeded.topiramate (TOPAMAX) 100 mg tablet Take 100 mg by mouth twice daily.cephALEXin (KEFLEX) 500 mg capsule TAKE ONE CAPSULE BY MOUTH TWICE DAILY UNTILGONENo current facility-administered medications for this visit.ALLERGIESAllergen Reactions- Compazine [Prochlor* Swelling Tongue swelled- Darvocet A500 [Prop* GI Upset, Vomiting- Nsaids (Non-Steroid* Other: See Comments GI damage- Ultram [Tramadol] GI Upset, VomitingREVIEW OF SYSTEMS:GENERAL: No weight loss, malaise or feversGI: Negative for nausea , vomiting, diarrhea, constipation and signs ofjaundice Positive for abdominal pain LLQPHYSICAL EXAM:BP 124/85 Pulse 83 Ht 5' 7.5ANDquot; (1.72m) Wt 162 lb 6.4 oz (73.7kg) BMI 25.05 kg/(m2).GENERAL APPEARANCE: Well appearing, alert, in no acute distress, well- hydrated,well nourished.. No jaundice or scleral icterus.ABDOMEN: Abdomen soft, non-tender. Bowel sounds normal. No masses,organomegaly. Distract we'll tenderness. No peritoneal findings. No obviousabdominal wall hernia. Unable to palpate the liver or splenic edge. NegativeMurphy's sign.NEURO: Alert, oriented x3 and speech clear and articulateDATA:Diagnostic tests reviewed for today's visit:No new labsASSESSMENT/PLAN:1. Chronic abdominal pain - ICD9: 789.00, 338.29, ICD10: R10.9, G89.29 ( primarydiagnosis)2. Abdominal adhesions - ICD9: 568.0, ICD10: K66.0For the first time, she was present with her mother today. I am offeringdiagnostic laparoscopy, lysis of adhesions, possible need for laparotomy. I dobelieve her when she states she does have chronic left lower quadrant pain,however, she does have components of her history and physical which concern mefor psychogenic pain versus seeking. I will ask my office coordinate with so he can be available on the day of surgery to assess her pelvis ifany signs of endometriosis or gynecological causes of her pain.Valentina Moncada, MDReferring Provider: SELF [ 200]Allergies As of Date: 04/01/2017 Noted Allergy ReactionCOMPAZINE (PROCHLORPERAZINE) 12/24 7 - Swelling Comments: Tongue swelledDARVOCET A500 (PROPOXYPHENE N-KITA*12/24/2010 8 - GI Upset 11 - VomitingNSAIDS (NON-STEROIDAL ANTI-INFLAM*11/19/2015 14 - Other: See Comments Comments: GI damageULTRAM (TRAMADOL) 12/24/2010 8 - GI Upset 11 - VomitingDate Reviewed: 04/01/2017Reviewed by: Valentina Moncada - Fully AssessedReason for Visit: Established Patient [175]Primary Visit Diagnosis:Chronic abdominal pain [R10.9, G89.29] Other Visit Diagnosis:Abdominal adhesions [K66.0]Prescriptions as of 04/01/2017 Sig: SUVOREXANT 10 MG TABLET Take by mouth. GLYCERIN (ADULT) RECTAL SUPPO* 1 Suppository by RECTAL route* OMEPRAZOLE 20 MG CAPSULE,RENEE* Take 20 mg by mouth once shakeel* ONDANSETRON 4 MG DISINTEGRATI* dissolve one tablet under the* QUETIAPINE 200 MG TABLET TAKE ONE TABLET ONCE DAILY AT* CLONAZEPAM 0.5 MG TABLET Take by mouth. LAMOTRIGINE 150 MG TABLET TAKE ONE TABLET ONCE DAILY QUETIAPINE 200 MG TABLET Take by mouth. FLUTICASONE 50 MCG/ ACTUATION * LAMOTRIGINE 150 MG TABLET Take 150 mg by mouth once rolan* QUETIAPINE 50 MG TABLET Take 200 mg by mouth once rolan* CLONAZEPAM 0.5 MG TABLET Take 0.5 mg by mouth twice da* GABAPENTIN 300 MG CAPSULE Take 300 mg by mouth twice da* TOPIRAMATE 100 MG TABLET Take 100 mg by mouth twice da* CEPHALEXIN 500 MG CAPSULE TAKE ONE CAPSULE BY MOUTH TWI*Problem List As Of Date 04/01/2017 Noted Resolved Nausea [R11.0] INVALID FOR* Generalized abdominal pain [R10.84] INVALID FOR* Acute midline low back pain without sciatica [M*INVALID FOR* Encounter for vitamin deficiency screening [Z13*INVALID FOR* Screening for lipid disorders [Z13.220] INVALID FOR* Screening for thyroid disorder [Z13.29] INVALID FOR* Bipolar affective disorder in remission (HCC) [*INVALID FOR* Nonintractable generalized idiopathic epilepsy *INVALID FOR* More...Follow-up and Disposition History RecordedEncounter Number: [id number] Status:Closed by VALENTINA MONCADA MD on 04/01/17 PROGRESS Observed: 02/25/2017 Status: COMPLETED Source: [place] 4:02 PM CLINIC OTHER CAMPUS REPOSITORY HNO ID: [id number]: Valentina Bentonrvice: (none) Author Type: PhysicianType: Progress NotesFiled: 02/25/2017 4:09 PMNote Text:General surgery clinic follow-upHPI: This is a 31 year old female who presents for follow up regarding herchronic left lower quadrant and pelvic pain. She is followed by chronicpain service and also sees Dr. Pierre. She states she has had upwardsof 15 laparoscopies in the past. Known endometriosis and previoushysterectomy. She has tried hormone suppression with no resolution of hersymptoms. There is no identifiable cause for her symptoms on serial CTscans. She does have a significant stool burden and has been on MiraLAXwith no improvement of symptoms. However, she is still only having bowelmovements every 2-3 days. No nausea or vomiting. Her pain is chronic andworse at night when lying down. It does wake her from sleep. No melenaor bright red blood per rectum. She states she has had a 10-15 poundweight loss since we last saw her but it appears as though she is gained afew pounds in our system.She is adamant she does not want to start chronic narcotics for her pain.She is wanting to try anything to relieve this pain.PAST MEDICAL HISTORYDiagnosis Date- Dysthymic disorder Depression (non-psychotic)- Endometriosis Frozen Pelvis- Generalized anxiety disorder Anxiety, Generalized- Other and unspecified ovarian cyst Ovarian cyst on left sidePAST SURGICAL HISTORYProcedure Laterality Date- EXPLORATORY OF ABDOMEN 11-16-10 Laparotomy, exp- L'SCOPE DX W/WO BRUSHINGS/WASHINGS Laparoscopy x7- TOT ABDOMINL HYSTERECTOMY 09/2012 BSOFAMILY HISTORYProblem Relation Age of Onset- Hypertension Mother- Genetic Mother Lupus- Obesity Mother- Psychiatry Mother Depression- Cancer Father Neuroblastoma when he was 29- Psychiatry Paternal Grandmother- Heart Paternal Grandmother- Cancer Maternal Grandmother and unknown type- Cancer Maternal Grandfather and unknown type- Breast Cancer Maternal Grandfather Cousin- ms [OTHER] Maternal Grandfather Aunt, Uncle, CousinSocial History Marital status: Single Spouse name: Years of education: Number of children: 0Occupational HistoryOccupation Employer CommentdisabilitySocial History Main Topics Smoking status: Former Smoker Packs/day: 0.10 Years: 6.00 Types: Cigarettes Smokeless status: Never Used Alcohol use: Yes Comment: Occasional Drug use: No Sexual activity: Not CurrentlyOther Topics ConcernMilitary Service NoBlood Transfusions NoCaffeine Concern No Comment:20 oz of diet coke, teaOccupational Exposure NoHobby Hazards NoSleep Concern Yes Comment:Does not sleep wellStress Concern Yes Comment:Health ProblemsWeight Concern YesSpecial Diet NoBack Care NoExercise No Comment:TriesBike Helmet NoSeat Belt YesSelf-Exams NoCurrent Outpatient Prescriptions:QUEtiapine ( SEROQUEL) 200 mg tablet TAKE ONE TABLET ONCE DAILY AT BEDTIMEclonazePAM (KLONOPIN) 0.5 mg tablet Take by mouth.lamoTRIgine (LAMICTAL) 150 mg tablet TAKE ONE TABLET ONCE DAILYQUEtiapine (SEROQUEL) 200 mg tablet Take by mouth.fluticasone (FLONASE) 50 mcg/actuation nasal spraylamoTRIgine (LAMICTAL) 150 mg tablet Take 150 mg by mouth once daily.QUEtiapine (SEROQUEL) 50 mg tablet Take 200 mg by mouth once daily.clonazePAM (KLONOPIN) 0.5 mg tablet Take 0.5 mg by mouth twice daily asneeded.gabapentin (NEURONTIN) 300 mg capsule Take 300 mg by mouth twice daily asneeded.topiramate (TOPAMAX) 100 mg tablet Take 100 mg by mouth twice daily.docusate sodium (COLACE) 100 mg capsule Take 1 capsule by mouth twicedaily for 30 days.glycerin ADULT suppository 1 Suppository by RECTAL route as needed forConstipation.cephALEXin (KEFLEX) 500 mg capsule TAKE ONE CAPSULE BY MOUTH TWICE DAILYUNTIL GONEomeprazole (PRILOSEC) 20 mg capsule Take 20 mg by mouth once daily.ondansetron orally disintegrating (ZOFRAN ODT) 4 mg disintegrating tabletdissolve one tablet under the tongue 3 times daily as neededNo current facility-administered medications for this visit.ALLERGIESAllergen Reactions- Compazine [Prochlor* Swelling Tongue swelled- Darvocet A500 [Prop* GI Upset, Vomiting- Nsaids (Non-Steroid* Other: See Comments GI damage- Ultram [Tramadol ] GI Upset, VomitingREVIEW OF SYSTEMS:GENERAL: Weight lossGI: Negative for nausea , vomiting, diarrhea and signs of jaundicePositive for constipation and Chronic left lower quadrant and left pelvicpainPHYSICAL EXAM:BP 120/91 Pulse 87 Ht 5' 7 (1.70m) Wt 165 lb 12.8 oz (75.2kg) BMI25.96 kg/(m2).GENERAL APPEARANCE: Well appearing, alert, in no acute distress,well-hydrated, well nourished.. No jaundice, no scleral icterus, mucousmembrane is moistABDOMEN: Abdomen soft, Bowel sounds normal. No masses, organomegaly.Unable to palpate the liver or splenic edge, non-tympanic to percussion.Several surgical incisions, all of which are laparoscopic. Subjectivetenderness with voluntary guarding in the left lower quadrant. Much ofher response is before I touch the skin. Somewhat distractible.NEURO: Alert, oriented x3 and speech clear and articulateDATA:Diagnostic tests reviewed for today's visit :No new labsASSESSMENT/PLAN:1. Chronic pelvic pain in female - ICD9: 625.9, 338.29, ICD10: R10.2,G89.29 (primary diagnosis)2. Chronic abdominal pain - ICD9: 789.00 , 338.29, ICD10: R10.9, G89.293. Constipation, unspecified constipation type - ICD9: 564.00, ICD10:K59.00I am at a loss to explain her chronic abdominal and pelvic pain. She hashad upwards of 15 surgeries in the past and certainly scar tissue could beplaying a role. I am always concerned at the distractibility of herabdominal pain. She does have significant stool burden on her recent CT.She has been on MiraLAX. I'm going to increase her bowel regimen to seeif there is any resolution of symptoms. I'll follow up in 4 weeks' timehowever, she wants to pursue diagnostic laparoscopy with possible need foropen lysis of adhesions. We will readdress this when she comes back tosee me. If we decide to do this, I will try to involve Dr. Mariusz lund in the pelvis.Valentina Moncada MD CNOV Observed: 02/25/2017 Status: COMPLETED Source: [place] 2:45 PM CLINIC OTHER CAMPUS REPOSITORY Office Visit (AGGENS4) LAURENCE MARR ([id number]) 1985 FDate Time Provider Errfoglemy32/10/17 2:45 PM VALENTINA MONCADA4 During your visit today, we recorded the following information about you: Pulse Blood pressure Weight Height 87/minute 120/91 75.2 kg 1.702 Madhavi Moncada MD 02/25/2017 4:02 PM SignedPlease take the Colace twice a day until you see me. Please also do 1 glycerinsuppository per week.Valentina Moncada MD 02/25/2017 4:09 PM SignedGeneral surgery clinic follow-upHPI: This is a 31 year old female who presents for follow up regarding herchronic left lower quadrant and pelvic pain. [facility] and also sees Dr. Pierre. She states she has had upwards of 15laparoscopies in the past. Known endometriosis and previous hysterectomy. Shehas tried hormone suppression with no resolution of her symptoms. There is noidentifiable cause for her symptoms on serial CT scans. She does have asignificant stool burden and has been on MiraLAX with no improvement ofsymptoms. However, she is still only having bowel movements every 2-3 days.No nausea or vomiting. Her pain is chronic and worse at night when lying down. It does wake her from sleep. No melena or bright red blood per rectum. Shestates she has had a 10-15 pound weight loss since we last saw her but itappears as though she is gained a few pounds in our system.She is adamant she does not want to start chronic narcotics for her pain. Sheis wanting to try anything to relieve this pain.PAST MEDICAL HISTORYDiagnosis Date- Dysthymic disorder Depression (non-psychotic)- Endometriosis Frozen Pelvis- Generalized anxiety disorder Anxiety, Generalized- Other and unspecified ovarian cyst Ovarian cyst on left sidePAST SURGICAL HISTORYProcedure Laterality Date- EXPLORATORY OF ABDOMEN 11-16-10 Laparotomy, exp- L'SCOPE DX W/WO BRUSHINGS/ WASHINGS Laparoscopy x7- TOT ABDOMINL HYSTERECTOMY 09/2012 BSOFAMILY HISTORYProblem Relation Age of Onset- Hypertension Mother- Genetic Mother Lupus- Obesity Mother- Psychiatry Mother Depression- Cancer Father Neuroblastoma when he was 29- Psychiatry Paternal Grandmother- Heart Paternal Grandmother- Cancer Maternal Grandmother and unknown type- Cancer Maternal Grandfather and unknown type- Breast Cancer Maternal Grandfather Cousin- ms [OTHER] Maternal Grandfather Aunt, Uncle, CousinSocial History Marital status: Single Spouse name: Years of education: Number of children: 0Occupational HistoryOccupation Employer CommentdisabilitySocial History Main Topics Smoking status: Former Smoker Packs/day: 0.10 Years: 6.00 Types: Cigarettes Smokeless status: Never Used Alcohol use: Yes Comment: Occasional Drug use: No Sexual activity: Not CurrentlyOther Topics ConcernMilitary Service NoBlood Transfusions NoCaffeine Concern No Comment:20 oz of diet coke, teaOccupational Exposure NoHobby Hazards NoSleep Concern Yes Comment:Does not sleep wellStress Concern Yes Comment:Health ProblemsWeight Concern YesSpecial Diet NoBack Care NoExercise No Comment:TriesBike Helmet NoSeat Belt YesSelf-Exams NoCurrent Outpatient Prescriptions:QUEtiapine (SEROQUEL) 200 mg tablet TAKE ONE TABLET ONCE DAILY AT BEDTIMEclonazePAM (KLONOPIN) 0.5 mg tablet Take by mouth.lamoTRIgine (LAMICTAL) 150 mg tablet TAKE ONE TABLET ONCE DAILYQUEtiapine (SEROQUEL) 200 mg tablet Take by mouth.fluticasone (FLONASE) 50 mcg/actuation nasal spraylamoTRIgine (LAMICTAL) 150 mg tablet Take 150 mg by mouth once daily.QUEtiapine (SEROQUEL) 50 mg tablet Take 200 mg by mouth once daily.clonazePAM (KLONOPIN) 0.5 mg tablet Take 0.5 mg by mouth twice daily as needed.gabapentin (NEURONTIN) 300 mg capsule Take 300 mg by mouth twice daily asneeded.topiramate (TOPAMAX) 100 mg tablet Take 100 mg by mouth twice daily.docusate sodium ( COLACE) 100 mg capsule Take 1 capsule by mouth twice daily for30 days.glycerin ADULT suppository 1 Suppository by RECTAL route as needed forConstipation.cephALEXin (KEFLEX) 500 mg capsule TAKE ONE CAPSULE BY MOUTH TWICE DAILY UNTILGONEomeprazole (PRILOSEC) 20 mg capsule Take 20 mg by mouth once daily.ondansetron orally disintegrating (ZOFRAN ODT) 4 mg disintegrating tabletdissolve one tablet under the tongue 3 times daily as neededNo current facility-administered medications for this visit.ALLERGIESAllergen Reactions- Compazine [Prochlor* Swelling Tongue swelled- Darvocet A500 [Prop* GI Upset, Vomiting- Nsaids (Non-Steroid* Other: See Comments GI damage- Ultram [Tramadol] GI Upset, VomitingREVIEW OF SYSTEMS:GENERAL: Weight lossGI: Negative for nausea , vomiting, diarrhea and signs of jaundicePositive for constipation and Chronic left lower quadrant and left pelvic painPHYSICAL EXAM: BP 120/91 Pulse 87 Ht 5' 7ANDquot; (1.70m) Wt 165 lb 12.8 oz (75.2kg) BMI25.96 kg/(m2).GENERAL APPEARANCE: Well appearing, alert, in no acute distress, well-hydrated,well nourished.. No jaundice, no scleral icterus, mucous membrane is moistABDOMEN: Abdomen soft, Bowel sounds normal. No masses, organomegaly. Unableto palpate the liver or splenic edge, non-tympanic to percussion. Severalsurgical incisions, all of which are laparoscopic. Subjective tenderness withvoluntary guarding in the left lower quadrant. Much of her response is beforeI touch the skin. Somewhat distractible.NEURO: Alert, oriented x3 and speech clear and articulateDATA:Diagnostic tests reviewed for today's visit:No new labsASSESSMENT/PLAN:1. Chronic pelvic pain in female - ICD9: 625.9, 338.29, ICD10: R10.2, G89.29(primary diagnosis) 2. Chronic abdominal pain - ICD9: 789.00, 338.29, ICD10: R10.9, G89.293. Constipation, unspecified constipation type - ICD9: 564.00, ICD10: K59.00I am at a loss to explain her chronic abdominal and pelvic pain. She has hadupwards of 15 surgeries in the past and certainly scar tissue could be playinga role. I am always concerned at the distractibility of her abdominal pain.She does have significant stool burden on her recent CT. She has been onMiraLAX. I'm going to increase her bowel regimen to see if there is anyresolution of symptoms. I'll follow up in 4 weeks' time however, she wants topursue diagnostic laparoscopy with possible need for open lysis of adhesions.We will readdress this when she comes back to see me. If we decide to do this,I will try to involve Dr. Pierre for look in the pelvis.Valentina Moncada, MDReferring Provider: SELF [200]Allergies As of Date: 02/25/2017 Noted Allergy ReactionCOMPAZINE ( PROCHLORPERAZINE) 12/24/2010 7 - Swelling Comments: Tongue swelledDARVOCET A500 ( PROPOXYPHENE N-KITA*12/24/2010 8 - GI Upset 11 - VomitingNSAIDS (NON- STEROIDAL ANTI-INFLAM*11/19/2015 14 - Other: See Comments Comments: GI damageULTRAM (TRAMADOL) 12/24/2010 8 - GI Upset 11 - VomitingDate Reviewed: 02/25/2017Reviewed by: Valentina Moncada - Fully AssessedReason for Visit: Established Patient [175]Primary Visit Diagnosis:Chronic pelvic pain in female [R10.2, G89.29] Other Visit Diagnoses:Chronic abdominal pain [R10.9, G89.29] Constipation, unspecified constipation type [K59.00]Order(s):docusate sodium (COLACE) 100 mg capsuleTake 1 capsule by mouth twice daily for 30 days.Disp: 60 capsuleRfl: 0 glycerin ADULT suppository1 Suppository by RECTAL route as needed for Constipation.Disp: 6 SuppositoryRfl: 0Prescriptions as of 02/25/2017 Sig: QUETIAPINE 200 MG TABLET TAKE ONE TABLET ONCE DAILY AT* CLONAZEPAM 0.5 MG TABLET Take by mouth. LAMOTRIGINE 150 MG TABLET TAKE ONE TABLET ONCE DAILY QUETIAPINE 200 MG TABLET Take by mouth. FLUTICASONE 50 MCG/ACTUATION * LAMOTRIGINE 150 MG TABLET Take 150 mg by mouth once rolan* QUETIAPINE 50 MG TABLET Take 200 mg by mouth once rolan* CLONAZEPAM 0.5 MG TABLET Take 0.5 mg by mouth twice da* GABAPENTIN 300 MG CAPSULE Take 300 mg by mouth twice da* TOPIRAMATE 100 MG TABLET Take 100 mg by mouth twice da* DOCUSATE SODIUM 100 MG CAPSULE Take 1 capsule by mouth twice* GLYCERIN (ADULT) RECTAL SUPPO* 1 Suppository by RECTAL route* CEPHALEXIN 500 MG CAPSULE TAKE ONE CAPSULE BY MOUTH TWI* OMEPRAZOLE 20 MG CAPSULE,RENEE* Take 20 mg by mouth once shakeel* ONDANSETRON 4 MG DISINTEGRATI* dissolve one tablet under the*Problem List As Of Date 02/25/2017 Noted Resolved Nausea [R11.0] INVALID FOR* Generalized abdominal pain [R10.84] INVALID FOR* Acute midline low back pain without sciatica [M*INVALID FOR* Encounter for vitamin deficiency screening [Z13*INVALID FOR* Screening for lipid disorders [Z13.220] INVALID FOR* Screening for thyroid disorder [ Z13.29] INVALID FOR* Bipolar affective disorder in remission (HCC) [*INVALID FOR* Nonintractable generalized idiopathic epilepsy *INVALID FOR* More... Other instructions from your clinician: Please take the Colace twice a day until you see me. Please also do 1 glycerin suppository per week.Prescriptions ordered this encounter Disp Refills Start End DOCUSATE SODIUM 100 MG CAPSULE 60 c* 0 02/25/2017 03/27/2017 Route: ORAL Sig: Take 1 capsule by mouth twice daily for 30 days. GLYCERIN (ADULT) RECTAL SUPPOSITORY 6 Shah* 0 02/25/2017 Route: RECTAL Si Suppository by RECTAL route as needed for Constipation.Disposition: Return in about 4 weeks (around 03/25/2017).Follow-up and Disposition History RecordedEncounter Number: [id number] Status:Closed by VALENTINA MONCADA MD on 02/25/17 ALLERGIES ALLERGIES DATE TYPE / NAME / CODE REACTION SEVERITY SOURCE CODE 02/26/2016 DRUG ACETAMINOPHEN SWELLING [place] [address] Clinic Other [id number]([facility] OMED CT) Repository 11/19/2015 Drug NSAIDS (NON-STEROIDAL OTHER: SEE C [facility]/4195 ANTI-INFLAMMATORY Clinic Other 16324(SNOM DRUG) [place] [facility]) Repository 02/20/2015 DRUG TRAZODONE HIVES [place] [address] Clinic Other [id number]([facility] OMED CT) Repository 12/24/2010 DRUG PROCHLORPERAZINE SWELLING [place] [address] Clinic Other 3905821([facility] OMED CT) Repository 12/24/2010 DRUG/82677 PROPOXYPHENE GI UPSET [place] 1003(SNOME N-ACETAMINOPHEN Clinic Other D CT) [place] Repository 12/24/2010 DRUG TRAMADOL GI UPSET [place] [address] Clinic Other [id number]([facility] OMED CT) Repository NG/8730516 ACETAMINOPHEN [facility] 06([facility]OM[facility]) Repository NG/5258633 PROCHLORPERAZINE [facility] 06(SNOMED [facility]) Repository NG/[id number] PROPOXYPHENE [facility] 06(SNOMED N-ACETAMINOPHEN [facility]) Repository NG/1458077 NSAIDS (NON-STEROIDAL [facility] 06(SNOMED ANTI-INFLAMMATORY [facility] CT) DRUG) Repository NG/1934421 TRAZODONE [facility] 06(SNOMED [facility]) Repository NG/9769655 TRAMADOL [facility] 06(SNOMED [facility]) Repository ENCOUNTERS ENCOUNTERS ADMIT/DISCHARGE ACCOUNT NUMBER ADMITTING ENCOUNTER LOCATION SOURCE CLASS 11/26/2017/08/11/2 [id number] Emergency [address] Other [place] Repository 11/26/2017/ [id number] Emergency [address] MEDICAL Repository CENTERBuildi ng:AKEDRoom: EMBed: 05 11/25/2017 [id number] Ambulatory [facility] Repository 11/25/2017 [id number] Ambulatory [facility] Repository 11/23/2017 [id number] Ambulatory [facility] Repository 11/09/2017 [id number] Ambulatory [facility] Repository 10/17/2017 [id number] Ambulatory [facility] MEDICAL Repository CENTERBuildi ng:AGOBBATH 10/10/2017 [id number] Ambulatory [facility] MEDICAL Repository CENTERBuildi ng:AGOBBATH 09/29/2017 [id number] Ambulatory [facility] Repository 09/28/2017 [id number] Ambulatory [facility] Repository 09/07/2017 [id number] Ambulatory [facility] MEDICAL Repository CENTERBuildi ng:AKCTB 09/07/2017 [id number] Ambulatory [facility] MEDICAL Repository CENTERBuildi ng:AKCTB 09/05/2017 [id number] Ambulatory [facility] MEDICAL Repository CENTERBuildi ng:AGIB 09/02/2017/ [id number] Ambulatory [address] Repository 09/02/2017/ [id number] Ambulatory [address] MEDICAL Repository CENTERBuildi ng:AGGENS4 09/01/2017 [id number] Ambulatory [facility] MEDICAL Repository CENTERBuildi ng:AGGENS4 08/19/2017 [id number] Ambulatory [facility] Repository 07/26/2017 [id number] Ambulatory [facility] ding:LAB Repository 07/12/2017/ [id number] Ambulatory [address] Other [place] Repository 07/12/2017/ [id number] Ambulatory [address] MEDICAL Repository CENTERBuildi ng:AGIB 07/08/2017/ [id number] Ambulatory [address] Other [place] Repository 07/08/2017/ [id number] Ambulatory [facility] [address] MEDICAL Repository PIKEBuildi ng:AGGENS4 07/07/2017 [id number] Ambulatory PAR[facility] MEDICAL Repository PIKEBuildi ng:AGIB 07/04/2017/ [id number] Ambulatory [address] Other [place] Repository 07/04/2017/ [id number] Ambulatory PAR[place] [address] MEDICAL Repository PIKEBuildi ng:AGOBBATH 07/04/2017 [id number] Ambulatory [facility] Repository 07/03/2017/ [id number] Emergency [address] Other [place] Repository 07/03/2017/ [id number] Emergency [address] MEDICAL Repository PIKEBuild ng:AKEDRoom: EDBed: 31 06/30/2017 [id number] Ambulatory [facility] MEDICAL Repository PIKEBuild ng:AGGENS4 06/27/2017 [id number] Ambulatory [place] [facility] MEDICAL Repository PIKEBuildi ng:AGOBBATH 06/21/2017/ [id number] WALE RUELAS Ambulatory [address] Other [place] Repository 06/21/2017/ [id number] WALE RUELAS Inpatient [address] MEDICAL Repository PIKEBuild ng:AKIRRoom: POOLBed: 07 06/16/2017 [id number] Ambulatory [facility] MEDICAL Repository PIKEBuildi ng:AGOBHUD 06/15/2017/ [id number] Ambulatory [address] Other [place] Repository 06/15/2017/ [id number] Ambulatory PAR[place] [address] MEDICAL Repository PIKEBuildi ng:AGGENS4 06/10/2017 [id number] Ambulatory [place] [facility] MEDICAL Repository PIKEBuildi ng:AGGENS4 06/09/2017 [id number] Ambulatory [facility] MEDICAL Repository PIKEBuildi ng:AGOBHUD 06/08/2017/ [id number] Ambulatory [address] Other [place] Repository 06/08/2017/ [id number] Ambulatory [facility] [address] [facility] 06/05/2017/ [id number] Emergency [address] Other [place] Repository 06/05/2017/ [id number] Emergency [facility] [facility] [address] MEDICAL [facility] ng:AKEDRoom: EDBed: 06/02/2017 [id number] VANCLEVE, Ambulatory [facility] Other [place] Repository 06/02/2017/ [id number] EMMANUEL, Inpatient [facility] 018 [facility] MEDICAL [facility] ng:AKIRRoom: POOLBed: 05/30/2017/ [id number] Emergency [address] Other [place] Repository 05/30/2017/ [id number] Emergency [facility] [address] MEDICAL [facility] ng:AKEDRoom: EDBed: 05/27/2017 [id number] Ambulatory PAR[facility] MEDICAL [facility] ng:AGOBHUD 05/26/2017 [id number] Ambulatory [facility] ng:AGGENS4 05/24/2017/ [id number] ANTWANVALENTINA Michaud Inpatient [place] 018 [facility] Repository 05/24/2017/ [id number] ANTWAN, Inpatient [facility] 018 [facility] MEDICAL [facility] nARoom: 5208Bed: 05/23/2017 [id number] Ambulatory PAR[facility]AGOBBATH 05/18/2017/ [id number] ANTWANVALENTINA Inpatient [place] [address] Encounter [facility] Other [place] Repository 05/18/2017/ [id number] ANTWAN, Inpatient [facility] 018 [facility] MEDICAL [facility] nARoom: 5207Bed: 05/10/2017 [id number] PETRONA PIERRE Inpatient [place] [facility] MEDICAL Repository CENTERBuildi ng:AKSUR 05/02/2017 [id number] Ambulatory [facility] Other [place] Repository 05/02/2017 [id number] Ambulatory [facility] MEDICAL Repository PIKEBuildi ng:AKPSTB 04/22/2017 [id number] Ambulatory [facility] MEDICAL Repository CENTERBuildi ng:AGSAM 04/19/2017 [id number] Ambulatory [facility] Repository 04/08/2017/ [id number] Ambulatory [address] Other [place] Repository 04/08/2017/ [id number] Ambulatory [address] MEDICAL Repository PIKEBuildi ng:AGIB 04/01/2017/ [id number] Ambulatory [address] Other [place] Repository 04/01/2017/ [id number] Ambulatory [address] MEDICAL Repository PIKEBuildi ng:AGGENS4 02/25/2017/ [id number] Ambulatory [address] Other [place] Repository 02/25/2017/ [id number] Ambulatory [address] MEDICAL Repository PIKEBuildi ng:AGGENS4 02/03/2017 [id number] Ambulatory [facility] Other [place] Repository 02/03/2017 [id number] Ambulatory [facility] MEDICAL Repository PIKEBuildi ng:AGGENS4 01/31/2017 [id number] Ambulatory Building:[facility] Repository PAYERS PAYERS ENCOUNTER GUARANTOR PAYER SUBSCRIBER SOURCE 11/26/2017 LAURENCE Escobedo Primary LAURENCE [facility]: Insurance:MEDICARE A [facility]: Health System [id number] AND BPolicy Number: [id number] [id number] [place] Date: [address]Oty: () 11/26/2017 Secondary LAURENCE L [facility] Insurance:[employer] BROOK[place]OB: Health System MEDICAID ONLYPolicy [id number] Repository Number: [id number] Date: 11/25/2017 Laurence L [facility] Insurance:MedicarePoli BrooksDOB: System cy Number: Effective [id number] Repository [place] Date: [place], [place] [address]Bbn: () 11/25/2017 Secondary [facility] L [facility] Insurance:MedicarePoli BrooksDOB: System cy Number: Effective [id number] Repository Date: 11/25/2017 Tertiary [facility] L [facility] System HealthcarePolicy [id number] Repository Number: Effective Date: 11/25/2017 Laurence L Primary [facility] [place]: Insurance:MedicarePoli BrooksDOB: System cy Number: Effective [id number] Repository [place] Date: [place], [place] [address]Zln: () 11/25/2017 Secondary [facility] L [facility] Insurance:MedicarePoli BrooksDOB: System cy Number: Effective [id number] Repository Date: 11/25/2017 Tertiary [facility] L [facility]: System HealthcarePolicy [id number] Repository Number: Effective Date:2014-05-19 11/23/2017 Laurence L Primary [facility]: Insurance:MedicarePoli BrooksDOB: System cy Number: Effective [id number] Repository [place] Date: [place], [place] [address]Kfy: () 11/23/2017 Secondary [facility]rence L [facility] Insurance:MedicarePoli BrooksDOB: System cy Number: Effective [id number] Repository Date: 11/23/2017 Tertiary [facility] L [facility]: System HealthcarePolicy [id number] Repository Number: Effective Date: 11/09/2017 Laurence L Primary [facility]: Insurance:MedicarePoli BrooksDOB: System cy Number: Effective [id number] Repository [place] Date: [place], [place] [address]Jvt: (HP) 11/09/2017 Secondary [facility] L [facility] Insurance[facility]Medic[facility]Poli [facility] cy Number: Effective [id number] Repository Date: 11/09/2017 Tertiary [facility] L [facility] HealthcarePolicy [id number] Repository Number: Effective Date:2014-05-19 10/17/2017 LAURENCE L Primary LAURENCE L [facility] BILLINGSSDOB: Insurance:[facility] AND BPolicy Number: [id number] Repository [place] [id number] [place] Date: [address]Fmg: () 10/17/2017 Secondary LAURENCE L [facility] MEDICAID ONLYPolicy [id number] Repository Number: [id number] Date: 10/10/2017 LAURENCE L Primary LAURENCE L [facility] BILLINGSSDOB: Insurance:[facility]: [facility] AND BPolicy Number: [id number] Repository [place] [id number] [place] Date: [address]Hkx: (HP) 10/10/2017 Secondary LAURENCE L [facility] MEDICAID ONLYPolicy [id number] Repository Number: [id number] Date: 09/29/2017 Laurence L Primary [facility] L [facility]: Insurance:MedicarePoli BrooksDOB: System cy Number: Effective [id number] Repository [place] Date: [place], [place] [address]Wlu: (HP) 09/29/2017 Secondary [facility] L [facility] Insurance:MedicarePoli BrooksDOB: System cy Number: Effective [id number] Repository Date: 09/29/2017 Tertiary Laurence L [facility] Insurance:[facility]: System HealthcarePolicy [id number] Repository Number: Effective Date: 09/28/2017 Laurence L Primary Lau[facility] L [facility] BrooksDOB: Insurance:MedicarePoli BrooksDOB: System cy Number: Effective [id number] Repository [place] Date: [place] [address]Vll: () 09/28/2017 Secondary [facility]rence L [facility] Insurance:MedicarePoli BrooksDOB: System cy Number: Effective [id number] Repository Date: 09/28/2017 Tertiary [facility] L [facility] System HealthcarePolicy [id number] Repository Number: Effective Date: 09/07/2017 LAURENCE L Primary LAURENCE L [facility] BILLINGSSDOB: Insurance:[facility]: [facility] AND BPolicy Number: [id number] Repository [place] [id number] [place] Date: [address]Xrb: () 09/07/2017 Secondary LAURENCE L [facility] MEDICAID ONLYPolicy [id number] Repository Number: [id number] Date: 09/07/2017 LAURENCE L Primary ALURENCE L [facility] BILLINGSSDOB: Insurance:[facility]: [facility] AND BPolicy Number: [id number] Repository [place] [id number] [place] Date: [address]Etg: () 09/07/2017 Secondary LAURENCE L [facility] MEDICAID ONLYPolicy [id number] Repository Number: [id number] Date: 09/05/2017 LAURENCE L Primary LAURENCE L [facility] BILLINGSSDOB: Insurance:[facility]: [facility] AND BPolicy Number: [id number] Repository [place] [id number] [place], [place] Date: [address]Ngj: () 09/05/2017 Secondary LAURENCE L [facility] MEDICAID ONLYPolicy [id number] Repository Number: [id number] Date: 09/02/2017 LAURENCE L Primary LAURENCE L [facility] BROOKSDOB: Insurance:[facility]: [facility] AND BPolicy Number: [id number] Repository [place] [id number] [place], [place] Date: [address]Ior: () 09/02/2017 Secondary LAURENCE L [facility] MEDICAID ONLYPolicy [id number] Repository Number: [id number] Date: 09/01/2017 LAURENCE L Primary LAURENCE L [facility] BROOKSDOB: Insurance:[facility]: [facility] AND BPolicy Number: [id number] Repository [place] [id number] [place], [place] Date: [address]Jyf: () 09/01/2017 Secondary LAURENCE L [facility] MEDICAID ONLYPolicy [id number] Repository Number: [id number] Date: 08/19/2017 Laurence L [facility] Insurance:MedicarePoli BrooksDOB: System cy Number: Effective [id number] [facility] Date: [place], [place] [address]Mfz: () 08/19/2017 Secondary [facility] Insurance:MedicarePoli BrooksDOB: System cy Number: Effective [id number] Repository Date: 08/19/2017 Tertiary [facility] HealthcarePolicy [id number] Repository Number: Effective Date:2014-05-19 07/26/2017 LAURENCE L Primary LAURENCE L Danika [id number] Insurance:MEDICARE BROOKSDOB: [facility] A BPolicy Number: [id number] [place], [place] [id number] Repository [address]Unh: (673) Date:2017-07-26 [phone] (HP) 07/26/2017 Secondary LAURENCE L [place] [facility] [id number] Hospital Number: Repository [id number] Date:[id number] [address]UN: 07/26/2017 Tertiary NOT GIVENUNK Danika Insurance:SELF PAY [facility] Number: Effective Repository Date:2017-07-26 07/12/2017 LAURENCE L Primary LAURENCE L [facility] BILLINGSSDOB: Insurance:[facility]ICARE [facility] AND BPolicy Number: [id number] Repository [place] [id number] [place], [place] Date: [address]Ryy: (HP) 07/12/2017 Secondary LAURENCE L [facility] MEDICAID ONLYPolicy [id number] Repository Number: [id number] Date: 07/08/2017 LAURENCE L Primary LAURENCE L [facility] BILLINGSSDOB: Insurance:[facility]: [facility] AND BPolicy Number: [id number] Repository [place] [id number] [facility], [place] Date: [address]Dsx: (HP) 07/08/2017 Secondary LAURENCE L [facility] MEDICAID ONLYPolicy [id number] Repository Number: [id number] Date: 07/07/2017 LAURENCE L Primary LAURENCE L [facility] BILLINGSSDOB: Insurance:[facility]: [facility] AND BPolicy Number: [id number] Repository [place] [id number] [facility] [place] Date: [address]Hoh: (HP) 07/07/2017 Secondary LAURENCE L [facility] MEDICAID ONLYPoly [id number] Repository Number: [id number] Date: 07/04/2017 LAURENCE L Primary LAURENCE L [facility] BILLINGSSDOB: Insurance:[facility]ICARE A [facility]: Health System AND BPolicy Number: [id number] Repository [place] [id number] [place], [place] Date: [address]Jiu: () 07/04/2017 Secondary LAURENCE L [facility] Insurance[facility]: [facility] MEDICAID ONLYPolicy [id number] Repository Number: [id number] Date: 07/04/2017 Laurence L Primary [facility]svillesD[facility]: Insurance:MedicarePoli BrooksDOB: System cy Number: Effective [id number] Repository [place] Date: [place], [place] [address]Int: (HP) 07/04/2017 Secondary [facility]rence L [facility] Insurance:MedicarePoli BrooksDOB: System cy Number: Effective [id number] Repository Date: 07/04/2017 Tertiary [facility]rence L [facility] Insurance:[facility]: System HealthcarePolicy [id number] Repository Number: Effective Date:2014-05-19 07/03/2017 LAURENCE L Primary LAURENCE L [facility] BILLINGSSDOB: Insurance:MEDICARE A BROOKSDOB: Health System AND BPolicy Number: [id number] Repository [place] [id number] [place] Date: [address]Imu: (HP) 07/03/2017 Secondary LAURENCE L [facility]: [facility] MEDICAID ONLYPolicy [id number] Repository Number: [id number] Date: 06/30/2017 LAURENCE L Primary LAURENCE L [facility] BILLINGSSDOB: Insurance:[facility]: Health System AND BPolicy Number: [id number] Repository [place] [id number] [place], [place] Date: [address]Wpk: (HP) 06/30/2017 Secondary LAURENCE L [facility] Insurance:[facility]: [facility] MEDICAID ONLYPolicy [id number] Repository Number: [id number] Date: 06/27/2017 LAURENCE L Primary LAURENCE L [facility] BROOKSDOB: Insurance:[facility]: [facility] AND BPolicy Number: [id number] Repository [place] [id number] [place], [place] Date: [address]Mfw: () 06/27/2017 Secondary LAURENCE L [facility] Insurance[facility]: [facility] MEDICAID ONLYPolicy [id number] Repository Number: [id number] Date: 06/21/2017 LAURENCE L Primary LAURENCE L [facility] BROOKSDOB: Insurance:[facility]: [facility] AND BPolicy Number: [id number] Repository [place] [id number] [place], [place] Date: [address]Nmo: () 06/21/2017 Secondary LAURENCE L [facility] Insurance[facility]: [facility] MEDICAID ONLYPolicy [id number] Repository Number: [id number] Date: 06/16/2017 LAURENCE L Primary LAURENCE L [facility] BROOKSDOB: Insurance:[facility]: [facility] AND BPolicy Number: [id number] Repository [place] [id number] [place], [place] Date: [address]Aer: (HP) 06/16/2017 Secondary LAURENCE L [facility] Insurance:[facility]: [facility] MEDICAID ONLYPolicy [id number] Repository Number: [id number] Date: 06/15/2017 LAURENCE L Primary LAURENCE L [facility] BROOKSDOB: Insurance:[facility]: [facility] AND BPolicy Number: [id number] Repository [place] [id number] [place], [place] Date: [address]Gdp: (HP) 06/15/2017 Secondary LAURENCE L [facility]: [facility] MEDICAID ONLYPolicy [id number] Repository Number: [id number] Date: 06/10/2017 LAURENCE L Primary LAURENCE L [facility] BROOKSDOB: Insurance:[facility]: [facility] AND BPolicy Number: [id number] Repository [place] [id number] [place], [place] Date: [address]Vfx: (HP) 06/10/2017 Secondary LAURENCE L [facility] Insurance:[facility]: [facility] MEDICAID [id number] Repository Number: [id number] Date: 06/09/2017 LAURENCE L Primary LAURENCE L [facility] BROOKSDOB: Insurance:[facility]: [facility] AND BPolicy Number: [id number] Repository [place] [id number] [place], [place] Date: [address]Rqx: (HP) 06/09/2017 Secondary LAURENCE L [facility] Insurance:[facility]: [facility] MEDICAID [id number] Repository Number: [id number] Date: 06/08/2017 LAURENCE L Primary LAURENCE L [facility] BROOKSDOB: Insurance:[facility]: [facility] AND BPolicy Number: [id number] Repository [place] [id number] [place], [place] Date: [address]Qhy: (HP) 06/08/2017 Secondary LAURENCE L [facility] Insurance:[facility]: [facility] MEDICAID [id number] Repository Number: [id number] Date: 06/05/2017 LAURENCE L Primary LAURENCE L [facility] BROOKSDOB: Insurance:[facility]: [facility] AND BPolicy Number: [id number] Repository [place] [id number] [place], [place] Date: [address]Jsw: () 06/05/2017 Secondary LAURENCE L [facility] Insurance:[facility]: Health System MEDICAID ONLYPolicy [id number] Repository Number: [id number] Date: 06/02/2017 LAURENCE L Primary LAURENCE L [facility] BROOKSDOB: Insurance:[facility]: [facility] AND BPolicy Number: [id number] Repository [place] [id number] [place] Date: [address]Xoa: () 06/02/2017 Secondary LAURENCE L [facility] Insurance:[facility]: Health System MEDICAID ONLYPolicy [id number] Repository Number: [id number] Date: 05/30/2017 LAURENCE L Primary LAURENCE L [facility] BROOKSDOB: Insurance:[facility]: Health System AND BPolicy Number: [id number] Repository [place] [id number] [place], [place] Date: [address]Kom: () 05/30/2017 Secondary LAURENCE L [facility] MEDICAID ONLYPolicy [id number] Repository Number: [id number] Date: 05/27/2017 LAURENCE L Primary LAURENCE L [facility] BROOKSDOB: Insurance:[facility]: Health System AND BPolicy Number: [id number] Repository [place] [id number] [facility] [place] Date: [address]Era: () 05/27/2017 Secondary LAURENCE L [facility] Insurance:[facility]: [facility] MEDICAID ONLYPolicy [id number] Repository Number: [id number] Date: 05/26/2017 LAURENCE L Primary LAURENCE L [facility] BROOKSDOB: Insurance:[facility]: [facility] AND BPolicy Number: [id number] Repository [place] [id number] [place], [place] Date: [address]Vus: (HP) 05/26/2017 Secondary LAURENCE L [facility] Insurance:[facility]: Health System MEDICAID ONLYPolicy [id number] Repository Number: [id number] Date: 05/24/2017 LAURENCE L Primary LAURENCE L [facility] BROOKSDOB: Insurance:[facility]: [facility] AND BPolicy Number: [id number] Repository [place] [id number] [place], [place] Date: [address]Yfc: (HP) 05/24/2017 Secondary LAURENCE L [facility]: [facility] MEDICAID ONLYPolicy [id number] Repository Number: [id number] Date: 05/23/2017 LAURENCE L Primary LAURENCE L [facility] BROOKSDOB: Insurance:[facility]: Health System AND BPolicy Number: [id number] Repository [place] [id number] [place], [place] Date: [address]Mbg: (HP) 05/23/2017 Secondary LAURENCE L [facility] Insurance:[facility]: Health System MEDICAID ONLYPolicy [id number] Repository Number: [id number] Date: 05/18/2017 LAURENCE L Primary LAURENCE L [facility] BROOKSDOB: Insurance:[facility]: Health System AND BPolicy Number: [id number] Repository [place] [id number] [place], [place] Date: [address]Skd: (HP) 05/18/2017 Secondary LAURENCE L [facility]: [facility] MEDICAID [id number] Repository Number: [id number] Date: 05/10/2017 LAURENCE L Primary LAURENCE L [facility] BROOKSDOB: Insurance:[facility]: Health System AND BPolicy Number: [id number] Repository [place] [id number] [place], [place] Date: [address]Akb: () 05/10/2017 Secondary LAURENCE L [facility] Insurance:[facility]: Health System MEDICAID ONLYPolicy [id number] Repository Number: [id number] Date: 05/02/2017 LAURENCE L Primary LAURENCE L [facility] BILLINGSSDOB: Insurance:[facility]: Health System AND BPolicy Number: [id number] Repository [place] [id number] [place], [place] Date: [address]Qdv: () 05/02/2017 Secondary LAURENCE L [facility] Insurance:[facility]: Health System MEDICAID ONLYPolicy [id number] Repository Number: [id number] Date: 04/22/2017 LAURENCE L Primary LAURENCE L [facility]: Health System AND BPolicy Number: [id number] Repository [place] [id number] [place], [place] Date: [address]Ozj: (HP) 04/22/2017 Secondary LAURENCE L [facility] Insurance:[facility]: Health System MEDICAID ONLYPolicy [id number] Repository Number: [id number] Date: 04/19/2017 Laurence L [facility]: Insurance:MedicarePoli BrooksDOB: System cy Number: Effective [id number] Repository [place] Date: [place], [place] [address]Dtl: (HP) 04/19/2017 Secondary [facility]rence L [facility] Insurance:MedicarePoli BrooksDOB: System cy Number: Effective [id number] Repository Date: 04/19/2017 Tertiary [facility]rence L [facility] HealthcarePolicy [id number] Repository Number: Effective Date: 04/19/2017 Tertiary Laurence L [facility] Insurance:MedicaidPoli BrooksDOB: System cy Number: Effective [id number] Repository Date: 04/08/2017 LAURENCE L Primary LAURENCE L [facility]: [facility] System AND BPolicy Number: [id number] Repository [place] [id number] [place], [place] Date: [address]Eni: () 04/08/2017 Secondary LAURENCE L [facility] Insurance:[facility]: Health System MEDICAID ONLYPolicy [id number] Repository Number: [id number] Date: 04/01/2017 LAURENCE L Primary LAURENCE L [facility]: [facility]: [facility] System AND BPolicy Number: [id number] Repository [place] [id number] [place], [place] Date: [address]Qit: () 04/01/2017 Secondary LAURENCE L [facility] Insurance:[facility]: Health System MEDICAID ONLYPolicy [id number] Repository Number: [id number] Date: 02/25/2017 LAURENCE L Primary LAURENCE L [facility]: [facility]: [facility] System AND BPolicy Number: [id number] Repository [place] [id number] [place], [place] Date: [address]Zqp: () 02/25/2017 Secondary LAURENCE L [facility] MEDICAID ONLYPolicy [id number] Repository Number: [id number] Date: 02/03/2017 LAURENCE L Primary LAURENCE L [facility] Insurance:[facility]: Health System AND BPolicy Number: [id number] Repository [place] [id number] [place], [place] Date: [address]Ziq: () 02/03/2017 Secondary LAURENCE L [facility] MEDICAID ONLYNew [facility] [id number] Repository Number: [id number] Date:
[2017-12-08 11:30] LABS: Amphetamine Urine VISTA NEGATIVE (<1000 ng/mL); Barbiturate Urine VISTA NEGATIVE (< 200 ng/mL); Benzodiazepine Urine VISTA NEGATIVE (< 200 ng/mL); Cocaine Urine VISTA NEGATIVE (< 300 ng/mL); Ecstacy Urine VISTA NEGATIVE (< 500 ng/mL); Methadone Urine VISTA NEGATIVE (< 300 ng/mL); PCP Urine VISTA NEGATIVE (< 25 ng/mL); THC Urine VISTA NEGATIVE (< 50 ng/mL); Vista UDS pH Range 6
== END ==
PROVIDERS: Visit Provider Anesthesiology Pain Medicine
DX: F11.20 Opioid dependence, uncomplicated (principal)
CPT/HCPCS: 80307

== ENCOUNTER → 2018-05-17 16:38 | Outpatient (CLI) | payer MEDICARE, MEDICAID, SELFPAY ==
[2018-05-17 17:23] LABS: Amphetamine Urine VISTA NEGATIVE (<1000 ng/mL); Barbiturate Urine VISTA NEGATIVE (< 200 ng/mL); Benzodiazepine Urine VISTA NEGATIVE (< 200 ng/mL); Cocaine Urine VISTA NEGATIVE (< 300 ng/mL); Ecstacy Urine VISTA NEGATIVE (< 500 ng/mL); Methadone Urine VISTA NEGATIVE (< 300 ng/mL); PCP Urine VISTA NEGATIVE (< 25 ng/mL); THC Urine VISTA NEGATIVE (< 50 ng/mL); Vista UDS pH Range 7
== END ==
PROVIDERS: Referring Provider Anesthesiology Pain Medicine; Visit Provider Anesthesiology Pain Medicine
DX: F11.20 Opioid dependence, uncomplicated (principal)
CPT/HCPCS: 80307